=== PATIENT | female | born 1940 | race Caucasian/White ===

== ENCOUNTER → 2023-08-18 14:14 | Outpatient (REF) | payer OTHER, SELFPAY | LOC: MRI 3T 14:14 | PROVIDERS: ATTENDING PHYSICIAN Physical Medicine & Rehabilitation; FAMILY PHYSICIAN Internal Medicine | DX: M54.16 Radiculopathy, lumbar region (principal) | CPT/HCPCS: 72148 ==

== ENCOUNTER 2023-09-02 17:28 | Inpatient (IN) | payer OTHER, SELFPAY ==
[2023-09-02] VITALS (12 sets, daily range): BP systolic 106–189; BP diastolic 49–81; PULSE 82; O2SAT 85; BMI 37.0
--- NOTE | 2023-09-02 11:34 | ED.GENMED ---
History of Present Illness
<Vee Lott PA-C - Last Filed: 09/02/23 16:55>
General
Chief Complaint: Fall
Source: patient
Exam Limitations: none
Time Seen by Provider: 09/02/23 11:14
Nursing documentation reviewed up to this point in time: agreed with
Travel History
Have you had any contact with someone who has COVID-19?: No
Do you have any symptoms of coronavirus? Fever > 100 degrees, chills, cough, shortness of breath, sore throat, loss of taste or smell, muscle aches, or headache?: No
History of Present Illness
History of Present Illness:
Patient is an 83-year-old female with history hypertension, hyperlipidemia presenting for evaluation in the emergency department via EMS following fall earlier today. She states that she was walking back to her bedroom from the bathroom around 4/5
AM when she fell landing on her buttocks. Patient not sure exactly how she did fall but denies any preceding dizziness, lightheadedness, chest pain, shortness of breath. Patient did not hit her head or lose consciousness. She was able to get up
and get back into bed. She fell back asleep for an hour or so when she woke she had was having significant pain in her lower back and came to the emergency department for evaluation.
Patient denies any headache, visual changes, neck pain, nausea, vomiting. She denies any abdominal pain. Patient denies any chest pain or shortness of breath. patient denies any numbness/tingling of lower extremities, bowel/bladder incontinence.
Patient is not on any blood thinners
Past History
<Vee Lott PA-C - Last Filed: 09/02/23 16:55>
Past History
ED Past Medical History: HTN and Hypercholesterolemia
ED Past Surgical History:
Patient has exhibited threatening behavior?: No
Social History
Tobacco: Former smoker
Alcohol: Occasional
Drug: None
Personal:
Living: with family
Employment: Retired
Family History
Family History: Hypertension and Other (stroke)
Phy Exam
<Vee Lott PA-C - Last Filed: 09/02/23 16:55>
Physical Exam
Physical Exam:
General: In mild distress due to pain, nontoxic appearing
Vitals: Hypertensive, otherwise vital signs stable, afebrile
HEENT: Atraumatic, normocephalic; pupils equal round reactive light bilaterally, protecting airway
Neck: appears supple, no cervical spine tenderness, normal range of motion, trachea midline
CV: Regular rate, no evidence of cyanosis
Resp: No evidence of respiratory distress, lungs clear
Abd: Soft, nontender, non-distended
Extremities: Mild tenderness of right greater trochanter without any obvious deformity, full passive ROM in right hip; no tenderness of left hip, bilateral knees; lower extremities neurovascularly intact
Back: Tenderness of lumbar spine at level L1/L2 and left paraspinal region without any obvious deformity or step off
Neuro: alert and oriented, grossly intact
Psych: Normal affect
Skin: Intact, no rashes
Course
<Vee Lott PA-C - Last Filed: 09/02/23 16:55>
Orders/Labs/Results
Orders:
Orders
09/02/23 11:18
Lumbar Spine Complete, 4 View [CR Lumbar Spine Comp Min 4 Vw*] Urgent
Comment:
Reason For Exam: fall/pain
09/02/23 11:36
Hip, Right 2-3 Views [CR Hip - RT w/wo Pel 2-3 Vw*] Urgent
Comment:
Reason For Exam: fall, pain right hip
Include a pelvis x-ray?: Yes
09/02/23 12:07
Tramadol HCl [Ultram] 75 mg PO NOW STA
09/02/23 12:57
Case Management Consult ONCE
Case Management Consult: Discharge Planning
Ondansetron Orally Disint [Zofran Odt (Orally Disintegrating)] 4 mg PO NOW STA
PT Consult [Pt Eval And Treat] Urgent
Activity Level: As Tolerated
09/02/23 12:58
Electrocardiogram (*1) Urgent
Reason for Study: QTc Monitoring
EKG- Treatment ONCE
09/02/23 13:27
Complete Blood Count/With Diff Urgent
Comprehensive Metabolic Panel Urgent
09/02/23 14:29
CR Chest - 2 Views Urgent
Comment:
Reason For Exam: fall, hypoxia
09/02/23 15:56
NT-proBNP Urgent
Troponin I Urgent
Abnormal Lab Results
09/02/23
13:27
WBC 13.7 H 10^3/uL
(4.8-10.8)
RBC 3.48 L 10^6/uL
(4.20-5.40)
Hgb 11.1 L g/dL
(12.0-16.0)
Hct 33.3 L %
(37.0-47.0)
MCH 31.9 H pg
(27.0-31.0)
RDW 16.3 H %
(11.5-14.5)
MPV 10.7 H fL
(7.4-10.4)
Abs Immat Gran (auto) 0.1 H 10^3/uL
(0-0.05)
Absolute Neuts (auto) 12.1 H 10^3/uL
(1.4-6.5)
Absolute Lymphs (auto) 0.9 L 10^3/uL
(1.2-3.4)
Neutrophils % 88.3 H %
(42.2-75.2)
Lymphocytes % 6.6 L %
(20.5-51.1)
Sodium 134 L mmol/L
(135-145)
BUN 34 H mg/dl
(7-17)
Glucose 139 H mg/dl
(70-99)
09/02/23 13:27
09/02/23 13:27
Vital Signs
Initial and Last Documented VS:
Initial Vital Signs
BP
179/68
09/02/23 11:12
Last Documented Vital Signs
Temp Pulse Resp BP Pulse Ox
98.2 F 83 14 137/72 95
09/02/23 11:13 09/02/23 15:15 09/02/23 15:15 09/02/23 16:00 09/02/23 16:45
<Trinidad Odell MD - Last Filed: 09/02/23 13:03>
Orders/Labs/Results
Orders:
Orders
09/02/23 11:18
Lumbar Spine Complete, 4 View [CR Lumbar Spine Comp Min 4 Vw*] Urgent
Comment:
Reason For Exam: fall/pain
09/02/23 11:36
Hip, Right 2-3 Views [CR Hip - RT w/wo Pel 2-3 Vw*] Urgent
Comment:
Reason For Exam: fall, pain right hip
Include a pelvis x-ray?: Yes
09/02/23 12:07
Tramadol HCl [Ultram] 75 mg PO NOW STA
09/02/23 12:57
Case Management Consult ONCE
Case Management Consult: Discharge Planning
Ondansetron Orally Disint [Zofran Odt (Orally Disintegrating)] 4 mg PO NOW STA
PT Consult [Pt Eval And Treat] Urgent
Activity Level: As Tolerated
09/02/23 12:58
Electrocardiogram (*1) Urgent
Reason for Study: QTc Monitoring
EKG- Treatment ONCE
09/02/23 13:27
Complete Blood Count/With Diff Urgent
Comprehensive Metabolic Panel Urgent
09/02/23 14:29
CR Chest - 2 Views Urgent
Comment:
Reason For Exam: fall, hypoxia
09/02/23 15:56
NT-proBNP Urgent
Troponin I Urgent
Abnormal Lab Results
09/02/23
13:27
WBC 13.7 H 10^3/uL
(4.8-10.8)
RBC 3.48 L 10^6/uL
(4.20-5.40)
Hgb 11.1 L g/dL
(12.0-16.0)
Hct 33.3 L %
(37.0-47.0)
MCH 31.9 H pg
(27.0-31.0)
RDW 16.3 H %
(11.5-14.5)
MPV 10.7 H fL
(7.4-10.4)
Abs Immat Gran (auto) 0.1 H 10^3/uL
(0-0.05)
Absolute Neuts (auto) 12.1 H 10^3/uL
(1.4-6.5)
Absolute Lymphs (auto) 0.9 L 10^3/uL
(1.2-3.4)
Neutrophils % 88.3 H %
(42.2-75.2)
Lymphocytes % 6.6 L %
(20.5-51.1)
Sodium 134 L mmol/L
(135-145)
BUN 34 H mg/dl
(7-17)
Glucose 139 H mg/dl
(70-99)
09/02/23 13:27
09/02/23 13:27
Vital Signs
Initial and Last Documented VS:
Initial Vital Signs
BP
179/68
09/02/23 11:12
Last Documented Vital Signs
Temp Pulse Resp BP Pulse Ox
98.2 F 83 14 137/72 95
09/02/23 11:13 09/02/23 15:15 09/02/23 15:15 09/02/23 16:00 09/02/23 16:45
<Vee Lott PA-C - Last Filed: 09/02/23 16:55>
MDM/Problems Addressed
Differential Diagnosis Includes:
Not limited to: Vertebral fracture, paraspinal strain/spasm, hip fracture
MDM/Problems Addressed:
Patient is an 83-year-old female presenting for evaluation of lower back pain following fall earlier today. Unsure exact mechanism of fall but denies any preceding dizziness, lightheadedness, chest pain, shortness of breath. No strokelike
symptoms. Patient denies head strike or loss of conscious. Worsening lower back pain. Vital stable, afebrile. Exam as above. She does have some tenderness of lumbar spine around L1/L2. There is some associated mild tenderness around the right
hip. Will check x-ray of lumbar spine and right hip. tramadol for pain. Will reassess.
X-ray of lumbar spine does show a compression fracture of L1 superior endplate. I do have concern about patient's ability to control pain and ambulate safely at home. PT and case management consulted for discharge planning. She has since become
somewhat lightheaded and nauseous. Will give Zofran. Will check EKG, basic labs.
EKG shows normal sinus rhythm without any signs of ischemia. Labs do show mild leukocytosis of 13.7 and mild anemia with hemoglobin of 11.1�which appears chronic for patient. Otherwise no clinically significant abnormalities.
PT did recommend placement for patient rehab facility, not safe for discharge home. Case management was able to secure a bed at [facility]. Shortly after�patient's oxygen saturation did drop into mid 80s requiring 2 L nasal cannula with return
to baseline. Patient's oxygen dropped with trial off oxygen. Although she continues to deny any shortness of breath or chest pain-will check chest x-ray given sustained hypoxia on room air and associated leukocytosis to ensure no pneumonia,
pneumothorax, acute lung pathology. Given oxygen requirement�will plan for admission to hospital as opposed to rehab placement.
Chest x-ray shows what appears to be mild CHF. Will send for troponin and proBNP. Patient's vitals remained stable and oxygen saturation in upper 90s on 2 L nasal cannula. Will admit to hospitalist for pain management of L1 compression fracture,
oxygen requirement likely due to mild CHF. Discussed with hospitalist.
Chronic conditions affecting care:
Spinal stenosis, chronic back pain
Acute Exacerbation and/or Progression of Chronic Illness:
Mild CHF exacerbation
<Vee Lott PA-C - Last Filed: 09/02/23 16:55>
*Radiology
Radiology exam reviewed: preliminary read by ED provider and radiology read reviewed
*Pulse Oximetry
Patient hypoxic: yes (Placed on 2 L nasal cannula)
*EKG
Interpreted by ED Provider?: Yes
EKG Intrepretation Date: 09/02/23
Interpretation: normal
Comparison EKG: no comparison EKG present
Heart Rate: 78
Rate: normal
Rhythm: sinus
Ischemia: no ischemia
*Squeegee Tender Interpretation
Rate: Squeegee Tender- N/A
*Critical Care Note
Total Time (30-74mins, 75-104mins- exclusive of procedures): Not Applicable
<Vee Lott PA-C - Last Filed: 09/02/23 16:55>
Patient Management
Discussion with other providers: Hospitalist and Accounting Assistant (PT, case management)
Escalation/DeEscalation of care consider admission/obs:
Given hypoxia and oxygen requirement�will admit for further management and pain control of compression fracture
ED Attending Note
<Vee Lott PA-C - Last Filed: 09/02/23 16:55>
-
Portions of this chart may have been created with voice recognition software.� Occasional wrong word or��sound alike� substitutions may have occurred due to the inherent limitations of voice recognition software.
<Trinidad Odell MD - Last Filed: 09/02/23 13:03>
ED Attending Note
Patient seen and examined by attending physician: Yes
I performed the substantive portion of visit, reviewed & personally made and approve the management plan that is documented in note by myself or PRASAD.: Yes
ED Attending Note:
Patient denies any previous lightheadedness, dizziness, chest pain or shortness of breath. She reports she just fell down onto her bottom. She did not hit her head. There is no sign of head or neck trauma. Patient is isolated mid lumbar
tenderness and has an acute fracture seen on x-ray of L1. Patient got up and walked and is having severe pain. She now reports feeling slightly nauseous and lightheaded. She lives with her . I am concerned about the safety of her going
home. We will consult PT and case management for discharge planning. If needed, patient will be admitted to the hospital. There is no history of syncope or strokelike symptoms.
Discharge Plan
Departure
Patient Disposition: Admit
Date of Disposition: 09/02/23
Time of Disposition: 15:51
Presentation/result/management discussed w/ accepting MD/DO: Hospitalist
Discharge Problem:
Compression fracture of L1 vertebra, Mild congestive heart failure, Hypoxia
Prescriptions:
No Action
amlodipine 5 MG tablet
5 mg PO BID
zolpidem 5 MG tablet
10 mg PO HS PRN (Reason: Sleep)
memantine 10 MG tablet
10 mg PO BID
donepezil 23 MG tablet
23 mg PO HS
cyanocobalamin (vitamin B-12) 1,000 MCG tablet
1,000 mcg PO DAILY Qty: 30 0RF
sertraline 100 mg Tablet
100 mg PO DAILY
acetaminophen-codeine [Tylenol-Codeine #2] 300-15 mg Tablet
1 tab PO Q8H PRN (Reason: severe pain)
acetaminophen [Tylenol Arthritis] 650 mg Tablet Extended Release
1,300 mg PO Q8HPRN PRN (Reason: mild pain)
losartan-hydrochlorothiazide 100-25 mg Tablet
1 tab PO DAILY
ferrous sulfate [iron] 325 mg (65 mg iron) Tablet
325 mg PO MOWEFR@0800
hydralazine 50 mg Tablet
50 mg PO BID
rosuvastatin 20 mg Tablet
20 mg PO HS
pregabalin 25 mg Capsule
25 mg PO BID
riboflavin (vitamin B2)
1 tab PO DAILY
pantoprazole 40 MG tablet,delayed release (DR/EC)
40 mg PO DAILY
Referrals:
Penny Simmons MD [Family Provider] -
Interventions
Interventions:
*Risk Screen - Suicide Last Done: 09/02/23 11:13
*General Assessment Last Done: 09/02/23 11:13
*Neglect/Abuse Screening Last Done: 09/02/23 11:13
ED- Fall Risk Assessment Last Done: 09/02/23 11:13
*ED COVID-19 Vaccine History Last Done: 09/02/23 11:13
ED-Musculoskeletal Assessment Last Done: 09/02/23 11:13
ED- Neurological Assessment Last Done: 09/02/23 11:13
ED-Skin Assessment Last Done: 09/02/23 11:13
Discharge Date and Time
Print Language: FRENCH
[2023-09-02] MEDS: ULTRAM 75 MG PO (12:27)
[2023-09-02] MEDS: ZOFRAN ODT (ORALLY DISINTEGRATING) 4 MG PO (13:03)
--- NOTE | 2023-09-02 13:11 | CM ---
Addendum entered by Mirela Pedroza RN 09/02/23 14:28:
Transfer to SNF canceled due to patient's hypoxia. Plan for admission.
Addendum entered by Mirela Pedroza RN 09/02/23 14:06:
Patient is agreeable to transfer to [facility]. CM will call for authorization.
Addendum entered by Mirela Pedroza RN 09/02/23 13:44:
[facility] is able to accept. PT is currently working with patient. CM will confirm SNF needs and update [facility] admission coordinator.
Addendum entered by Mirela Pedroza RN 09/02/23 13:31:
CM met with patient and in room. Patient would be agreeable to placement pending PT evaluation. CM sent preliminary referrals to [facility] for bed [facility]. CM will continue to follow for needs.
Original Note:
Cm reviewed medical records. Pending PT evaluation. CM will watch for recommendations.
[2023-09-02 13:42] LABS: % Basophils 0.2 % (0-2); % Immature Granulocytes 0.4 % (0-0.5); % Lymphocytes 6.6 % (20.5-51.1); % Monocytes 4.5 % (1.7-9.3); % Neutrophils 88.3 % (42.2-75.2); Absolute Immature Granulocytes 0.1 10^3/uL (0-0.05); Absolute Lymphocytes 0.9 10^3/uL (1.2-3.4); Absolute Monocytes 0.6 10^3/uL (0.1-0.6); Absolute Neutrophils 12.1 10^3/uL (1.4-6.5); Hematocrit 33.3 % (37.0-47.0); Hemoglobin 11.1 g/dL (12.0-16.0); Mean Corp Hgb Conc. 33.3 g/dL (33.0-37.0); Mean Corpuscular Hgb 31.9 pg (27.0-31.0); Mean Corpuscular Volume 95.7 fL (81.0-99.0); Mean Platelet Volume 10.7 fL (7.4-10.4); Nucleated Red Blood Cells % 0 %; Platelet Count 211 10^3/uL (130-400); Red Blood Cell Count 3.48 10^6/uL (4.20-5.40); Red Cell Dist. Width 16.3 % (11.5-14.5); White Blood Cell Count 13.7 10^3/uL (4.8-10.8)
[2023-09-02 13:58] LABS: ALT (SGPT) 18 U/L (0-35); AST (SGOT) 28 U/L (14-36); Alkaline Phosphatase 89 U/L (38-126); Blood Urea Nitrogen 34 mg/dl (7-17); Calcium 9.6 mg/dl (8.4-10.2); Carbon Dioxide 29 mmol/L (22-30); Chloride 103 mmol/L (98-107); Estimated Creatinine Clearance 57 ml/min; Glucose 139 mg/dl (70-99); Potassium 4.3 mmol/L (3.5-5.1); Sodium 134 mmol/L (135-145); Total Bilirubin 0.5 mg/dl (0.2-1.3); Total Protein 7.1 g/dl (6.3-8.2); eGFR > 60.00
[2023-09-02 16:28] LABS: NT-proBNP 1740 pg/ml; Troponin I 0.012 ng/ml
--- NOTE | 2023-09-02 16:46 | HPS.HSE ---
Family Physician
-
Family Physician: Penny Simmons
Chief Complaint
-
Fall, back pain
History of Present Illness
83-year-old female from home by EMS who was walking to her bedroom from the bathroom around 4 to 5 AM when she fell landing on her buttocks. She is unsure how she fell but denies any prodrome of dizziness, lightheadedness, chest pain or shortness
of breath. She denies LOC. She was able to get back up and back into bed and fall back asleep. Upon awakening she had pain in her lower back and came to the ER for evaluation where she was found to have an L1 compression fracture she was also
noted to be hypoxic with saturation dropping into the 80s while lying flat and required 2 L nasal cannula. Her chest x-ray showed some mild CHF. According to her she did not take her a.m. medications. He is also requesting her Ambien for
sleep but I explained due to her hypoxia I would like to hold that medication. He is requesting low-dose melatonin which I will add. He also reports she had a lumbar epidural [address] Zazueta. Other PMH includes HTN, dementia oriented to
name, place, but not year, HLD, insomnia, blood loss anemia gastric ulcer due to NSAID use, chronic diastolic CHF, iron deficiency, B12 deficiency, neuropathy, arthritis, depression, insomnia.
Medical History
Past Medical History
Past Medical History: Reports Other
Additional Past Medical History:
HTN
dementia
HLD
insomnia
blood loss anemia gastric ulcer due to NSAID use
chronic diastolic CHF
iron deficiency
B12 deficiency
neuropathy
arthritis
depression
insomnia.
Past Surgical History: Reports and Other (Lumbar epidural mid August [address]23 Dr. Zazueta)
Social History
Tobacco: Former Smoker (Quit 30 years ago)
Alcohol: Daily (1 glass 8 ounce wine nightly)
Personal:
Living: With Family ( Matthew)
Employment: Retired
Family History
Family History: Other (Mother CVA age 45 age 89 old age, father age 79 liver cancer)
Allergies / Home Medications
Allergies reflects when Allergies were last updated in [facility].
Home Medications with original date entered in [facility]
Allergy/Medication List:
Allergies
Allergy/AdvReac Type Severity Reaction Status Date / Time
No Known Allergies Allergy Verified 09/02/21 20:39
Home Medications
amlodipine 5 mg tablet 5 mg PO BID Blood pressure 07/07/21
memantine 10 mg tablet 10 mg PO BID memory 07/07/21
zolpidem 5 mg tablet 10 mg PO HS PRN Sleep 07/07/21
donepezil 23 mg tablet 23 mg PO HS memory 07/09/21
cyanocobalamin (vitamin B-12) 1,000 mcg tablet 1,000 mcg PO DAILY #30 tabs 07/11/21
acetaminophen 300 mg-codeine 15 mg tablet 1 tab PO Q8H PRN severe pain 09/02/23
acetaminophen 650 mg tablet,extended release 1,300 mg PO Q8HPRN PRN mild pain 09/02/23
ferrous sulfate 325 mg (65 mg iron) tablet (iron) 325 mg PO MOWEFR@0800 09/02/23
hydralazine 50 mg tablet 50 mg PO BID 09/02/23
losartan 100 mg-hydrochlorothiazide 25 mg tablet 1 tab PO DAILY 09/02/23
pantoprazole 40 mg tablet,delayed release 40 mg PO DAILY 09/02/23
pregabalin 25 mg capsule 25 mg PO BID 09/02/23
riboflavin (vitamin B2) 1 tab PO DAILY 09/02/23
rosuvastatin 20 mg tablet 20 mg PO HS 09/02/23
sertraline 100 mg tablet 100 mg PO DAILY 09/02/23
Review of Systems
-
History Source: Patient and Family ( Matthew at bedside)
A 12 point ROS was completed and negative except as noted: Yes
Constitutional: Denies Fever, Fatigue or Chills
EENT: Denies Sore Throat or Runny Nose
Respiratory: Denies Cough or Trouble Breathing
Cardiac: Denies Chest Pain, Diaphoresis, Palpitations or Syncope
Abdomen/GI: Denies Abdominal Pain, Nausea, Vomiting, Diarrhea, Constipated, Bloody Stools or Black Stools
: Denies Dysuria, Frequency, Flank Pain, Incontinence or Difficulty Voiding
Musculoskeletal: Reports Other (Lumbar back pain); Denies Joint Pain or Edema
Skin: Denies Itching or Rash
Neurological: Denies Dizzy, Headache or Weakness
Endocrine: Reports No Symptoms
Hematologic/Lymphatic: Reports No Symptoms
Psych: Reports Calm
Physical Exam
Vital Signs
Vital Signs
Temp Pulse Resp BP Pulse Ox
98.2 F 83 14 137/72 94
09/02/23 11:13 09/02/23 15:15 09/02/23 15:15 09/02/23 16:00 09/02/23 16:15
Physical Exam
General: Comfortable and Conversant; No Fever or Chills
HEENT: NormoCephalic, Anicteric, Moist mucous membranes, Atraumatic, PERRLA, [place] Conjunctivae, No Ptosis and Neck Nontender
Respiratory: Clear; No Wheezes, Rales or Rhonchi
Cardiac: S1/S2 and Regular Rhythm; No Murmur, Rub, Gallop or Peripheral Edema
Breast: Deferred by me
GI: Soft, Non Tender, Non Distended, Normal Bowel Sounds and No Hepatosplenomegaly
Rectal: Deferred by Provider
Genito-urinary: Deferred by me
Musculoskeletal: No Clubbing, No Cyanosis, No Edema and Other (Tender lumbar area, Lidoderm patch placed by nurse when in room, distal sensation intact)
Skin: Warm and Dry; No Rash or Jaundice
Neuro: Awake, Alert, Oriented (To name, place, but thinks it is 2019), Nonfocal/grossly intact, Cranial Nerves Intact and No Sensory Deficits; No Slurred Speech, Facial Droop or Tremors
Psych: Calm
Laboratory Results
-
09/02/23 13:27
09/02/23 13:27
Laboratory Results
Total Bilirubin 0.5 mg/dl (0.2-1.3) 09/02/23 13:27
AST 28 U/L (14-36) 09/02/23 13:27
ALT 18 U/L (0-35) 09/02/23 13:27
Alkaline Phosphatase 89 U/L (38-126) 09/02/23 13:27
Troponin I 0.012 ng/ml 09/02/23 15:56
Data Reviewed
-
Diagnostic Radiology: Report Reviewed by me
Lab Data: Labs Reviewed by me
Impression/Plan
-
Impression/plan:
Admit to telemetry
#Mild acute on chronic diastolic CHF with preserved EF
#Hypoxic respiratory insufficiency 2/2 possible CHF flare
80% sat lying, 97% 2 L nasal cannula sitting up
BNP 1740
I/O, daily weight
-IV Lasix 20 mg once
-Check 2D echo
Follows with [facility] cardiology
CXR: Poor inspiratory effort , mild prominence of bronchovascular markings. Mild vascular congestion cannot be excluded
EKG: NSR 78 bpm, QTc 451 MS otherwise normal
2D echo 07/10/2021: EF 60-65%, mild LVH, no wall abnormalities, moderate MR/TR, moderate pulm HTN pulm arterial pressure 58 mmHg
#Labile HTN
189/71> 137/72 patient did not take a.m. medications
-IV Lasix 20 mg once
-Continue losartan/HCTZ, hydralazine 50 mg p.o. twice daily, amlodipine 5 mg twice daily
#Mechanical fall with NEW L1 compression fracture 40%
-Lidoderm patch
-Tylenol, tramadol, continue Tylenol codeine No. 2 1 tab every 8 hours as needed severe pain, bowel regimen
-MRI lumbar spine
-Consult PT/OT/case management
Right hip pelvis x-ray: Normal
Lumbar spine: New 40% compression fracture superior endplate of L1. DDD L2-3 and L3-4, atherosclerosis
#History of blood loss anemia from gastric ulcer secondary to NSAID use July 2021
-Had EGD on 07 09 showing multiple clean gastric ulcers in the antrum
-Continue PPI
#Iron deficiency/B12 deficiency
-History of IV Venofer July 2021
-Continue ferrous sulfate 325 mg Friday
-Continue B12 supplement
#Dementia
Oriented to name, place, but not year
-Continue memantine 10 mg twice daily, donepezil 20 mg at bedtime
#Neuropathy/chronic back pain
Status post lumbar epidural [address] Zazueta
#Chronic arthritis
-Continue Lyrica 25 mg p.o. twice daily
-Tylenol 650 mg q8h
#HLD
-Continue rosuvastatin 20 mg at bedtime
#Depression
-Continue Zoloft 100 mg daily
#Insomnia
Hold Ambien 10 mg at bedtime due to hypoxia with lying
Will give 5 mg melatonin per family request
DVT prophylaxis
Subcu Lovenox
Full code per patient with and son at bedside
--- NOTE | 2023-09-02 16:53 | W.PN.UPDATE ---
Update Note
Progress Note Update
I saw and examined the patient.
The LICENSED SALES PRODUCER or PA's note was reviewed and I agree with the note.
Comment: 83-year-old female who presented with a mechanical fall. In the ER she was noted to be saturating in the 80s when supine.
137/72, 83, 14, 98.2 F, 95% 2L NC O2
NAD, awake and alert
RRR, normal S1/S2
CTAB
+BS/soft/NT/ND
CN2-12 intact
Cr 0.7
WBC 13.7
L-spine Xray: New 40% compression fracture of the superior endplate of L1
Acute L1 comp fx:
-check MRI L spine
-c/s IR for vertebroplasty
Acute on chronic HFpEF (mild):
-Lasix 40mg IV x 1
-check echo
-daily wts, I/Os
Essential HTN:
-Continue Norvasc/hydrochlorothiazide/losartan
Obesity due to excess calories:
-Encourage weight loss
-Affects all aspects of care
[2023-09-02] MEDS: LIDOCAINE 4% PATCH 1 PATCH TOPICAL (17:06)
[2023-09-02] MEDS: LASIX 20 MG IV (17:06)
--- NOTE | 2023-09-02 18:25 | PTCARENOTE ---
1825 Pt arrived to unit room 337-1 via stretcher from ED.
[2023-09-02] MEDS: NAMENDA 10 MG PO (20:10)
[2023-09-02] MEDS: NORVASC 5 MG PO (20:10)
[2023-09-02] MEDS: LOVENOX 40 MG SC (20:10)
[2023-09-02] MEDS: APRESOLINE 50 MG PO (20:11)
[2023-09-02] MEDS: LYRICA 25 MG PO (20:12)
[2023-09-02] MEDS: ULTRAM 50 MG PO (20:19)
[2023-09-02] MEDS: ARICEPT 20 MG PO (21:51)
[2023-09-02] MEDS: CRESTOR 20 MG PO (21:51)
[2023-09-02] MEDS: MELATONIN 5 MG PO (21:51)
[2023-09-03] VITALS (7 sets, daily range): BP systolic 126–165; BP diastolic 55–69; PULSE 77; O2SAT 96; BMI 35.6
[2023-09-03] MEDS: ZOFRAN 4 MG IV (03:45)
[2023-09-03 05:54] LABS: % Basophils 0.3 % (0-2); % Eosinophils 0.1 % (0-6); % Immature Granulocytes 0.3 % (0-0.5); % Lymphocytes 5.5 % (20.5-51.1); % Monocytes 5.4 % (1.7-9.3); % Neutrophils 88.4 % (42.2-75.2); Absolute Lymphocytes 0.7 10^3/uL (1.2-3.4); Absolute Monocytes 0.7 10^3/uL (0.1-0.6); Absolute Neutrophils 11.1 10^3/uL (1.4-6.5); Hematocrit 33.2 % (37.0-47.0); Mean Corp Hgb Conc. 33.1 g/dL (33.0-37.0); Mean Corpuscular Hgb 31.7 pg (27.0-31.0); Mean Corpuscular Volume 95.7 fL (81.0-99.0); Mean Platelet Volume 10.5 fL (7.4-10.4); Nucleated Red Blood Cells % 0 %; Platelet Count 214 10^3/uL (130-400); Red Blood Cell Count 3.47 10^6/uL (4.20-5.40); Red Cell Dist. Width 16.5 % (11.5-14.5); White Blood Cell Count 12.5 10^3/uL (4.8-10.8)
[2023-09-03 06:21] LABS: Blood Urea Nitrogen 35 mg/dl (7-17); Calcium 9.8 mg/dl (8.4-10.2); Carbon Dioxide 30 mmol/L (22-30); Chloride 99 mmol/L (98-107); Estimated Creatinine Clearance 49 ml/min; Glucose 145 mg/dl (70-99); Potassium 4.1 mmol/L (3.5-5.1); Sodium 139 mmol/L (135-145); eGFR > 60.00
[2023-09-03] MEDS: LIDOCAINE 4% PATCH 1 PATCH TOPICAL (07:32)
[2023-09-03] MEDS: PROTONIX 40 MG PO (07:33)
[2023-09-03] MEDS: HYZAAR 100-25 TABLET 1 TAB PO (07:33)
[2023-09-03] MEDS: NAMENDA 10 MG PO ×2 (07:33→19:58)
[2023-09-03] MEDS: LYRICA 25 MG PO ×2 (07:33→19:58)
[2023-09-03] MEDS: APRESOLINE 50 MG PO ×2 (07:34→19:58)
[2023-09-03] MEDS: NORVASC 5 MG PO ×2 (07:34→19:58)
[2023-09-03] MEDS: VITAMIN B-12 1000 MCG PO (07:34)
[2023-09-03] MEDS: FEOSOL 325 MG PO (07:34)
[2023-09-03] MEDS: ZOLOFT 100 MG PO (07:34)
--- NOTE | 2023-09-03 09:38 | W.PN.HOSP.TC ---
Today's Communication/Plan
-
see bold
Assessment / Plan
Assessment / Plan
Gen: NAD, Awake and alert
Eyes: EOMI, PERRLA, no scleral icterus.
Neck: supple.
CV: RRR, +S1/S2, no m/r/g.
Resp: CTAB, no rales, wheezes, or rhonchi.
Abd: +BS, soft, NT, ND
Skin: No rashes.
Neuro: CN 2-12 intact, non-focal.
Psych: Normal mood and affect.
CXR: Poor inspiratory effort. No evidence of pneumonia. Mild prominence of bronchovascular markings may be accentuated by low lung volumes. The possibility of mild vascular congestion cannot be excluded.
L-spine Xray: New 40% compression fracture of the superior endplate of L1
Acute L1 comp fx due to mechanical fall:
-check MRI L spine
-c/s IR for vertebroplasty (after MRI L-spine done)
Acute on chronic HFpEF (mild):
-Lasix 40mg IV x 1 given on admission
-check echo
-daily wts, I/Os
Other problems:
Essential HTN: Continue Norvasc/hydrochlorothiazide/losartan
Obesity due to excess calories: Encourage weight loss. Affects all aspects of care.
h/o gastric ulcer: cont PPI
h/o Fe def: cont PO Fe
h/o B12 deficiency: cont B12 supplement
Dementia: cont Namenda/Aricept
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
HLD: cont statin
Depression: cont Zoloft
Insomnia: Melatonin PRN
FULL/Lovenox
Anticipated Discharge: 24 - 48 hours
Subjective/Interval History
-
Date of Service: September 03, 2023
Back pain improved from yesterday. Denies CP/SOB.
Objective Data
-
Labs:
Laboratory Results
09/03/23
05:22
WBC 12.5 H
Hgb 11.0 L
Hct 33.2 L
Plt Count 214
Sodium 139
Potassium 4.1
Chloride 99
Carbon Dioxide 30
BUN 35 H
Creatinine 0.8
Glucose 145 H
Calcium 9.8
Vital Signs:
Vital Signs
Temp Pulse Resp BP Pulse Ox
99 F 80 16 160/69 97
09/03/23 08:12 09/03/23 08:12 09/03/23 08:12 09/03/23 08:12 09/03/23 08:12
[2023-09-03] MEDS: ULTRAM 50 MG PO ×2 (12:11→21:27)
[2023-09-03] MEDS: CODEINE 15 MG PO (14:25)
[2023-09-03] MEDS: TYLENOL 650 MG PO (14:25)
[2023-09-03] MEDS: LOVENOX 40 MG SC (17:38)
[2023-09-03] MEDS: ARICEPT 20 MG PO (21:27)
[2023-09-03] MEDS: CRESTOR 20 MG PO (21:28)
[2023-09-03] MEDS: MELATONIN 5 MG PO (21:28)
[2023-09-04 03:00] VITALS: BP 146/62
[2023-09-04 06:00] VITALS: BMI 34.4
[2023-09-04 07:49] VITALS: BP 152/70
[2023-09-04] MEDS: CODEINE 15 MG PO ×2 (08:00→16:11)
[2023-09-04] MEDS: TYLENOL 325 MG PO ×2 (08:01→16:10)
[2023-09-04] MEDS: LIDOCAINE 4% PATCH 1 PATCH TOPICAL (08:02)
[2023-09-04] MEDS: HYZAAR 100-25 TABLET 1 TAB PO (08:03)
[2023-09-04] MEDS: NAMENDA 10 MG PO ×2 (08:03→21:20)
[2023-09-04] MEDS: VITAMIN B-12 1000 MCG PO (08:03)
[2023-09-04] MEDS: ZOLOFT 100 MG PO (08:03)
[2023-09-04] MEDS: LYRICA 25 MG PO ×2 (08:03→21:18)
[2023-09-04] MEDS: PROTONIX 40 MG PO (08:03)
[2023-09-04] MEDS: NORVASC 5 MG PO ×2 (08:03→21:17)
[2023-09-04] MEDS: APRESOLINE 50 MG PO ×2 (08:03→21:20)
--- NOTE | 2023-09-04 09:07 | W.PN.HOSP.TC ---
Today's Communication/Plan
-
see bold
Assessment / Plan
Assessment / Plan
Gen: NAD, Awake and alert
Eyes: EOMI, PERRLA, no scleral icterus.
Neck: supple.
CV: remains RRR, +S1/S2, no m/r/g.
Resp: remains CTAB, no rales, wheezes, or rhonchi.
Abd: remains +BS, soft, NT, ND
Skin: No rashes.
Neuro: CN 2-12 intact, non-focal.
Psych: Normal mood and affect.
CXR: Poor inspiratory effort. No evidence of pneumonia. Mild prominence of bronchovascular markings may be accentuated by low lung volumes. The possibility of mild vascular congestion cannot be excluded.
L-spine Xray: New 40% compression fracture of the superior endplate of L1
MRI L-spine: Examination is severely limited due to patient motion. Repeat fast scanning was performed. New in the interval since the MRI 2 weeks ago is a minimal superior endplate compression fracture of L1 with minimal retrolisthesis of the
posterior superior endplate, however without cord compression or clear nerve root impingement. Limited motion artifact images suggest a new small shallow central disk protrusion at L2-3, consider follow-up repeat imaging when patient is
appropriately medicated for pain. This however does not cause any cord compression, nerve root impingement or severe central canal stenosis. No other significant interval change. Moderate facet arthropathy on the left at L4-5.
Acute L1 comp fx due to mechanical fall:
-MRI L spine above with minimal superior endplate compression fracture of L1
-case discussed with Dr. Maria and comp fx would be amenable to kyphoplasty. IR to discuss with pt/family.
Acute on chronic HFpEF (mild):
-Lasix 40mg IV x 1 given on admission
-check echo
-daily wts, I/Os
Insomnia:
-no ambien
-start Restoril PRN
Other problems:
Essential HTN: Continue Norvasc/hydrochlorothiazide/losartan
Obesity due to excess calories: Encourage weight loss. Affects all aspects of care.
h/o gastric ulcer: cont PPI
h/o Fe def: cont PO Fe
h/o B12 deficiency: cont B12 supplement
Dementia: cont Namenda/Aricept
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
HLD: cont statin
Depression: cont Zoloft
Insomnia: Melatonin PRN
FULL/Lovenox
Pt's [id number] and updated at length. Discussed with RN and CM.
Total time spent on today's encounter was 50 minutes which included time spent in counseling the patient/family regarding diagnosis and treatment plan as listed above, goals of care, and symptom management. Case was discussed with nursing staff,
specialists, and care coordinators/case management. All labs and imaging personally reviewed by me. Remainder the time spent in detailed review of previous records, lab data, imaging, and other medical provider documentation.
Anticipated Discharge: > 48 hours
Subjective/Interval History
-
Date of Service: September 04, 2023
c/o insomnia. Also reports back pain is returning.
Objective Data
-
Vital Signs:
Vital Signs
Temp Pulse Resp BP Pulse Ox
98.5 F 78 16 152/70 97
09/04/23 07:49 09/04/23 08:03 09/04/23 07:49 09/04/23 08:03 09/04/23 07:49
I&O
09/03/23 09/04/23 09/05/23
06:59 06:59 06:59
Intake Total 1320 / 1320
Output Total 350 / 350
Balance 970 / 970
--- NOTE | 2023-09-04 10:19 | CM ---
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
Met with pt, and daughter in law Tiarra at bedside
Additional choices for SNF given. Family declining [facility] at this time
CM will cont to follow for d/c needs
Plan - transfer to snf when medically stable
[2023-09-04] MEDS: ULTRAM 50 MG PO ×2 (12:35→21:14)
[2023-09-04 12:45] VITALS: BP 139/62; PULSE 71; O2SAT 96
[2023-09-04 12:47] VITALS: BP 139/62; PULSE 74; O2SAT 96
[2023-09-04 15:37] VITALS: BP 144/56
[2023-09-04] MEDS: LOVENOX 40 MG SC (17:34)
[2023-09-04] MEDS: ARICEPT 20 MG PO ×2 (21:14→21:18)
[2023-09-04] MEDS: CRESTOR 20 MG PO (21:15)
[2023-09-04] MEDS: MELATONIN 5 MG PO (21:15)
[2023-09-04] MEDS: CRESTOR PO ×2 (21:16→21:18)
[2023-09-04] MEDS: ARICEPT PO (21:20)
[2023-09-04] MEDS: RESTORIL 7.5 MG PO (21:31)
[2023-09-04 23:20] VITALS: BP 138/65
[2023-09-05 00:20] VITALS: BP 117/53
[2023-09-05 06:00] VITALS: BMI 35.4
[2023-09-05] MEDS: PROTONIX 40 MG PO (07:42)
[2023-09-05] MEDS: VITAMIN B-12 1000 MCG PO (07:42)
[2023-09-05] MEDS: ULTRAM 50 MG PO ×2 (07:42→14:48)
[2023-09-05] MEDS: ZOLOFT 100 MG PO (07:42)
[2023-09-05] MEDS: HYZAAR 100-25 TABLET 1 TAB PO (07:43)
[2023-09-05] MEDS: APRESOLINE 50 MG PO ×2 (07:43→21:58)
[2023-09-05] MEDS: LIDOCAINE 4% PATCH 1 PATCH TOPICAL (07:43)
[2023-09-05] MEDS: FEOSOL 325 MG PO (07:43)
[2023-09-05] MEDS: NAMENDA 10 MG PO ×2 (07:43→21:55)
[2023-09-05] MEDS: NORVASC 5 MG PO ×2 (07:43→22:00)
[2023-09-05 07:46] VITALS: BP 154/71
[2023-09-05] MEDS: LYRICA 25 MG PO ×2 (08:13→22:00)
--- NOTE | 2023-09-05 09:53 | W.PN.HOSP.TC ---
Today's Communication/Plan
-
see bold
Assessment / Plan
Assessment / Plan
Gen: NAD, Awake and alert
Eyes: EOMI, PERRLA, no scleral icterus.
Neck: supple.
CV: continues to remain RRR, +S1/S2, no m/r/g.
Resp: continues to remain CTAB, no rales, wheezes, or rhonchi.
Abd: continues to remain +BS, soft, NT, ND
Skin: No rashes.
Neuro: CN 2-12 intact, non-focal.
Psych: Normal mood and affect.
CXR: Poor inspiratory effort. No evidence of pneumonia. Mild prominence of bronchovascular markings may be accentuated by low lung volumes. The possibility of mild vascular congestion cannot be excluded.
L-spine Xray: New 40% compression fracture of the superior endplate of L1
MRI L-spine: Examination is severely limited due to patient motion. Repeat fast scanning was performed. New in the interval since the MRI 2 weeks ago is a minimal superior endplate compression fracture of L1 with minimal retrolisthesis of the
posterior superior endplate, however without cord compression or clear nerve root impingement. Limited motion artifact images suggest a new small shallow central disk protrusion at L2-3, consider follow-up repeat imaging when patient is
appropriately medicated for pain. This however does not cause any cord compression, nerve root impingement or severe central canal stenosis. No other significant interval change. Moderate facet arthropathy on the left at L4-5.
Echo: Normal left ventricular chamber size. Normal left ventricular systolic
function. Left ventricular ejection fraction is 60-65% by volumetric
assessment. Normal regional wall motion. Normal left ventricular wall
thickness.
Moderate mitral regurgitation.
Moderate tricuspid regurgitation. Estimated pulmonary artery pressure of 55-60
mmHg.
Trace pericardial effusion. .
Compared to the previous echo July 2021, there is no significant change.
Acute L1 comp fx due to mechanical fall:
-MRI L spine above with minimal superior endplate compression fracture of L1
-IR to do kyphoplasty 09/08/23
Acute on chronic HFpEF (mild):
-Lasix 40mg IV x 1 given on admission
-Echo above, unchanged from prior in 2021
-daily wts, I/Os
-start FR 1440cc/day
-nursing instructed to check wts on standing scale starting in AM. May need additional doses of lasix depending on wts.
Insomnia:
-no ambien
-cont Restoril PRN
Other problems:
Essential HTN: Continue Norvasc/hydrochlorothiazide/losartan
Obesity due to excess calories: Encourage weight loss. Affects all aspects of care.
h/o gastric ulcer: cont PPI
h/o Fe def: cont PO Fe
h/o B12 deficiency: cont B12 supplement
Dementia: cont Namenda/Aricept
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
HLD: cont statin
Depression: cont Zoloft
Insomnia: Melatonin PRN
FULL/Lovenox
Anticipated Discharge: > 48 hours
Subjective/Interval History
-
Date of Service: September 05, 2023
Denies CP/SOB.
Objective Data
-
Vital Signs:
Vital Signs
Temp Pulse Resp BP Pulse Ox
98.9 F 93 18 154/71 94
09/05/23 07:46 09/05/23 07:46 09/05/23 07:46 09/05/23 07:46 09/05/23 07:39
I&O
09/04/23 09/05/23 09/06/23
06:59 06:59 06:59
Intake Total 1320 / 1320 120 / 120
Output Total 350 / 350
Balance 970 / 970 120 / 120
[2023-09-05 10:33] LABS: Hematocrit 34.4 % (37.0-47.0); Hemoglobin 11.3 g/dL (12.0-16.0); Mean Corp Hgb Conc. 32.8 g/dL (33.0-37.0); Mean Corpuscular Hgb 31.4 pg (27.0-31.0); Mean Corpuscular Volume 95.6 fL (81.0-99.0); Mean Platelet Volume 10.7 fL (7.4-10.4); Platelet Count 216 10^3/uL (130-400); Red Cell Dist. Width 15.9 % (11.5-14.5); White Blood Cell Count 13.9 10^3/uL (4.8-10.8)
[2023-09-05 11:19] LABS: Blood Urea Nitrogen 49 mg/dl (7-17); Calcium 9.4 mg/dl (8.4-10.2); Carbon Dioxide 32 mmol/L (22-30); Chloride 95 mmol/L (98-107); Estimated Creatinine Clearance 39 ml/min; Glucose 134 mg/dl (70-99); Potassium 3.9 mmol/L (3.5-5.1); Sodium 134 mmol/L (135-145); eGFR 55.21
[2023-09-05] MEDS: CODEINE 15 MG PO (11:21)
[2023-09-05] MEDS: TYLENOL 325 MG PO (11:22)
--- NOTE | 2023-09-05 12:34 | CM ---
Case management following for d/c planning
Pt accepted at [facility]
Spoke with pts [id number] Tiarra [phone]
Aware of facilities accepting pt - will discuss with family and will let CM know of family's preferences
CM will continue to follow for d/c planning
Plan - Transfer to snf at d/c - TBD
[2023-09-05 13:00] VITALS: BP 121/100; O2SAT 94
[2023-09-05 13:02] VITALS: BP 121/06; PULSE 71; O2SAT 96
[2023-09-05 15:12] VITALS: BP 118/53
[2023-09-05] MEDS: LOVENOX 40 MG SC (17:48)
[2023-09-05] MEDS: MELATONIN 5 MG PO (21:56)
[2023-09-05] MEDS: RESTORIL 7.5 MG PO (22:00)
[2023-09-05] MEDS: CRESTOR PO (22:01)
[2023-09-05] MEDS: ARICEPT 20 MG PO (22:06)
[2023-09-05] MEDS: CRESTOR 20 MG PO (22:12)
[2023-09-06 06:00] VITALS: BMI 35.6
[2023-09-06 07:00] VITALS: BP 153/50
[2023-09-06] MEDS: LIDOCAINE 4% PATCH 1 PATCH TOPICAL (08:51)
[2023-09-06] MEDS: LYRICA 25 MG PO ×2 (08:51→21:14)
[2023-09-06] MEDS: APRESOLINE 50 MG PO ×2 (08:51→21:12)
[2023-09-06] MEDS: NORVASC 5 MG PO ×2 (08:51→21:20)
[2023-09-06] MEDS: HYZAAR 100-25 TABLET 1 TAB PO (08:51)
[2023-09-06] MEDS: PROTONIX 40 MG PO (08:51)
[2023-09-06] MEDS: NAMENDA 10 MG PO ×2 (08:51→21:20)
[2023-09-06] MEDS: ZOLOFT 100 MG PO (08:52)
[2023-09-06] MEDS: VITAMIN B-12 1000 MCG PO (08:52)
[2023-09-06] MEDS: CODEINE 15 MG PO ×2 (09:14→17:24)
[2023-09-06] MEDS: TYLENOL 325 MG PO ×2 (09:15→17:24)
[2023-09-06] MEDS: ULTRAM 50 MG PO (12:55)
[2023-09-06 15:29] VITALS: BP 125/61
[2023-09-06] MEDS: MIRALAX 17 GRAMS PO (15:37)
[2023-09-06] MEDS: COLACE 100 MG PO ×2 (15:38→21:13)
[2023-09-06] MEDS: MILK OF MAGNESIA 30 ML PO (15:38)
--- NOTE | 2023-09-06 15:54 | W.PN.HOSP.TC ---
Today's Communication/Plan
-
Blood CX
CXR in am
U/A with CX
Bowel regimen
Pain control
Encourage IS and wean off O2
Assessment / Plan
Assessment / Plan
CXR: Poor inspiratory effort. No evidence of pneumonia. Mild prominence of bronchovascular markings may be accentuated by low lung volumes. The possibility of mild vascular congestion cannot be excluded.
L-spine Xray: New 40% compression fracture of the superior endplate of L1
MRI L-spine: Examination is severely limited due to patient motion. Repeat fast scanning was performed. New in the interval since the MRI 2 weeks ago is a minimal superior endplate compression fracture of L1 with minimal retrolisthesis of the
posterior superior endplate, however without cord compression or clear nerve root impingement. Limited motion artifact images suggest a new small shallow central disk protrusion at L2-3, consider follow-up repeat imaging when patient is
appropriately medicated for pain. This however does not cause any cord compression, nerve root impingement or severe central canal stenosis. No other significant interval change. Moderate facet arthropathy on the left at L4-5.
Echo: Normal left ventricular chamber size. Normal left ventricular systolic
function. Left ventricular ejection fraction is 60-65% by volumetric
assessment. Normal regional wall motion. Normal left ventricular wall
thickness.
Moderate mitral regurgitation.
Moderate tricuspid regurgitation. Estimated pulmonary artery pressure of 55-60
mmHg.
Trace pericardial effusion. .
Compared to the previous echo July 2021, there is no significant change.
CVS: S1-S2 normal, sm at apex and RHB
Chest: CTA B/L
Abdomen: Soft, NT / Bowel sounds present
Extremities: No edema
TRAFFIC POLICE OFFICER: Non focal exam
#Acute L1 comp fx due to mechanical fall:
-MRI L spine above with minimal superior endplate compression fracture of L1
-IR to do kyphoplasty 09/08/23
#Acute Hypoxic resp insufficiency- Wean Off O2
Add IS
#Leucocytosis- Unclear cause
Check Blood CX
Check U/A
CXR repeat in am
Temp of 100.6 noted 09/02/23
#Acute on chronic HFpEF (mild):
-Lasix 40mg IV x 1 given on admission
-Echo above, unchanged from prior in 2021
-daily wts, I/Os
-FR 1440cc/day
-nursing instructed to check wts on standing scale starting in AM. May need additional doses of lasix depending on wts. Unfortunately all bed scales still.
#Insomnia:
-no ambien
-cont Restoril PRN
# Constipation- Bowel regimen

#Essential HTN: Continue Norvasc/hydrochlorothiazide/losartan
#Obesity due to excess calories: Encourage weight loss. Affects all aspects of care.
#/o gastric ulcer: cont PPI
#h/o Fe def: cont PO Fe
#h/o B12 deficiency: cont B12 supplement
#Dementia: cont Namenda/Aricept
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
#HLD: cont statin
#Depression: cont Zoloft
#Insomnia: Melatonin PRN
#FULL
#DVT prohylaxis-Lovenox
D/W RN
D/W at bed side
Anticipated Discharge: > 48 hours
Subjective/Interval History
-
Date of Service: September 06, 2023
Objective Data
-
Vital Signs:
Vital Signs
Temp Pulse Resp BP Pulse Ox
97.9 F 70 17 125/61 99
09/06/23 15:29 09/06/23 15:29 09/06/23 15:29 09/06/23 15:29 09/06/23 15:29
I&O
09/05/23 09/06/23 09/07/23
06:59 06:59 06:59
Intake Total 120 / 120 240 / 240
Balance 120 / 120 240 / 240
[2023-09-06] MEDS: LOVENOX 40 MG SC (17:09)
[2023-09-06 17:44] LABS: Urine Albumin Trace (Neg - Trace); Urine Bilirubin Negative (Negative); Urine Character Clear (Clear); Urine Color Yellow; Urine Glucose Negative (Negative); Urine Ketone Negative (Negative); Urine Leukocyte Trace (Negative); Urine Nitrite Negative (Negative); Urine Occult Blood Negative (Negative); Urine Urobilinogen Negative (Neg - 1+)
[2023-09-06 18:03] LABS: Urine Mucus Few
[2023-09-06 18:04] LABS: Urine Squamous Cell 0-2 /LPF (Few); Urine Urothelial Cell 0-2 /LPF (FEW)
[2023-09-06 18:05] LABS: Urine Red Blood Cell 0-2 /HPF (0-2); Urine White Cell 0-2 /HPF (0-5)
[2023-09-06] MEDS: RESTORIL 7.5 MG PO (21:08)
[2023-09-06] MEDS: ARICEPT 20 MG PO (21:08)
[2023-09-06] MEDS: MELATONIN 5 MG PO (21:15)
[2023-09-06] MEDS: SENOKOT 17.1999999999999993 MG PO (21:15)
[2023-09-06] MEDS: CRESTOR 20 MG PO (21:30)
[2023-09-06 23:15] VITALS: BP 145/58
[2023-09-07] MEDS: ULTRAM 50 MG PO ×2 (02:53→10:33)
[2023-09-07] MEDS: CODEINE 15 MG PO ×2 (03:40→22:15)
[2023-09-07 06:00] VITALS: BMI 37.8
[2023-09-07 07:00] VITALS: BP 138/53
[2023-09-07 07:33] LABS: Hematocrit 32.8 % (37.0-47.0); Hemoglobin 11.1 g/dL (12.0-16.0); Mean Corp Hgb Conc. 33.8 g/dL (33.0-37.0); Mean Corpuscular Hgb 31.4 pg (27.0-31.0); Mean Corpuscular Volume 92.9 fL (81.0-99.0); Mean Platelet Volume 10.8 fL (7.4-10.4); Platelet Count 226 10^3/uL (130-400); Red Blood Cell Count 3.53 10^6/uL (4.20-5.40); Red Cell Dist. Width 15.4 % (11.5-14.5); White Blood Cell Count 10.7 10^3/uL (4.8-10.8)
[2023-09-07 08:08] LABS: Blood Urea Nitrogen 44 mg/dl (7-17); Calcium 9.5 mg/dl (8.4-10.2); Carbon Dioxide 33 mmol/L (22-30); Chloride 94 mmol/L (98-107); Estimated Creatinine Clearance 45 ml/min; Glucose 135 mg/dl (70-99); Potassium 3.7 mmol/L (3.5-5.1); Sodium 135 mmol/L (135-145); eGFR > 60.00
[2023-09-07] MEDS: MIRALAX 17 GRAMS PO (09:34)
[2023-09-07] MEDS: PROTONIX 40 MG PO (09:34)
[2023-09-07] MEDS: APRESOLINE 50 MG PO ×2 (09:34→21:55)
[2023-09-07] MEDS: NORVASC 5 MG PO ×2 (09:34→21:57)
[2023-09-07] MEDS: VITAMIN B-12 1000 MCG PO (09:34)
[2023-09-07] MEDS: HYZAAR 100-25 TABLET 1 TAB PO (09:34)
[2023-09-07] MEDS: ZOLOFT 100 MG PO (09:34)
[2023-09-07] MEDS: CITROMA 300 ML PO (09:34)
[2023-09-07] MEDS: COLACE 100 MG PO ×2 (09:35→21:56)
[2023-09-07] MEDS: LYRICA 25 MG PO ×2 (09:35→21:56)
[2023-09-07] MEDS: NAMENDA 10 MG PO ×2 (09:35→21:56)
[2023-09-07] MEDS: LIDOCAINE 4% PATCH 1 PATCH TOPICAL (09:36)
[2023-09-07] MEDS: SENOKOT 17.1999999999999993 MG PO ×2 (09:36→21:56)
--- NOTE | 2023-09-07 13:19 | W.PN.HOSP.TC ---
Today's Communication/Plan
-
Vertebroplasty Friday
Plan discharge to rehab Friday
Wean O2
Encourage IS
Weight on bed scale not all all reliable. Unfortunately still documented that way.
Assessment / Plan
Assessment / Plan
CXR: Poor inspiratory effort. No evidence of pneumonia. Mild prominence of bronchovascular markings may be accentuated by low lung volumes. The possibility of mild vascular congestion cannot be excluded.
L-spine Xray: New 40% compression fracture of the superior endplate of L1
MRI L-spine: Examination is severely limited due to patient motion. Repeat fast scanning was performed. New in the interval since the MRI 2 weeks ago is a minimal superior endplate compression fracture of L1 with minimal retrolisthesis of the
posterior superior endplate, however without cord compression or clear nerve root impingement. Limited motion artifact images suggest a new small shallow central disk protrusion at L2-3, consider follow-up repeat imaging when patient is
appropriately medicated for pain. This however does not cause any cord compression, nerve root impingement or severe central canal stenosis. No other significant interval change. Moderate facet arthropathy on the left at L4-5.
Echo: Normal left ventricular chamber size. Normal left ventricular systolic
function. Left ventricular ejection fraction is 60-65% by volumetric
assessment. Normal regional wall motion. Normal left ventricular wall
thickness.
Moderate mitral regurgitation.
Moderate tricuspid regurgitation. Estimated pulmonary artery pressure of 55-60
mmHg.
Trace pericardial effusion. .
Compared to the previous echo July 2021, there is no significant change.
CVS: S1-S2 normal, sm at apex and RHB
Chest: CTA B/L
Abdomen: Soft, NT / Bowel sounds present
Extremities: No edema
RACKMAN: Non focal exam
#Acute L1 comp fx due to mechanical fall:
-MRI L spine above with minimal superior endplate compression fracture of L1
-IR to do kyphoplasty 09/08/23
#Acute Hypoxic resp insufficiency- Wean Off O2
Due to atelectasis on CXR
Encourage IS
#Leucocytosis- Unclear cause
Check Blood CX
Check U/A
CXR repeat in am
Temp of 100.6 noted 09/02/23
#Acute on chronic HFpEF (mild):
-Lasix 40mg IV x 1 given on admission
-Echo above, unchanged from prior in 2021
-daily wts, I/Os
-FR 1440cc/day
-nursing instructed to check wts on standing scale.Unfortunately all bed scales still!!
Weight 82 kg documented yesterday and 87 kg today!
Bed scales are not at allreliable.
#Insomnia:
-no ambien
-cont Restoril PRN
# Constipation- Bowel regimen

#Essential HTN: Continue Norvasc/hydrochlorothiazide/losartan
#Obesity due to excess calories: Encourage weight loss. Affects all aspects of care.
#/o gastric ulcer: cont PPI
#h/o Fe def: cont PO Fe
#h/o B12 deficiency: cont B12 supplement
#Dementia: cont Namenda/Aricept
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
#HLD: cont statin
#Depression: cont Zoloft
#Insomnia: Melatonin PRN
#FULL
#DVT prophylaxis-Lovenox
D/W RN
D/W Son and at bed side
Anticipated Discharge: 24 - 48 hours
Subjective/Interval History
-
Date of Service: September 07, 2023
Objective Data
-
Labs:
Laboratory Results
09/07/23
06:50
WBC 10.7
Hgb 11.1 L
Hct 32.8 L
Plt Count 226
Sodium 135
Potassium 3.7
Chloride 94 L
Carbon Dioxide 33 H
BUN 44 H
Creatinine 0.9
Glucose 135 H
Calcium 9.5
Vital Signs:
Vital Signs
Temp Pulse Resp BP Pulse Ox
98.5 F 75 18 138/53 94
09/07/23 07:00 09/07/23 07:00 09/07/23 07:00 09/07/23 07:00 09/07/23 07:00
I&O
09/06/23 09/07/23 09/08/23
06:59 06:59 06:59
Intake Total 240 / 240 240 / 240
Balance 240 / 240 240 / 240
[2023-09-07 15:00] VITALS: BP 142/61
[2023-09-07] MEDS: LOVENOX 40 MG SC (18:52)
[2023-09-07] MEDS: DULCOLAX 10 MG RECTAL (18:53)
[2023-09-07] MEDS: MELATONIN 5 MG PO (21:56)
[2023-09-07] MEDS: CRESTOR 20 MG PO (21:57)
[2023-09-07] MEDS: ARICEPT 20 MG PO (22:10)
[2023-09-07] MEDS: TYLENOL 325 MG PO (22:14)
[2023-09-07] MEDS: RESTORIL 7.5 MG PO (22:14)
[2023-09-07 22:54] VITALS: BP 108/44
[2023-09-08] VITALS (13 sets, daily range): BP systolic 64–151; BP diastolic 44–71; O2SAT 90; BMI 34.4
[2023-09-08] MEDS: MIRALAX 17 GRAMS PO (07:20)
[2023-09-08] MEDS: LIDOCAINE 4% PATCH 1 PATCH TOPICAL (07:20)
[2023-09-08] MEDS: NAMENDA 10 MG PO ×2 (07:20→21:39)
[2023-09-08] MEDS: HYZAAR 100-25 TABLET 1 TAB PO (07:21)
[2023-09-08] MEDS: COLACE 100 MG PO ×2 (07:21→21:38)
[2023-09-08] MEDS: ZOLOFT 100 MG PO (07:21)
[2023-09-08] MEDS: LYRICA 25 MG PO ×2 (07:21→21:39)
[2023-09-08] MEDS: VITAMIN B-12 1000 MCG PO (07:21)
[2023-09-08] MEDS: FEOSOL 325 MG PO (07:21)
[2023-09-08] MEDS: NORVASC 5 MG PO ×2 (07:21→21:38)
[2023-09-08] MEDS: SENOKOT 17.1999999999999993 MG PO ×2 (07:21→21:39)
[2023-09-08] MEDS: PROTONIX 40 MG PO (07:21)
[2023-09-08] MEDS: ULTRAM 50 MG PO (07:21)
[2023-09-08] MEDS: APRESOLINE 50 MG PO ×2 (07:21→21:39)
[2023-09-08 07:38] LABS: INR 1.14; PT 14.5 Sec (11.4-14.6)
[2023-09-08] MEDS: ZOFRAN 4 MG IV (08:01)
--- NOTE | 2023-09-08 09:58 | CM ---
Addendum entered by Angela Suh 09/08/23 15:07:
Pt accepted at [facility] - family aware. Can accept tomorrow
Will need auth - need updated PT/OT notes
Plan - [facility] when medically stable - will need auth
Original Note:
Case management following for d/c planning
Spoke with Tiarra - pts [id number] regarding preference for SNF's
Family's 1st preference is [facility], 2 - [facility], 3-[facility]
Spoke with Pham at [facility] - updates sent in [facility] - waiting for response once reviewed
Plan - snf when medically stable - will need auth
--- NOTE | 2023-09-08 13:33 | W.PN.HOSP.TC ---
Today's Communication/Plan
-
Vertebroplasty
Discharge planning
Anticipate discharge tomorrow
Assessment / Plan
Assessment / Plan
CXR: Poor inspiratory effort. No evidence of pneumonia. Mild prominence of bronchovascular markings may be accentuated by low lung volumes. The possibility of mild vascular congestion cannot be excluded.
L-spine Xray: New 40% compression fracture of the superior endplate of L1
MRI L-spine: Examination is severely limited due to patient motion. Repeat fast scanning was performed. New in the interval since the MRI 2 weeks ago is a minimal superior endplate compression fracture of L1 with minimal retrolisthesis of the
posterior superior endplate, however without cord compression or clear nerve root impingement. Limited motion artifact images suggest a new small shallow central disk protrusion at L2-3, consider follow-up repeat imaging when patient is
appropriately medicated for pain. This however does not cause any cord compression, nerve root impingement or severe central canal stenosis. No other significant interval change. Moderate facet arthropathy on the left at L4-5.
Echo: Normal left ventricular chamber size. Normal left ventricular systolic
function. Left ventricular ejection fraction is 60-65% by volumetric
assessment. Normal regional wall motion. Normal left ventricular wall
thickness.
Moderate mitral regurgitation.
Moderate tricuspid regurgitation. Estimated pulmonary artery pressure of 55-60
mmHg.
Trace pericardial effusion. .
Compared to the previous echo July 2021, there is no significant change.
Seen in IR Hold
CVS: S1-S2 normal, sm at apex and RHB
Chest: CTA B/L
Abdomen: Soft, NT / Bowel sounds present
Extremities: No edema
UNDERWRITING INTERN: Non focal exam
#Acute L1 comp fx due to mechanical fall:
-MRI L spine above with minimal superior endplate compression fracture of L1
-IR to do kyphoplasty 09/08/23
#Acute Hypoxic resp insufficiency- Wean Off O2
Due to atelectasis on CXR
Encourage IS
#Leucocytosis- Unclear cause
Check Blood CX
Check U/A
CXR repeat in am
Temp of 100.6 noted 09/02/23
#Acute on chronic HFpEF (mild):
-Lasix 40mg IV x 1 given on admission
-Echo above, unchanged from prior in 2021
-daily wts, I/Os
-FR 1440cc/day
-Weight 79.8 Kg
#Insomnia:
-no ambien
-cont Restoril PRN
# Constipation- resolved

#Essential HTN: Continue Norvasc/hydrochlorothiazide/losartan
#Obesity due to excess calories: Encourage weight loss. Affects all aspects of care.
#/o gastric ulcer: cont PPI
#h/o Fe def: cont PO Fe
#h/o B12 deficiency: cont B12 supplement
#Dementia: cont Namenda/Aricept
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
#HLD: cont statin
#Depression: cont Zoloft
#Insomnia: Melatonin PRN
#FULL
#DVT prophylaxis-Hold Lovenox
D/W IRAD RN
D/W
Anticipated Discharge: Within 24 hours
Subjective/Interval History
-
Date of Service: September 08, 2023
Objective Data
-
Labs:
Laboratory Results
09/08/23
06:33
PT 14.5
INR 1.14
Vital Signs:
Vital Signs
Temp Pulse Resp BP Pulse Ox
97.8 F 70 18 146/56 90
09/08/23 07:30 09/08/23 07:30 09/08/23 07:30 09/08/23 07:30 09/08/23 07:30
I&O
09/07/23 09/08/23 09/09/23
06:59 06:59 06:59
Intake Total 240 / 240 960 / 960
Balance 240 / 240 960 / 960
[2023-09-08] MEDS: ANCEF 10 IV (13:37)
[2023-09-08] MEDS: CRESTOR 20 MG PO (21:41)
[2023-09-08] MEDS: ARICEPT 20 MG PO (21:41)
[2023-09-08] MEDS: MELATONIN PO (23:22)
[2023-09-09 06:00] VITALS: BMI 35.1
[2023-09-09 07:30] VITALS: BP 119/48
[2023-09-09] MEDS: MIRALAX 17 GRAMS PO (08:20)
[2023-09-09] MEDS: NAMENDA 10 MG PO ×2 (08:20→22:22)
[2023-09-09] MEDS: ZOLOFT 100 MG PO (08:20)
[2023-09-09] MEDS: PROTONIX 40 MG PO (08:20)
[2023-09-09] MEDS: NORVASC 5 MG PO ×2 (08:20→22:22)
[2023-09-09] MEDS: COLACE 100 MG PO ×2 (08:20→22:22)
[2023-09-09] MEDS: SENOKOT 17.1999999999999993 MG PO ×2 (08:20→22:23)
[2023-09-09] MEDS: VITAMIN B-12 1000 MCG PO (08:20)
[2023-09-09] MEDS: APRESOLINE 50 MG PO ×2 (08:21→22:22)
[2023-09-09] MEDS: HYZAAR 100-25 TABLET 1 TAB PO (08:21)
[2023-09-09] MEDS: LYRICA 25 MG PO ×2 (08:21→22:22)
[2023-09-09] MEDS: LIDOCAINE 4% PATCH 1 PATCH TOPICAL (08:21)
[2023-09-09 08:44] LABS: Glycohemoglobin (HgbA1c) 6.3 % (4.0-5.6)
[2023-09-09 09:37] VITALS: BP 123/42; O2SAT 96
[2023-09-09 12:06] VITALS: O2SAT 94
[2023-09-09 12:06] LABS: Blood Urea Nitrogen 66 mg/dl (7-17); Calcium 9.1 mg/dl (8.4-10.2); Carbon Dioxide 37 mmol/L (22-30); Chloride 91 mmol/L (98-107); Estimated Creatinine Clearance 23 ml/min; Glucose 153 mg/dl (70-99); Potassium 4.2 mmol/L (3.5-5.1); Sodium 134 mmol/L (135-145); eGFR 29.21
[2023-09-09] MEDS: NSS 500 IV (13:31)
--- NOTE | 2023-09-09 15:18 | W.PN.HOSP.TC ---
Today's Communication/Plan
-
Bladder scan for PVR
Pulm eval
500 ml IVF
Labs in am
Assessment / Plan
Assessment / Plan
CXR: Poor inspiratory effort. No evidence of pneumonia. Mild prominence of bronchovascular markings may be accentuated by low lung volumes. The possibility of mild vascular congestion cannot be excluded.
L-spine Xray: New 40% compression fracture of the superior endplate of L1
MRI L-spine: Examination is severely limited due to patient motion. Repeat fast scanning was performed. New in the interval since the MRI 2 weeks ago is a minimal superior endplate compression fracture of L1 with minimal retrolisthesis of the
posterior superior endplate, however without cord compression or clear nerve root impingement. Limited motion artifact images suggest a new small shallow central disk protrusion at L2-3, consider follow-up repeat imaging when patient is
appropriately medicated for pain. This however does not cause any cord compression, nerve root impingement or severe central canal stenosis. No other significant interval change. Moderate facet arthropathy on the left at L4-5.
Echo: Normal left ventricular chamber size. Normal left ventricular systolic
function. Left ventricular ejection fraction is 60-65% by volumetric
assessment. Normal regional wall motion. Normal left ventricular wall
thickness.
Moderate mitral regurgitation.
Moderate tricuspid regurgitation. Estimated pulmonary artery pressure of 55-60
mmHg.
Trace pericardial effusion. .
Compared to the previous echo July 2021, there is no significant change.
CVS: S1-S2 normal, sm at apex and RHB
Chest: CTA B/L
Abdomen: Soft, NT / Bowel sounds present
Extremities: No edema
RELAY TESTER HELPER: Non focal exam
#Acute L1 comp fx due to mechanical fall:
-MRI L spine above with minimal superior endplate compression fracture of L1
-S/P kyphoplasty 09/08/23
-Pain Ok today
#Acute Hypoxic resp insufficiency- Wean Off O2
Due to atelectasis on CXR?
-Pulm eval
-Unable to wean O2
-Encouraged IS
#Leucocytosis- Unclear cause
Blood CX neg
U/A not C/W UTI
CXR with atelectasis
Temp of 100.6 noted 09/02/23
#Acute on chronic HFpEF (mild):
-Lasix 40mg IV x 1 given on admission
-Echo above, unchanged from prior in 2021
-daily wts, I/Os
-FR 1440cc/day
#MARIANA- Will give 500 ml IVF
Bladder scan
#Insomnia:
-no ambien
-cont Restoril PRN
# Constipation- resolved

#Essential HTN: Continue Norvasc/hydrochlorothiazide/losartan
#Obesity due to excess calories: Encourage weight loss. Affects all aspects of care.
#/o gastric ulcer: cont PPI
#h/o Fe def: cont PO Fe
#h/o B12 deficiency: cont B12 supplement
#Dementia: cont Namenda/Aricept
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
#HLD: cont statin
#Depression: cont Zoloft
#Insomnia: Melatonin PRN
#FULL
#DVT prophylaxis-Hold Lovenox
D/W RN
D/W at bed side
D/W Case management
Anticipated Discharge: Within 24 hours
Subjective/Interval History
-
Date of Service: September 09, 2023
Objective Data
-
Labs:
Laboratory Results
09/09/23
11:18
Sodium 134 L
Potassium 4.2
Chloride 91 L
Carbon Dioxide 37 H
BUN 66 H
Creatinine 1.7 H
Glucose 153 H
Calcium 9.1
Vital Signs:
Vital Signs
Temp Pulse Resp BP Pulse Ox
98.6 F 77 18 139/56 94
09/09/23 07:30 09/09/23 08:21 09/09/23 07:30 09/09/23 08:21 09/09/23 11:50
I&O
09/08/23 09/09/23 09/10/23
06:59 06:59 06:59
Intake Total 1200 / 1200 1450 / 1450
Balance 1200 / 1200 1450 / 1450
--- NOTE | 2023-09-09 15:41 | CM ---
Addendum entered by Jena Valenzuela [facility] 09/09/23 16:30:
daughter in law Tiarra updated.
Addendum entered by Jena Valenzuela [facility] 09/09/23 16:05:
Received return call from the medical practice assistant, Dr. Gomez who called and stated initially that patient is ambulating too far and he did not feel that he could approve it. It was highlighted to Dr. Gomez that patient was completely independent
prior to admission, not using a device and patient's OT showed her to be very deconditioned from her baseline.
He approved it and stated that a players club representative would call with auth.
Received a call from a players [employer] representative named Twila who stated that patient was approved, NRD 09/11 skilled level of [phone] auth#[id number].
CM will update admissions at [facility].
Original Note:
Placed a call to ask blue to attempt to obtain auth for patient. Reviewed clinical with olivia quintanilla [employer] representative, who stated that she has to send clinical to medical practice assistant for further review. She stated that she would return call today with
determination.
Plan: Case management will continue to follow and assist with discharge planning. Hopeful for SNF.
[2023-09-09 15:45] VITALS: BP 120/48
--- NOTE | 2023-09-09 15:53 | CON.PUL ---
Consultation
Consultation Request
Date/Time Consultation Requested: 09/09/2023 - 1302
Date/Time Consultation Performed: 09/09/2023 - 1400
Requesting Provider: Dr. Nolasco
Performing Provider: Dr. Brady
Reason for Consultation: Hypoxia
Medical History
-
Chief Complaint: Fall
History of Present Illness:
83-year-old female former tobacco smoker (quit 1987) with a past medical history of osteoporosis, lumbar radiculitis, hyperlipidemia, hypertension, dementia and personal history of COVID-19 who presented on 09/02/2023 with a fall with subsequent
development of lower back pain. Patient denies any head trauma, loss of consciousness and she is not on blood thinners. In the ER she was saturating 91% on room air and was afebrile to 98.2 �F. Labs showed leukocytosis to 13.7, mild anemia to
11.1, low serum sodium of 134, elevated BUN of 34, negative troponin 0.012, and a slightly elevated proBNP of 1740. She did have multiple radiographs of her lumbar spine, hip and chest and there was a new 40% compression fracture of the superior
endplate of L1 seen, without any hip fracture or rib fracture. CXR showed poor inspiratory effort without evidence of pneumonia and prominent bronchovascular markings. She was treated with Lasix 20 mg IVP x1, given lidocaine and tramadol and
admitted to the hospitalist service. And MRI of the lumbar spine on 09/03/2023 showed a minimal superior endplate compression fracture of L1 with minimal retrolisthesis without cord compression or clear nerve root impingement. She did spike a fever
on the evening of admission to 100.6 �F. No antibiotics were started. Since admission she has required between room air and 1-2 L/min nasal cannula. On 09/07 she underwent L1 percutaneous vertebral augmentation and vertebroplasty with a reduction
in her pain noted postprocedure. Unfortunately the patient has continued to require between 1-2 L/min nasal cannula, and now pulmonary consulted for additional management/recommendations.
When I saw the patient she was laying in bed in no acute distress on 1 L/min nasal cannula breathing comfortably. She denies shortness of breath, chest pain or shortness of breath while laying flat. She says that she is actually been laying flat
since she has been hospitalized here and she has been having no difficulty breathing during those times. She says that she takes shallow breaths usually and that is how she breathes. She still has lower back pain from her recent fall [employer]. She
currently denies headache, chest pain, abdominal pain, fevers or chills.
Of note, patient follows with orthopedic in the office with last visit on 08/20/2023 for lumbar radiculitis. She obtained a left-sided L4-5 epidural steroid injection on 08/21/2023 - this reduced her pain by at least 50% and she was told to follow-up
in 1-2 weeks.
PMHx: Lumbar radiculitis, hypertension, dyslipidemia, tricuspid regurgitation, severe pulmonary hypertension, mild dementia, history of COVID-19, history of GI bleed due to PUD (07/2021), insomnia, osteoporosis, iron deficiency anemia
PSHx: next 2, Mohs surgery on nose
Past Medical History
Past Medical History: Other (Above as per HPI)
Past Surgical History: Other (Above as per HPI)
Social History
Tobacco: Former Smoker (Quit in 1987)
Alcohol: None
Drug: None
Family History
Family History: Cancer (Father: Liver cancer) and Other (Mother: History of minor stroke)
Allergies / Home Medications
Allergies
Allergy/AdvReac Type Severity Reaction Status Date / Time
No Known Allergies Allergy Verified 09/02/21 20:39
Home Medications
�Medication �Instructions �Recorded �Confirmed �Last Taken �Type
amlodipine 5 mg tablet 5 mg PO BID Blood pressure 07/07/21 09/02/23 09/01/23 History
memantine 10 mg tablet 10 mg PO BID memory 07/07/21 09/02/23 09/01/23 History
zolpidem 5 mg tablet 10 mg PO HS PRN Sleep 07/07/21 09/02/23 1 Day Ago History
~09/01/23
donepezil 23 mg tablet 23 mg PO HS memory 07/09/21 09/02/23 09/01/23 History
cyanocobalamin (vitamin B-12) 1,000 mcg PO DAILY #30 tabs 07/11/21 09/02/23 09/01/23 Rx
1,000 mcg tablet
acetaminophen 300 mg-codeine 15 mg 1 tab PO Q8H PRN severe pain 09/02/23 09/02/23 09/02/23 History
tablet
acetaminophen 650 mg 1,300 mg PO Q8HPRN PRN mild pain 09/02/23 09/02/23 2 Days Ago History
tablet,extended release ~08/31/23
ferrous sulfate 325 mg (65 mg 325 mg PO MOWEFR@0800 Supplement 09/02/23 09/02/23 09/01/23 History
iron) tablet (iron)
hydralazine 50 mg tablet 50 mg PO BID Blood Pressure 09/02/23 09/02/23 09/01/23 History
losartan 100 1 tab PO DAILY Blood Pressure 09/02/23 09/02/23 09/01/23 History
mg-hydrochlorothiazide 25 mg tablet
pantoprazole 40 mg tablet,delayed 40 mg PO DAILY Gastrointestinal 09/02/23 09/02/23 09/01/23 History
release Issue
pregabalin 25 mg capsule 25 mg PO BID Neurological Condition 09/02/23 09/02/23 09/02/23 History
riboflavin (vitamin B2) 1 tab PO DAILY Supplement 09/02/23 09/02/23 09/01/23 History
rosuvastatin 20 mg tablet 20 mg PO HS High Cholesterol 09/02/23 09/02/23 09/01/23 History
sertraline 100 mg tablet 100 mg PO DAILY Depression 09/02/23 09/02/23 09/01/23 History
Review of Systems
-
History Source: Patient
All other systems: Negative unless noted
Vitals / Labs / Diagnostic Testing
Vital Signs
Temp Pulse Resp BP Pulse Ox
98.6 F 77 18 139/56 94
09/09/23 07:30 09/09/23 08:21 09/09/23 07:30 09/09/23 08:21 09/09/23 11:50
Lab Data
09/07/23 06:50
09/09/23 11:18
Microbiology
09/06/23 17:28 Blood/Venous Blood Culture - Preliminary
No Growth in 48 hours- Final report to follow
09/06/23 16:29 Blood/Venous Blood Culture - Preliminary
No Growth in 48 hours- Final report to follow
Diagnostic Testing:
Physical Exam
-
HEENT: Normocephalic and Anicteric
Cardiovascular: S1/S2 and Peripheral Edema (negative)
Respiratory: Wheeze (negative), Rales (Bibasilar + middle lung gill (L >R)), Rhonchi (negative) and Non-Labored Respirations
GI: Soft, Non Distended and Non Tender
Neurology: Awake and Alert
Skin: Warm and Dry
General: Comfortable, Chills (negative) and Sweats (negative)
Assessment
-
Assessment: 83-year-old female former tobacco smoker (quit 1987) with a past medical history of osteoporosis, lumbar radiculitis, hyperlipidemia, hypertension, dementia and personal history of COVID-19 who presented on 09/02/2023 with a fall with
subsequent development of lower back pain. Patient denies any head trauma, loss of consciousness and she is not on blood thinners. In the ER she was saturating 91% on room air and was afebrile to 98.2 �F. Labs showed leukocytosis to 13.7, mild
anemia to 11.1, low serum sodium of 134, elevated BUN of 34, negative troponin 0.012, and a slightly elevated proBNP of 1740. She did have multiple radiographs of her lumbar spine, hip and chest and there was a new 40% compression fracture of the
superior endplate of L1 seen, without any hip fracture or rib fracture. CXR showed poor inspiratory effort without evidence of pneumonia and prominent bronchovascular markings. She was treated with Lasix 20 mg IVP x1, given lidocaine and tramadol
and admitted to the hospitalist service. And MRI of the lumbar spine on 09/03/2023 showed a minimal superior endplate compression fracture of L1 with minimal retrolisthesis without cord compression or clear nerve root impingement. She did spike a
fever on the evening of admission to 100.6 �F. No antibiotics were started. Since admission she has required between room air and 1-2 L/min nasal cannula. On 09/07 she underwent L1 percutaneous vertebral augmentation and vertebroplasty with a
reduction in her pain noted postprocedure. Unfortunately the patient has continued to require between 1-2 L/min nasal cannula, and now pulmonary consulted for additional management/recommendations.
Chronic conditions [employer]ICIAN: Lumbar radiculitis, hypertension, dyslipidemia, tricuspid regurgitation, severe pulmonary hypertension, mild dementia, history of COVID-19, history of GI bleed due to PUD (07/2021), insomnia, osteoporosis, iron deficiency
anemia
Impression:
#Acute respiratory failure with hypoxia on supplemental oxygen- likely due to hypoventilation with physical deconditioning
#Acute kidney injury
#Hypochloremic, hyponatremia
#Elevated proBNP (09/02/2023) with mild interstitial pulmonary edema seen on CXR s/p lasix 20mg IVP x1 on 09/02/2023
#Mechanical fall with L1 superior endplate compression fracture with minimal retrolisthesis s/p L1 percutaneous vertebral augmentation with vertebroplasty (performed 09/08/2023)
#Former tobacco use disorder
Plan:
- Pain control
- PT/OT - PT recommending home health; OT recommends skilled rehab/SNF
- Encourage incentive spirometer 10x per hour for at least 4-6 hours a day while awake
- She will need walking pulse oximetry testing prior to discharge
- PT/OT - PT recommending home health; OT recommends skilled rehab/SNF
- Would monitor I/O and trend UOP; careful not to care volume overload given prominent bronchovascular markings seen on CXR from 09/07/2023 and 09/02/2023
- Maintain SpO2 >90-94% with supplemental O2 as needed
- Replete electrolytes with K>4, Mg>2
- Maintain euglycemia with goal BG >100 and <180
- prn nebulized bronchodilators
- DVT ppx: LMWH
Pulmonary service will continue to follow along.
Total time spent today was 55 minutes for this encounter. Time includes reviewing laboratory test/imaging results, reviewing pertinent medical records, obtaining and reviewing medical history, performing an appropriate exam, ordering medications,
tests and procedures. Time also includes documentation of this encounter, coordinating patient care and communicating with other healthcare professionals. Total time does not include separately billed tests performed on this date of service.
Data:
CXR 09-07-2023:Mild left basilar subsegmental atelectasis versus scarring.
CXR 09-02-2023:Poor inspiratory effort. No evidence of pneumonia. Mild prominence of bronchovascular markings may be accentuated by low lung volumes. The possibility of mild vascular congestion cannot be excluded.
Lumbar Spine MRI 09-03-2023:
Examination is severely limited due to patient motion. Repeat fast scanning was performed.
New in the interval since the MRI 2 weeks ago is a minimal superior endplate compression fracture of L1 with minimal retrolisthesis of the posterior superior endplate, however without cord compression or clear nerve root impingement.
Limited motion artifact images suggest a new small shallow central disk protrusion at L2-3, consider follow-up repeat imaging when patient is appropriately medicated for pain. This however does not cause any cord compression, nerve root impingement
or severe central canal stenosis.
No other significant interval change. Moderate facet arthropathy on the left at L4-5. Please see description as outlined above.
[2023-09-09] MEDS: LOVENOX 40 MG SC (17:17)
[2023-09-09 17:21] LABS: Urine Albumin Negative (Neg - Trace); Urine Bilirubin Negative (Negative); Urine Character Clear (Clear); Urine Color Yellow; Urine Glucose Negative (Negative); Urine Ketone Negative (Negative); Urine Leukocyte Trace (Negative); Urine Nitrite Negative (Negative); Urine Occult Blood Negative (Negative); Urine Specific Gravity 1.015 (<1.030); Urine Urobilinogen Negative (Neg - 1+)
[2023-09-09 17:29] LABS: Urine Hyaline Cast 0-2 /LPF (0-2); Urine Squamous Cell 0-2 /LPF (Few)
[2023-09-09 17:30] LABS: Urine Red Blood Cell None Seen /HPF (0-2)
[2023-09-09 17:49] LABS: Urine Sodium 58 mmol/L (30-90)
[2023-09-09] MEDS: ARICEPT 20 MG PO (22:22)
[2023-09-09] MEDS: MELATONIN 5 MG PO (22:22)
[2023-09-09] MEDS: CRESTOR 20 MG PO (22:22)
[2023-09-09] MEDS: ULTRAM 50 MG PO (22:23)
[2023-09-09 23:07] VITALS: BP 131/50
[2023-09-10 06:00] VITALS: BMI 35.3
[2023-09-10 07:00] VITALS: BP 166/70
[2023-09-10 08:08] LABS: Blood Urea Nitrogen 59 mg/dl (7-17); Calcium 8.7 mg/dl (8.4-10.2); Carbon Dioxide 39 mmol/L (22-30); Chloride 92 mmol/L (98-107); Estimated Creatinine Clearance 33 ml/min; Glucose 121 mg/dl (70-99); Sodium 134 mmol/L (135-145); eGFR 44.36
[2023-09-10] MEDS: ZOLOFT 100 MG PO (09:00)
[2023-09-10] MEDS: NAMENDA 10 MG PO ×2 (09:00→20:16)
[2023-09-10] MEDS: PROTONIX 40 MG PO (09:00)
[2023-09-10] MEDS: APRESOLINE 50 MG PO ×2 (09:00→20:21)
[2023-09-10] MEDS: VITAMIN B-12 1000 MCG PO (09:00)
[2023-09-10] MEDS: LYRICA 25 MG PO ×2 (09:00→20:22)
[2023-09-10] MEDS: SENOKOT 17.1999999999999993 MG PO (09:00)
[2023-09-10] MEDS: FEOSOL 325 MG PO (09:00)
[2023-09-10] MEDS: MIRALAX 17 GRAMS PO (09:01)
[2023-09-10] MEDS: NORVASC 5 MG PO ×2 (09:01→20:21)
[2023-09-10] MEDS: COLACE 100 MG PO ×2 (09:01→20:16)
[2023-09-10] MEDS: LIDOCAINE 4% PATCH 1 PATCH TOPICAL (09:01)
--- NOTE | 2023-09-10 10:05 | W.PN.PUL3 ---
Today's Communication / Plan
-
Incentive spirometer strongly encouraged
Up out of bed as tolerated
Pain control
Walking pulse oximetry prior to discharge
If patient not weaned fully off of oxygen then I will arrange for outpatient office follow-up
Assessment
-
Assessment: 83-year-old female former tobacco smoker (quit 1987) with a past medical history of osteoporosis, lumbar radiculitis, hyperlipidemia, hypertension, dementia and personal history of COVID-19 who presented on 09/02/2023 with a fall with
subsequent development of lower back pain. Patient denies any head trauma, loss of consciousness and she is not on blood thinners. In the ER she was saturating 91% on room air and was afebrile to 98.2 �F. Labs showed leukocytosis to 13.7, mild
anemia to 11.1, low serum sodium of 134, elevated BUN of 34, negative troponin 0.012, and a slightly elevated proBNP of 1740. She did have multiple radiographs of her lumbar spine, hip and chest and there was a new 40% compression fracture of the
superior endplate of L1 seen, without any hip fracture or rib fracture. CXR showed poor inspiratory effort without evidence of pneumonia and prominent bronchovascular markings. She was treated with Lasix 20 mg IVP x1, given lidocaine and tramadol
and admitted to the hospitalist service. And MRI of the lumbar spine on 09/03/2023 showed a minimal superior endplate compression fracture of L1 with minimal retrolisthesis without cord compression or clear nerve root impingement. She did spike a
fever on the evening of admission to 100.6 �F. No antibiotics were started. Since admission she has required between room air and 1-2 L/min nasal cannula. On 09/07 she underwent L1 percutaneous vertebral augmentation and vertebroplasty with a
reduction in her pain noted postprocedure. Unfortunately the patient has continued to require between 1-2 L/min nasal cannula, and now pulmonary consulted for additional management/recommendations.
Chronic conditions [employer]: Lumbar radiculitis, hypertension, dyslipidemia, tricuspid regurgitation, severe pulmonary hypertension, mild dementia, history of COVID-19, history of GI bleed due to PUD (07/2021), insomnia, osteoporosis, iron deficiency
anemia
Impression:
#Acute respiratory failure with hypoxia - she is now on room air - hypoxia likely due to hypoventilation with physical deconditioning
#Acute kidney injury - improving
#Hypochloremic, hyponatremia
#Elevated proBNP (09/02/2023) with mild interstitial pulmonary edema seen on CXR s/p lasix 20mg IVP x1 on 09/02/2023
#Mechanical fall with L1 superior endplate compression fracture with minimal retrolisthesis s/p L1 percutaneous vertebral augmentation with vertebroplasty (performed 09/08/2023)
#Former tobacco use disorder
Plan:
- Pain control
- PT/OT - PT recommending home health; OT recommends skilled rehab/SNF
- Encourage incentive spirometer 10x per hour for at least 4-6 hours a day while awake
- She will need walking pulse oximetry testing prior to discharge
- Would monitor I/O and trend UOP; careful not to care volume overload given prominent bronchovascular markings seen on CXR from 09/07/2023 and 09/02/2023
- Maintain SpO2 >90-94% with supplemental O2 as needed
- Replete electrolytes with K>4, Mg>2
- Maintain euglycemia with goal BG >100 and <180
- prn nebulized bronchodilators
- DVT ppx: LMWH
Pulmonary service will continue to follow along. Depending if patient requires oxygen with activity or not, I will arrange for outpatient office follow-up. If patient fully weaned off of oxygen with no need with ambulation then she can see us as
needed.
Total time spent today was 25 minutes for this encounter. Time includes reviewing laboratory test/imaging results, reviewing pertinent medical records, obtaining and reviewing medical history, performing an appropriate exam, ordering medications,
tests and procedures. Time also includes documentation of this encounter, coordinating patient care and communicating with other healthcare professionals. Total time does not include separately billed tests performed on this date of service.
Data:
CXR 09-07-2023:Mild left basilar subsegmental atelectasis versus scarring.
CXR 09-02-2023:Poor inspiratory effort. No evidence of pneumonia. Mild prominence of bronchovascular markings may be accentuated by low lung volumes. The possibility of mild vascular congestion cannot be excluded.
Lumbar Spine MRI 09-03-2023:
Examination is severely limited due to patient motion. Repeat fast scanning was performed.
New in the interval since the MRI 2 weeks ago is a minimal superior endplate compression fracture of L1 with minimal retrolisthesis of the posterior superior endplate, however without cord compression or clear nerve root impingement.
Limited motion artifact images suggest a new small shallow central disk protrusion at L2-3, consider follow-up repeat imaging when patient is appropriately medicated for pain. This however does not cause any cord compression, nerve root impingement
or severe central canal stenosis.
No other significant interval change. Moderate facet arthropathy on the left at L4-5. Please see description as outlined above.
Subjective Data
-
Date of Service:
Date of Service: September 10, 2023
Chief Complaint: Pulmonary Follow Up
Subjective:
Patient seen today. at bedside. All questions were answered. She remains on room air and is breathing comfortably. No acute events reported from overnight. Patient denies chest pain, headache, abdominal pain, fevers or chills.
Review of Systems
General: Other (Negative unless mentioned above)
Objective Data
Data Reviewed
Vital Signs / I&O / Oxygen:
Vital Signs
Temp Pulse Resp BP Pulse Ox
98.0 F 69 17 166/70 96
09/10/23 07:00 09/10/23 07:00 09/10/23 07:00 09/10/23 09:00 09/10/23 08:43
Intake and Output
09/09/23 09/10/23 09/11/23
06:59 06:59 06:59
Intake Total 1450 / 1450 1490 / 1490
Balance 1450 / 1450 1490 / 1490
SaO2 96
Nasal Cannula flow liters per 1
minute
Physical Exam
General: Respiratory Distress (Negative) and Comfortable
HEENT: Normocephalic and Anicteric
Cardiovascular: S1-S2 and Peripheral Edema (Negative)
Respiratory: Wheeze (Negative), Crackles (Bibasilar), Rhonchi (Negative) and Non-Labored Respirations
GI: Soft, Non Distended, Non Tender and Normal Bowel Sounds
Neurology: AO x 3
Skin: Warm and Dry
Labs/Micro/Reports
Lab Data
09/07/23 06:50
09/10/23 07:06
Microbiology
09/06/23 17:28 Blood/Venous Blood Culture - Preliminary
No Growth in 72 hours- Final report to follow
09/06/23 16:29 Blood/Venous Blood Culture - Preliminary
No Growth in 72 hours- Final report to follow
[2023-09-10 13:57] VITALS: O2SAT 93
--- NOTE | 2023-09-10 14:56 | CM ---
Case management following for d/c planning
Chart reviewed
Pt for [facility] when stable
Pulmonary consult
MARIANA - given bolus of IVF's - follow labs in AM
CM will cont to follow for d/c needs
Plan - transfer to [facility] when medically stable
[2023-09-10 15:00] VITALS: BP 133/55
--- NOTE | 2023-09-10 15:05 | W.PN.HOSP.TC ---
Addendum entered and electronically signed by Sangeeta Nolasco MD 09/11/23 14:09:
Correction Pt had Vertebroplasty and not Kyphoplasty
Addendum entered and electronically signed by Sangeeta Nolasco MD 09/11/23 14:08:
Correction Pt had Vertebroplasty and not Kyphoplasty
Original Note:
Today's Communication/Plan
-
500 ml IVF Possible discharge tomorrow
Assessment / Plan
Assessment / Plan
CXR: Poor inspiratory effort. No evidence of pneumonia. Mild prominence of bronchovascular markings may be accentuated by low lung volumes. The possibility of mild vascular congestion cannot be excluded.
L-spine Xray: New 40% compression fracture of the superior endplate of L1
MRI L-spine: Examination is severely limited due to patient motion. Repeat fast scanning was performed. New in the interval since the MRI 2 weeks ago is a minimal superior endplate compression fracture of L1 with minimal retrolisthesis of the
posterior superior endplate, however without cord compression or clear nerve root impingement. Limited motion artifact images suggest a new small shallow central disk protrusion at L2-3, consider follow-up repeat imaging when patient is
appropriately medicated for pain. This however does not cause any cord compression, nerve root impingement or severe central canal stenosis. No other significant interval change. Moderate facet arthropathy on the left at L4-5.
Echo: Normal left ventricular chamber size. Normal left ventricular systolic
function. Left ventricular ejection fraction is 60-65% by volumetric
assessment. Normal regional wall motion. Normal left ventricular wall
thickness.
Moderate mitral regurgitation.
Moderate tricuspid regurgitation. Estimated pulmonary artery pressure of 55-60
mmHg.
Trace pericardial effusion. .
Compared to the previous echo July 2021, there is no significant change.
CVS: S1-S2 normal, sm at apex and RHB
Chest: CTA B/L
Abdomen: Soft, NT / Bowel sounds present
Extremities: No edema
[employer] PULP: Non focal exam
#Acute L1 comp fx due to mechanical fall:
-MRI L spine above with minimal superior endplate compression fracture of L1
-S/P kyphoplasty 09/08/23
-Pain Ok today
#Acute Hypoxic resp insufficiency- Wean Off O2
Due to atelectasis on CXR?
- says she is not compliant with IS
-Pulm eval
-Wean O2 as tolerated
-Encouraged IS
#Leucocytosis- Unclear cause
Blood CX neg
U/A not C/W UTI
CXR with atelectasis
Temp of 100.6 noted 09/02/23
#Acute on chronic HFpEF (mild):
-Lasix 40mg IV x 1 given on admission
-Echo above, unchanged from prior in 2021
-daily wts, I/Os
-FR 1440cc/day
#MARIANA- Will give 500 ml IVF today
Bladder scan 43 ml
#Insomnia:
-no ambien
-cont Restoril PRN
# Constipation- resolved

#Essential HTN: Continue Norvasc/hydrochlorothiazide/losartan
#Obesity due to excess calories: Encourage weight loss. Affects all aspects of care.
#/o gastric ulcer: cont PPI
#h/o Fe def: cont PO Fe
#h/o B12 deficiency: cont B12 supplement
#Dementia: cont Namenda/Aricept
#Chronic back pain, arthritis, neuropathy: s/p lumbar KATINA 2 weeks OR DIRECTOR. 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
#HLD: cont statin
#Depression: cont Zoloft
#Insomnia: Melatonin PRN
#FULL
#DVT prophylaxis- Lovenox
D/W RN
D/W at bed side
D/W Case management
Anticipated Discharge: Within 24 hours
Subjective/Interval History
-
Date of Service: September 10, 2023
Objective Data
-
Labs:
Laboratory Results
09/10/23
07:06
Sodium 134 L
Potassium 4.0
Chloride 92 L
Carbon Dioxide 39 H
BUN 59 H
Creatinine 1.2 H
Glucose 121 H
Calcium 8.7
Vital Signs:
Vital Signs
Temp Pulse Resp BP Pulse Ox
98.0 F 69 17 166/70 96
09/10/23 07:00 09/10/23 07:00 09/10/23 07:00 09/10/23 09:00 09/10/23 08:43
I&O
09/09/23 09/10/23 09/11/23
06:59 06:59 06:59
Intake Total 1450 / 1450 1490 / 1490
Balance 1450 / 1450 1490 / 1490
[2023-09-10 15:31] VITALS: BP 133/55; PULSE 71; O2SAT 92
[2023-09-10] MEDS: NSS 500 IV (16:15)
[2023-09-10] MEDS: LOVENOX 40 MG SC (18:26)
[2023-09-10] MEDS: SENOKOT PO ×2 (20:16→20:24)
[2023-09-10] MEDS: ARICEPT 20 MG PO (22:00)
[2023-09-10] MEDS: MELATONIN 5 MG PO (22:01)
[2023-09-10] MEDS: CRESTOR 20 MG PO (22:01)
[2023-09-10 23:38] VITALS: BP 149/57
[2023-09-11] MEDS: TYLENOL 650 MG PO (01:11)
[2023-09-11] MEDS: ULTRAM 50 MG PO ×2 (02:52→15:15)
[2023-09-11 06:44] LABS: Blood Urea Nitrogen 42 mg/dl (7-17); Calcium 8.7 mg/dl (8.4-10.2); Carbon Dioxide 36 mmol/L (22-30); Chloride 96 mmol/L (98-107); Estimated Creatinine Clearance 43 ml/min; Glucose 111 mg/dl (70-99); Potassium 3.9 mmol/L (3.5-5.1); Sodium 135 mmol/L (135-145); eGFR > 60.00
[2023-09-11 07:00] VITALS: BP 124/86
[2023-09-11] MEDS: ZOLOFT 100 MG PO (08:52)
[2023-09-11] MEDS: APRESOLINE 50 MG PO (08:52)
[2023-09-11] MEDS: PROTONIX 40 MG PO (08:52)
[2023-09-11] MEDS: NAMENDA 10 MG PO (08:52)
[2023-09-11] MEDS: SENOKOT 17.1999999999999993 MG PO (08:52)
[2023-09-11] MEDS: NORVASC 5 MG PO (08:53)
[2023-09-11] MEDS: COLACE 100 MG PO (08:53)
[2023-09-11] MEDS: LIDOCAINE 4% PATCH 1 PATCH TOPICAL (08:53)
[2023-09-11] MEDS: LYRICA 25 MG PO (08:53)
[2023-09-11] MEDS: VITAMIN B-12 1000 MCG PO (08:54)
[2023-09-11] MEDS: MIRALAX 17 GRAMS PO (08:54)
[2023-09-11 09:40] VITALS: BMI 35.2
--- NOTE | 2023-09-11 11:15 | W.PN.PUL3 ---
Today's Communication / Plan
-
Incentive spirometer strongly encouraged
Up out of bed as tolerated
Pain control
Walking pulse oximetry prior to discharge
Pt being arranged for discharge - Follow up with us in office.
Pulmonary will now sign off. Please call back with any questions.
Assessment
-
Assessment: 83-year-old female former tobacco smoker (quit 1987) with a past medical history of osteoporosis, lumbar radiculitis, hyperlipidemia, hypertension, dementia and personal history of COVID-19 who presented on 09/02/2023 with a fall with
subsequent development of lower back pain. Patient denies any head trauma, loss of consciousness and she is not on blood thinners. In the ER she was saturating 91% on room air and was afebrile to 98.2 �F. Labs showed leukocytosis to 13.7, mild
anemia to 11.1, low serum sodium of 134, elevated BUN of 34, negative troponin 0.012, and a slightly elevated proBNP of 1740. She did have multiple radiographs of her lumbar spine, hip and chest and there was a new 40% compression fracture of the
superior endplate of L1 seen, without any hip fracture or rib fracture. CXR showed poor inspiratory effort without evidence of pneumonia and prominent bronchovascular markings. She was treated with Lasix 20 mg IVP x1, given lidocaine and tramadol
and admitted to the hospitalist service. And MRI of the lumbar spine on 09/03/2023 showed a minimal superior endplate compression fracture of L1 with minimal retrolisthesis without cord compression or clear nerve root impingement. She did spike a
fever on the evening of admission to 100.6 �F. No antibiotics were started. Since admission she has required between room air and 1-2 L/min nasal cannula. On 09/07 she underwent L1 percutaneous vertebral augmentation and vertebroplasty with a
reduction in her pain noted postprocedure. Unfortunately the patient has continued to require between 1-2 L/min nasal cannula, and now pulmonary consulted for additional management/recommendations.
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
anemia
Impression:
#Acute respiratory failure with hypoxia - she is now on room air - hypoxia likely due to hypoventilation with physical deconditioning
#Acute kidney injury - improving
#Hypochloremic, hyponatremia - improving
#Elevated proBNP (09/02/2023) with mild interstitial pulmonary edema seen on CXR s/p lasix 20mg IVP x1 on 09/02/2023
#Mechanical fall with L1 superior endplate compression fracture with minimal retrolisthesis s/p L1 percutaneous vertebral augmentation with vertebroplasty (performed 09/08/2023)
#Former tobacco use disorder
Plan:
- Pain control
- PT/OT - PT recommending home health; OT recommends skilled rehab/SNF
- Encourage incentive spirometer 10x per hour for at least 4-6 hours a day while awake
- She will need walking pulse oximetry testing prior to discharge
- Would monitor I/O and trend UOP; careful not to care volume overload given prominent bronchovascular markings seen on CXR from 09/07/2023 and 09/02/2023
- Maintain SpO2 >90-94% with supplemental O2 as needed
- Replete electrolytes with K>4, Mg>2
- Maintain euglycemia with goal BG >100 and <180
- prn nebulized bronchodilators
- DVT ppx: LMWH
Patient being prepared for DC home. I will arrange for outpatient follow up. Pulmonary service will sign off. Thank you for allowing us to be involved in the care of this patient.
Total time spent today was 25 minutes for this encounter. Time includes reviewing laboratory test/imaging results, reviewing pertinent medical records, obtaining and reviewing medical history, performing an appropriate exam, ordering medications,
tests and procedures. Time also includes documentation of this encounter, coordinating patient care and communicating with other healthcare professionals. Total time does not include separately billed tests performed on this date of service.
Data:
CXR 09-07-2023:Mild left basilar subsegmental atelectasis versus scarring.
CXR 09-02-2023:Poor inspiratory effort. No evidence of pneumonia. Mild prominence of bronchovascular markings may be accentuated by low lung volumes. The possibility of mild vascular congestion cannot be excluded.
Lumbar Spine MRI 09-03-2023:
Examination is severely limited due to patient motion. Repeat fast scanning was performed.
New in the interval since the MRI 2 weeks ago is a minimal superior endplate compression fracture of L1 with minimal retrolisthesis of the posterior superior endplate, however without cord compression or clear nerve root impingement.
Limited motion artifact images suggest a new small shallow central disk protrusion at L2-3, consider follow-up repeat imaging when patient is appropriately medicated for pain. This however does not cause any cord compression, nerve root impingement
or severe central canal stenosis.
No other significant interval change. Moderate facet arthropathy on the left at L4-5. Please see description as outlined above.
Subjective Data
-
Date of Service:
Date of Service: September 11, 2023
Chief Complaint: Pulmonary Follow Up
Subjective:
Pt seen this AM. No events reported from overnight. No SOB, CP, abd pain, N/V/f/c. Pt being prepared for discharge today.
Review of Systems
General: Other (Negative unless mentioned above)
Objective Data
Data Reviewed
Vital Signs / I&O / Oxygen:
Vital Signs
Temp Pulse Resp BP Pulse Ox
98.2 F 70 17 146/58 94
09/11/23 15:48 09/11/23 15:48 09/11/23 15:48 09/11/23 15:48 09/11/23 15:48
Intake and Output
09/10/23 09/11/23 09/12/23
06:59 06:59 06:59
Intake Total 1490 / 1490 920 / 920
Balance 1490 / 1490 920 / 920
SaO2 94
Nasal Cannula flow liters per 1
minute
Physical Exam
General: Respiratory Distress (Negative) and Comfortable
HEENT: Normocephalic and Anicteric
Cardiovascular: S1-S2 and Peripheral Edema (Negative)
Respiratory: Wheeze (Negative), Crackles (Bibasilar), Rhonchi (Negative) and Non-Labored Respirations
GI: Soft, Non Distended, Non Tender and Normal Bowel Sounds
Neurology: AO x 3
Skin: Warm and Dry
Labs/Micro/Reports
Lab Data
09/07/23 06:50
09/11/23 05:35
Microbiology
09/06/23 17:28 Blood/Venous Blood Culture - Final
No Growth - Final Report
09/06/23 16:29 Blood/Venous Blood Culture - Final
No Growth - Final Report
--- NOTE | 2023-09-11 11:52 | W.DS.TRANS ---
Addendum entered and electronically signed by Sangeeta Nolasco MD 09/11/23 14:09:
Dictation- [id number]
Original Note:
DC Summary - [employer]
-
Discharge Instructions:
Sleep Apnea Risk Low
Discharge Diagnosis/Procedures Acute L1 compression fracture, acute kidney
injury, acute hypoxic respiratory insufficiency,
acute on chronic heart failure with preserved
ejection fraction, insomnia, constipation,
hypertension, history of peptic ulcer, dementia,
chronic back pain, hyperlipidemia, depression,
hemoglobin A1c 6.3
Diet Restrict fluids to 64 oz,2 Gram Sodium
Activity As tolerated,With assistance
Driving Restrictions No driving
Blood Work Hemoglobin A1c in 3 months
Specialty Instructions Weigh Daily
Instructions: *DCA Heart Failure Instructions
Stand-Alone Forms:
Changes to Home Medications: Yes
Discharge Medications:
DC Medications w/original date entered in [facility]
amlodipine 5 mg tablet 5 mg PO BID Blood pressure 07/07/21
memantine 10 mg tablet 10 mg PO BID memory 07/07/21
donepezil 23 mg tablet 23 mg PO HS memory 07/09/21
acetaminophen 650 mg tablet,extended release 1,300 mg PO Q8HPRN PRN mild pain 09/02/23
ferrous sulfate 325 mg (65 mg iron) tablet (iron) 325 mg PO MOWEFR@0800 Supplement 09/02/23
hydralazine 50 mg tablet 50 mg PO BID Blood Pressure 09/02/23
losartan 100 mg-hydrochlorothiazide 25 mg tablet 1 tab PO DAILY Blood Pressure 09/02/23
pantoprazole 40 mg tablet,delayed release 40 mg PO DAILY Gastrointestinal Issue 09/02/23
pregabalin 25 mg capsule 25 mg PO BID Neurological Condition 09/02/23
riboflavin (vitamin B2) 1 tab PO DAILY Supplement 09/02/23
rosuvastatin 20 mg tablet 20 mg PO HS High Cholesterol 09/02/23
sertraline 100 mg tablet 100 mg PO DAILY Depression 09/02/23
cyanocobalamin (vitamin B-12) 1,000 mcg tablet 1,000 mcg PO DAILY Supplement #30 tabs 09/11/23
docusate sodium 100 mg capsule 100 mg PO BID Constipation #0 caps 09/11/23
lidocaine 4 % topical patch 1 patch topical DAILY Pain #0 ea 09/11/23
melatonin 5 mg tablet 5 mg PO HS Sleep #0 tabs 09/11/23
polyethylene glycol 3350 17 gram oral powder packet (HealthyLax) 17 g PO DAILY Constipation #0 ea 09/11/23
temazepam 7.5 mg capsule 7.5 mg PO HSPRN PRN insomnia #2 caps 09/11/23
Home Medication Changes
new
docusate sodium 100 mg capsule 100 mg PO BID Constipation #0 caps 09/11/23
lidocaine 4 % topical patch 1 patch topical DAILY Pain #0 ea 09/11/23
melatonin 5 mg tablet 5 mg PO HS Sleep #0 tabs 09/11/23
polyethylene glycol 3350 17 gram oral powder packet (HealthyLax) 17 g PO DAILY Constipation #0 ea 09/11/23
temazepam 7.5 mg capsule 7.5 mg PO HSPRN PRN insomnia #2 caps 09/11/23
Ambien stopped
Pending Results: No
--- NOTE | 2023-09-11 11:53 | W.PN.HOSP.TC ---
Today's Communication/Plan
-
Discharge
Assessment / Plan
Assessment / Plan
CXR: Poor inspiratory effort. No evidence of pneumonia. Mild prominence of bronchovascular markings may be accentuated by low lung volumes. The possibility of mild vascular congestion cannot be excluded.
L-spine Xray: New 40% compression fracture of the superior endplate of L1
MRI L-spine: Examination is severely limited due to patient motion. Repeat fast scanning was performed. New in the interval since the MRI 2 weeks ago is a minimal superior endplate compression fracture of L1 with minimal retrolisthesis of the
posterior superior endplate, however without cord compression or clear nerve root impingement. Limited motion artifact images suggest a new small shallow central disk protrusion at L2-3, consider follow-up repeat imaging when patient is
appropriately medicated for pain. This however does not cause any cord compression, nerve root impingement or severe central canal stenosis. No other significant interval change. Moderate facet arthropathy on the left at L4-5.
Echo: Normal left ventricular chamber size. Normal left ventricular systolic
function. Left ventricular ejection fraction is 60-65% by volumetric
assessment. Normal regional wall motion. Normal left ventricular wall
thickness.
Moderate mitral regurgitation.
Moderate tricuspid regurgitation. Estimated pulmonary artery pressure of 55-60
mmHg.
Trace pericardial effusion. .
Compared to the previous echo July 2021, there is no significant change.
CVS: S1-S2 normal, sm at apex and RHB
Chest: CTA B/L
Abdomen: Soft, NT / Bowel sounds present
Extremities: No edema
LINING FELLER: Non focal exam
#Acute L1 comp fx due to mechanical fall:
-MRI L spine above with minimal superior endplate compression fracture of L1
-S/P vertebroplasty 09/08/23
-Pain Ok today
#Acute Hypoxic resp insufficiency- Wean Off O2
Due to atelectasis on CXR?
- says she is not compliant with IS
-Pulm eval
-Wean O2 as tolerated
-Encouraged IS
#Leucocytosis- Unclear cause
Blood CX neg
U/A not C/W UTI
CXR with atelectasis
Temp of 100.6 noted 09/02/23
#Acute on chronic HFpEF (mild):
-Lasix 40mg IV x 1 given on admission
-Echo above, unchanged from prior in 2021
-daily wts, I/Os
-FR 1440cc/day
#MARIANA- Resolved
Bladder scan 43 ml
#Insomnia:
-no Ambien
-cont Restoril PRN
# Constipation- resolved

#Essential HTN: Continue Norvasc/hydrochlorothiazide/losartan
#Obesity due to excess calories: Encourage weight loss. Affects all aspects of care.
#/o gastric ulcer: cont PPI
#h/o Fe def: cont PO Fe
#h/o B12 deficiency: cont B12 supplement
#Dementia: cont Namenda/Aricept
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
#HLD: cont statin
#Depression: cont Zoloft
#Insomnia: Melatonin PRN
#FULL
#DVT prophylaxis- Lovenox
D/W RN
D/W Case management
Discharge today
Discharge time 35 min
Anticipated Discharge: Today
Subjective/Interval History
-
Date of Service: September 11, 2023
Objective Data
-
Labs:
Laboratory Results
09/11/23
05:35
Sodium 135
Potassium 3.9
Chloride 96 L
Carbon Dioxide 36 H
BUN 42 H
Creatinine 0.9
Glucose 111 H
Calcium 8.7
Vital Signs:
Vital Signs
Temp Pulse Resp BP Pulse Ox
98.4 F 72 16 124/84 95
09/11/23 07:00 09/11/23 07:00 09/11/23 07:00 09/11/23 08:52 09/11/23 09:00
I&O
09/10/23 09/11/23 09/12/23
06:59 06:59 06:59
Intake Total 1490 / 1490 920 / 920
Balance 1490 / 1490 920 / 920
--- NOTE | 2023-09-11 12:49 | CM ---
Addendum entered by Angela Suh 09/11/23 13:02:
Transport arranged for 1600
Family - Tiarra made aware
Pham at [facility] aware
Original Note:
Pt for discharge today
auth Information given to Pham at [facility]
Discussed IMM with pt
Plan - transfer to [facility]
R - [phone]
- [phone]
[2023-09-11 15:48] VITALS: BP 146/58
== END 2023-09-11 15:57 | DRG 515 ==
LOC: 3 WEST ACU 17:28
PROVIDERS: Clinical Nurse Specialist Family Health; Physician Assistant; Radiology Diagnostic Radiology; Radiology Vascular & Interventional Radiology; ADMITTING PHYSICIAN Internal Medicine; ATTENDING PHYSICIAN Hospitalist; CONSULT PHYSICIAN Internal Medicine Critical Care Medicine; EMERGENCY PHYSICIAN Emergency Medicine; FAMILY PHYSICIAN Internal Medicine
PROC: 0QU03JZ Supplement Lumbar Vertebra with Synthetic Substitute, Percutaneous Approach (ICD-10-PCS; 2023-09-08)
DX: S32.010A Wedge compression fracture of first lumbar vertebra, initial encounter for closed fracture (principal); I50.33 Acute on chronic diastolic (congestive) heart failure; F03.A3 Unspecified dementia, mild, with mood disturbance; N17.9 Acute kidney failure, unspecified; Z87.891 Personal history of nicotine dependence; I11.0 Hypertensive heart disease with heart failure; E66.09 Other obesity due to excess calories; Z68.35 Body mass index [BMI] 35.0-35.9, adult; E78.00 Pure hypercholesterolemia, unspecified; F32.A Depression, unspecified; K59.00 Constipation, unspecified; R06.89 Other abnormalities of breathing; G47.00 Insomnia, unspecified; R09.02 Hypoxemia
CPT/HCPCS: 22514; 71046; 72110; 72148; 73502; 80048; 80053; 81003; 81015; 83036; 83880; 84300; 84484; 85025; 85027; 85610; 87040; 93005; 93306; 97116; 97530; 97535; 99285

== ENCOUNTER 2024-01-25 06:47 | Emergency (ER) | payer OTHER, SELFPAY ==
[2024-01-25 06:51] VITALS: BP 122/103
--- NOTE | 2024-01-25 07:07 | ED.GENMED ---
History of Present Illness
General
Chief Complaint: Chest Pain
Source: patient
Exam Limitations: none
Time Seen by Provider: 01/25/24 07:02
History of Present Illness
History of Present Illness:
See MDM
Past History
Past History
ED Past Medical History: HTN and Hypercholesterolemia
ED Past Surgical History:
Patient has exhibited threatening behavior?: No
Social History
Tobacco: Former smoker
Alcohol: Occasional
Drug: None
Personal:
Living: with family
Employment: Retired
Family History
Family History: Hypertension and Other (stroke)
Phy Exam
Physical Exam
Physical Exam:
See MDM
Scores
Heart Score for Chest Pain Patients
STEMI patient?: No
History: Slightly or Non-Suspicious
ECG: Normal
Age: >/= 65 years
Risk Factors: 1 or 2 Risk Factors
Troponin: </= Normal Limit
Heart Score for Chest Pain Patients: 3
Heart Score Risk: 2.5% MACE over next 6 weeks
Course
Orders/Labs/Results
Orders:
Orders
01/25/24 06:49
EKG [Electrocardiogram (*1)] Urgent
Reason for Study: Chest Pain
EKG- Treatment ONCE
01/25/24 07:07
CR Chest - 2 Views Urgent
Comment:
Reason For Exam: Resolved chest pain and SOB
01/25/24 07:16
Complete Blood Count/With Diff Urgent
Comprehensive Metabolic Panel Urgent
Troponin I Urgent
01/25/24 08:37
Urinalysis Reflex To Culture Urgent
Date Specimen was Collected: 01/25/24
Time Specimen was Collected: 08:28
Comment: clean catch
Abnormal Lab Results
01/25/24
07:16
WBC 13.3 H 10^3/uL
(4.8-10.8)
RBC 3.47 L 10^6/uL
(4.20-5.40)
Hgb 11.0 L g/dL
(12.0-16.0)
Hct 33.9 L %
(37.0-47.0)
MCH 31.7 H pg
(27.0-31.0)
MCHC 32.4 L g/dL
(33.0-37.0)
RDW 14.9 H %
(11.5-14.5)
MPV 10.7 H fL
(7.4-10.4)
Abs Immat Gran (auto) 0.1 H 10^3/uL
(0-0.05)
Absolute Neuts (auto) 11.3 H 10^3/uL
(1.4-6.5)
Absolute Lymphs (auto) 0.7 L 10^3/uL
(1.2-3.4)
Absolute Monos (auto) 1.1 H 10^3/uL
(0.1-0.6)
Neutrophils % 85.0 H %
(42.2-75.2)
Lymphocytes % 5.3 L %
(20.5-51.1)
BUN 42 H mg/dl
(7-17)
Glucose 145 H mg/dl
(70-99)
01/25/24 07:16
01/25/24 07:16
Vital Signs
Initial and Last Documented VS:
Initial Vital Signs
Temp Pulse Resp BP Pulse Ox
97.6 F 83 18 122/103 97
01/25/24 06:51 01/25/24 06:51 01/25/24 06:51 01/25/24 06:51 01/25/24 06:51
Last Documented Vital Signs
Temp Pulse Resp BP Pulse Ox
97.6 F 76 17 140/55 95
01/25/24 06:51 01/25/24 07:22 01/25/24 07:22 01/25/24 07:22 01/25/24 07:22
MDM/Problems Addressed
Differential Diagnosis Includes:
HPI and MDM Narrative:
83-year-old female presenting with shortness of breath and chest discomfort. She states it woke her up from sleep around 2 AM. was concerned because her blood pressure was mildly elevated. Patient states symptoms lasted approximately 15
minutes. EKG performed in triage had artifact and read as STEMI but it was inconsistent with STEMI. She is currently symptom-free. Repeat EKG confirms no ST elevation
Regardless, given her symptoms, will obtain troponin and chest x-ray and continue to reassess
Physical exam
General: Well appearing and non-toxic
HEENT: protecting airway
Neck: appears supple
CV: No evidence of cyanosis. Regular rate and rhythm
Resp: No accessory muscle use. Lungs clear
Abd: Non-distended
Extremities: No deformities. No unilateral leg edema or tenderness
Neuro: alert
Psych: Normal affect
Skin: Intact
Problems Addressed including Acute and Chronic Conditions affecting care:
1. Resolved chest pain shortness of breath
Acuity: acute
Prognosis: stable
Details: Potentially GI related. Regardless, EKG is nonischemic. Will obtain troponin and chest x-ray
Updates
Chest x-ray without pneumothorax or pneumonia or fluid. Troponin negative. Given duration of symptoms, doubt ACS. On further evaluation, patient remains symptom free. We discussed mild leukocytosis but this appears to be somewhat chronic. Will
place on cardiac callback tracker. Both patient and are happy with the workup and feel comfortable going home
Differential Diagnosis (but not limited to): Gastritis, ACS, nonpleuritic pain
Testing considered: D-dimer but she is neither tachycardic nor hypoxic and has no clinical signs of DVT
Drug therapy (if applicable): OTC meds, please see d/c instruction regarding Rx drugs
Amount and/or Complexity of Data Reviewed
Clinical info obtained from: Patient
External data reviewed: N/A
Labs I independently reviewed (but not limited to): Mild leukocytosis, troponin normal
Radiology: X-ray independently reviewed: Chest x-ray without any evidence of pneumonia or pulmonary edema
Pulse Ox: not hypoxic
EKG independently reviewed: sinus rhythm, normal axis, no STEMI
Wool Fleece Grader: Sinus rhythm
Critical Care: N/A
Risk of Complication:
Social Determinants of health: Good social support
Discussed with other providers: N/A
Escalation of Care includes Admit/Obs: After being observed in the Emergency Department, pt stable for discharge.
Occasional wrong word or 'sound a like' substitutions may have occurred due to the inherent limitations of voice recognition software. Read the chart carefully and recognize, using context, where substitutions have occurred.
*Critical Care Note
Total Time (30-74mins, 75-104mins- exclusive of procedures): Not Applicable
ED Attending Note
-
Portions of this chart may have been created with voice recognition software.� Occasional wrong word or��sound alike� substitutions may have occurred due to the inherent limitations of voice recognition software.
Discharge Plan
Departure
Patient Disposition: Home (Routine Discharge)
Date of Disposition: 01/25/24
Time of Disposition: 09:02
Patient with high blood pressure during this ER visit?: No
Discharge Problem:
Chest pain
Instructions: Chest Pain DCA Follow Up
Prescriptions:
No Action
amlodipine 5 MG tablet
5 mg PO BID
memantine 10 MG tablet
10 mg PO BID
donepezil 23 MG tablet
23 mg PO HS
sertraline 100 mg Tablet
100 mg PO DAILY
acetaminophen 650 mg Tablet Extended Release
1,300 mg PO Q8HPRN PRN (Reason: mild pain)
losartan-hydrochlorothiazide 100-25 mg Tablet
1 tab PO DAILY
ferrous sulfate [iron] 325 mg (65 mg iron) Tablet
325 mg PO MOWEFR@0800
hydralazine 50 mg Tablet
50 mg PO BID
rosuvastatin 20 mg Tablet
20 mg PO HS
pregabalin 25 mg Capsule
25 mg PO BID
riboflavin (vitamin B2)
1 tab PO DAILY
pantoprazole 40 MG tablet,delayed release (DR/EC)
40 mg PO DAILY
lidocaine 4 % Adhesive Patch,Medicated
1 patch topical DAILY Qty: 0 0RF
polyethylene glycol 3350 [HealthyLax] 17 gram Powder In Packet
17 g PO DAILY Qty: 0 0RF
temazepam 7.5 mg Capsule
7.5 mg PO HSPRN PRN (Reason: insomnia) Qty: 2 0RF
docusate sodium 100 mg Capsule
100 mg PO BID Qty: 0 0RF
melatonin 5 mg Tablet
5 mg PO HS Qty: 0 0RF
cyanocobalamin (vitamin B-12) 1,000 MCG tablet
1,000 mcg PO DAILY Qty: 30 0RF
Referrals:
Penny Simmons MD [Family Provider] -
Activity Restrictions/Additional Instructions:
Please return for any worsening symptoms.
You may return at any time if you have further concerns.
Please follow up with your doctor at the first available appointment, preferably this week.
You were placed on the cardiac callback tracker. Someone from their office should call you in the next few days. If you do not hear from them in the next few days, please give them a call.
Thank you for choosing [facility].
Interventions
Interventions:
*Risk Screen - Suicide Last Done: 01/25/24 06:51
*General Assessment Last Done: 01/25/24 06:51
*ED COVID-19 Vaccine History Last Done: 01/25/24 06:51
ED- Cardiac Assessment Last Done: 01/25/24 07:22
Discharge Date and Time
Print Language: [id number]
[2024-01-25 07:22] VITALS: BP 140/55; BMI 30.4
[2024-01-25 07:28] LABS: % Basophils 0.4 % (0-2); % Eosinophils 0.3 % (0-6); % Immature Granulocytes 0.4 % (0-0.5); % Lymphocytes 5.3 % (20.5-51.1); % Monocytes 8.6 % (1.7-9.3); Absolute Basophils 0.1 10^3/uL (0-0.2); Absolute Immature Granulocytes 0.1 10^3/uL (0-0.05); Absolute Lymphocytes 0.7 10^3/uL (1.2-3.4); Absolute Monocytes 1.1 10^3/uL (0.1-0.6); Absolute Neutrophils 11.3 10^3/uL (1.4-6.5); Hematocrit 33.9 % (37.0-47.0); Mean Corp Hgb Conc. 32.4 g/dL (33.0-37.0); Mean Corpuscular Hgb 31.7 pg (27.0-31.0); Mean Corpuscular Volume 97.7 fL (81.0-99.0); Mean Platelet Volume 10.7 fL (7.4-10.4); Nucleated Red Blood Cells % 0 %; Platelet Count 200 10^3/uL (130-400); Red Blood Cell Count 3.47 10^6/uL (4.20-5.40); Red Cell Dist. Width 14.9 % (11.5-14.5); White Blood Cell Count 13.3 10^3/uL (4.8-10.8)
[2024-01-25 07:40] LABS: ALT (SGPT) 16 U/L (0-35); AST (SGOT) 23 U/L (14-36); Albumin 4.2 g/dl (3.5-5.0); Alkaline Phosphatase 124 U/L (38-126); Blood Urea Nitrogen 42 mg/dl (7-17); Calcium 9.5 mg/dl (8.4-10.2); Carbon Dioxide 28 mmol/L (22-30); Chloride 102 mmol/L (98-107); Glucose 145 mg/dl (70-99); Potassium 4.1 mmol/L (3.5-5.1); Sodium 141 mmol/L (135-145); Total Bilirubin 0.5 mg/dl (0.2-1.3); eGFR 55.21
[2024-01-25 08:00] VITALS: BP 127/52
[2024-01-25 08:23] LABS: Troponin I < 0.012 ng/ml
[2024-01-25 08:58] LABS: Urine Albumin Trace (Neg - Trace); Urine Bilirubin Negative (Negative); Urine Character Clear (Clear); Urine Color Yellow; Urine Glucose Negative (Negative); Urine Ketone Negative (Negative); Urine Leukocyte Negative (Negative); Urine Nitrite Negative (Negative); Urine Occult Blood Negative (Negative); Urine Specific Gravity 1.015 (<1.030); Urine Urobilinogen Negative (Neg - 1+)
[2024-01-25 09:00] VITALS: BP 106/47
== END 2024-01-25 09:23 | disposition home or self-care (01) ==
LOC: EMR 06:47
PROVIDERS: EMERGENCY PHYSICIAN Student in an Organized Health Care Education/Training Program; FAMILY PHYSICIAN Internal Medicine
DX: R07.89 Other chest pain (principal); R06.02 Shortness of breath; E78.00 Pure hypercholesterolemia, unspecified; I10 Essential (primary) hypertension; Z87.891 Personal history of nicotine dependence
CPT/HCPCS: 99283; 71046; 80053; 81003; 84484; 85025; 93005

== ENCOUNTER 2024-02-09 17:59 | Inpatient (IN) | payer OTHER, SELFPAY ==
[2024-02-09] VITALS (14 sets, daily range): BP systolic 91–176; BP diastolic 52–99
[2024-02-09 13:09] LABS: % Basophils 0.4 % (0-2); % Eosinophils 0.1 % (0-6); % Immature Granulocytes 0.5 % (0-0.5); % Lymphocytes 6.1 % (20.5-51.1); % Monocytes 7.6 % (1.7-9.3); % Neutrophils 85.3 % (42.2-75.2); Absolute Basophils 0.1 10^3/uL (0-0.2); Absolute Immature Granulocytes 0.1 10^3/uL (0-0.05); Absolute Lymphocytes 1.1 10^3/uL (1.2-3.4); Absolute Monocytes 1.4 10^3/uL (0.1-0.6); Absolute Neutrophils 15.9 10^3/uL (1.4-6.5); Mean Corp Hgb Conc. 33.3 g/dL (33.0-37.0); Mean Corpuscular Hgb 31.1 pg (27.0-31.0); Mean Corpuscular Volume 93.3 fL (81.0-99.0); Mean Platelet Volume 10.1 fL (7.4-10.4); Nucleated Red Blood Cells % 0 %; Platelet Count 407 10^3/uL (130-400); Red Blood Cell Count 3.86 10^6/uL (4.20-5.40); Red Cell Dist. Width 13.9 % (11.5-14.5); White Blood Cell Count 18.6 10^3/uL (4.8-10.8)
[2024-02-09 13:24] LABS: ALT (SGPT) 22 U/L (0-35); AST (SGOT) 30 U/L (14-36); Alkaline Phosphatase 89 U/L (38-126); Blood Urea Nitrogen 60 mg/dl (7-17); Calcium 9.6 mg/dl (8.4-10.2); Carbon Dioxide 29 mmol/L (22-30); Chloride 92 mmol/L (98-107); Glucose 157 mg/dl (70-99); Potassium 3.1 mmol/L (3.5-5.1); Sodium 138 mmol/L (135-145); Total Bilirubin 0.6 mg/dl (0.2-1.3); Total Protein 7.2 g/dl (6.3-8.2); eGFR 27.27
[2024-02-09 13:33] LABS: NT-proBNP 2450 pg/ml
--- NOTE | 2024-02-09 15:27 | ED.GENMED ---
History of Present Illness
General
Chief Complaint: Heart Rate Problem
Source: patient, records and physician
Time Seen by Provider: 02/09/24 15:09
History of Present Illness
History of Present Illness:
83-year-old female with past medical history of hypertension, hyperlipidemia, CHF presenting to the emergency department from primary care provider's office for evaluation of new onset A-fib atrial fibrillation, generally feeling unwell for the last
week, tested positive for COVID on February 04, went to the primary care provider today who was found to be in the new onset atrial fibrillation, primary care provider contacted cardiology who recommended patient come to the emergency department.
Patient reports generalized fatigue, cough, mild shortness of breath and generally feeling unwell. Patient has not had any fever over the last 2 to 3 days. reports he did test the patient for COVID again the day after which was reportedly
negative. Patient without any known history for A-fib and is currently not anticoagulated.
Past History
Past History
ED Past Medical History: CHF, HTN and Hypercholesterolemia
ED Past Surgical History:
Patient has exhibited threatening behavior?: No
Social History
Tobacco: Former smoker
Alcohol: Occasional
Drug: None
Personal:
Living: with family
Employment: Retired
Family History
Family History: Hypertension and Other (stroke)
Review of Systems
Review of Systems
All Other Systems: ROS reviewed and negative except as documented in HPI and ROS
Phy Exam
Physical Exam
Physical Exam:
GENERAL: Alert , in no apparent distress
HEAD: NCAT
EYE: clear conjunctiva
NECK: Supple
ENT: o/p clr, mmm.
CARDIAC: Irregularly irregular rate and rhythm, heart rate between 120 and 142 bpm
LUNGS: Rales bilateral bases, no acute respiratory distress, no wheezes/rhonchi
ABDOMEN: Soft, without focal tenderness, no r/g, no cvat
NEUROLOGICAL: Alert and oriented
SKIN: Warm and dry, skin intact.
MUSCULOSKELETAL: No edema, well perfused.
PSYCH: Normal and appropriate interaction.
Scores
[id number] Score for Afib Stroke Risk
Age in Years (65=0, 65-74=1, >/=75=2): > or = 75
Sex (Female=+1): Female
Congestive Heart Failure History (Yes=+1): Yes
Hypertension History (Yes=+1): Yes
Stroke/TIA/Thromboembolism History (Yes=+2): No
Vascular Disease History (Yes=+1): No
Diabetes Mellitus (Yes=+1): No
Score: 5
Anticoagulation Recommendations: Recommend anticoagulation (as validated in nonvalvular fib)
Heart Failure Risk
Heart Failure Risk Score: Not Applicable
Heart Score for Chest Pain Patients
STEMI patient?: Not applicable
Withdrawal Assessment of Alcohol
Withdrawal Assessment Completed?: Not applicable
Sepsis
Sepsis Screening
Sepsis Assessment: Sepsis
Sepsis Screening: Lactate >2mmol/L
Sepsis Screen
Sepsis Screen: Sepsis
Date: 02/09/24
Time: 16:49
Course
Orders/Labs/Results
Orders:
Orders
02/09/24 12:50
Electrocardiogram (*1) Urgent
Reason for Study: Atrial Fibrillation
EKG- Treatment ONCE
02/09/24 13:02
Complete Blood Count/With Diff Urgent
Comprehensive Metabolic Panel Urgent
Pro-BNP [NT-proBNP] Urgent
02/09/24 15:10
Diltiazem HCl [Cardizem] 10 mg IV NOW STA
Potassium Chloride [KCl] 40 meq PO NOW STA
02/09/24 15:12
CR Chest - 2 Views Urgent
Comment:
Reason For Exam: new onset afib, covid, tachy
02/09/24 15:15
Diltiazem 125 mg/125 ml Nss [Cardizem] 125 mg in 125 ml IV PER PROTOCOL
Initial dose in mg/hr, then titrate:: 5
Titrate to keep:: Heart rate 80-100 bpm
Titrate by mg/hr:: 5 mg/hr
Frequency of titrations (minutes):: 15
Maximum dose in mg/hr:: 15
02/09/24 15:32
Lactic Acid Q4H
Comment: CANCEL 2nd LACTIC ACID IF 1st LACTIC ACID IS LESS THAN 2
Blood Culture Routine
SOPHIE Source: Blood/Venous
Specimen Description:
Blood Culture Urgent
SOPHIE Source: Blood/Venous
Specimen Description:
02/09/24 15:49
COVID-19 Antigen Urgent
Source: Nasal Swab
02/09/24 16:08
CARDIOLOGY CONSULT Routine
Consulting Provider: Poncho Madsen
Was physician already notified: Yes
Reason for consult: CHF exacerbation, new-onset A-Fib
02/09/24 19:15
Lactic Acid Q4H
Comment: CANCEL 2nd LACTIC ACID IF 1st LACTIC ACID IS LESS THAN 2
Abnormal Lab Results
02/09/24 02/09/24
13:02 15:32
WBC 18.6 H 10^3/uL
(4.8-10.8)
RBC 3.86 L 10^6/uL
(4.20-5.40)
Hct 36.0 L %
(37.0-47.0)
MCH 31.1 H pg
(27.0-31.0)
Plt Count 407 H 10^3/uL
(130-400)
Abs Immat Gran (auto) 0.1 H 10^3/uL
(0-0.05)
Absolute Neuts (auto) 15.9 H 10^3/uL
(1.4-6.5)
Absolute Lymphs (auto) 1.1 L 10^3/uL
(1.2-3.4)
Absolute Monos (auto) 1.4 H 10^3/uL
(0.1-0.6)
Neutrophils % 85.3 H %
(42.2-75.2)
Lymphocytes % 6.1 L %
(20.5-51.1)
Potassium 3.1 L mmol/L
(3.5-5.1)
Chloride 92 L mmol/L
(98-107)
BUN 60 H mg/dl
(7-17)
Creatinine 1.8 H mg/dL
(0.6-1.0)
Glucose 157 H mg/dl
(70-99)
Lactic Acid 2.4 H mmol/L
(0.7-2.0)
02/09/24 13:02
02/09/24 13:02
Vital Signs
Initial and Last Documented VS:
Initial Vital Signs
Temp Pulse Resp BP Pulse Ox
98.5 F 101 20 118/72 95
02/09/24 12:54 02/09/24 12:54 02/09/24 12:54 02/09/24 12:54 02/09/24 12:54
Last Documented Vital Signs
Temp Pulse Resp BP Pulse Ox
98.5 F 94 18 112/72 93
02/09/24 12:54 02/09/24 16:00 02/09/24 16:14 02/09/24 16:00 02/09/24 15:32
MDM/Problems Addressed
Differential Diagnosis Includes:
covid, pneumonia, new onset atrial fibrillation, CHF
MDM/Problems Addressed:
83-year-old female presenting to the emergency department for evaluation of generalized fatigue and COVID-like symptoms, tested positive for COVID on February 04, seen by primary care today and was found to be in a new onset atrial fibrillation.
Patient remains in atrial fibrillation here with a rate between 120 in the 140 bpm. She is otherwise in no acute distress. Labs were initiated on arrival and patient has a leukocytosis of 18,000. Her chemistry reveals a potassium of 3.1 and a
significant acute kidney injury as well as BNP of nearly 2500. I do suspect that the atrial fibrillation is likely contributing to the CHF. MARIANA likely from diminished p.o. intake due to recent illness and that her atrial fibrillation was likely
induced by her recent COVID infection. Patient SIRS criteria positive given her leukocytosis and tachycardia although afebrile here. Will check lactic acid and blood cultures. Chest x-ray ordered. Will admit patient.
Chronic conditions affecting care: Other (CHF)
*Radiology
Radiology exam reviewed: preliminary read by ED provider (cardiomegaly with small effusion)
*Pulse Oximetry
Patient hypoxic: no
*EKG
Interpreted by ED Provider?: Yes
Heart Rate: 115
Rate: tachycardiac
Rhythm: a-fib
*Box Finisher Interpretation
Rate: tachycardiac
Rhythm: a-fib
*Critical Care Note
Total Time (30-74mins, 75-104mins- exclusive of procedures): 30
comment:
Critical care statement: A total of 30 minutes of critical care time was provided for this patient. This includes management of unstable vital signs, evaluation of the patient at bedside, reviewing the patient's pertinent medical records, discussion
with consultants, review of old EKGs and review of pertinent medical records. This time with separate from time utilized to perform the aforementioned documented procedures
Data Reviewed
Review of Other/Old Records Reveals: Labs, Records and Discharge Summary
Source: patient, records and physician
Patient Management
Discussion with other providers: Hospitalist
Escalation/DeEscalation of care consider admission/obs:
Patient's lactic acid resulted at 2.4. I suspect there is more of a component of dehydration as the cause of her lactic acidosis and given CHF exacerbation I have concern with fluid bolusing the patient as this would likely result in pulmonary
edema and worsening respiratory status. Will rate control patient with Cardizem bolus and drip. Hospitalist team notified and can consult with cardiology team for further evaluation.
ED Attending Note
-
Portions of this chart may have been created with voice recognition software.� Occasional wrong word or��sound alike� substitutions may have occurred due to the inherent limitations of voice recognition software.
Discharge Plan
Departure
Patient Disposition: Admit
Date of Disposition: 02/09/24
Time of Disposition: 15:27
Presentation/result/management discussed w/ accepting MD/DO: Hospitalist
Discharge Problem:
Atrial fibrillation, new onset, MARIANA (acute kidney injury), CHF (congestive heart failure), COVID-19
Prescriptions:
No Action
amlodipine 5 MG tablet
5 mg PO BID
memantine 10 MG tablet
10 mg PO BID
donepezil 23 MG tablet
23 mg PO HS
riboflavin (vitamin B2) 100 mg Tablet
100 mg PO DAILY Qty: 0
sertraline 100 mg Tablet
100 mg PO DAILY
losartan-hydrochlorothiazide 100-25 mg Tablet
1 tab PO DAILY
ferrous sulfate [iron] 325 mg (65 mg iron) Tablet
325 mg PO MOWEFR@0800
hydralazine 50 mg Tablet
50 mg PO BID
rosuvastatin 20 mg Tablet
20 mg PO HS
pantoprazole 40 MG tablet,delayed release (DR/EC)
40 mg PO DAILY
cyanocobalamin (vitamin B-12) 1,000 MCG tablet
1,000 mcg PO DAILY Qty: 30 0RF
acetaminophen [Tylenol Extra Strength] 500 mg Tablet
1,000 mg PO Q6HPRN PRN (Reason: MILD PAIN)
zolpidem [Ambien] 5 mg Tablet
10 mg PO HS
Interventions
Interventions:
*Risk Screen - Suicide Last Done: 02/09/24 16:11
*General Assessment Last Done: 02/09/24 16:11
*Neglect/Abuse Screening Last Done: 02/09/24 16:11
ED- Fall Risk Assessment Last Done: 02/09/24 16:11
*ED COVID-19 Vaccine History Last Done: 02/09/24 16:11
ED- Cardiac Assessment Last Done: 02/09/24 16:13
ED- Pulmonary Assessment Last Done: 02/09/24 16:13
Discharge Date and Time
Print Language: TURKMEN
[2024-02-09] MEDS: CARDIZEM 10 MG IV (15:50)
[2024-02-09] MEDS: KCL 40 MEQ PO (15:51)
[2024-02-09 15:52] LABS: Lactic Acid 2.4 mmol/L (0.7-2.0)
[2024-02-09] MEDS: CARDIZEM 125 IV (15:53)
--- NOTE | 2024-02-09 16:06 | CON.CAR ---
Addendum entered and electronically signed by Poncho Madsen MD 02/09/24 18:04:
Attending addendum: Briefly, this is an 83-year-old female with a past medical history notable for mild underlying dementia, hypertension, and heart failure ventricular ejection fraction. She was seen in the emergency department on 01/24 with
complaints of chest discomfort and was scheduled to see Dr. Melchor for follow-up appointment. Her troponin was serially undetectable. She was seen in her primary care physician's office earlier today and noted to have a resting irregular
tachycardic rhythm. She was referred to [facility] emergency department and was found to be in atrial fibrillation with ventricular response. The patient states that she is experience generalized malaise of appetite over the past week or
so. She denies any recurring chest discomfort or shortness of breath. She states that she is more winded when she was physically doing things. Her states that she has not really been eating since last week.
PE:
GEN: Ms. Guerrero is AAO x 3. She is lying at a 20-30 degree angle and appears comfortable. No acute distress
HEENT: NC/AT, sclera are anicteric,
LUNGS: Crackles at the bases bilaterally. No wheezing
CV: Irregularly irregular Normal S1/S2. Murmur: None
ABD : Soft, NT, ND, No HSM. Bowel sounds are present.
EXT: Trace edema
NEURO: No focal neurologic deficits
ECG: Atrial fibrillation with rapid ventricular response. Nonspecific ST-T changes
IMPRESSION/RECOMMENDATION:
-Atrial fibrillation with rapid ventricular response
IV Cardizem drip
Begin oral beta-nathen with Toprol-XL 50 mg p.o. twice daily with hold parameters
Check TSH
Echocardiogram in the morning
Will keep n.p.o. for possible JT cardioversion either on 02/09 or 02/11/2024
Anticoagulate with apixaban 2.5 mg p.o. twice daily given advanced age and creatinine above 1.5. Will have to follow her creatinine over time as her baseline may be a little lower
Original Note:
Consultation
Consultation Request
Date/Time Consultation Requested: 02/09/24
Date/Time Consultation Performed: 02/09/24
Requesting Provider: Dr. Leos
Performing Provider: Dr. Madsen
Reason for Consultation: Newly diagnosed Afib or unlcear duration
Medical History
-
History of Present Illness:
Patient came to [facility] today from her PCP's office with fatigue, anorexia and new Afib, cardiology is now consulted. Patient lives with her and takes meds for dementia. Patient's in the room now reports that patient was in [facility] 01/25/24
for chest pain and after an undetectable Troponin and normal ECG patient was d/c'd to home. Patient was scheduled to follow up with cardiology in the office on 01/28/24, but cancelled due to feeling sick. Patient then saw a friend on 01/31/24 and that
patient later called her to say that she tested positive for COVID. Patient's reports that patient ate lunch on 02/04/24 and then did not eat again until today. They tested patient at home for COVID and it was faintly positive so
they set up a telemedicine with patient's PCP and she was advised to start Paxlovid, but never did. Patient was then scheduled to see her PCP in the office today and in the PCP office she was found to be in Afib and was sent to [facility]. Patient denies
palpitations, chest pain or SOB. Afib is a new diagnosis.
PMH:
HFpEF
HTN
Dementia
Moderate MR by echo 09/04/23
Moderate TR with PAP 55-60 mmHg
Past Medical History
Past Medical History: Other (in HPI)
Past Surgical History:
Social History
Tobacco: Former Smoker
Alcohol: Occasional
Drug: None
Personal:
Living: With Family
Family History
Family History: Cancer
Allergies / Home Medications
Allergy/AdvReac Type Severity Reaction Status Date / Time
No Known Allergies Allergy Verified 01/25/24 06:52
�Medication �Instructions �Recorded �Confirmed �Type
amlodipine 5 mg tablet 5 mg PO BID Blood pressure 07/07/21 02/09/24 History
memantine 10 mg tablet 10 mg PO BID memory 07/07/21 02/09/24 History
donepezil 23 mg tablet 23 mg PO HS memory 07/09/21 02/09/24 History
ferrous sulfate 325 mg (65 mg 325 mg PO MOWEFR@0800 Supplement 09/02/23 02/09/24 History
iron) tablet (iron)
hydralazine 50 mg tablet 50 mg PO BID Blood Pressure 09/02/23 02/09/24 History
losartan 100 1 tab PO DAILY Blood Pressure 09/02/23 02/09/24 History
mg-hydrochlorothiazide 25 mg tablet
pantoprazole 40 mg tablet,delayed 40 mg PO DAILY Gastrointestinal 09/02/23 02/09/24 History
release Issue
riboflavin (vitamin B2) 100 mg 100 mg PO DAILY Supplement ##0 09/02/23 02/09/24 History
tablet
rosuvastatin 20 mg tablet 20 mg PO HS High Cholesterol 09/02/23 02/09/24 History
sertraline 100 mg tablet 100 mg PO DAILY Depression 09/02/23 02/09/24 History
cyanocobalamin (vitamin B-12) 1,000 mcg PO DAILY Supplement #30 09/11/23 02/09/24 Rx
1,000 mcg tablet tabs
acetaminophen 500 mg tablet 1,000 mg PO Q6HPRN PRN MILD PAIN 02/09/24 02/09/24 History
(Tylenol Extra Strength)
zolpidem 5 mg tablet (Ambien) 10 mg PO HS 02/09/24 02/09/24 History
Review of Systems
-
History Source: Patient and Family (and )
All other systems: Negative unless noted
Physical Exam
Vital Signs
Temp Pulse Resp BP Pulse Ox
98.5 F 112 32 176/99 93
02/09/24 12:54 02/09/24 15:50 02/09/24 15:49 02/09/24 15:50 02/09/24 15:32
GEN: NAD. AAOx3
HEENT: EOMI, MMM
LUNGS: No audible wheeze
CV: Afib with RVR on tele, 06/10 AHSM
ABD: soft, BS+, NT, ND
EXT: No edema B/L
NEURO: Gross non-focal
SKIN: No rash
Lab Results
02/09/24 13:02
02/09/24 13:02
Uiw-T-Ueccuhoefwp Pept 2450 pg/ml 02/09/24 13:02
Impression / Plan
-
PCP: Dr. Simmons
Cardiology: Dr. Melchor
Impression:
Newly diagnosed Afib of unclear duration
MARIANA
Nausea and anorexia
Elevated pro-BNP
COVID positive at home 02/05/24, but negative on hospital check 02/09/24
Recent ER evaluation for chest pain 01/25/24
Leukocytosis and elevated lactic acid
Hypokalemia
Chronic HFpEF
HTN
Dementia
Moderate MR by echo 09/04/23
Moderate TR with PAP 55-60 mmHg
Echo 09/04/23: EF 60-65%, normal wall motion, mod MR, mod TR with PAP 55-60 mmHg
Plan:
-Patient came to [facility] today from her PCP's office with fatigue, anorexia and new Afib, cardiology is now consulted. Patient lives with her and takes meds for dementia. Patient's in the room now reports that patient was in [facility]
01/25/24 for chest pain and after an undetectable Troponin and normal ECG patient was d/c'd to home. Patient was scheduled to follow up with cardiology in the office on 01/28/24, but cancelled due to feeling sick. Patient then saw a friend on 01/31/24
and that patient later called her to say that she tested positive for COVID. Patient's reports that patient ate lunch on 02/04/24 and then did not eat again until today. They tested patient at home for COVID and it was faintly
positive so they set up a telemedicine with patient's PCP and she was advised to start Paxlovid, but never did. Patient was then scheduled to see her PCP in the office today and in the PCP office she was found to be in Afib and was sent to [facility].
Patient denies palpitations, chest pain or SOB. Afib is a new diagnosis.
-Will make NPO for possible JT/CV in AM
-Start Eliquis 2.5 mg BID (age 83, Cre 1.8)
-Reassess MR on JT
-Cardizem gtt running
-pro-BNP 2450 without evidence of HF on CXR
-Lactic acid elevated and MARIANA. Consider IVFs, it sounds as though patient has not been eating or drinking normally
-COVID positive at home 02/05/24, but patient's says it was very faintly positive. COVID negative on DH assay today
--- NOTE | 2024-02-09 16:07 | HPS.HSE ---
Family Physician
-
Family Physician: * NONE
Chief Complaint
-
'Feeling Unwell'
History of Present Illness
83 y/o female with past medical history of HFpEF, HTN and Dementia who presented with 'feeling unwell.' Patient's was also present in the patient's room at the time of patient encounter and contributed to the history. Patient said her
symptoms started on February 04, 2024, when she 'felt unwell.' She denied any fever, body aches, cough, SOB. Her did a COVID test at home for her, and it was faintly positive (questionably positive) but a repeat home COVID test was negative.
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
Medical History
Past Medical History
Past Medical History: Reports Other (As per HPI above)
Past Surgical History: Reports
Social History
Tobacco: Former Smoker
Alcohol: Occasional
Drug: None
Family History
Family History: Cancer
Allergies / Home Medications
Allergies reflects when Allergies were last updated in [facility].
Home Medications with original date entered in [facility]
Allergy/Medication List:
Allergies
Allergy/AdvReac Type Severity Reaction Status Date / Time
No Known Allergies Allergy Verified 01/25/24 06:52
Home Medications
amlodipine 5 mg tablet 5 mg PO BID Blood pressure 07/07/21
memantine 10 mg tablet 10 mg PO BID memory 07/07/21
donepezil 23 mg tablet 23 mg PO HS memory 07/09/21
ferrous sulfate 325 mg (65 mg iron) tablet (iron) 325 mg PO MOWEFR@0800 Supplement 09/02/23
hydralazine 50 mg tablet 50 mg PO BID Blood Pressure 09/02/23
losartan 100 mg-hydrochlorothiazide 25 mg tablet 1 tab PO DAILY Blood Pressure 09/02/23
pantoprazole 40 mg tablet,delayed release 40 mg PO DAILY Gastrointestinal Issue 09/02/23
riboflavin (vitamin B2) 100 mg tablet 100 mg PO DAILY Supplement ##0 09/02/23
rosuvastatin 20 mg tablet 20 mg PO HS High Cholesterol 09/02/23
sertraline 100 mg tablet 100 mg PO DAILY Depression 09/02/23
cyanocobalamin (vitamin B-12) 1,000 mcg tablet 1,000 mcg PO DAILY Supplement #30 tabs 09/11/23
acetaminophen 500 mg tablet (Tylenol Extra Strength) 1,000 mg PO Q6HPRN PRN MILD PAIN 02/09/24
zolpidem 5 mg tablet (Ambien) 10 mg PO HS 02/09/24
Review of Systems
-
A 12 point ROS was completed and negative except as noted: Yes
Physical Exam
Vital Signs
Vital Signs
Temp Pulse Resp BP Pulse Ox
98.5 F 112 32 176/99 93
02/09/24 12:54 02/09/24 15:50 02/09/24 15:49 02/09/24 15:50 02/09/24 15:32
Physical Exam
General: No Apparent Distress, Comfortable and Conversant
HEENT: NormoCephalic and Moist mucous membranes
Respiratory: Clear
Cardiac: S1/S2, Irregular Rhythm and Tachycardia
GI: Soft, Non Tender and Normal Bowel Sounds
Musculoskeletal: No Cyanosis and No Edema
Skin: Warm and Dry
Neuro: Awake, Alert, AO x 3 and Nonfocal/grossly intact
Psych: Calm and Intact Judgment/Insight
Laboratory Results
-
02/09/24 13:02
02/09/24 13:02
Laboratory Results
Lactic Acid 2.4 mmol/L (0.7-2.0) H 02/09/24 15:32
Total Bilirubin 0.6 mg/dl (0.2-1.3) 02/09/24 13:02
AST 30 U/L (14-36) 02/09/24 13:02
ALT 22 U/L (0-35) 02/09/24 13:02
Alkaline Phosphatase 89 U/L (38-126) 02/09/24 13:02
Impression/Plan
-
Assessment/Plan
#New-Onset A-FIb with RVR
-Monitor in IMU
-Continue Cardizem Drip
-New medication: Eliquis 2.5 mg BID
#Presentation with 'feeling unwell'
-COVID test negative (confirmed with a prior home test patient's performed at home
-Leukocytosis appears to possibly be chronic or recurrent -- will consider heme/onc consult
#Hypokalemia
-Potassium replaced, continue to monitor BMP
-Check magnesium
#Acute Kidney Injury
-Continue IV fluids -- but have to be careful given patient's history of CHF
#History of Acute L1 comp fx due to mechanical fall:
#History of Acute Hypoxic resp insufficiency
#Leukocytosis
#History of Leukocytosis of unclear etiology
-May need hematology/oncology consultation
#Chronic HFpEF
-daily wts, I/Os
-Daily PO Fluid Restriction
#Insomnia:
-no Ambien
-Can consider cont Restoril PRN
#History of Constipation

#Essential HTN: Continue Norvasc/hydrochlorothiazide/losartan
#Obesity due to excess calories: Encourage weight loss. Affects all aspects of care.
#/o gastric ulcer: cont PPI
#h/o Fe def: cont PO Fe
#h/o B12 deficiency: cont B12 supplement
#Dementia: cont Namenda/Aricept
#Chronic back pain, arthritis, neuropathy: s/p lumbar KATINA 2 weeks [employer]. 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
#HLD: cont statin
#Depression: cont Zoloft
#Insomnia: Melatonin PRN
#FULL
#DVT prophylaxis-Eliquis
Atrial Fibrillation with RVR needing close monitoring in the IMU unit is a high risk encounter.
[2024-02-09 16:33] LABS: COVID-19 Antigen Negative (Negative)
--- NOTE | 2024-02-09 18:31 | PTCARENOTE ---
Pt rec'd into IMU room 8030. Remains Aox2, confused to time. Slightly forgetful, repeats statements. Bed alarm in place and armed. Plan of care explained, oriented to room. Devan fergusoniwed, Pt aware she is NPO tonight for possible cardioversion
tomorrow. Call maldonado in hand.
[2024-02-09] MEDS: NSS 1000 IV (20:47)
[2024-02-09] MEDS: ELIQUIS 2.5 MG PO (20:48)
[2024-02-09] MEDS: NAMENDA 10 MG PO (20:48)
[2024-02-09 21:22] LABS: Magnesium 2.6 mg/dl (1.6-2.3)
[2024-02-09] MEDS: NORVASC PO (21:22)
[2024-02-09] MEDS: APRESOLINE PO (21:22)
[2024-02-09 21:23] LABS: Lactic Acid 1.2 mmol/L (0.7-2.0)
--- NOTE | 2024-02-09 21:30 | PTCARENOTE ---
Addendum entered by Kiki Brennan 02/10/24 07:33:
*instructed this RN
Original Note:
Pt displaying SR with PVCs and HR as low as 49. BP 91/52. Cardizem gtt remains in place at 5mg. JOHN Hernández instructed to withhold hydralazine and amlodipine at this time. Lactic acid, magnesium, and troponin sent to lab at this time.
[2024-02-09 21:35] LABS: Troponin I 0.017 ng/ml
[2024-02-09] MEDS: CRESTOR 20 MG PO (22:52)
[2024-02-09] MEDS: AMBIEN 10 MG PO (22:52)
[2024-02-10] VITALS (22 sets, daily range): BP systolic 83–135; BP diastolic 36–118
--- NOTE | 2024-02-10 00:49 | PTCARENOTE ---
Pt remains AAOx2 and forgetful, sometimes repeating herself. Denies complaints at this time. Remains on cardizem gtt, see worklist documentation. Cardiac rhythm alternating between afib, aflutter, and NSR with majority afib. HR variable depending on
rhythm, but as low as 49 and as high as 110. POC discussed with pt and at bedside, made aware of NPO for possible cardioversion in AM.
[2024-02-10 01:18] LABS: Blood Urea Nitrogen 58 mg/dl (7-17); Calcium 9.1 mg/dl (8.4-10.2); Carbon Dioxide 29 mmol/L (22-30); Chloride 97 mmol/L (98-107); Glucose 129 mg/dl (70-99); Potassium 3.4 mmol/L (3.5-5.1); Sodium 140 mmol/L (135-145); eGFR 36.87
[2024-02-10 01:23] LABS: Troponin I 0.015 ng/ml
--- NOTE | 2024-02-10 02:30 | PTCARENOTE ---
Pt with episodes of desat throughout the night, as low as 86%. 2L NC placed with improvement to 94%
[2024-02-10 06:31] LABS: % Basophils 0.3 % (0-2); % Eosinophils 0.1 % (0-6); % Immature Granulocytes 0.7 % (0-0.5); % Lymphocytes 7.9 % (20.5-51.1); % Monocytes 7.6 % (1.7-9.3); % Neutrophils 83.4 % (42.2-75.2); Absolute Basophils 0.1 10^3/uL (0-0.2); Absolute Immature Granulocytes 0.1 10^3/uL (0-0.05); Absolute Lymphocytes 1.3 10^3/uL (1.2-3.4); Absolute Monocytes 1.2 10^3/uL (0.1-0.6); Absolute Neutrophils 13.7 10^3/uL (1.4-6.5); Hematocrit 32.6 % (37.0-47.0); Hemoglobin 10.7 g/dL (12.0-16.0); Mean Corp Hgb Conc. 32.8 g/dL (33.0-37.0); Mean Corpuscular Hgb 30.7 pg (27.0-31.0); Mean Corpuscular Volume 93.4 fL (81.0-99.0); Mean Platelet Volume 10.7 fL (7.4-10.4); Nucleated Red Blood Cells % 0 %; Platelet Count 376 10^3/uL (130-400); Red Blood Cell Count 3.49 10^6/uL (4.20-5.40); Red Cell Dist. Width 13.8 % (11.5-14.5); White Blood Cell Count 16.4 10^3/uL (4.8-10.8)
[2024-02-10 06:58] LABS: Troponin I 0.014 ng/ml
[2024-02-10 07:02] LABS: Blood Urea Nitrogen 54 mg/dl (7-17); Calcium 8.9 mg/dl (8.4-10.2); Carbon Dioxide 29 mmol/L (22-30); Chloride 96 mmol/L (98-107); Glucose 137 mg/dl (70-99); Magnesium 2.6 mg/dl (1.6-2.3); Potassium 3.5 mmol/L (3.5-5.1); Sodium 139 mmol/L (135-145)
[2024-02-10] MEDS: VITAMIN B-12 1000 MCG PO (08:35)
[2024-02-10] MEDS: ZOLOFT 100 MG PO (08:35)
[2024-02-10] MEDS: ELIQUIS 2.5 MG PO (08:35)
[2024-02-10] MEDS: NAMENDA 10 MG PO ×2 (08:35→20:08)
[2024-02-10] MEDS: NORVASC 5 MG PO (08:36)
[2024-02-10] MEDS: PROTONIX 40 MG PO (08:36)
[2024-02-10] MEDS: APRESOLINE 50 MG PO ×2 (08:39→20:07)
--- NOTE | 2024-02-10 08:41 | W.PN.CARDCBS ---
Addendum entered and electronically signed by Michael Dumont MD 02/10/24 11:29:
I saw and examined the patient.
The Research Microbiologist's note was reviewed and I agree with the note.
Comment:
GEN: No distress, awake, alert
HEENT: supple, anicteric, mmm
LUNGS: CTA, no wheezes/rales
CV: Reg, S1/S2, 1/6 syst LSB, no gallop
ABD: soft, BS+, NT/ND
EXT: No edema
NEURO: Gross non-focal
SKIN: No rash
Plan:
Patient spontaneous converted back into sinus rhythm. Will stop IV Cardizem and start oral Cardizem 180 daily. Stop amlodipine.
Continue Eliquis.
Creat down to 1.3. Cont to follow
Original Note:
Today's Communication / Plan
-
Cont Cardizem gtt, tele is miscounting QRS complexes
JT/CV today
Still no clear etiology of MARIANA, lactic acidosis and anorexia on admission
Impression / Plan
-
PCP: Dr. Simmons
Cardiology: Dr. Melchor
Impression:
Newly diagnosed Afib of unclear duration
MARIANA
Nausea and anorexia
Elevated pro-BNP
COVID positive at home 02/05/24, but negative on hospital check 02/09/24
Recent ER evaluation for chest pain 01/25/24
Leukocytosis and elevated lactic acid
Hypokalemia
Chronic HFpEF
HTN
Dementia
Moderate MR by echo 09/04/23
Moderate TR with PAP 55-60 mmHg
Echo 09/04/23: EF 60-65%, normal wall motion, mod MR, mod TR with PAP 55-60 mmHg
Plan:
-CTSP urgently 02/10/24 because tele reported HR in the 30s overnight. Tele personally reviewed by me and QRS complexes are small and were not be counted appropriately. HRs on my review are 70-100. Cardizem gtt has been continued.
-Patient's PCP sent her to the ER 02/09/24 for anorexia, malaise and new Afib. Duration of Afib unclear. Unclear that Afib is causing patient's malaise and anorexia.
-Remains in Afib overnight despite Cardizem gtt. Patient is scheduled for JT/CV 02/10/24
-New to Eliquis 2.5 mg BID (age 83, Cre 1.7, wt 71.2 kg). Will ask CM to check on cost
-Hgb was 12.0 on admission an down to 10.7 on 02/10/24 after 1 L IVFs.
-Reassess MR on JT. MR was moderate on TTE 09/04/23
-pro-BNP 2450 without evidence of HF on CXR
-Lactic acid 2.4 on admission and then down to 1.2.
-Patient with MARIANA on admission. Patient has not been eating or drinking normally for 5 days. No clear etiology. No N/V/D.
-COVID positive at home 02/05/24, but patient's says it was very faintly positive. COVID negative on [facility] assay 02/09/24
-Updated patient's at the bedside 02/10/24 AM. 52 minutes in face to face time, chart prep
HPI: Patient came to [facility] today from her PCP's office with fatigue, anorexia and new Afib, cardiology is now consulted. Patient lives with her and takes meds for dementia. Patient's in the room now reports that patient was in [facility]
01/25/24 for chest pain and after an undetectable Troponin and normal ECG patient was d/c'd to home. Patient was scheduled to follow up with cardiology in the office on 01/28/24, but cancelled due to feeling sick. Patient then saw a friend on 01/31/24
and that patient later called her to say that she tested positive for COVID. Patient's reports that patient ate lunch on 02/04/24 and then did not eat again until today. They tested patient at home for COVID and it was faintly
positive so they set up a telemedicine with patient's PCP and she was advised to start Paxlovid, but never did. Patient was then scheduled to see her PCP in the office today and in the PCP office she was found to be in Afib and was sent to [facility].
Patient denies palpitations, chest pain or SOB. Afib is a new diagnosis.
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
Subjective
Date of Service: February 10, 2024
No palpitations
Objective
Labs:
02/10/24 06:00
02/10/24 06:00
Labs
Hgb 10.7 g/dL (12.0-16.0) L 02/10/24 06:00
Hct 32.6 % (37.0-47.0) L 02/10/24 06:00
Plt Count 376 10^3/uL (130-400) 02/10/24 06:00
Sodium 139 mmol/L (135-145) 02/10/24 06:00
Potassium 3.5 mmol/L (3.5-5.1) 02/10/24 06:00
BUN 54 mg/dl (7-17) H 02/10/24 06:00
Creatinine 1.3 mg/dL (0.6-1.0) H 02/10/24 06:00
Glucose 137 mg/dl (70-99) H 02/10/24 06:00
Troponins
02/09/24 02/10/24 02/10/24
21:01 00:53 06:00
Troponin I 0.017 0.015 0.014
Vital Signs and I&O:
Vital Signs
Temp Pulse Resp BP Pulse Ox
98.4 F 86 19 116/68 97
02/10/24 04:13 02/10/24 08:39 02/10/24 06:00 02/10/24 08:39 02/10/24 06:00
Vital Signs
Temp Pulse Resp BP Pulse Ox
98.4 F 86 19 116/68 97
02/10/24 04:13 02/10/24 08:39 02/10/24 06:00 02/10/24 08:39 02/10/24 06:00
Intake & Output
02/08/24 02/09/24 02/10/24 02/11/24
06:59 06:59 06:59 06:59
Intake Total 525 / 525
Balance 525 / 525
Physical Exam
Physical Exam
GEN: NAD.
HEENT: MMM
LUNGS: No audible wheeze
CV: Afib with RVR on tele
ABD: ND
EXT: No edema B/L
NEURO: Gross non-focal
SKIN: No rash
--- NOTE | 2024-02-10 09:21 | CM ---
Addendum entered by Ana Maria Reyes RN 02/10/24 11:54:
Met with patient and ; Eliquis Free Month card provided.
Original Note:
Patient with Hx dementia with Dx New-Onset A-FIb with RVR. Plan JT/CV today. O2 2L. Receiving Cardizem gtt. Per nurse assessment; forgetful, weak gait transferring, ambulatory in room.
Spoke with patient's ;
the patient resides with her in a 2nd floor condo with elevator.
The patient has been independent in ADLs and ambulation without using any assistive devices.
For the past 5 days prior to admission she felt unwell, was less active, and not making meals.
No history of falls.
No housing/food/utility/transport insecurity.
DME - [facility]
VN - prior [facility] - interested in patient having [facility] again at d/c---> referral to [facility].
SNF - prior [facility]
PCP - Penny Simmons
Pharmacy - [facility]
Message to Dr Leos requesting PT Eval.
CM Consult: Mccarthy check Eliquis 2.5mg PO BID
Cost $47/month
agrees with cost.
Informed will provide Free Month card.
Cathy Palma & Dr Leos notified agrees with cost.
Plan follow up after seen by PT.
Plan probable home with [facility].
[2024-02-10] MEDS: KCL 40 MEQ PO (09:27)
[2024-02-10] MEDS: NSS 1000 IV (09:28)
[2024-02-10] MEDS: TOPROL XL 50 MG PO (09:29)
--- NOTE | 2024-02-10 11:38 | PTCARENOTE ---
At start of shift patient cardiac rhythm was alarming with low rate. Leads reapplied and EKG completed. Patient was in Afib in the 80s. Cardiology was notified and evaluated patient. 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
performed due to patient converting to Sinus Rhythm. Cardizem drip to be discontinued when she arrives back to the unit.
--- NOTE | 2024-02-10 11:56 | PTCARENOTE ---
Patient has a cough, stating that they had dinner with a friend recently who is now covid positive. Discussed with Dr. Leos. Covid test from yesterday was negative.
[2024-02-10] MEDS: CARDIZEM CD 180 MG PO (12:15)
[2024-02-10 12:46] LABS: COVID-19 Antigen Negative (Negative)
--- NOTE | 2024-02-10 13:21 | PTCARENOTE ---
Addendum entered by Lenora Baird RN 02/10/24 13:46:
Dr. Leos ordered 24 more hours of covid isolation with retest tomorrow.
Original Note:
Patient arrived back from pathology laboratory aide in Normal Sinus Rhythm in the 60s. Oral Cardizem administered. No cardioversion was completed. Patient ordered lunch. Due to cough and recent covid exposure at home a second covid test was competed and its
negative. Discussed with Infection control team and was informed that no isolation is required at this time.
--- NOTE | 2024-02-10 13:52 | VNURNOTE ---
Home Health Liaison spoke with patient's spouse Matthew to discuss [facility] nurse/therapy, visits, schedule and homebound status. He is agreeable and understands that visits at home will be 2-3 x per week to assess and teach medical management. Mrs.
Cesar recently had [facility] services in September.
Spouse is aware that [facility] will contact them for start of care in 1-2 days after discharge from . [facility] referral completed in [facility].
--- NOTE | 2024-02-10 19:25 | W.PN.HOSP.TC ---
Today's Communication/Plan
-
Monitor A-Fib on newly started oral medications
Appreciate cardiology
Assessment / Plan
Assessment / Plan
Physical Exam
General: No Apparent Distress, Comfortable and Conversant
HEENT: Normocephalic and Moist mucous membranes
Respiratory: Clear
Cardiac: S1/S2, Irregular Rhythm and Tachycardia
GI: Soft, Non Tender and Normal Bowel Sounds
Musculoskeletal: No Cyanosis and No Edema
Skin: Warm and Dry
Neuro: Awake, Alert, AO x 3 and Nonfocal/grossly intact
Psych: Calm and Intact Judgment/Insight
Assessment/Plan
#New-Onset A-FIb with RVR
-Now in sinus rhythm
-Status post Cardizem Drip
-New medication: Eliquis 2.5 mg BID
-Start oral Cardizem 180 daily and monitor for any A-Fib recurrence
#Presentation with 'feeling unwell'
-COVID test negative (confirmed with a prior home test patient's performed at home
-Leukocytosis appears to possibly be chronic or recurrent -- will consider heme/onc consult
#Hypokalemia
-Potassium replaced, continue to monitor BMP
-Magnesium level is high
#Acute Kidney Injury
-Continue IV fluids -- but have to be careful given patient's history of CHF
-Recheck BMP
#History of Acute L1 comp fx due to mechanical fall:
#History of Acute Hypoxic resp insufficiency
#Leukocytosis
#History of Leukocytosis of unclear etiology
-May need hematology/oncology consultation
#Chronic HFpEF
-daily wts, I/Os
-Daily PO Fluid Restriction
#Insomnia:
-no Ambien
-Can consider cont Restoril PRN
#History of Constipation

#Essential HTN: Stop Norvasc. Hold hydrochlorothiazide/losartan due to MARIANA
#Obesity due to excess calories: Encourage weight loss. Affects all aspects of care.
#/o gastric ulcer: cont PPI
#h/o Fe def: cont PO Fe
#h/o B12 deficiency: cont B12 supplement
#Dementia: cont Namenda/Aricept
#Chronic back pain, arthritis, neuropathy: s/p lumbar KATINA 2 weeks GAS DISPENSER. 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
#HLD: cont statin
#Depression: cont Zoloft
#Insomnia: Melatonin PRN
#FULL
#DVT prophylaxis-Eliquis
Anticipated Discharge: Within 24 hours
Subjective/Interval History
-
Date of Service: February 10, 2024
Patient was seen and examined. She appeared to be coughing more today.
Objective Data
-
Labs:
Laboratory Results
02/10/24
20:30
Sodium Pending
Potassium Pending
Chloride Pending
Carbon Dioxide Pending
BUN Pending
Creatinine Pending
Glucose Pending
Calcium Pending
Vital Signs:
Vital Signs
Temp Pulse Resp BP Pulse Ox
98.1 F 58 24 115/44 96
02/10/24 11:41 02/10/24 18:00 02/10/24 18:00 02/10/24 18:00 02/10/24 18:00
I&O
02/09/24 02/10/24 02/11/24
06:59 06:59 06:59
Intake Total 525 / 525 820 / 820
Output Total 200 / 200
Balance 525 / 525 620 / 620
[2024-02-10] MEDS: ELIQUIS 5 MG PO (20:07)
[2024-02-10] MEDS: TOPROL XL PO (20:08)
[2024-02-10 21:46] LABS: Blood Urea Nitrogen 61 mg/dl (7-17); Carbon Dioxide 30 mmol/L (22-30); Glucose 174 mg/dl (70-99); eGFR 36.87
[2024-02-10 21:54] LABS: Chloride 98 mmol/L (98-107); Potassium 4.1 mmol/L (3.5-5.1); Sodium 137 mmol/L (135-145)
[2024-02-10] MEDS: CRESTOR 20 MG PO (21:57)
[2024-02-10] MEDS: AMBIEN 10 MG PO (21:57)
[2024-02-11] VITALS (27 sets, daily range): BP systolic 90–124; BP diastolic 36–93; PULSE 62; O2SAT 92
[2024-02-11] MEDS: ROCEPHIN 1000 MG IV ×2 (00:34→23:08)
[2024-02-11] MEDS: STERILE WATER FOR INJECTION 10 ML IV ×2 (00:34→23:07)
[2024-02-11 04:56] LABS: % Basophils 0.4 % (0-2); % Eosinophils 0.8 % (0-6); % Immature Granulocytes 0.4 % (0-0.5); % Lymphocytes 10.6 % (20.5-51.1); % Monocytes 7.9 % (1.7-9.3); % Neutrophils 79.9 % (42.2-75.2); Absolute Basophils 0.1 10^3/uL (0-0.2); Absolute Eosinophils 0.1 10^3/uL (0-0.7); Absolute Immature Granulocytes 0.1 10^3/uL (0-0.05); Absolute Lymphocytes 1.7 10^3/uL (1.2-3.4); Absolute Monocytes 1.3 10^3/uL (0.1-0.6); Absolute Neutrophils 12.8 10^3/uL (1.4-6.5); Hematocrit 32.3 % (37.0-47.0); Hemoglobin 10.5 g/dL (12.0-16.0); Mean Corp Hgb Conc. 32.5 g/dL (33.0-37.0); Mean Corpuscular Hgb 30.5 pg (27.0-31.0); Mean Corpuscular Volume 93.9 fL (81.0-99.0); Mean Platelet Volume 11.3 fL (7.4-10.4); Nucleated Red Blood Cells % 0 %; Platelet Count 403 10^3/uL (130-400); Red Blood Cell Count 3.44 10^6/uL (4.20-5.40); Red Cell Dist. Width 13.9 % (11.5-14.5)
[2024-02-11 05:23] LABS: Blood Urea Nitrogen 55 mg/dl (7-17); Calcium 9.2 mg/dl (8.4-10.2); Carbon Dioxide 28 mmol/L (22-30); Chloride 98 mmol/L (98-107); Glucose 136 mg/dl (70-99); Magnesium 2.7 mg/dl (1.6-2.3); Sodium 138 mmol/L (135-145)
--- NOTE | 2024-02-11 06:13 | PTCARENOTE ---
Pt resting in bed, able to ambulate to commode with assist x1 throughout shift. Pt c/o frequent urge to void, but only able to void small amounts if anything. Post-void bladder scan as documented. C/o persistent cough, but denies other symptoms at
this time. Call maldonado within reach. remains at bedside.
--- NOTE | 2024-02-11 07:49 | PTCARENOTE ---
Patient converted back into controlled afib. EKG completed. Dr. Leos and Cathy MEDELLIN notified.
--- NOTE | 2024-02-11 08:14 | CON.ONC ---
Impression
Impression
Leukocytosis
New onset atrial fibrillation
Anemia suspect dilutional
Chronic HFpEF
Dementia
Plan
Plan
Reviewed CBC. No evidence of significant underlying hematologic disorder. This most likely represents a leukemoid reaction may be just some viral infection and white blood count seems to be trending downward.
Patient should have repeat CBC checked as an outpatient when clinically stable but approximately week although reviewing old CBC records it does appear that the patient typically runs higher normal range chronically.
Does not appear to have the pattern suggestive of either CLL or CML.
Monitor CBC as long as she is inpatient and repeat CBC as an outpatient. No specific formal outpatient heme-onc follow-up required (other than follow-up CBC) unless requested by her PCP.
Thank you for this consult. We will follow-up intermittently.
Patient History
History of Present Illness
CC/Consult: Leukocytosis
HPI: 83 y/o female admitted with new onset atrial fibrillation and generalized feeling unwell x 4 days. She initially presented to her PCP with fatigue, anorexia, and was found to be in new onset atrial fibrillation. An acquaintance was
COVID-positive. Her did a COVID test that was initially faintly positive but subsequent testing were all negative. On presentation, patient was noted to have a leukocytosis with white blood count = 18.6, now improved to 16.0. Hematology is
consulted for leukocytosis.
Past-Medical/Surgical History
PMH: HFpEF, HTN and Dementia
SH:
Tobacco: Former Smoker
Alcohol: Occasional
Drug: None
FH: Cancer
Patient Medication
�Medication �Instructions �Recorded �Confirmed �Last Taken �Type
amlodipine 5 mg tablet 5 mg PO BID Blood pressure 07/07/21 02/09/24 02/08/24 History
memantine 10 mg tablet 10 mg PO BID memory 07/07/21 02/09/24 02/08/24 History
donepezil 23 mg tablet 23 mg PO HS memory 07/09/21 02/09/24 02/08/24 History
ferrous sulfate 325 mg (65 mg 325 mg PO MOWEFR@0800 Supplement 09/02/23 02/09/24 02/06/24 History
iron) tablet (iron)
hydralazine 50 mg tablet 50 mg PO BID Blood Pressure 09/02/23 02/09/24 02/08/24 History
losartan 100 1 tab PO DAILY Blood Pressure 09/02/23 02/09/24 02/08/24 History
mg-hydrochlorothiazide 25 mg tablet
pantoprazole 40 mg tablet,delayed 40 mg PO DAILY Gastrointestinal 09/02/23 02/09/24 02/08/24 History
release Issue
riboflavin (vitamin B2) 100 mg 100 mg PO DAILY Supplement ##0 09/02/23 02/09/24 02/08/24 History
tablet
rosuvastatin 20 mg tablet 20 mg PO HS High Cholesterol 09/02/23 02/09/24 02/08/24 History
sertraline 100 mg tablet 100 mg PO DAILY Depression 09/02/23 02/09/24 02/08/24 History
cyanocobalamin (vitamin B-12) 1,000 mcg PO DAILY Supplement #30 09/11/23 02/09/24 02/08/24 Rx
1,000 mcg tablet tabs
acetaminophen 500 mg tablet 1,000 mg PO Q6HPRN PRN MILD PAIN 02/09/24 02/09/24 Unknown History
(Tylenol Extra Strength)
zolpidem 5 mg tablet (Ambien) 10 mg PO HS Sleep 02/09/24 02/09/24 02/08/24 History
apixaban 2.5 mg tablet (Eliquis) 2.5 mg PO BID Blood clot 02/10/24 Unknown Rx
prevention/tx #60 tabs
Active Medications
Generic Name Dose Route Start Last Admin
Trade Name Freq PRN Reason Stop Dose Admin
Acetaminophen 1,000 mg 02/09/24 18:34
Acetaminophen 500 Mg Tablet PO 03/08/24 18:33
Q6HPRN PRN
MILD PAIN
Apixaban 5 mg 02/10/24 20:00 02/10/24 20:07
Apixaban (Eliquis) 5 Mg Tablet PO 03/09/24 19:59 5 mg
BID ASTRID Administration
Bisacodyl 10 mg 02/09/24 18:34
Bisacodyl 10 Mg Rectal Suppository RECTAL 03/08/24 18:33
[id number] PRN
constipation
Ceftriaxone Sodium 1,000 mg 02/11/24 00:01 02/11/24 00:34
Ceftriaxone 1000 Mg / 10 Ml Vial IV 1,000 mg
Q24H ASTRID Administration
Cyanocobalamin 1,000 mcg 02/10/24 08:00 02/10/24 08:35
Cyanocobalamin 1,000 Mcg Tablet PO 03/09/24 07:59 1,000 mcg
DAILY ASTRID Administration
Diltiazem HCl 180 mg 02/10/24 12:00 02/10/24 12:15
Diltiazem 180 Mg Extended Release (24 H) Capsule PO 03/09/24 11:59 180 mg
DAILY ASTRID Administration
Doxycycline Hyclate 100 mg 02/11/24 08:00
Doxycycline 100 Mg Capsule PO
Q12 ASTRID
Ferrous Sulfate 325 mg 02/11/24 08:00
Ferrous Sulfate 325 Mg Tablet PO 03/10/24 07:59
MOWEFR@0800 ASTRID
Hydralazine HCl 50 mg 02/09/24 20:00 02/10/24 20:07
Hydralazine 50 Mg Tablet PO 03/08/24 19:59 50 mg
BID ASTRID Administration
Memantine 10 mg 02/09/24 20:00 02/10/24 20:08
Memantine 10 Mg Tablet PO 03/08/24 19:59 10 mg
BID ASTRID Administration
Metoprolol Succinate 50 mg 02/10/24 10:00 02/10/24 20:08
Metoprolol 50 Mg Extended Release Tablet PO 03/09/24 09:59 Not Given
BID ASTRID
Donepezil 23 Mg 0 mg 02/09/24 22:00
Tablet - 1 Tablet Po PO 03/08/24 21:59
Hs HS ASTRID
Pantoprazole Sodium 40 mg 02/10/24 08:00 02/10/24 08:36
Pantoprazole 40 Mg Delayed Release Tablet PO 03/09/24 07:59 40 mg
DAILY ASTRID Administration
Polyethylene Glycol 17 grams 02/09/24 18:34
Polyethylene Glycol Powder 17 Grams Packet PO 03/08/24 18:33
DAILYPRN PRN
constipation
Rosuvastatin Calcium 20 mg 02/09/24 22:00 02/10/24 21:57
Rosuvastatin (Crestor) 20 Mg Tablet PO 03/08/24 21:59 20 mg
HS ASTRID Administration
Senna/Docusate Sodium 1 tablet 02/09/24 18:34
Docusate W/Senna (Katarina-Colace) Tablet PO 03/08/24 18:33
BIDPRN PRN
constipation
Sertraline HCl 100 mg 02/10/24 08:00 02/10/24 08:35
Sertraline 100 Mg Tablet PO 03/09/24 07:59 100 mg
DAILY ASTRID Administration
Sodium Chloride 0 flush 02/09/24 19:00
Sodium Chloride 0.9% (Flush) Syringe IV 03/08/24 18:59
PER PROTOCOL ASTRID
Sterile Water 10 ml 02/11/24 01:00 02/11/24 00:34
Sterile Water For Injection 10 Ml Vial IV 03/10/24 00:59 10 ml
Q24H ASTRID Administration
Zolpidem Tartrate 10 mg 02/09/24 22:00 02/10/24 21:57
Zolpidem Tartrate 10 Mg Tablet PO 03/08/24 21:59 10 mg
HS ASTRID Administration
Physical Exam
-
General: No Apparent Distress and Comfortable
HEENT: Negative Jaundice
Cardiology: Normal Sinus Rhythm, S1 and S2
Pulmonary: Clear
GI: Soft
Extremities: No C/C/E
Labs
Lab Results
WBC 16.0 10^3/uL (4.8-10.8) H 02/11/24 04:00
RBC 3.44 10^6/uL (4.20-5.40) L 02/11/24 04:00
Hgb 10.5 g/dL (12.0-16.0) L 02/11/24 04:00
Hct 32.3 % (37.0-47.0) L 02/11/24 04:00
MCV 93.9 fL (81.0-99.0) 02/11/24 04:00
MCH 30.5 pg (27.0-31.0) 02/11/24 04:00
MCHC 32.5 g/dL (33.0-37.0) L 02/11/24 04:00
RDW 13.9 % (11.5-14.5) 02/11/24 04:00
Plt Count 403 10^3/uL (130-400) H 02/11/24 04:00
MPV 11.3 fL (7.4-10.4) H 02/11/24 04:00
Abs Immat Gran (auto) 0.1 10^3/uL (0-0.05) H 02/11/24 04:00
Absolute Neuts (auto) 12.8 10^3/uL (1.4-6.5) H 02/11/24 04:00
Absolute Lymphs (auto) 1.7 10^3/uL (1.2-3.4) 02/11/24 04:00
Absolute Monos (auto) 1.3 10^3/uL (0.1-0.6) H 02/11/24 04:00
Absolute Eos (auto) 0.1 10^3/uL (0-0.7) 02/11/24 04:00
Absolute Basos (auto) 0.1 10^3/uL (0-0.2) 02/11/24 04:00
Immature Gran % 0.4 % (0-0.5) 02/11/24 04:00
Neutrophils % 79.9 % (42.2-75.2) H 02/11/24 04:00
Lymphocytes % 10.6 % (20.5-51.1) L 02/11/24 04:00
Monocytes % 7.9 % (1.7-9.3) 02/11/24 04:00
Eosinophils % 0.8 % (0-6) 02/11/24 04:00
Basophils % 0.4 % (0-2) 02/11/24 04:00
Creatinine 1.3 mg/dL (0.6-1.0) H 02/11/24 04:00
Vital Signs
Vital Signs
Temp Pulse Resp BP Pulse Ox
98.2 F 76 19 104/48 93
02/11/24 04:10 02/11/24 08:03 02/11/24 08:03 02/11/24 08:03 02/11/24 08:04
--- NOTE | 2024-02-11 09:13 | W.PN.CARDCBS ---
Today's Communication / Plan
-
Back in atrial fibs/atrial flutter. Would recommend a rate control strategy for now with both Toprol 50 mg p.o. twice daily and diltiazem 180 mg daily. DC amlodipine as an outpatient.
Continue Eliquis.
Would reassess her A-fib a flutter burden as an outpatient after she has recovered from her illness.
At that point we could consider amiodarone.
Okay for discharge from cardiology standpoint
Impression / Plan
-
PCP: Dr. Simmons
Cardiology: Dr. Melchor
Impression:
Paroxysmal Afib of unclear duration
MARIANA
Nausea and anorexia
Elevated pro-BNP
COVID positive at home 02/05/24, but negative on hospital check 02/09/24
Recent ER evaluation for chest pain 01/25/24
Leukocytosis and elevated lactic acid
Hypokalemia
Chronic HFpEF
HTN
Dementia
Moderate MR by echo 09/04/23
Moderate TR with PAP 55-60 mmHg
Echo 09/04/23: EF 60-65%, normal wall motion, mod MR, mod TR with PAP 55-60 mmHg
Plan:
-Patient was in sinus rhythm yesterday for transesophageal/cardioversion but is back in A-fib this morning. I suspect she is having multiple paroxysms of A-fib. For now I will continue a rate control strategy. Will continue the diltiazem and the
metoprolol. I would let her recover from her acute illness and then we will reassess her A-fib burden. At that time I would consider adding amiodarone. Continue Eliquis.
-Patient with MARIANA on admission. Patient has not been eating or drinking normally for 5 days. No clear etiology. No N/V/D.
-Her volume status overall appears acceptable. Creatinine down to 1.3
-Still with elevated white blood cell count
-COVID positive at home 02/05/24, but patient's says it was very faintly positive. COVID negative on DH assay 02/09/24
-Updated patient's at the bedside 02/10.
HPI: Patient came to [facility] today from her PCP's office with fatigue, anorexia and new Afib, cardiology is now consulted. Patient lives with her and takes meds for dementia. Patient's in the room now reports that patient was in [facility]
01/25/24 for chest pain and after an undetectable Troponin and normal ECG patient was d/c'd to home. Patient was scheduled to follow up with cardiology in the office on 01/28/24, but cancelled due to feeling sick. Patient then saw a friend on 01/31/24
and that patient later called her to say that she tested positive for COVID. Patient's reports that patient ate lunch on 02/04/24 and then did not eat again until today. They tested patient at home for COVID and it was faintly
positive so they set up a telemedicine with patient's PCP and she was advised to start Paxlovid, but never did. Patient was then scheduled to see her PCP in the office today and in the PCP office she was found to be in Afib and was sent to [facility].
Patient denies palpitations, chest pain or SOB. Afib is a new diagnosis.
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
Subjective
Date of Service: February 11, 2024
Back in atrial fibrillation today. Overall feels okay. Feels minimal palpitations.
Objective
Labs:
02/11/24 04:00
02/11/24 04:00
Labs
Hgb 10.5 g/dL (12.0-16.0) L 02/11/24 04:00
Hct 32.3 % (37.0-47.0) L 02/11/24 04:00
Plt Count 403 10^3/uL (130-400) H 02/11/24 04:00
Sodium 138 mmol/L (135-145) 02/11/24 04:00
Potassium 4.0 mmol/L (3.5-5.1) 02/11/24 04:00
BUN 55 mg/dl (7-17) H 02/11/24 04:00
Creatinine 1.3 mg/dL (0.6-1.0) H 02/11/24 04:00
Glucose 136 mg/dl (70-99) H 02/11/24 04:00
Troponins
02/09/24 02/10/24 02/10/24
21:01 00:53 06:00
Troponin I 0.017 0.015 0.014
Vital Signs and I&O:
Vital Signs
Temp Pulse Resp BP Pulse Ox
98.2 F 76 19 104/48 93
02/11/24 04:10 02/11/24 08:03 02/11/24 08:03 02/11/24 08:03 02/11/24 08:04
Vital Signs
Temp Pulse Resp BP Pulse Ox
98.2 F 76 19 104/48 93
02/11/24 04:10 02/11/24 08:03 02/11/24 08:03 02/11/24 08:03 02/11/24 08:04
Intake & Output
02/09/24 02/10/24 02/11/24 02/12/24
06:59 06:59 06:59 06:59
Intake Total 525 / 525 820 / 820
Output Total 400 / 400
Balance 525 / 525 420 / 420
Physical Exam
Physical Exam
GEN: No distress, awake, Ox3
HEENT: supple, anicteric, mmm
LUNGS: scatt rhonchi
CV: Irreg S1/S2, 1/6 syst LSB, no murmur
ABD: soft, BS+, NT/ND
EXT: No edema
NEURO: Gross non-focal
SKIN: No rash
[2024-02-11] MEDS: CARDIZEM CD 180 MG PO (09:41)
[2024-02-11] MEDS: PROTONIX 40 MG PO (09:41)
[2024-02-11] MEDS: FEOSOL 325 MG PO (09:42)
[2024-02-11] MEDS: TOPROL XL 50 MG PO ×2 (09:42→20:02)
[2024-02-11] MEDS: ELIQUIS 5 MG PO ×2 (09:42→20:03)
[2024-02-11] MEDS: VIBRAMYCIN 100 MG PO ×2 (09:42→20:02)
[2024-02-11] MEDS: NAMENDA 10 MG PO ×2 (09:42→20:02)
[2024-02-11] MEDS: VITAMIN B-12 1000 MCG PO (09:43)
[2024-02-11] MEDS: ZOLOFT 100 MG PO (09:43)
[2024-02-11] MEDS: APRESOLINE 50 MG PO (09:43)
--- NOTE | 2024-02-11 12:03 | PTCARENOTE ---
Patient stating that she 'feels worse today', patient has a bad cough, Having difficulty bringing up sputum, drying heaving at times from cough. Also urine output is poor. Bladder scanning completed. Discussed with Dr. Leos and new orders
pending.
[2024-02-11 14:57] LABS: COVID-19 Antigen Negative (Negative)
[2024-02-11] MEDS: MIRALAX 17 GRAMS PO (15:08)
--- NOTE | 2024-02-11 15:21 | PTCARENOTE ---
Patient had a 4 second pause and converted back to Sinus Rhythm. EKG completed to confirm. Hospitalist and instrument processing tech notified.
--- NOTE | 2024-02-11 15:51 | W.CON.NEPH ---
Consultation
-
Date/Time Consultation Requested: 02/11/24 1349
Date/Time Consultation Performed: 02/11/24 1645
Requesting Provider: Moses Gaspar
Performing Provider: Ana Maria Ibrahim
Reason for Consultation: MARIANA, decreased UOP
Medical History
-
Chief Complaint: feeling unwell
History of Present Illness:
83 y/o female with past medical history of HFpEF, HTN on multiple meds ARB, HCTZ, hydralazine, Amlodipine, depression on zoloft and Dementia on Nemenda, aricept who presented with 'feeling unwell.'since February 04, 2024, She reportedly had ER visit
in Jan and supposed to see cards for chest discomfort. She was at her PCP office on the day of admit and noted irregular tachycardia and was referred to ER on 02/08. She found to have Afib with RVR. and completed cardizem gtt wtih spontaneous
conversion to sinus.On admit her cr was at 1.8 improved to 1.3. However nursing notes that she has decreased UOP today hence nephrology asked to see. She received IVF till yesterday. thinks her intake is fair. She reports normally does not
urinate as much even before. Report going to the bathroom few times today. Offers no dizziness, CP or SOb or palpitations. Mild cough improving. She also treated for PNA.
Past Medical History
HFpEF
HTN
Dementia
Moderate MR by echo 09/04/23
Moderate TR with PAP 55-60 mmHg
Past Surgical History: Other (c section)
Social History
Tobacco: Former Smoker
Alcohol: Daily (1 glass of wine)
Drug: None
Personal:
Living: With Family
Family History
cacner
Family History: Not Pertinent
Allergies / Home Medications
Allergy/AdvReac Type Severity Reaction Status Date / Time
No Known Allergies Allergy Verified 01/25/24 06:52
�Medication �Instructions �Recorded �Confirmed �Type
amlodipine 5 mg tablet 5 mg PO BID Blood pressure 07/07/21 02/09/24 History
memantine 10 mg tablet 10 mg PO BID memory 07/07/21 02/09/24 History
donepezil 23 mg tablet 23 mg PO HS memory 07/09/21 02/09/24 History
ferrous sulfate 325 mg (65 mg 325 mg PO MOWEFR@0800 Supplement 09/02/23 02/09/24 History
iron) tablet (iron)
hydralazine 50 mg tablet 50 mg PO BID Blood Pressure 09/02/23 02/09/24 History
losartan 100 1 tab PO DAILY Blood Pressure 09/02/23 02/09/24 History
mg-hydrochlorothiazide 25 mg tablet
pantoprazole 40 mg tablet,delayed 40 mg PO DAILY Gastrointestinal 09/02/23 02/09/24 History
release Issue
riboflavin (vitamin B2) 100 mg 100 mg PO DAILY Supplement ##0 09/02/23 02/09/24 History
tablet
rosuvastatin 20 mg tablet 20 mg PO HS High Cholesterol 09/02/23 02/09/24 History
sertraline 100 mg tablet 100 mg PO DAILY Depression 09/02/23 02/09/24 History
cyanocobalamin (vitamin B-12) 1,000 mcg PO DAILY Supplement #30 09/11/23 02/09/24 Rx
1,000 mcg tablet tabs
acetaminophen 500 mg tablet 1,000 mg PO Q6HPRN PRN MILD PAIN 02/09/24 02/09/24 History
(Tylenol Extra Strength)
zolpidem 5 mg tablet (Ambien) 10 mg PO HS Sleep 02/09/24 02/09/24 History
apixaban 2.5 mg tablet (Eliquis) 2.5 mg PO BID Blood clot 02/10/24 Rx
prevention/tx #60 tabs
Review of Systems
-
All complete 12 point ROS have been inquired and found negative other than stated in HPI
Physical Exam
Vital Signs
Vital Signs
Temp Pulse Resp BP Pulse Ox
98.3 F 73 21 102/53 92
02/11/24 13:31 02/11/24 13:12 02/11/24 13:12 02/11/24 13:31 02/11/24 13:12
Lab Results
WBC 16.0 10^3/uL (4.8-10.8) H 02/11/24 04:00
RBC 3.44 10^6/uL (4.20-5.40) L 02/11/24 04:00
Hgb 10.5 g/dL (12.0-16.0) L 02/11/24 04:00
Hct 32.3 % (37.0-47.0) L 02/11/24 04:00
Plt Count 403 10^3/uL (130-400) H 02/11/24 04:00
Sodium 138 mmol/L (135-145) 02/11/24 04:00
Potassium 4.0 mmol/L (3.5-5.1) 02/11/24 04:00
Chloride 98 mmol/L (98-107) 02/11/24 04:00
Carbon Dioxide 28 mmol/L (22-30) 02/11/24 04:00
BUN 55 mg/dl (7-17) H 02/11/24 04:00
Creatinine 1.3 mg/dL (0.6-1.0) H 02/11/24 04:00
eGFR 40.30 02/11/24 04:00
Glucose 136 mg/dl (70-99) H 02/11/24 04:00
Calcium 9.2 mg/dl (8.4-10.2) 02/11/24 04:00
Uii-X-Ncbhsutawid Pept 2450 pg/ml 02/09/24 13:02
Albumin 4.0 g/dl (3.5-5.0) 02/09/24 13:02
CXR:
IMPRESSION:
Patchy parenchymal opacity within the left lower lung, increased from previous radiograph. This finding is suspicious for pneumonia.
Physical Exam
General: Awake, Alert, Oriented, AOx3, No Distress and Nontoxic
HEENT: EOMI, Anicteric, Facial Symmetry and No JVD
Respiratory: Crackels (left base), Normal Excursion and Nonlabored Respirations
Cardiac: S1/S2 and Regular Rate/Rhythm
Breast: Deferred by me
Abdomen: Soft, Nontender and Nondistended
Musculoskeletal: No Cyanosis and No Edema
Skin: No Rash and Normal Turgor
Neuro: Nonfocal/Grossly Intact
Psych: Mood/afflect pleasant, Insight/judgement good and Appropriate
Data Reviewed
-
Radiology: Report Reviewed by me, Discussed with Patient and Discussed with Family
Labs: Labs Reviewed by me, Discussed with Patient and Discussed with Family
Assessment/Plan
-
IMP:
New-Onset A-FIb with RVR
Hypokalemia
Acute Kidney Injury
History of Acute L1 comp fx due to mechanical fall:
History of Acute Hypoxic resp insufficiency
History of Leukocytosis of unclear etiology
Plan:
A/w with symptomatic afib with RVR
MARIANA-prerenal/cardiorenal with above, cr improving to 1.3, baseline 0.9-1
In sep UA was bland , would cont to follow bladder scan
her po intake seem to be low possible explain low UOP and also not sure if pt urinating and informing nursing
BNP high on admit but clinically vol status seem stable, was receiving NS till 02/09
I am ok to give her gentle IVF and encourage po intake
BP soft on BB, CCB and hold hydralazine
she drinks large amount of coffee per history-asked to decrease
d/w pt and
--- NOTE | 2024-02-11 17:10 | CM ---
Patient with Hx dementia with Dx New-Onset A-FIb with RVR. Room air. Receiving IV Abx. IV Cardizem switched to PO. PT/OT recommend HH.
CM continuing to follow.
Plan home with [facility].
[2024-02-11] MEDS: NSS 1000 IV (18:29)
--- NOTE | 2024-02-11 19:32 | W.PN.HOSP.TC ---
Today's Communication/Plan
-
Continue Eliquis and rate control
Antibiotics for pneumonia
Nephrology evaluation for oliguria/MARIANA appreciated -- IV fluids
Assessment / Plan
Assessment / Plan
Physical Exam
General: Not in acute distress
HEENT: Normocephalic and Moist mucous membranes
Respiratory: Clear
Cardiac: S1/S2, Irregular Rhythm
GI: Soft, Non Tender and Normal Bowel Sounds
Musculoskeletal: No Cyanosis and No Edema
Skin: Warm and Dry
Neuro: Awake, Alert, AO x 3 and Nonfocal/grossly intact
Psych: Calm and Intact Judgment/Insight
Assessment/Plan
#New-Onset A-FIb with RVR
-Converted to sinus rhythm on 02/10/24 but then converted back to atrial fibs/atrial flutter on 02/11/24
-Status post Cardizem Drip
-New medication: Eliquis 2.5 mg BID
-Continue a rate control strategy for now with both Toprol 50 mg p.o. twice daily and diltiazem 180 mg daily
-Follow-up A-Fib outpatient with cardiology
#Presentation with 'feeling unwell'
#Pneumonia on Repeat CXR
-COVID test negative (confirmed with a prior home test patient's performed at home
-Leukocytosis appears to possibly be chronic or recurrent -- will consider heme/onc consult
-Continue antibiotics
#Hypokalemia
-Potassium replaced, continue to monitor BMP
-Magnesium level is high
#Acute Kidney Injury
-Oliguria reported
-Encourgae PO intake
-Continue IV fluids -- but have to be careful given patient's history of CHF
-Recheck BMP
-Appreciate nephrology
#History of Acute L1 comp fx due to mechanical fall:
#History of Acute Hypoxic resp insufficiency
#Leukocytosis
#History of Leukocytosis of unclear etiology
-Pneumonia can be contributing
-Given history of leukocytosis of unclear etiology and the fact that patient initially did not have pneumonia, hematology/oncology consulted - no specific formal outpatient heme-onc follow-up required (other than follow-up CBC) unless requested by
her PCP.
#Chronic HFpEF
-daily wts, I/Os
-Daily PO Fluid Restriction
#Insomnia:
-no Ambien
-Can consider cont Restoril PRN
#History of Constipation

#Essential HTN: Stop Norvasc. Hold hydrochlorothiazide/losartan due to MARIANA
#Obesity due to excess calories: Encourage weight loss. Affects all aspects of care.
#/o gastric ulcer: cont PPI
#h/o Fe def: cont PO Fe
#h/o B12 deficiency: cont B12 supplement
#Dementia: cont Namenda/Aricept
#Chronic back pain, arthritis, neuropathy: s/p lumbar KATINA 2 weeks [employer]. 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
#HLD: cont statin
#Depression: cont Zoloft
#Insomnia: Melatonin PRN
#FULL
#DVT prophylaxis-Eliquis
Anticipated Discharge: 24 - 48 hours
Subjective/Interval History
-
Date of Service: February 11, 2024
Patient was seen and examined. She reported cough, nurse reported patient looks worse with lower urine output with not much urine in the bladder scans
Objective Data
-
Vital Signs:
Vital Signs
Temp Pulse Resp BP Pulse Ox
98.3 F 61 21 110/61 96
02/11/24 13:31 02/11/24 16:00 02/11/24 16:00 02/11/24 16:00 02/11/24 16:00
I&O
02/10/24 02/11/24 02/12/24
06:59 06:59 06:59
Intake Total 525 / 525 820 / 820 720 / 720
Output Total 400 / 400 200 / 200
Balance 525 / 525 420 / 420 520 / 520
[2024-02-11] MEDS: MUCINEX 600 MG PO (20:02)
[2024-02-11] MEDS: SENOKOT-S 1 TABLET PO (20:03)
[2024-02-11] MEDS: CRESTOR 20 MG PO (21:41)
[2024-02-11] MEDS: AMBIEN 10 MG PO (21:42)
[2024-02-12] VITALS (7 sets, daily range): BP systolic 109–127; BP diastolic 40–97; BMI 31.2
--- NOTE | 2024-02-12 05:23 | PTCARENOTE ---
Pt able to void only small amounts of urine, bladder scans unremarkable. Pt does c/o difficulty. Pt c/o cough with sputum that is difficult to expectorate. VSS, assessment as documented. Call maldonado within reach. Pt rings appropriately. Able to turn
self to prevent skin breakdown, instructed on turning and repositioning at least every 2 hours.
[2024-02-12 07:46] LABS: % Basophils 0.2 % (0-2); % Eosinophils 0.2 % (0-6); % Immature Granulocytes 0.4 % (0-0.5); % Monocytes 8.4 % (1.7-9.3); % Neutrophils 83.8 % (42.2-75.2); Absolute Immature Granulocytes 0.1 10^3/uL (0-0.05); Absolute Lymphocytes 1.1 10^3/uL (1.2-3.4); Absolute Monocytes 1.4 10^3/uL (0.1-0.6); Absolute Neutrophils 13.7 10^3/uL (1.4-6.5); Hematocrit 30.2 % (37.0-47.0); Hemoglobin 9.8 g/dL (12.0-16.0); Mean Corp Hgb Conc. 32.5 g/dL (33.0-37.0); Mean Corpuscular Hgb 30.6 pg (27.0-31.0); Mean Corpuscular Volume 94.4 fL (81.0-99.0); Mean Platelet Volume 11.4 fL (7.4-10.4); Nucleated Red Blood Cells % 0 %; Platelet Count 356 10^3/uL (130-400); Red Cell Dist. Width 13.9 % (11.5-14.5); White Blood Cell Count 16.4 10^3/uL (4.8-10.8)
[2024-02-12 08:24] LABS: Blood Urea Nitrogen 44 mg/dl (7-17); Calcium 8.8 mg/dl (8.4-10.2); Carbon Dioxide 28 mmol/L (22-30); Chloride 101 mmol/L (98-107); Estimated Creatinine Clearance 33 ml/min; Glucose 139 mg/dl (70-99); Magnesium 2.4 mg/dl (1.6-2.3); Sodium 140 mmol/L (135-145); eGFR 49.24
[2024-02-12] MEDS: ELIQUIS 5 MG PO (08:45)
[2024-02-12] MEDS: VIBRAMYCIN 100 MG PO (08:45)
[2024-02-12] MEDS: MIRALAX PO ×2 (08:45→09:09)
[2024-02-12] MEDS: MUCINEX 600 MG PO (08:45)
[2024-02-12] MEDS: PROTONIX 40 MG PO (08:45)
[2024-02-12] MEDS: CARDIZEM CD 180 MG PO (08:45)
[2024-02-12] MEDS: NAMENDA 10 MG PO (08:46)
[2024-02-12] MEDS: VITAMIN B-12 1000 MCG PO (08:46)
[2024-02-12] MEDS: ZOLOFT 100 MG PO (08:46)
[2024-02-12] MEDS: TOPROL XL 50 MG PO (08:47)
[2024-02-12] MEDS: SENOKOT-S 1 TABLET PO (08:48)
--- NOTE | 2024-02-12 09:41 | W.PN.CARDCBS ---
Today's Communication / Plan
-
Would discontinue prehospital amlodipine and continue to hold hydralazine and losartan hydrochlorothiazide.
New start metoprolol succinate 50 mg twice daily and diltiazem CD1 180 mg daily
Continue Eliquis 5 mg twice daily
Outpatient cardiac follow-up arranged
Will sign off, recall if needed
Impression / Plan
-
PCP: Dr. Simmons
Cardiology: Dr. Melchor
Impression:
Paroxysmal Afib of unclear duration
MARIANA
Nausea and anorexia
Elevated pro-BNP
COVID positive at home 02/05/24, but negative on hospital check 02/09/24
Recent ER evaluation for chest pain 01/25/24
Leukocytosis and elevated lactic acid
Hypokalemia
Chronic HFpEF
HTN
Dementia
Moderate MR by echo 09/04/23
Moderate TR with PAP 55-60 mmHg
Echo 09/04/23: EF 60-65%, normal wall motion, mod MR, mod TR with PAP 55-60 mmHg
Plan:
Admitted with dehydration, acute renal insufficiency following unclear upper respiratory illness, possibly COVID found to be in asymptomatic rapid new atrial fibrillation
-Fortunately she has converted to sinus rhythm although did have paroxysms of A-fib yesterday
-A almost 4-second conversion pause was noted yesterday
-Will continue metoprolol succinate along with diltiazem CD with plan for outpatient ambulatory cardiac monitoring for A-fib burden. Can consider antiarrhythmic therapy and/or referral to EP for ablation if A-fib continues to recur. Discontinue
amlodipine at time of discharge
-Check TSH
-Replete potassium/magnesium. Potassium was low in the setting of nausea/anorexia with dehydration on hydrochlorothiazide
-Continue uninterrupted Eliquis anticoagulation. Appreciate hematology consult regarding anemia and leukocytosis
-Monitor H&H as an outpatient
-Outpatient electronic device monitor will be placed at upcoming office visit next week
-Acute upper respiratory illness, possibly COVID which states was faintly positive on 02/05/2024. COVID assay - 02/09/2024
-Chest x-ray with patchy parenchymal opacity in the left lower lung suspicious for pneumonia-antibiotics as per primary
-Oxygen saturations stable on room air; stable hemodynamics
-Appetite has started to improve
-Status post IV hydration for dehydration and acute renal insufficiency with improved renal function
Acute renal insufficiency secondary to dehydration on outpatient lisinopril/hydrochlorothiazide
-Creatinine is improving following fluid resuscitation
-Appreciate nephrology input
-Blood pressure stable on new metoprolol succinate and diltiazem for new diagnosis atrial fibrillation. Will continue to hold lisinopril hydrochlorothiazide
History of Acute L1 comp fx due to mechanical fall-consider assessing PT needs prior to discharge
Stable from a cardiovascular standpoint for discharge when medically ready
Outpatient cardiac follow-up has been arranged next week
HPI: [facility] today from her PCP's office with fatigue, anorexia and new Afib, cardiology is now consulted. Patient lives with her and takes meds for dementia. Patient's in the room now reports that patient was in [facility]
01/25/24 for chest pain and after an undetectable Troponin and normal ECG patient was d/c'd to home. Patient was scheduled to follow up with cardiology in the office on 01/28/24, but cancelled due to feeling sick. Patient then saw a friend on 01/31/24
and that patient later called her to say that she tested positive for COVID. Patient's reports that patient ate lunch on 02/04/24 and then did not eat again until today. They tested patient at home for COVID and it was faintly
positive so they set up a telemedicine with patient's PCP and she was advised to start Paxlovid, but never did. Patient was then scheduled to see her PCP in the office today and in the PCP office she was found to be in Afib and was [facility] to [facility].
Patient denies palpitations, chest pain or SOB. Afib is a new diagnosis.
Progress Note - [employer]
Subjective
Date of Service: February 12, 2024
Seen and examined with at bedside. I know them both well from the outpatient setting. Overall starting to feel better with slightly improved appetite and resolved nausea. No dizziness/lightheadedness. No abdominal pain. No chest pain.
No shortness of breath.
Objective
Labs:
02/12/24 06:43
02/12/24 06:43
Labs
Hgb 9.8 g/dL (12.0-16.0) L 02/12/24 06:43
Hct 30.2 % (37.0-47.0) L 02/12/24 06:43
Plt Count 356 10^3/uL (130-400) 02/12/24 06:43
Sodium 140 mmol/L (135-145) 02/12/24 06:43
Potassium 4.0 mmol/L (3.5-5.1) 02/12/24 06:43
BUN 44 mg/dl (7-17) H 02/12/24 06:43
Creatinine 1.1 mg/dL (0.6-1.0) H 02/12/24 06:43
Glucose 139 mg/dl (70-99) H 02/12/24 06:43
Troponins
02/09/24 02/10/24 02/10/24
21:01 00:53 06:00
Troponin I 0.017 0.015 0.014
Vital Signs and I&O:
Vital Signs
Temp Pulse Resp BP Pulse Ox
98.2 F 68 25 117/79 97
02/12/24 07:15 02/12/24 08:47 02/12/24 04:00 02/12/24 08:47 02/11/24 22:51
Vital Signs
Temp Pulse Resp BP Pulse Ox
98.2 F 68 25 117/79 97
02/12/24 07:15 02/12/24 08:47 02/12/24 04:00 02/12/24 08:47 02/11/24 22:51
Intake & Output
02/10/24 02/11/24 02/12/24 02/13/24
06:59 06:59 06:59 06:59
Intake Total 525 / 525 820 / 820 720 / 720
Output Total 400 / 400 300 / 300
Balance 525 / 525 420 / 420 420 / 420
Physical Exam
Physical Exam
GEN: No distress, awake, Ox3
HEENT: supple, anicteric, mmm
LUNGS: scatt rhonchi
CV: Regular S1/S2, 1/6 syst LSB, no murmur
ABD: soft, BS+, NT/ND
EXT: No edema
NEURO: Gross non-focal
SKIN: No rash
--- NOTE | 2024-02-12 09:53 | CON.PUL ---
Consultation
Consultation Request
Date/Time Consultation Requested: 02/12/2024-8 AM
Date/Time Consultation Performed: 02/12/2024-8:30 AM
Requesting Provider: Hospitalist
Performing Provider: Dr. Watts
Reason for Consultation: Shortness of breath, cough
Medical History
-
Chief Complaint: Cough and shortness of breath
History of Present Illness:
83-year-old female with a history of mild dementia, hypertension, heart failure with preserved EF who is a former 70-[id number]-uojb smoker quit in the distant past without pulmonary history found to be in atrial fibrillation and admitted with ongoing
chest congestion and cough-pulmonary was consulted for chest congestion and cough 02/12/2024.. The patient is somewhat of a poor historian. was present during the interview. He states that she has been coughing for about 1 month. Mucinex
was prescribed is not sure it is really helping. Patient denies any shortness of breath at rest, chest pain, chest tightness, wheezing, productive cough, hemoptysis and offers no complaints of postnasal drip, reflux, abdominal pain or increased leg
swelling.
Past Medical History
Past Medical History: None (Hypertension. Dementia. Heart failure preserved EF. .)
Social History
Tobacco: Former Smoker ([id number]-quit 35 years ago)
Alcohol: Occasional
Drug: None
Personal:
Living: With Family
Occupational Exposures: No known asbestos exposure
Environmental Exposures: No known tuberculosis exposure
Family History
Family History: Other (Cancer)
Allergies / Home Medications
Allergies
Allergy/AdvReac Type Severity Reaction Status Date / Time
No Known Allergies Allergy Verified 01/25/24 06:52
Home Medications
�Medication �Instructions �Recorded �Confirmed �Last Taken �Type
amlodipine 5 mg tablet 5 mg PO BID Blood pressure 07/07/21 02/09/24 02/08/24 History
memantine 10 mg tablet 10 mg PO BID memory 07/07/21 02/09/24 02/08/24 History
donepezil 23 mg tablet 23 mg PO HS memory 07/09/21 02/09/24 02/08/24 History
ferrous sulfate 325 mg (65 mg 325 mg PO MOWEFR@0800 Supplement 09/02/23 02/09/24 02/06/24 History
iron) tablet (iron)
hydralazine 50 mg tablet 50 mg PO BID Blood Pressure 09/02/23 02/09/24 02/08/24 History
losartan 100 1 tab PO DAILY Blood Pressure 09/02/23 02/09/24 02/08/24 History
mg-hydrochlorothiazide 25 mg tablet
pantoprazole 40 mg tablet,delayed 40 mg PO DAILY Gastrointestinal 09/02/23 02/09/24 02/08/24 History
release Issue
riboflavin (vitamin B2) 100 mg 100 mg PO DAILY Supplement ##0 09/02/23 02/09/24 02/08/24 History
tablet
rosuvastatin 20 mg tablet 20 mg PO HS High Cholesterol 09/02/23 02/09/24 02/08/24 History
sertraline 100 mg tablet 100 mg PO DAILY Depression 09/02/23 02/09/24 02/08/24 History
cyanocobalamin (vitamin B-12) 1,000 mcg PO DAILY Supplement #30 09/11/23 02/09/24 02/08/24 Rx
1,000 mcg tablet tabs
acetaminophen 500 mg tablet 1,000 mg PO Q6HPRN PRN MILD PAIN 02/09/24 02/09/24 Unknown History
(Tylenol Extra Strength)
zolpidem 5 mg tablet (Ambien) 10 mg PO HS Sleep 02/09/24 02/09/24 02/08/24 History
apixaban 2.5 mg tablet (Eliquis) 2.5 mg PO BID Blood clot 02/10/24 Unknown Rx
prevention/tx #60 tabs
Review of Systems
-
Unable to Obtain full review of systems at this time due to: Other (Per HPI)
Vitals / Labs / Diagnostic Testing
Vital Signs
Temp Pulse Resp BP Pulse Ox
98.2 F 68 25 117/79 97
02/12/24 07:15 02/12/24 08:47 02/12/24 04:00 02/12/24 08:47 02/11/24 22:51
Lab Data
02/12/24 06:43
02/12/24 06:43
Microbiology
02/09/24 15:32 Blood/Venous Blood Culture - Preliminary
No Growth in 48 hours- Final report to follow
02/09/24 15:32 Blood/Venous Blood Culture - Preliminary
No Growth in 48 hours- Final report to follow
02/09/24 20:55 Nasal Swab Influenza Types A & B (BASSEM) - Final
Negative for Influenza A & B, NAAT
Negative results must be combined with clinical observations
and patient history.
Nucleic Acid Amplification test (NAAT)performed on the
[employer] platform.
Diagnostic Testing:
Physical Exam
-
Exam:
Well-nourished and well-developed in no apparent distress
HEENT-atraumatic, normocephalic
Neck-supple, no JVD, no bruit
Heart-regular rate and rhythm-no murmurs, rubs or gallops
Chest with diminished breath sounds, rare basilar crackle, mildly prolonged expiratory time and no wheezes or rhonchi
Back without tenderness
Abdomen-soft, nontender, nondistended, no hepatosplenomegaly
Extremities-no cyanosis, clubbing, trace lower extremity edema
Integument-intact, no rashes, lesions or ecchymosis
Neurology-alert and oriented, nonfocal motor and sensory exam
Assessment
-
83-year-old female with a history of mild dementia, hypertension, heart failure with preserved EF who is a former 33-[id number]-bmep smoker quit in the distant past without pulmonary history found to be in atrial fibrillation and admitted with ongoing
chest congestion and cough-pulmonary was consulted for chest congestion and cough 02/12/2024.
New onset atrial fibrillation with rapid ventricular rate
Jzogdmjdl-wrrsrvedx-zopjjqid
Chronic chest congestion and former smoker
Hypokalemia
MARIANA
Leukocytosis-WBC 18.6
Insomnia
Orptur-ogwovvcogw-rxbuzytiun 9.8
Hyperglycemia-blood sugar 174
Conditions present prior to admission:
Hypertension.
Hyperlipidemia
Vcsnrfnu-ebjd-iw Namenda/Aricept
Heart failure preserved EF.
Constipation
Chronic back pain
Depression
.
Plan
Respiratory decompensation likely combination of mild fluid overload as well as community-acquired pneumonia
Supplemental oxygen as needed
Assess discharge supplemental oxygen needs
Incentive spirometry
Mucus clearing devices
Mucolytic's-intensify
Nebulizers if needed
Follow radiographically
Consider CT chest if left basilar infiltrate does not improve
Check cultures
Influenza negative
Blood cultures no growth
Unable to produce sputum
Empiric antibiotics
Add atypical coverage for community-acquired pneumonia
Check procalcitonin-chest x-ray chronically with intermittent subsegmental atelectasis
Cardiology following-correspondence reviewed
Atrial fibrillation rate control
On diltiazem as well as metoprolol
Anticoagulation initiated
Ambien initiated for significant insomnia-monitor for side effects in elderly patient with underlying dementia
DVT prophylaxis-on Eliquis
GI prophylaxis-on pantoprazole
Outpatient pulmonary ewlula-gf-Qaflfw pneumonia resolution, PFTs, 6-minute walk test
Diagnostic data:
Chest x-ray 09/02/2023-no evidence for pneumonia, mild prominence of bronchovascular markings, mild vascular congestion
Chest x-ray 09/07/2023-mild left basilar subsegmental atelectasis versus scarring
Chest x-ray 01/25/2024-linear atelectasis within left lower lobe, no CHF
Chest x-ray 02/09/2024-cardiomegaly without CHF
Chest x-ray 02/10/2024-left lower lobe patchy infiltrate suspicious for pneumonia
Data Reviewed
-
Radiology: Image personally visualized and interpreted and Report reviewed by me
CT Scan: Report reviewed by me
Medical Tests (Nuc Med, Echo etc): Report reviewed by me
Labs: Labs reviewed by me
Old Records: Reviewed
Total Time Spent with Patient (in minutes): 65
--- NOTE | 2024-02-12 10:13 | W.PN.ONC ---
Today's Communication / Plan
-
WBC without change leukocytosis predominantly neutrophils likely reactive
Hemoglobin trending down 9.8 g/dL
No specific formal outpatient heme-onc follow-up required (other than follow-up CBC) unless requested by her PCP.
Impression
Impression
Leukocytosis
New onset atrial fibrillation
Anemia suspect dilutional
Chronic HFpEF
Dementia
Subjective/Objective
Subjective/Objective
Continues to feel poorly
Vital Signs:
Vital Signs
Temp Pulse Resp BP Pulse Ox
98.2 F 68 25 117/79 97
02/12/24 07:15 02/12/24 08:47 02/12/24 04:00 02/12/24 08:47 02/11/24 22:51
Lab Results:
Laboratory Data
WBC 16.4 10^3/uL (4.8-10.8) H 02/12/24 06:43
Hgb 9.8 g/dL (12.0-16.0) L 02/12/24 06:43
Plt Count 356 10^3/uL (130-400) 02/12/24 06:43
eGFR 49.24 02/12/24 06:43
HEENT: Normocephalic
Respiratory: Clear
Cardiac: Irregular Rhythm
GI: Soft, Non Tender and Normal Bowel Sounds
Extremities: No Edema
Neuro: Awake, Alert, AO x 3 and Nonfocal/grossly intact
Psych: Calm and Intact Judgment/Insight
--- NOTE | 2024-02-12 10:27 | PN.CDI ---
CDI
- -
CDI:
Physician Documentation Request
Admit Date: 02/09/24 17:59
Dear Doctor Deric,
Please review the following and provide your response in the progress notes.
Clinical Indicators:
Pt admitted with new onset afib/MARIANA
Documented per H&P, ' -Leukocytosis appears to possibly be chronic or recurrent -- will consider heme/onc consult...'
Progress note 02/10, ' Antibiotics for pneumonia...-Leukocytosis appears to possibly be chronic or recurrent -- will consider heme/onc consult-Continue antibiotics....Pneumonia can be contributing Given history of leukocytosis of unclear etiology
and the fact that patient initially did not have pneumonia...'
on Admission WBC 18.6,HR 124, RR 32
02/09/24
12:54 02/09/24
15:14 02/09/24
15:15
Pulse 101 122 120
Resp Rate 24
02/09/24
15:31 02/09/24
15:49 02/09/24
20:51
Pulse 124 119
Resp Rate 32 28
02/09/24
22:01 02/10/24
08:00
Resp Rate 29 37
02/09/24 02/10/24 02/11/24
13:02 06:00 04:00
WBC 18.6 H 16.4 H 16.0 H
02/12/24
06:43
WBC 16.4 H
Please clarify which of the following most accurately describes the status of the patient's infection:
Sepsis - POA
Sepsis-NOT POA
Pneumonia only, Without Systemic Illness
Other
Use of terms such as suspected, likely, concern for, or probable (associated with a specific diagnosis that is being evaluated, monitored, or treated as if it exists) are acceptable and can be coded in the inpatient setting, when documented at the
time of discharge.
Thank you,
Kaitlin Swanson RN
CDI Specialist
[place]
Please use your independent medical judgment in providing your response.
--- NOTE | 2024-02-12 10:49 | W.PN.NEPH.PH ---
Today's Communication / Plan
-
follow labs and bladder scan
Assessment/Plan
-
IMP:
New-Onset A-FIb with RVR
Hypokalemia
Acute Kidney Injury
HTN on multiple meds
History of Acute L1 comp fx due to mechanical fall:
History of Acute Hypoxic resp insufficiency
History of Leukocytosis of unclear etiology
Plan:
A/w with symptomatic afib with RVR
MARIANA-prerenal/cardiorenal with above, cr improving to 1.1, baseline 0.9-1
In sep UA was bland , would cont to follow bladder scan
her po intake seem to be low possible explain low UOP and also not sure if pt urinating and informing nursing
BNP high on admit but clinically vol status seem stable, d/c IVF today
BP soft on BB, CCB and hold hydralazine
ARB and HCTZ held -resume as needed out pt
d/w pt and
will follow peripherally, call if needed
-
-
Date of Service: February 12, 2024
CC / HPI / ROS
-
Chief Complaint:
MARIANA, decreased UOP
History of Present Illness:
cr better at 1.1
wt is stable, BP soft
Review of Systems:
no cp or sob
feels normal self
Labs
-
Labs:
WBC 16.4 10^3/uL (4.8-10.8) H 02/12/24 06:43
RBC 3.20 10^6/uL (4.20-5.40) L 02/12/24 06:43
Hgb 9.8 g/dL (12.0-16.0) L 02/12/24 06:43
Hct 30.2 % (37.0-47.0) L 02/12/24 06:43
Plt Count 356 10^3/uL (130-400) 02/12/24 06:43
Sodium 140 mmol/L (135-145) 02/12/24 06:43
Potassium 4.0 mmol/L (3.5-5.1) 02/12/24 06:43
Chloride 101 mmol/L (98-107) 02/12/24 06:43
Carbon Dioxide 28 mmol/L (22-30) 02/12/24 06:43
BUN 44 mg/dl (7-17) H 02/12/24 06:43
Creatinine 1.1 mg/dL (0.6-1.0) H 02/12/24 06:43
eGFR 49.24 02/12/24 06:43
Glucose 139 mg/dl (70-99) H 02/12/24 06:43
Calcium 8.8 mg/dl (8.4-10.2) 02/12/24 06:43
Rjp-B-Kanmmuumifh Pept 2450 pg/ml 02/09/24 13:02
Albumin 4.0 g/dl (3.5-5.0) 02/09/24 13:02
Physical Exam
-
Vital Signs:
Vital Signs
Temp Pulse Resp BP Pulse Ox
98.7 F 58 18 113/40 97
02/12/24 11:53 02/12/24 12:00 02/12/24 12:13 02/12/24 12:00 02/11/24 22:51
Cardiovascular:: Regular rate and rhythm
Respiratory:: Bilateral: CTA
Lung Excursion:: Normal
Abdomen:: Nontender and Soft
Extremity Edema:: None: Bilateral:
Norris Catheter: No
--- NOTE | 2024-02-12 11:38 | W.PN.HOSP.TC ---
Today's Communication/Plan
-
Discharge today
Assessment / Plan
Assessment / Plan
Physical Exam
General: Not in acute distress
HEENT: Normocephalic and Moist mucous membranes
Respiratory: Clear
Cardiac: S1/S2, Irregular Rhythm
GI: Soft, Non Tender and Normal Bowel Sounds
Musculoskeletal: No Cyanosis and No Edema
Skin: Warm and Dry
Neuro: Awake, Alert, AO x 3 and Nonfocal/grossly intact
Psych: Calm and Intact Judgment/Insight
Assessment/Plan
#New-Onset A-FIb with RVR
-Converted to sinus rhythm on 02/10/24 but then converted back to atrial fibs/atrial flutter on 02/11/24
-Status post Cardizem Drip
-New medication: Eliquis 5 mg BID
-Continue a rate control strategy for now with both Toprol 50 mg p.o. twice daily and diltiazem 180 mg daily
-Follow-up A-Fib outpatient with cardiology - sourcing analyst at that visit next week.
#Presentation with 'feeling unwell'
#Pneumonia on Repeat CXR
#Concern for Sepsis - POA
-COVID test negative (confirmed with a prior home test patient's performed at home
-Leukocytosis appears to possibly be chronic or recurrent -- will consider heme/onc consult
-Continue antibiotics including Cefpodoxime 200 mg Q12H (10 more doses) and Doxycycline 100 mg BID (10 more doses)
-Mucinex 1200 mg Q12H
-No home oxygen needed on discharge
#Hypokalemia
-Potassium was low in the setting of nausea/anorexia with dehydration on hydrochlorothiazide
-Potassium replaced, continue to monitor BMP
-Magnesium level is high
-Recheck CBC, CMP and Magnesium outpatient
#Acute Kidney Injury - IMPROVED
-Oliguria reported -- now improved after IV fluids
-Encourage PO intake
-Recheck BMP
-Continue to hold lisinopril hydrochlorothiazide
-Appreciate nephrology
#History of Acute L1 comp fx due to mechanical fall:
#History of Acute Hypoxic resp insufficiency
#Leukocytosis - likely reactive
#History of Leukocytosis of unclear etiology
-Pneumonia can be contributing
-Given history of leukocytosis of unclear etiology and the fact that patient initially did not have pneumonia, hematology/oncology consulted - no specific formal outpatient heme-onc follow-up required (other than follow-up CBC) unless requested by
her PCP.
#Chronic HFpEF
-daily wts, I/Os
-Daily PO Fluid Restriction
#Insomnia:
-no Ambien
-Can consider cont Restoril PRN
#History of Constipation

#Essential HTN: Stop Norvasc. Hold hydrochlorothiazide/losartan due to MARIANA and hold Hydralazine. Continue beta nathen and Diltiazem as above.
#Obesity due to excess calories: Encourage weight loss. Affects all aspects of care.
#/o gastric ulcer: cont PPI
#h/o Fe def: cont PO Fe
#h/o B12 deficiency: cont B12 supplement
#Dementia: cont Namenda/Aricept
#Chronic back pain, arthritis, neuropathy: s/p lumbar KATINA 2 weeks [employer]. 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
#HLD: cont statin
#Depression: cont Zoloft
#Insomnia: Melatonin PRN
#FULL
#DVT prophylaxis-Eliquis
More than 30 minutes spent in discharge including
Final examination of the patient
Summarizing hospital stay
Instructions for continuing care to all relevant caregivers
Preparation of discharge records, prescriptions, and referral forms
Total time spent (in minutes): 39
Anticipated Discharge: Today
Subjective/Interval History
-
Date of Service: February 12, 2024
Patient was seen and examined. She denied any fever, chest pain, SOB, and she also reported that is no longer 'feeling unwell,' which she did feel at the time of admission.
Objective Data
-
Labs:
Laboratory Results
02/12/24
06:43
WBC 16.4 H
Hgb 9.8 L
Hct 30.2 L
Plt Count 356
Sodium 140
Potassium 4.0
Chloride 101
Carbon Dioxide 28
BUN 44 H
Creatinine 1.1 H
Glucose 139 H
Calcium 8.8
Vital Signs:
Vital Signs
Temp Pulse Resp BP Pulse Ox
98.2 F 61 14 119/97 97
02/12/24 07:15 02/12/24 10:00 02/12/24 10:00 02/12/24 10:00 02/11/24 22:51
I&O
02/11/24 02/12/24 02/13/24
06:59 06:59 06:59
Intake Total 820 / 820 720 / 720
Output Total 400 / 400 300 / 300
Balance 420 / 420 420 / 420
--- NOTE | 2024-02-12 11:40 | CM ---
Addendum entered by Jose Heredia 02/12/24 15:48:
Per MD pt is medically stable to be discharge. Both pt and her are aware.
[facility] at [phone]
D/C [place]: home with [facility] and family support. to transport at discharge.
Original Note:
CM following re: discharge planning.
Reviewed pt's chart, met with pt and pt's at bedside.
Both pt and her are aware that PT and OT recommend home PT/OT at discharge and they expressed their agreement and [facility] requested. Pt's stated that they were told that pt most likely will be discharged home today after being seen by
armoured car escort.
IMM reviewed, placed on chart, pt has a copy.
A referral to VN noted and pt is accepted for VN services.
Please fax discharge instructions to [facility] at [phone]
D/C [place]: home with [facility] and family support. to transport at discharge.
--- NOTE | 2024-02-12 11:52 | PTCARENOTE ---
Patient ready to go home. Awaiting DC confirmation. NSR on monitor. C/o cough, but states overall better and ready to go home. Patient forgetful at times. Participating in IS, reaching about 1000. VSS. On RA, sats 96%. Continuing to closely monitor.
at bedside.
[2024-02-12] MEDS: TESSALON PERLES 200 MG PO (14:57)
--- NOTE | 2024-02-12 18:56 | PTCARENOTE ---
Reviewed DC paperwork in detail with and patient. All questions answered. They are picking up prescriptions on their way home. driving them. Patient taken to lobby by wheelchair by me. IV and tele removed.
== END 2024-02-12 18:46 | disposition home health service (06) | DRG 871 ==
LOC: IMU 17:59
PROVIDERS: Emergency Medicine; Physician Assistant Medical; ADMITTING PHYSICIAN Hospitalist; CONSULT PHYSICIAN Internal Medicine; CONSULT PHYSICIAN Internal Medicine Critical Care Medicine; CONSULT PHYSICIAN Internal Medicine Interventional Cardiology; EMERGENCY PHYSICIAN Emergency Medicine; FAMILY PHYSICIAN Internal Medicine; OTHER PHYSICIAN Internal Medicine Hematology & Oncology
DX: A41.9 Sepsis, unspecified organism (principal); J18.9 Pneumonia, unspecified organism; F03.A18 Unspecified dementia, mild, with other behavioral disturbance; F03.A3 Unspecified dementia, mild, with mood disturbance; N17.9 Acute kidney failure, unspecified; I50.32 Chronic diastolic (congestive) heart failure; E87.20 Acidosis, unspecified; I48.92 Unspecified atrial flutter; I11.0 Hypertensive heart disease with heart failure; F32.A Depression, unspecified; D64.9 Anemia, unspecified; Z68.31 Body mass index [BMI] 31.0-31.9, adult; R63.0 Anorexia; I48.0 Paroxysmal atrial fibrillation; E87.6 Hypokalemia; D72.829 Elevated white blood cell count, unspecified; G47.00 Insomnia, unspecified; G89.29 Other chronic pain; M54.9 Dorsalgia, unspecified; E78.00 Pure hypercholesterolemia, unspecified; K59.00 Constipation, unspecified; R73.9 Hyperglycemia, unspecified; Z79.899 Other long term (current) drug therapy; Z87.891 Personal history of nicotine dependence; Z87.81 Personal history of (healed) traumatic fracture; Z91.81 History of falling; Z11.52 Encounter for screening for COVID-19
CPT/HCPCS: 71045; 71046; 80048; 80053; 83605; 83735; 83880; 84484; 85025; 87040; 87502; 87811; 93005; 96374; 97162; 97166; 99291

== ENCOUNTER 2024-02-16 23:55 | Inpatient (IN) | payer OTHER, SELFPAY ==
[2024-02-16 16:39] VITALS: BP 144/59
--- NOTE | 2024-02-16 16:44 | ED.GENMED ---
ED Provider Triage
<Niall Mcneil PA-C - Last Filed: 02/16/24 16:45>
-
Patient seen by provider in Triage?: Seen in Triage
83-year-old female with history of A-fib, respiratory failure, CHF presents from home after noticed her pulse ox to be 87%. Patient has no complaints of chest pain or shortness of breath. She admits that she is not the best historian.
Brief review of the records demonstrates she was here for hypoxemic respiratory failure and CHF this year.
She is not in any respiratory distress at triage. Pulse ox is 96%.
CBC CMP BNP EKG and chest x-ray ordered
History of Present Illness
<Niall Mcneil PA-C - Last Filed: 02/16/24 16:45>
General
Chief Complaint: Breathing Problem
Time Seen by Provider: 02/16/24 21:01
<Sonal Salazar PA-C - Last Filed: 02/16/24 23:49>
General
Source: patient and significant other
Exam Limitations: none
Nursing documentation reviewed up to this point in time: agreed with
History of Present Illness
History of Present Illness:
Patient is an 83-year-old female with past medical history of recent hospitalization for new onset atrial fibrillation with RVR currently on Eliquis, MARIANA, pneumonia, who presents to the emergency department accompanied by her for evaluation
of low pulse ox readings at home. reports that the patient has seemed more short of breath to him over the past few days. He reports that the patient woke up this morning and told him that she was having trouble breathing. states
that he put the patient's pulse ox on her finger and noted to be in the mid to high 80s. Patient then woke up this morning and was was supposed to go to doctors' appointments but did not go as she stated that she did not feel well. The second
doctor's appointment was a cardiology appointment which they actually did virtually. They explained to the patient's symptoms to the electrician office who asked them to put a pulse oximeter on and walked around. When the patient did this, her pulse ox
dropped to the low 80s and they were referred to the emergency department for further evaluation. Patient denies any complaints at this time but is a poor historian. Patient denies recent cough although states that she has been coughing.
Patient denies recent fevers, chills, chest pain, abdominal pain, nausea, vomiting. Patient denies any increased lower extremity edema. Patient denies that she is on a diuretic.
Past History
<Niall Mcneil PA-C - Last Filed: 02/16/24 16:45>
Past History
ED Past Medical History: CHF, HTN and Hypercholesterolemia
ED Past Surgical History:
Patient has exhibited threatening behavior?: No
Social History
Tobacco: Former smoker
Alcohol: Occasional
Drug: None
Personal:
Living: with family
Employment: Retired
Family History
Family History: Hypertension and Other (stroke)
Review of Systems
<Sonal Salazar PA-C - Last Filed: 02/16/24 23:49>
Review of Systems
Allergies reviewed?: Yes
All Other Systems: Not applicable
Constitutional: Reports no symptoms
EENT: Reports no symptoms
Respiratory: Reports cough and trouble breathing
Cardiac: Reports no symptoms
ABD/GI: Reports no symptoms
: Reports no symptoms
Musculoskeletal: Reports no symptoms
Skin: Reports no symptoms
Neurological: Reports no symptoms
Endocrine: Reports no symptoms
Hematologic/Lymphatic: Reports no symptoms
Psychiatric: Reports no symptoms
Phy Exam
<Sonal Salazar PA-C - Last Filed: 02/16/24 23:49>
General Physical Exam
General Presentation: well appearing and no apparent distress
General Skin: warm and dry
General Habitus: normal
General Mental: alert
General Hydration: appears well hydrated
ENT Exam
ENT Exam: EOMI, pharynx normal, neck supple and normocephalic
Eye Exam
Eye Exam: PERRL, cornea clear and conjunctiva normal
Cardiovascular Exam
Cardiovascular Exam: regular rate/rhythm, no edema, no murmur and normal peripheral pulses
Pulmonary Exam
Pulmonary Exam: no respiratory distress, no rales, no crackles, no rhonchi, no stridor, no wheezing, no cough and decreased breath sounds (on the left)
Gastrointestinal Exam
Gastrointestinal Exam: normal bowel sounds, non tender, soft, no organomegaly, no pulsatile mass and non distended
Neurological Exam
Neurological Exam: alert, oriented x3, no motor deficits and speech normal
Musculoskeletal Exam
Musculoskeletal Exam: full ROM and no edema
Skin Exam
Skin Exam: normal color, warm/dry, no rash and no petechia
Psychiatric Exam
Psychiatric Exam: normal mood/affect
Scores
<Sonal Salazar PA-C - Last Filed: 02/16/24 23:49>
Heart Failure Risk
Heart Failure Risk Score: Not Applicable
Course
<Niall Mcneil PA-C - Last Filed: 02/16/24 16:45>
Orders/Labs/Results
Orders:
Orders
02/16/24 16:43
Electrocardiogram (*1) Urgent
Reason for Study: Shortness of Breath
EKG- Treatment ONCE
CR Chest - 2 Views Urgent
Comment:
Reason For Exam: sob
02/16/24 16:56
Basic Metabolic Panel Urgent
NT-proBNP Urgent
02/16/24 21:51
Basic Metabolic Panel Urgent
Complete Blood Count/With Diff Urgent
Troponin I Urgent
02/16/24 23:06
Furosemide [Lasix] 40 mg IV NOW STA
02/16/24 23:34
Admit/Transfer Patient As Directed
Co-Sign Provider:
Level of Care: Inpatient admission
Assign to:: Telemetry
Physician / Group: leni jeffries
Diagnosis: CHF exacerbation
Reason for Telemetry: Subacute Heart Failure
Date to Stop Telemetry: 02/18/24
Time to Stop Telemetry: 11:00
Reason for Hospitalization: CHF
Expected length of stay greater than two midnights?: Yes
ELOS- Estimated Length of Stay in days: 3
I certify the patient meets the requirements for IP care: Yes
PRN Pain Medication Management As Directed
May give lesser potent ordered pain med per pt: Yes
preference::
Protocol:: Medication orders for pain may be administered in a
manner that supports deferring to patient preference
when the pt is:
- Requesting an ordered lesser potent pain medication.
Least to most potent pain medications are defined
as: acetaminophen < NSAID < tramadol < opioids
(morphine, oxycodone, hydromorphone).
- Requesting a lesser dose of the same medication IF
ORDERED.
- Requesting a less intrusive route of administration
if both routes are prescribed by the provider (PO <
IV).
02/16/24 23:37
Code Status As Directed
Resuscitation Status: Full Code
02/18/24 11:00
DC Protocol for Telemetry ONCE
Abnormal Lab Results
02/16/24 02/16/24
16:56 21:51
WBC 15.2 H 10^3/uL
(4.8-10.8)
RBC 3.32 L 10^6/uL
(4.20-5.40)
Hgb 10.1 L g/dL
(12.0-16.0)
Hct 31.1 L %
(37.0-47.0)
MCHC 32.5 L g/dL
(33.0-37.0)
MPV 10.7 H fL
(7.4-10.4)
Abs Immat Gran (auto) 0.1 H 10^3/uL
(0-0.05)
Absolute Neuts (auto) 12.4 H 10^3/uL
(1.4-6.5)
Absolute Monos (auto) 1.2 H 10^3/uL
(0.1-0.6)
Neutrophils % 81.3 H %
(42.2-75.2)
Lymphocytes % 9.6 L %
(20.5-51.1)
BUN 38 H mg/dl 40 H mg/dl
(7-17) (7-17)
Creatinine 1.1 H mg/dL
(0.6-1.0)
Glucose 168 H mg/dl 123 H mg/dl
(70-99) (70-99)
02/16/24 21:51
02/16/24 21:51
Vital Signs
Initial and Last Documented VS:
Initial Vital Signs
Temp Pulse Resp BP Pulse Ox
99.1 F 55 18 144/59 94
02/16/24 16:39 02/16/24 16:39 02/16/24 16:39 02/16/24 16:39 02/16/24 16:39
Last Documented Vital Signs
Temp Pulse Resp BP Pulse Ox
98.5 F 48 19 121/45 93
02/16/24 18:30 02/16/24 22:00 02/16/24 22:00 02/16/24 22:00 02/16/24 22:23
Urszulalt;Sonal Salazar PA-C - Last Filed: 02/16/24 23:49>
Orders/Labs/Results
Orders:
Orders
02/16/24 16:43
Electrocardiogram (*1) Urgent
Reason for Study: Shortness of Breath
EKG- Treatment ONCE
CR Chest - 2 Views Urgent
Comment:
Reason For Exam: sob
02/16/24 16:56
Basic Metabolic Panel Urgent
NT-proBNP Urgent
02/16/24 21:51
Basic Metabolic Panel Urgent
Complete Blood Count/With Diff Urgent
Troponin I Urgent
02/16/24 23:06
Furosemide [Lasix] 40 mg IV NOW STA
02/16/24 23:34
Admit/Transfer Patient As Directed
Co-Sign Provider:
Level of Care: Inpatient admission
Assign to:: Telemetry
Physician / Group: leni jeffries
Diagnosis: CHF exacerbation
Reason for Telemetry: Subacute Heart Failure
Date to Stop Telemetry: 02/18/24
Time to Stop Telemetry: 11:00
Reason for Hospitalization: CHF
Expected length of stay greater than two midnights?: Yes
ELOS- Estimated Length of Stay in days: 3
I certify the patient meets the requirements for IP care: Yes
PRN Pain Medication Management As Directed
May give lesser potent ordered pain med per pt: Yes
preference::
Protocol:: Medication orders for pain may be administered in a
manner that supports deferring to patient preference
when the pt is:
- Requesting an ordered lesser potent pain medication.
Least to most potent pain medications are defined
as: acetaminophen < NSAID < tramadol < opioids
(morphine, oxycodone, hydromorphone).
- Requesting a lesser dose of the same medication IF
ORDERED.
- Requesting a less intrusive route of administration
if both routes are prescribed by the provider (PO <
IV).
02/16/24 23:37
Code Status As Directed
Resuscitation Status: Full Code
02/18/24 11:00
DC Protocol for Telemetry ONCE
Abnormal Lab Results
02/16/24 02/16/24
16:56 21:51
WBC 15.2 H 10^3/uL
(4.8-10.8)
RBC 3.32 L 10^6/uL
(4.20-5.40)
Hgb 10.1 L g/dL
(12.0-16.0)
Hct 31.1 L %
(37.0-47.0)
MCHC 32.5 L g/dL
(33.0-37.0)
MPV 10.7 H fL
(7.4-10.4)
Abs Immat Gran (auto) 0.1 H 10^3/uL
(0-0.05)
Absolute Neuts (auto) 12.4 H 10^3/uL
(1.4-6.5)
Absolute Monos (auto) 1.2 H 10^3/uL
(0.1-0.6)
Neutrophils % 81.3 H %
(42.2-75.2)
Lymphocytes % 9.6 L %
(20.5-51.1)
BUN 38 H mg/dl 40 H mg/dl
(7-17) (7-17)
Creatinine 1.1 H mg/dL
(0.6-1.0)
Glucose 168 H mg/dl 123 H mg/dl
(70-99) (70-99)
02/16/24 21:51
02/16/24 21:51
Vital Signs
Initial and Last Documented VS:
Initial Vital Signs
Temp Pulse Resp BP Pulse Ox
99.1 F 55 18 144/59 94
02/16/24 16:39 02/16/24 16:39 02/16/24 16:39 02/16/24 16:39 02/16/24 16:39
Last Documented Vital Signs
Temp Pulse Resp BP Pulse Ox
98.5 F 48 19 121/45 93
02/16/24 18:30 02/16/24 22:00 02/16/24 22:00 02/16/24 22:00 02/16/24 22:23
<Sonal Salazar PA-C - Last Filed: 02/16/24 23:49>
*EKG
Interpreted by ED Provider?: Yes
EKG Intrepretation Date: 02/16/24
EKG Intrepretation Time: 16:46
Interpretation: abnormal
Comparison EKG: no changes
Heart Rate: 55
Rate: bradycardiac
Rhythm: sinus
Catharpin: normal axis
Interval: normal interval
QRS Pattern: normal QRS
Ischemia: other (T wave flattening leads II, V1, V3-V6)
*Critical Care Note
Total Time (30-74mins, 75-104mins- exclusive of procedures): Not Applicable
<Sonal Salazar PA-C - Last Filed: 02/16/24 23:49>
Update Note
Update Note:
Pt is an 83 yo female with recent admission for afib with RVR, along with hx of CHF, p/w shortness of breath, hypoxemia on home pulse oximeter. Pt also with a reported cough. Pt is mildly hypertensive, afebrile. On exam, pt is well-appearing and
in NAD with decreased breath sounds on the left, occasional cough noted. EKG demonstrates nonspecific T wave changes, no acute ischemic changes, no dysrhythmia. Labs notable for a leukocytosis to 15.2, although this appears to be chronic, the
remainder of the pt's labs are non-actionable. BNP is elevated at 9,700 and CXR demonstrates new left pleural effusion. Will give dose of IV Lasix and admit for further management. All results were discussed with the pt and her who
expressed understanding and agreed.
ED Attending Note
<Niall Mcneil PA-C - Last Filed: 02/16/24 16:45>
-
Portions of this chart may have been created with voice recognition software.� Occasional wrong word or��sound alike� substitutions may have occurred due to the inherent limitations of voice recognition software.
Discharge Plan
Departure
Patient Disposition: Admit
Date of Disposition: 02/16/24
Time of Disposition: 23:08
Presentation/result/management discussed w/ accepting MD/DO: Hospitalist
Patient with high blood pressure during this ER visit?: No
Condition: Good
Covid-19: Not Applicable
Discharge Problem:
Acute exacerbation of CHF (congestive heart failure)
Prescriptions:
No Action
memantine 10 MG tablet
10 mg PO BID
donepezil 23 MG tablet
23 mg PO HS
riboflavin (vitamin B2) 100 mg Tablet
100 mg PO DAILY Qty: 0
sertraline 100 mg Tablet
100 mg PO DAILY
ferrous sulfate [iron] 325 mg (65 mg iron) Tablet
325 mg PO MOWEFR@0800
rosuvastatin 20 mg Tablet
20 mg PO HS
pantoprazole 40 MG tablet,delayed release (DR/EC)
40 mg PO DAILY
cyanocobalamin (vitamin B-12) 1,000 MCG tablet
1,000 mcg PO DAILY Qty: 30 0RF
acetaminophen [Tylenol Extra Strength] 500 mg Tablet
1,000 mg PO Q6HPRN PRN (Reason: MILD PAIN)
zolpidem [Ambien] 5 mg Tablet
10 mg PO HS
Patient Comments:
02/16/2024: LAST FILLED 12/30/23, 60 TABS FOR 30 DAYS
diltiazem HCl 180 mg Capsule,Extended Release 24hr
180 mg PO DAILY Qty: 30 1RF
polyethylene glycol 3350 [HealthyLax] 17 gram Powder In Packet
17 g PO DAILY Qty: 30 0RF
guaifenesin 600 mg Tablet Extended Release 12hr
1,200 mg PO Q12 Qty: 30 0RF
sennosides-docusate sodium 8.6-50 mg Tablet
1 tab PO BID Qty: 30 0RF
metoprolol succinate 50 mg Tablet Extended Release 24 Hr
50 mg PO BID Qty: 60 1RF
doxycycline hyclate 100 mg Capsule
100 mg PO Q12 Qty: 10 0RF
levalbuterol HCl 0.63 mg/3 mL Solution For Nebulization
0.63 mg inhalation R Q6HPRN PRN (Reason: SOB,COUGH,WHEEZE) Qty: 72 0RF
Eliquis 5 mg Tablet
5 mg PO BID Qty: 60 1RF
amoxicillin-pot clavulanate 875-125 mg tablet
1 tab PO Q12H Qty: 10 0RF
Referrals:
Penny Simmons MD [Family Provider] -
Interventions
Interventions:
*Risk Screen - Suicide Last Done: 02/16/24 16:39
*General Assessment Last Done: 02/16/24 16:39
*Neglect/Abuse Screening Last Done: 02/16/24 16:39
ED- Fall Risk Assessment Last Done: 02/16/24 21:39
*ED COVID-19 Vaccine History Last Done: 02/16/24 16:39
ED- Cardiac Assessment Last Done: 02/16/24 21:39
ED- Pulmonary Assessment Last Done: 02/16/24 21:39
Discharge Date and Time
Print Language: [place]
[2024-02-16 17:21] LABS: Blood Urea Nitrogen 38 mg/dl (7-17); Calcium 9.4 mg/dl (8.4-10.2); Carbon Dioxide 23 mmol/L (22-30); Chloride 104 mmol/L (98-107); Glucose 168 mg/dl (70-99); Sodium 140 mmol/L (135-145); eGFR 49.24
[2024-02-16 17:31] LABS: NT-proBNP 9700 pg/ml
[2024-02-16 18:30] VITALS: BP 130/49
[2024-02-16 21:39] VITALS: BP 125/45; BMI 31.2
[2024-02-16 22:00] VITALS: BP 121/45
[2024-02-16 22:15] LABS: % Basophils 0.3 % (0-2); % Eosinophils 0.7 % (0-6); % Immature Granulocytes 0.5 % (0-0.5); % Lymphocytes 9.6 % (20.5-51.1); % Monocytes 7.6 % (1.7-9.3); % Neutrophils 81.3 % (42.2-75.2); Absolute Basophils 0.1 10^3/uL (0-0.2); Absolute Eosinophils 0.1 10^3/uL (0-0.7); Absolute Immature Granulocytes 0.1 10^3/uL (0-0.05); Absolute Lymphocytes 1.5 10^3/uL (1.2-3.4); Absolute Monocytes 1.2 10^3/uL (0.1-0.6); Absolute Neutrophils 12.4 10^3/uL (1.4-6.5); Hematocrit 31.1 % (37.0-47.0); Hemoglobin 10.1 g/dL (12.0-16.0); Mean Corp Hgb Conc. 32.5 g/dL (33.0-37.0); Mean Corpuscular Hgb 30.4 pg (27.0-31.0); Mean Corpuscular Volume 93.7 fL (81.0-99.0); Mean Platelet Volume 10.7 fL (7.4-10.4); Nucleated Red Blood Cells % 0 %; Platelet Count 356 10^3/uL (130-400); Red Blood Cell Count 3.32 10^6/uL (4.20-5.40); White Blood Cell Count 15.2 10^3/uL (4.8-10.8)
[2024-02-16 22:27] LABS: Blood Urea Nitrogen 40 mg/dl (7-17); Calcium 9.2 mg/dl (8.4-10.2); Carbon Dioxide 25 mmol/L (22-30); Chloride 104 mmol/L (98-107); Estimated Creatinine Clearance 37 ml/min; Glucose 123 mg/dl (70-99); Potassium 4.2 mmol/L (3.5-5.1); Sodium 142 mmol/L (135-145); eGFR 55.21
[2024-02-16 22:34] LABS: Troponin I < 0.012 ng/ml
[2024-02-16 23:00] VITALS: BP 89/65
--- NOTE | 2024-02-16 23:10 | HPS.HSE ---
Family Physician
-
Family Physician: Penny Simmons
Chief Complaint
-
sob
History of Present Illness
83-year-old female with history of A-fib, respiratory failure, CHF presents with generalized weakness and sob since this morning. her pulse ox was noted in 87 on RA.patient denied sob, chest pain. denied weight gain, edema. denied fever, chills,
runny nose, congestion, cough.denied abdominal pain,n,v,d. denied dysuria or hematuria.
noted elevated BNP, chest x ray with pleural effusion. got Lasix in ER. admitting for further management.
Medical History
Past Medical History
Past Medical History: Reports Other
Additional Past Medical History:
htn
hld
CHF
iron def anemia
Past Surgical History: Reports Other
Additional Past Surgical History:
c section
MOHS surgery
Social History
Tobacco: Former Smoker
Alcohol: Occasional
Drug: None
Personal:
Living: With Family
Family History
Family History: Not pertinent
Allergies / Home Medications
Allergies reflects when Allergies were last updated in [employer].
Home Medications with original date entered in [employer]
Allergy/Medication List:
Allergies
Allergy/AdvReac Type Severity Reaction Status Date / Time
No Known Allergies Allergy Verified 02/16/24 16:41
Home Medications
memantine 10 mg tablet 10 mg PO BID memory 07/07/21
donepezil 23 mg tablet 23 mg PO HS memory 07/09/21
ferrous sulfate 325 mg (65 mg iron) tablet (iron) 325 mg PO MOWEFR@0800 Supplement 09/02/23
pantoprazole 40 mg tablet,delayed release 40 mg PO DAILY Gastrointestinal Issue 09/02/23
riboflavin (vitamin B2) 100 mg tablet 100 mg PO DAILY Supplement ##0 09/02/23
rosuvastatin 20 mg tablet 20 mg PO HS High Cholesterol 04/30/24
sertraline 100 mg tablet 100 mg PO DAILY Depression 09/02/23
cyanocobalamin (vitamin B-12) 1,000 mcg tablet 1,000 mcg PO DAILY Supplement #30 tabs 09/11/23
acetaminophen 500 mg tablet (Tylenol Extra Strength) 1,000 mg PO Q6HPRN PRN MILD PAIN 02/09/24
zolpidem 5 mg tablet (Ambien) 10 mg PO HS Sleep 02/09/24
amoxicillin 875 mg-potassium clavulanate 125 mg tablet 1 tab PO Q12H #10 tabs 02/12/24
apixaban 5 mg tablet (Eliquis) 5 mg PO BID #60 tabs 02/12/24
diltiazem HCl 180 mg capsule,extended release 24 hr 180 mg PO DAILY #30 caps 02/12/24
doxycycline hyclate 100 mg capsule 100 mg PO Q12 #10 caps 02/12/24
guaifenesin 600 mg tablet, extended release 12 hr 1,200 mg (2 x 600 mg) PO Q12 #30 tabs 02/12/24
levalbuterol HCl 0.63 mg/3 mL solution for nebulization 0.63 mg (3 mL) inhalation R Q6HPRN PRN SOB,COUGH,WHEEZE #72 mL 02/12/24
metoprolol succinate 50 mg tablet,extended release 24 hr 50 mg PO BID #60 tabs 02/12/24
polyethylene glycol 3350 17 gram oral powder packet (HealthyLax) 17 g PO DAILY #30 ea 02/12/24
sennosides 8.6 mg-docusate sodium 50 mg tablet 1 tab PO BID #30 tabs 02/12/24
Review of Systems
-
Constitutional: Reports No Symptoms
EENT: Reports No Symptoms
Respiratory: Reports Trouble Breathing
Cardiac: Reports No Symptoms
Abdomen/GI: Reports No Symptoms
: Reports No Symptoms
Musculoskeletal: Reports No Symptoms
Skin: Reports No Symptoms
Neurological: Reports No Symptoms
Endocrine: Reports No Symptoms
Hematologic/Lymphatic: Reports No Symptoms
Psych: Reports No Symptoms
Physical Exam
Vital Signs
Vital Signs
Temp Pulse Resp BP Pulse Ox
98.5 F 48 19 121/45 93
02/16/24 18:30 02/16/24 22:00 02/16/24 22:00 02/16/24 22:00 02/16/24 22:23
Physical Exam
General: Well Developed, Well Nourished and No Apparent Distress
HEENT: NormoCephalic, Moist mucous membranes and Atraumatic
Respiratory: Decreased Breath Sounds
Cardiac: S1/S2 and Regular Rhythm; No Murmur or Rub
GI: Soft, Non Tender, Non Distended and Normal Bowel Sounds; No Organomegaly
Rectal: Deferred by Provider
Musculoskeletal: No Clubbing, No Cyanosis and No Edema
Skin: No Rash
Neuro: AO x 3 and Nonfocal/grossly intact
Psych: Calm
Laboratory Results
-
02/16/24 21:51
02/16/24 21:51
Laboratory Results
Total Bilirubin Cancelled 02/16/24 16:56
AST Cancelled 02/16/24 16:56
ALT Cancelled 02/16/24 16:56
Alkaline Phosphatase Cancelled 02/16/24 16:56
Troponin I < 0.012 ng/ml 02/16/24 21:51
Data Reviewed
-
Diagnostic Radiology: Report Reviewed by me
Lab Data: Labs Reviewed by me
Impression/Plan
-
#sob/hypoxia likely CHf exacerbation
-BNP 9700, chest x ray with pleural effusion
-IV diuretics
-strict I &O
-daily weight
-fluid restriction
-patient oxygenating very well on RA
-cardiology consulted
#leukocytosis chronic unclear etiology
-wbc 15.2
#anemia of chronic disease
-hgb stable at 10.1
-no active bleeding
-ctm
#recent admission with pneumonia
-doxy and amoxicillin continued until tomorrow
#atrial fib
-EKg with sinus ila
-eliquis continued
-Cardizem continued
-metoprolol continued
#Dementia: cont Namenda/Aricept
#GERD
-PPI continued
#h/o Fe def: cont PO Fe
#HLD: cont statin
#Depression: cont Zoloft
#Insomnia: Ambien
#FULL
#DVT prophylaxis-Eliquis
--- NOTE | 2024-02-16 23:26 | W.PN.UPDATE ---
Update Note
Progress Note Update
This note serves as an addendum to the H&P by ball assembler LOUIE Andresba FERNIE
HPI
83F HX Pr AF on Eliquis, chr HFpEF pw rtness of breath over the past few days, associated with hypoxia measurements at home. VSS, afebrile. Labs notable for a BNP of 9,700 CXR: new left pleural effusion
PHX
Prx A-FIb
benign HTN on multiple meds
HX Acute L1 comp fx due to mechanical fall:
HX Leukocytosis of unclear etiology
Obesity due to excess calories
HX gastric ulcer:
HX Fe def: cont PO Fe
HX B12 deficiency: cont B12 supplement
Dementia
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
HLD
Depression
Insomnia
Reviewed VS:
Vital Signs
Temp Pulse Resp BP Pulse Ox
98.5 F 48 19 121/45 93
02/16/24 18:30 02/16/24 22:00 02/16/24 22:00 02/16/24 22:00 02/16/24 22:23
PE
Gen: Obese , not orthopneic
HEENT: aniceric,
Neck: supple
Lungs: decresed AE Lt base
Cor: Maverick cardic and regular
Abdomen: beign exam
PERSONAL FITNESS MANAGER: alert
MS: No edema
Psych: alert
Data
WCC 15; chronic
Hgb 10.1 - baseline hi 9s to mid 10s
BUN 40
pBNP 9700
EKG:
SINUS BRADYCARDIA
NONSPECIFIC T WAVE ABNORMALITY
ABNORMAL ECG
WHEN COMPARED WITH ECG OF 11-FEB-2024 14:27,
PREMATURE ATRIAL COMPLEXES ARE NO LONGER PRESENT
NONSPECIFIC T WAVE ABNORMALITY NOW EVIDENT IN ANTEROLATERAL LEADS
09/04/23 TTE: LVEF 60-65 , Mod MR , Mod TR , Est PASP 55-60
Last hospitalist admission: 02/09/24 - 02/12/24 for new onset AF
ASSESSMENT & PLAN
AE of chr HFpEF
New Lt moderate pleural effusion
Associated acute hypoxic RI
- IV Lasix 40 daily: f/u Wt, IOs
- F/U CXR in ac couples day for pleural effusion
- DCA card consult
In NSR? SB
HX Prx AF
- on Eliquis
- rate control: on Metoprolol succinate 50 BID and PO Diltiazrem 180 daily
Known condition:
Essential HTN: on nathen and Diltiazem as above.
Obesity due to excess calories: Encourage weight loss. Affects all aspects of care.
HX gastric ulcer: cont PPI
HX Fe def: cont PO Fe
HX B12 deficiency: cont B12 supplement
Dementia: cont Namenda/Aricept
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
HLD: cont statin
Depression: cont Zoloft
Insomnia: Melatonin PRN
DVT Px: chr Eliquis
full code
Ip TLM
[2024-02-17] VITALS (13 sets, daily range): BP systolic 113–154; BP diastolic 48–137; PULSE 59–62; BMI 31.1; BMI 30.5
[2024-02-17] MEDS: LASIX 40 MG IV ×2 (00:19→09:17)
--- NOTE | 2024-02-17 01:45 | PTCARENOTE ---
Received patient from ED @ 1245. Patient awake, alert, and oriented, but forgetful. No c/o of shortness of breath. BP 150/55, SB 50s, 94% on room air. Patient was unsure of meds as monitors them at home-- will be in tomorrow to do
the medication reconciliation. Discussed plan of care. Patient verbalized understanding. Call maldonado within reach.
[2024-02-17] MEDS: AUGMENTIN 875 MG/125 MG 1 TABLET PO ×2 (01:58→13:05)
[2024-02-17] MEDS: AMBIEN 5 MG PO (01:59)
[2024-02-17 04:04] LABS: Hematocrit 30.9 % (37.0-47.0); Hemoglobin 10.2 g/dL (12.0-16.0); Mean Corpuscular Volume 93.9 fL (81.0-99.0); Mean Platelet Volume 10.8 fL (7.4-10.4); Platelet Count 342 10^3/uL (130-400); Red Blood Cell Count 3.29 10^6/uL (4.20-5.40); White Blood Cell Count 14.8 10^3/uL (4.8-10.8)
[2024-02-17 04:29] LABS: ALT (SGPT) 68 U/L (0-35); AST (SGOT) 46 U/L (14-36); Albumin 3.3 g/dl (3.5-5.0); Alkaline Phosphatase 87 U/L (38-126); Blood Urea Nitrogen 39 mg/dl (7-17); Calcium 9.5 mg/dl (8.4-10.2); Carbon Dioxide 29 mmol/L (22-30); Chloride 102 mmol/L (98-107); Direct Bilirubin 0.3 mg/dl (0.0-0.4); Estimated Creatinine Clearance 33 ml/min; Glucose 139 mg/dl (70-99); HDL Cholesterol 44 mg/dl; LDL Cholesterol, Calculated 48 mg/dl; Potassium 3.7 mmol/L (3.5-5.1); Sodium 142 mmol/L (135-145); Total Bilirubin 0.3 mg/dl (0.2-1.3); Total Cholesterol 119 mg/dl (50-199); Total Protein 6.4 g/dl (6.3-8.2); Triglyceride 135 mg/dl (10-149); Very Low Density Lipoprotein 27 mg/dl (0-30); eGFR 49.24
[2024-02-17 04:56] LABS: TSH Reflex To Free T4 0.47 uIU/ml (0.47-4.68)
--- NOTE | 2024-02-17 07:34 | W.PN.HOSP.TC ---
Today's Communication/Plan
-
Continue Lasix 40 mg IV for diuresis. Follow weight and creatinine during diuresis. Small to moderate left-sided pleural effusion seen on x-ray. May consider thoracentesis if patient does not clinically improve. Holding the patient's Crestor for
the time being due to transaminitis. Transaminitis may be secondary to congestive hepatopathy.
Assessment / Plan
Assessment / Plan
HPI: Patient is an 83-year-old woman with a history of atrial fibrillation, respiratory failure, CHF who presented from home after her noticed her pulse ox to be 87%. The patient had no complaints of chest pain or shortness of breath. She
admitted that she was not the best historian. Upon review of her past medical records at this hospital -it was shown that this patient was here for hypoxemic respiratory failure and CHF this year. She was sent to [facility] ER by her
primary care provider on 02/09/2024 with new atrial fibrillation. She was admitted with new A-fib and possible COVID on 02/09/2024 until 02/12/2024. She was scheduled for a JT/CV but was in sinus rhythm when she arrived to the [facility] holding area
on 02/10/2024. The following day the patient was back in atrial fibrillation and a plan was made for rate control. The patient was discharged home on 02/12/2024 and missed her cardiology follow-up appointment on 02/16/2024 but had a telehealth
visit with her primary care provider and reported that she was not taking her medications prescribed after her most discharge home and that her pulse ox on home monitor was 85% and that she was short of breath. Her primary care provider recommended
that she go to the emergency department for evaluation. She was not in any respiratory distress while in the emergency department and her pulse ox was found to be 96%. The patient denied any weight gain, edema, fever, chills, runny nose,
congestion, cough, abdominal pain, nausea, vomiting, diarrhea, dysuria, or hematuria. A CBC, CMP, BNP, EKG, and chest x-ray was ordered in the emergency department. White blood cells were elevated at 15.2, hemoglobin at 10.1, BUN was 40,
creatinine 1. BNP was 9700 and trops were less than 0.012. The patient was admitted to [facility] for acute heart failure.
Impression/Plan:
-Acute on chronic HFpEF:
Appears to be diastolic heart failure exacerbation
Shortness of breath and acute heart failure on admission at 02/16/2024 -recent ER evaluation for chest pain on 01/25/2024
Echocardiogram conducted on 09/04/2023 showed an ejection fraction of 60 to 65%, normal wall motion, moderate mitral regurgitation, moderate tricuspid regurgitation with a PAP of 55 to 60 mmHg.
Cardiology consult appreciated -they suspect that the acute heart failure is likely a combination of new or atrial fibrillation, can discontinuation of hydrochlorothiazide and IVF given last admission for MARIANA
We will continue Lasix 40 mg IV daily for diuresis. Patient has lost 3 pounds overnight. She does not take a diuretic normally.
Toprol XL 25 mg twice daily
Cardiology is considering adding an ARB if Toprol-XL and Cardizem CD are not at high doses. They may also consider adding an SGLT2
Elevated proBNP
Will follow I/Os during diuresis.
Repeat echo ordered
Will follow weight and creatinine
-Leukocytosis:
Normal body temperature
Appears chronic and is neutrophil dominant
No obvious source of infection
Patient was discharged on Augmentin and doxycycline according to the home medication list. When I asked her as to why she was discharged on this medication he was unsure and stated that since it was written in the discharge recommendations
he just gave it to her.
-Acute transaminitis:
Likely caused by congestive hepatopathy -may improve with diuresis
Holding rosuvastatin 20 mg for the time being
-Paroxysmal atrial fibrillation:
Cardiology is considering adding amiodarone for rhythm control of paroxysmal atrial fibrillation
TSH was 0.47
-Essential hypertension:
Continue metoprolol succinate 25 mg
-Moderate left-sided pleural effusion:
Seen on chest x-ray conducted on 02/16/2024
Underlying pneumonia could not be excluded based on the x-ray
May consider thoracentesis if the patient does not clinically improve
-Anemia of chronic disease:
Hemoglobin stable at 10.1
No active bleeding seen
-GERD:
Continue PPI
-Depression:
Continue Zoloft
-Hyperlipidemia:
Holding rosuvastatin for the time being due to transaminitis
FULL CODE STATUS
DVT prophylaxis: Eliquis
Anticipated Discharge: > 48 hours
Subjective/Interval History
-
Date of Service: February 17, 2024
Objective Data
-
Labs:
Laboratory Results
02/16/24 02/16/24 02/16/24
21:51 21:51 21:51
WBC 15.2 H Cancelled
Hgb 10.1 L Cancelled
Hct 31.1 L
Plt Count
Sodium
Potassium
Chloride
Carbon Dioxide
BUN
Creatinine
Glucose
Calcium
Total Bilirubin
AST
ALT
Alkaline Phosphatase
02/16/24 02/16/24 02/17/24
21:51 21:51 03:27
WBC 14.8 H
Hgb 10.2 L
Hct Cancelled 30.9 L
Plt Count 356 Cancelled 342
Sodium 142
Potassium 4.2
Chloride 104
Carbon Dioxide 25
BUN 40 H
Creatinine 1.0
Glucose 123 H
Calcium 9.2
Total Bilirubin
AST
ALT
Alkaline Phosphatase
02/17/24
03:30
WBC
Hgb
Hct
Plt Count
Sodium 142
Potassium 3.7
Chloride 102
Carbon Dioxide 29
BUN 39 H
Creatinine 1.1 H
Glucose 139 H
Calcium 9.5
Total Bilirubin 0.3
AST 46 H
ALT 68 H
Alkaline Phosphatase 87
Vital Signs:
Vital Signs
Temp Pulse Resp BP Pulse Ox
97.7 F 59 20 145/88 94
02/17/24 03:07 02/17/24 06:15 02/17/24 03:07 02/17/24 03:07 02/17/24 03:07
I&O
02/16/24 02/17/24 02/18/24
06:59 06:59 06:59
Output Total 700 / 700
Balance -700 / -700
--- NOTE | 2024-02-17 08:13 | VNURNOTE ---
Chart reviewed. Patient is current with [facility] nursing, PT. Will continue to follow hospital course and DC plans.
--- NOTE | 2024-02-17 08:35 | CON.CAR ---
Addendum entered and electronically signed by Michael Dumont MD 02/17/24 12:45:
I saw and examined the patient.
The Plasterer Stucco's note was reviewed and I agree with the note.
Comment:
GEN: No distress, awake, Ox3
HEENT: supple, anicteric, mmm
LUNGS: CTA, no wheezes/rales
CV: Reg, S1/S2, 1/6 syst LSB, no gallop
ABD: soft, BS+, NT/ND
EXT: No edema
NEURO: Gross non-focal
SKIN: No rash
Plan:
She presents with acute/chronic HFpeF. She has a recent admission 1 week ago for new onset atrial fibrillation and recent COVID infection. She was having paroxysms of atrial fibrillation and was discharged. She missed her follow-up appointment and
was likely noncompliant with her medicine and presented with more shortness of breath. Her proBNP is now markedly elevated with a left pleural effusion.
She remains in sinus rhythm. Continue Toprol 25 mg daily. Continue Eliquis. Will hold off on amiodarone for now. We will follow her on telemetry. If she is having paroxysms of A-fib would start amiodarone.
Will start Lasix 40 mg IV daily and diuresed. Follow creatinine.
CHF education and we discussed the importance of compliance. Will repeat echocardiogram.
Original Note:
Consultation
Consultation Request
Date/Time Consultation Requested: 02/17/24 at 0053
Date/Time Consultation Performed: 02/17/24 at 0816
Requesting Provider: Dr. Sal Cano
Performing Provider: Dr. Dumont
Reason for Consultation: Acute HF
Medical History
-
History of Present Illness:
[facility] and reportedly a pulse ox at home of 87%, patient was admitted with acute HF. [facility] was [facility] for chest pain and after an undetectable Troponin and normal ECG patient was d/c'd to home. Patient then
missed cardiology f/u due to illness and was sent to [facility] by her PCP 02/09/24 with new Afib. Patient was admitted with new Afib and possible COVID 02/09/24 until 02/12/24. Patient was scheduled for a JT/CV, but was in SR when she arrived to rn cardiac cath
holding area on 02/10/24. The next day patient was back in Afib and plan was made for rate control. Patient was d/c'd to home 02/12/24 and missed cardiology f/u appt on 02/16/24, but was able to have a tele health visit with her PCP and reported that
she was not taking her medications prescribed at most recent d/c and that her pulse ox on home monitor was 85% and she was SOB. PCP recommended ER evaluation. In [facility] patient had a normal pulse ox on room air. pro-BNP was 2450 last admission and now
9700. CXR with moderate left pleural effusion which is new compared to last week. ECG in [facility] looks like SR/SB and tele reviewed by me is SR. Patient has not been taking meds.
PMH:
Chronic HFpEF
Paroxysmal Afib
new diagnosis 02/09/24, spontaneously converted to SR prior to planned JT/CV 02/10/24, recurred with Afib 02/11/24, now in SR 02/16/24
Chronic Eliquis OAC
Recent ER evaluation for chest pain 01/25/24
Recent admission for new Afib 02/09/24 until 02/12/24
HTN
Dementia
Moderate MR by echo 09/04/23
Moderate TR with PAP 55-60 mmHg
Past Medical History
Past Medical History: Other (in HPI)
Past Surgical History:
Social History
Tobacco: Former Smoker
Alcohol: Occasional
Drug: None
Personal:
Living: With Family
Family History
Family History: Cancer
Allergies / Home Medications
Allergy/AdvReac Type Severity Reaction Status Date / Time
No Known Allergies Allergy Verified 02/16/24 16:41
�Medication �Instructions �Recorded �Confirmed �Type
memantine 10 mg tablet 10 mg PO BID memory 07/07/21 02/16/24 History
donepezil 23 mg tablet 23 mg PO HS memory 07/09/21 02/16/24 History
ferrous sulfate 325 mg (65 mg 325 mg PO MOWEFR@0800 Supplement 09/02/23 02/16/24 History
iron) tablet (iron)
pantoprazole 40 mg tablet,delayed 40 mg PO DAILY Gastrointestinal 09/02/23 02/16/24 History
release Issue
riboflavin (vitamin B2) 100 mg 100 mg PO DAILY Supplement ##0 09/02/23 02/16/24 History
tablet
rosuvastatin 20 mg tablet 20 mg PO HS High Cholesterol 09/02/23 02/16/24 History
sertraline 100 mg tablet 100 mg PO DAILY Depression 09/02/23 02/16/24 History
cyanocobalamin (vitamin B-12) 1,000 mcg PO DAILY Supplement #30 09/11/23 02/16/24 Rx
1,000 mcg tablet tabs
acetaminophen 500 mg tablet 1,000 mg PO Q6HPRN PRN MILD PAIN 02/09/24 02/16/24 History
(Tylenol Extra Strength)
zolpidem 5 mg tablet (Ambien) 10 mg PO HS Sleep 02/09/24 02/16/24 History
amoxicillin 875 mg-potassium 1 tab PO Q12H #10 tabs 02/12/24 02/16/24 Rx
clavulanate 125 mg tablet
apixaban 5 mg tablet (Eliquis) 5 mg PO BID #60 tabs 02/12/24 02/16/24 Rx
diltiazem HCl 180 mg 180 mg PO DAILY #30 caps 02/12/24 02/16/24 Rx
capsule,extended release 24 hr
doxycycline hyclate 100 mg capsule 100 mg PO Q12 #10 caps 02/12/24 02/16/24 Rx
guaifenesin 600 mg tablet, 1,200 mg (2 x 600 mg) PO Q12 #30 02/12/24 02/16/24 Rx
extended release 12 hr tabs
levalbuterol HCl 0.63 mg/3 mL 0.63 mg (3 mL) inhalation R Q6HPRN 02/12/24 02/16/24 Rx
solution for nebulization PRN SOB,COUGH,WHEEZE #72 mL
metoprolol succinate 50 mg 50 mg PO BID #60 tabs 02/12/24 02/16/24 Rx
tablet,extended release 24 hr
polyethylene glycol 3350 17 gram 17 g PO DAILY #30 ea 02/12/24 02/16/24 Rx
oral powder packet (HealthyLax)
sennosides 8.6 mg-docusate sodium 1 tab PO BID #30 tabs 02/12/24 02/16/24 Rx
50 mg tablet
Review of Systems
-
History Source: Patient and Family (, Matthew, by phone in room)
All other systems: Negative unless noted
Physical Exam
Vital Signs
Temp Pulse Resp BP Pulse Ox
98.6 F 59 20 145/88 96
02/17/24 08:05 02/17/24 06:15 02/17/24 08:05 02/17/24 03:07 02/17/24 08:05
GEN: NAD. AAO to person, place and situation
HEENT: MMM
LUNGS: Room air. No audible wheeze
CV: SR on tele
ABD: +BS, ND, NT, soft
EXT: No clubbing, cyanosis, lesions or edema B/L
NEURO: Gross non-focal
SKIN: Warm, dry and pink. No rash
Lab Results
02/17/24 03:27
02/17/24 03:30
Troponin I < 0.012 ng/ml 02/16/24 21:51
Zfg-K-Wselndhenkc Pept 9700 pg/ml 02/16/24 16:56
Impression / Plan
-
PCP: Dr. Simmons
Cardiology: Dr. Melchor
Impression:
SOB and acute HF on admission 02/16/24
Acute on chronic HFpEF
Paroxysmal Afib
new diagnosis 02/09/24, spontaneously converted to SR prior to planned JT/CV 02/10/24, recurred with Afib 02/11/24, now in SR 02/16/24
Chronic Eliquis OAC
Recent ER evaluation for chest pain 01/25/24
Recent admission for new Afib 02/09/24 until 02/12/24
HTN
Dementia
Moderate MR by echo 09/04/23
Moderate TR with PAP 55-60 mmHg
Echo 09/04/23: EF 60-65%, normal wall motion, mod MR, mod TR with PAP 55-60 mmHg
Plan:
-Patient came to [facility] yesterday with SOB and reportedly a pulse ox at home of 87%, patient was admitted with acute HF. Patient was seen in [facility] for chest pain and after an undetectable Troponin and normal ECG patient was d/c'd to home. Patient then
missed cardiology f/u due to illness and was [facility] 02/09/24 with new Afib. Patient was admitted with new Afib and possible COVID 02/09/24 until 02/12/24. Patient was scheduled for a JT/CV, but was in SR when she arrived to rn cardiac cath
holding area on 02/10/24. The next day patient was back in Afib and plan was made for rate control. Patient was d/c'd to home 02/12/24 and missed cardiology f/u appt on 02/16/24, but was able to have a tele health visit with her PCP and reported that
she was not taking her medications prescribed at most recent d/c and that her pulse ox on home monitor was 85% and she was SOB. PCP recommended ER evaluation. In [facility] patient had a normal pulse ox on room air. pro-BNP was 2450 last admission and now
9700. CXR with moderate left pleural effusion which is new compared to last week. ECG in [facility] reviewed by me looks like SR/SB and tele reviewed by me is SR. Patient has not been taking meds.
-Agree with Lasix 40 mg IV daily diuresis. Weight is down 3 lbs overnight, but no appreciable change in symptoms. Patient was not taking a diuretic prior to admission.
-EF was preserved at 60-65% by echo 09/04/23, but with newer Afib and new CHF will repeat echo.
-New to Toprol XL 50 mg BID last admission. Now with sinus bradycardia, will decrease to Toprol XL 25 mg BID
-Patient was taking losartan/HCTZ 100/25 mg daily prior to last admission, but this was stopped to allow for higher doses of Toprol XL and Cardizem CD. If EF is reduced then will consider restarting ARB.
-Pending echo consider starting SGLT-2
-Acute HF likely a combination of newer Afib, discontinuation of HCTZ and 2 L IVFs given last admission for MARIANA.
-TSH 0.47
-Consider starting amiodarone for rhythm control of paroxysmal Afib.
-Talked with patient's by phone in patient's room and we will meet in person at 1100 today. I asked patient's to bring the home pulse ox so we can double check it against our pulse ox.
[2024-02-17] MEDS: ELIQUIS 5 MG PO ×2 (09:17→20:22)
[2024-02-17] MEDS: NAMENDA 10 MG PO ×2 (09:18→20:22)
[2024-02-17] MEDS: PROTONIX 40 MG PO (09:19)
[2024-02-17] MEDS: MIRALAX PO (09:19)
[2024-02-17] MEDS: VIBRAMYCIN 100 MG PO ×2 (09:19→20:21)
[2024-02-17] MEDS: SENOKOT-S PO ×2 (09:19→20:25)
[2024-02-17] MEDS: VITAMIN B-12 1000 MCG PO (09:19)
[2024-02-17] MEDS: ZOLOFT 100 MG PO (09:19)
[2024-02-17] MEDS: TOPROL XL 25 MG PO (09:45)
--- NOTE | 2024-02-17 10:35 | CM ---
Chart reviewed. Patient is independent of ADLS, lives with her in a 2nd Floor Condo with elevator access, 0 DME. Patient is current with [facility]. Referral sent to resume services once discharged home. Plan is for the patient to return [facility]
with [facility]. CM to follow
--- NOTE | 2024-02-17 11:26 | W.PN.UPDATE ---
Update Note
Progress Note Update
Updated patient's in the room for 21 minutes. Reviewed admission/ER visit back to 01/29/24. Reviewed the plan for IV diuresis, repeat echo and lowering dose of Toprol XL plus stopping Cardizem CD. Patient's reports that patient has
been taking all meds faithfully and did not miss any meds at home.
[2024-02-17] MEDS: ZOFRAN 4 MG IV (11:34)
--- NOTE | 2024-02-17 14:57 | W.PN.UPDATE ---
Update Note
Progress Note Update
I saw and evaluated the patient. I reviewed the resident�s note and agree with findings and plan as documented in the resident�s note.
1. Diastolic heart failure exacerbation
-Elevated proBNP. Weight not significantly high, although dry weight might not be correct
-Currently on IV Lasix 40 mg daily continue
-Follow weight and creatinine trend
2. Left-sided pleural effusion
-Small to moderate in size although patient completely asymptomatic
-Will consider thoracentesis if not clinically improved
3. Leukocytosis w/o fever
-Somewhat chronic in nature, neutrophil dominant
-No other signs to support active infection, continue monitor
-On Augmentin/doxycycline according to home medication list, will discuss with family indication
4. Acute transaminitis
-congestive hepatopathy suspected, monitor with diuretics
-hold crestor for now
--- NOTE | 2024-02-17 21:22 | PTCARENOTE ---
Received patient at shift change. SB on the monitor, HR in the 50s. Patient in room with at bedside. Discussed plan of care and fluid restriction with pt, pt verbalizes understanding. No complaints from pt at this time, call maldonado within
reach.
[2024-02-17] MEDS: AMBIEN 10 MG PO (22:39)
[2024-02-18] VITALS (11 sets, daily range): BP systolic 62–144; BP diastolic 51–62; BMI 30.4
--- NOTE | 2024-02-18 03:57 | DOWNTIME ---
There was a MD [employer] Client Supervisor [employer] Downtime on 02/18/2024 from 0100 to 02/18/2024 at 0355. Downtime documentation of patient's care, including medication administrations, has been reconciled in the electronic record per guidelines. Refer to the
patient's paper chart under the miscellaneous tab to see printed paper medication records and downtime forms.
[2024-02-18 05:58] LABS: Hematocrit 33.5 % (37.0-47.0); Hemoglobin 10.8 g/dL (12.0-16.0); Mean Corp Hgb Conc. 32.2 g/dL (33.0-37.0); Mean Corpuscular Hgb 31.2 pg (27.0-31.0); Mean Corpuscular Volume 96.8 fL (81.0-99.0); Mean Platelet Volume 10.9 fL (7.4-10.4); Platelet Count 323 10^3/uL (130-400); Red Blood Cell Count 3.46 10^6/uL (4.20-5.40); Red Cell Dist. Width 13.9 % (11.5-14.5); White Blood Cell Count 13.1 10^3/uL (4.8-10.8)
[2024-02-18 06:25] LABS: ALT (SGPT) 48 U/L (0-35); AST (SGOT) 29 U/L (14-36); Albumin 3.2 g/dl (3.5-5.0); Alkaline Phosphatase 92 U/L (38-126); Blood Urea Nitrogen 43 mg/dl (7-17); Calcium 9.1 mg/dl (8.4-10.2); Carbon Dioxide 30 mmol/L (22-30); Chloride 97 mmol/L (98-107); Estimated Creatinine Clearance 24 ml/min; Glucose 111 mg/dl (70-99); Potassium 3.9 mmol/L (3.5-5.1); Sodium 142 mmol/L (135-145); Total Bilirubin 0.4 mg/dl (0.2-1.3); Total Protein 6.4 g/dl (6.3-8.2); eGFR 33.94
--- NOTE | 2024-02-18 07:24 | W.PN.HOSP.TC ---
Today's Communication/Plan
-
Patient will undergo a thoracentesis and we have consulted interventional radiology. We will also assess samples taken from the thoracentesis. We will hold Nexgate for the time being.
Assessment / Plan
Assessment / Plan
HPI: Patient is an 83-year-old woman with a history of atrial fibrillation, respiratory failure, CHF who presented from home after her noticed her pulse ox to be 87%. The patient had no complaints of chest pain or shortness of breath. She
admitted that she was not the best historian. Upon review of her past medical records at this hospital -it was shown that this patient was here for hypoxemic respiratory failure and CHF this year. She was sent to [facility] ER by her
primary care provider on 02/09/2024 with new atrial fibrillation. She was admitted with new A-fib and possible COVID on 02/09/2024 until 02/12/2024. She was scheduled for a JT/CV but was in sinus rhythm when she arrived to the [facility] holding area
on 02/10/2024. The following day the patient was back in atrial fibrillation and a plan was made for rate control. The patient was discharged home on 02/12/2024 and missed her cardiology follow-up appointment on 02/16/2024 but had a telehealth
visit with her primary care provider and reported that she was not taking her medications prescribed after her most discharge home and that her pulse ox on home monitor was 85% and that she was short of breath. Her primary care provider recommended
that she go to the emergency department for evaluation. She was not in any respiratory distress while in the emergency department and her pulse ox was found to be 96%. The patient denied any weight gain, edema, fever, chills, runny nose,
congestion, cough, abdominal pain, nausea, vomiting, diarrhea, dysuria, or hematuria. A CBC, CMP, BNP, EKG, and chest x-ray was ordered in the emergency department. White blood cells were elevated at 15.2, hemoglobin at 10.1, BUN was 40,
creatinine 1. BNP was 9700 and trops were less than 0.012. The patient was admitted to [facility] for acute heart failure.
Impression/Plan:
-Acute on chronic HFpEF:
Appears to be diastolic heart failure exacerbation
Shortness of breath and acute heart failure on admission at 02/16/2024 -recent ER evaluation for chest pain on 01/25/2024
Echocardiogram conducted on 09/04/2023 showed an ejection fraction of 60 to 65%, normal wall motion, moderate mitral regurgitation, moderate tricuspid regurgitation with a PAP of 55 to 60 mmHg.
Cardiology consult appreciated -they suspect that the acute heart failure is likely a combination of new or atrial fibrillation, can discontinuation of hydrochlorothiazide and IVF given last admission for MARIANA
We will continue Lasix 40 mg IV daily for diuresis. Patient has lost 3 pounds overnight. She does not take a diuretic normally.
Toprol XL 25 mg twice daily
Cardiology is considering adding an ARB if Toprol-XL and Cardizem CD are not at high doses. They may also consider adding an SGLT2
Elevated proBNP
Will follow I/Os during diuresis.
Repeat echo ordered
Will follow weight and creatinine
-Leukocytosis:
Normal body temperature
Appears chronic and is neutrophil dominant
No obvious source of infection
Patient was discharged on Augmentin and doxycycline according to the home medication list. When I asked her as to why she was discharged on this medication he was unsure and stated that since it was written in the discharge recommendations
he just gave it to her.
-Acute transaminitis:
Likely caused by congestive hepatopathy -may improve with diuresis
Holding rosuvastatin 20 mg for the time being
-Paroxysmal atrial fibrillation:
Cardiology is considering adding amiodarone for rhythm control of paroxysmal atrial fibrillation
TSH was 0.47
-Essential hypertension:
Continue metoprolol succinate 25 mg
-Moderate left-sided pleural effusion:
Seen on chest x-ray conducted on 02/16/2024
Underlying pneumonia could not be excluded based on the x-ray
We will conduct a thoracentesis and assess samples collected
-Anemia of chronic disease:
Hemoglobin stable at 10.1
No active bleeding seen
-GERD:
Continue PPI
-Depression:
Continue Zoloft
-Hyperlipidemia:
Holding rosuvastatin for the time being due to transaminitis
FULL CODE STATUS
DVT prophylaxis: Eliquis
Anticipated Discharge: 24 - 48 hours
Subjective/Interval History
-
Date of Service: February 18, 2024
Met with patient at the bedside. She continues to be forgetful but is very pleasant in conversation. She is unsure why she was taking antibiotics on discharge but states that she just trusts what doctors tell her to do. She is seen smiling and
talking to her at the bedside. She had no complaints to offer at this time.
Objective Data
-
Labs:
Laboratory Results
02/18/24
05:31
WBC 13.1 H
Hgb 10.8 L
Hct 33.5 L
Plt Count 323
Sodium 142
Potassium 3.9
Chloride 97 L
Carbon Dioxide 30
BUN 43 H
Creatinine 1.5 H
Glucose 111 H
Calcium 9.1
Total Bilirubin 0.4
AST 29
ALT 48 H
Alkaline Phosphatase 92
Vital Signs:
Vital Signs
Temp Pulse Resp BP Pulse Ox
97.8 F 64 20 144/62 92
02/18/24 05:07 02/18/24 05:30 02/18/24 05:07 02/18/24 05:20 02/18/24 05:20
I&O
02/17/24 02/18/24 02/19/24
06:59 06:59 06:59
Output Total 700 / 700
Balance -700 / -700
Review of Systems
-
History Source: Patient
All other systems: Reviewed and negative
Constitutional: Reports No Symptoms
EENT: Reports No Symptoms Reported
Respiratory: Reports No Symptoms
Cardiac: Reports No Symptoms
Abdomen/GI: Reports No Symptoms
Breast: Reports No Symptoms
Genitourinary: Reports No Symptoms
Musculoskeletal: Reports No Symptoms
Skin: Reports No Symptoms
Neuro: Reports No Symptoms
Endocrine: Reports No Symptoms
Hematologic / Lymphatic: Reports No Symptoms
Allergy / Immunology: Reports No Symptoms
Physical Exam
-
General: Well Developed, Well Nourished and No Apparent Distress
HEENT: Normocephalic, Atraumatic and Moist Mucous Membranes
Respiratory: Clear to Auscultation
Cardiac: Irregular Rhythm
Breast: Deferred by me
GI: Soft, Nontender, Nondistended and Normal Bowel Sounds
Rectal: Deferred by Provider
Genito-urinary: Deferred by me
Musculoskeletal: No Clubbing, No Cyanosis and No Edema
Skin: Warm and Dry
Neuro: Awake, Alert, Oriented and AO x 3
Psych: Calm
--- NOTE | 2024-02-18 09:00 | W.PN.CARDCBS ---
Addendum entered and electronically signed by Ander Payne MD 02/18/24 17:32:
I saw and examined the patient.
The Obstetrics And Gynecology Professor's note was reviewed and I agree with the note.
Comment: Briefly, 83-year-old woman presenting with acute heart failure with preserved ejection fraction as well as paroxysmal atrial fibrillation
Received IV Lasix and volume status is improved
However, given rising Cr will hold on further Lasix dosing
Currently maintaining sinus rhythm
Decrease Toprol-XL dose for bradycardia
Follow on telemetry
Patient's updated at bedside
Original Note:
Today's Communication / Plan
-
Change to Lasix 20 mg PO daily starting tomorrow
Follow BMP
Hospitalists ordering thoracentesis
Impression / Plan
-
PCP: Dr. Simmons
Cardiology: Dr. Melchor
Impression:
SOB and acute HF on admission 02/16/24
Left-sided pleural effusion
Acute on chronic HFpEF
Paroxysmal Afib
new diagnosis 02/09/24, spontaneously converted to SR prior to planned JT/CV 02/10/24, recurred with Afib 02/11/24, now in SR 02/16/24
Chronic Eliquis OAC
Recent ER evaluation for chest pain 01/25/24
Recent admission for new Afib 02/09/24 until 02/12/24
HTN
Dementia
Moderate MR by echo 09/04/23
Moderate TR with PAP 55-60 mmHg
Echo 09/04/23: EF 60-65%, normal wall motion, mod MR, mod TR with PAP 55-60 mmHg
Plan:
-Weight is down 4 lbs from admission with Lasix 40 mg IV daily. Patient was not taking a diuretic prior to admission, but had been taking HCTZ prior to her last admission 02/09/24 until 02/12/24 and it was stopped at discharge. Will transition to
Lasix 20 mg PO daily starting 02/19/24
-Acute HF likely a combination of newer Afib, discontinuation of HCTZ and 2 L IVFs given last admission for MARIANA.
-Check BMP as an outpatient in 1 week.
-Hospitalists planning on a left-sided thoracentesis 02/18/24
-EF was preserved at 60-65% by echo 09/04/23 and stable by repeat echo 02/18/24
-New to Toprol XL 50 mg BID last admission. Now with sinus bradycardia, will decrease to Toprol XL 25 mg BID
-Also new to Cardizem CD last admission that has been stopped this admission due to bradycardia.
-Patient was taking losartan/HCTZ 100/25 mg daily prior to last admission, but this was stopped to allow for higher doses of AV theresa blockers.
-Consider starting amiodarone for rhythm control of paroxysmal Afib.
-Patient's updated in the room 02/17/24 and again 02/18/24. Reviewed last admission and current admission. Reviewed meds started and stopped last admission and this admission. Double checked home pulse oximeter and it was similar to hospital
pulse ox readings.
HPI: Patient came to [facility] yesterday with SOB and reportedly a pulse ox at home of 87%, patient was admitted with acute HF. Patient was seen in [facility] for chest pain and after an undetectable Troponin and normal ECG patient was d/c'd to home. Patient
then missed cardiology f/u due to illness and was sent to [facility] by her PCP 02/09/24 with new Afib. Patient was admitted with new Afib and possible COVID 02/09/24 until 02/12/24. Patient was scheduled for a JT/CV, but was in SR when she arrived to cath
lab holding area on 02/10/24. The next day patient was back in Afib and plan was made for rate control. Patient was d/c'd to home 02/12/24 and missed cardiology f/u appt on 02/16/24, but was able to have a tele health visit with her PCP and reported
that she was not taking her medications prescribed at most recent d/c and that her pulse ox on home monitor was 85% and she was SOB. PCP recommended ER evaluation. In [facility] patient had a normal pulse ox on room air. pro-BNP was 2450 last admission
and now 9700. CXR with moderate left pleural effusion which is new compared to last week. ECG in [facility] reviewed by me looks like SR/SB and tele reviewed by me is SR. Patient has not been taking meds.
Progress Note - Trumpet Player
Subjective
Date of Service: February 18, 2024
Still coughing, but no longer SOB. No orthopnea
Objective
Labs:
02/18/24 05:31
02/18/24 05:31
Labs
Hgb 10.8 g/dL (12.0-16.0) L 02/18/24 05:31
Hct 33.5 % (37.0-47.0) L 02/18/24 05:31
Plt Count 323 10^3/uL (130-400) 02/18/24 05:31
Sodium 142 mmol/L (135-145) 02/18/24 05:31
Potassium 3.9 mmol/L (3.5-5.1) 02/18/24 05:31
BUN 43 mg/dl (7-17) H 02/18/24 05:31
Creatinine 1.5 mg/dL (0.6-1.0) H 02/18/24 05:31
Glucose 111 mg/dl (70-99) H 02/18/24 05:31
Troponins
02/16/24
21:51
Troponin I < 0.012
Vital Signs and I&O:
Vital Signs
Temp Pulse Resp BP Pulse Ox
97.8 F 60 20 127/53 96
02/18/24 07:25 02/18/24 08:10 02/18/24 07:25 02/18/24 07:27 02/18/24 08:32
Vital Signs
Temp Pulse Resp BP Pulse Ox
97.8 F 60 20 127/53 96
02/18/24 07:25 02/18/24 08:10 02/18/24 07:25 02/18/24 07:27 02/18/24 08:32
Intake & Output
02/16/24 02/17/24 02/18/24 02/19/24
06:59 06:59 06:59 06:59
Output Total 700 / 700
Balance -700 / -700
Physical Exam
Physical Exam
GEN: NAD. AAO to person, place and situation
HEENT: MMM
LUNGS: Nonproductive cough. Room air. No audible wheeze
CV: SR on tele
ABD: ND
EXT: No edema B/L
NEURO: Gross non-focal
SKIN: No rash
[2024-02-18] MEDS: PROTONIX 40 MG PO (09:10)
[2024-02-18] MEDS: MIRALAX 17 GRAMS PO (09:10)
[2024-02-18] MEDS: SENOKOT-S 1 TABLET PO ×2 (09:10→20:24)
[2024-02-18] MEDS: TOPROL XL 25 MG PO (09:10)
[2024-02-18] MEDS: FEOSOL 325 MG PO (09:10)
[2024-02-18] MEDS: NAMENDA 10 MG PO ×2 (09:10→20:24)
[2024-02-18] MEDS: ELIQUIS 5 MG PO (09:11)
[2024-02-18] MEDS: ZOLOFT 100 MG PO (09:11)
[2024-02-18] MEDS: VITAMIN B-12 1000 MCG PO (09:11)
[2024-02-18] MEDS: LASIX IV (09:32)
--- NOTE | 2024-02-18 09:36 | PTCARENOTE ---
Patient received from manager night resting in bed, AAO x 3, denies pain. VSS, NSR via cm, SaO2 @ 95% on RA. at bedside, both updated to plan of care for the day, in agreement. See work list for full assessment and interventions performed.
[2024-02-18] MEDS: KCL 40 MEQ PO (10:34)
--- NOTE | 2024-02-18 11:22 | CM ---
Chart reviewed. Patient is independent of ADLS, lives with her in a 2nd floor condo, elevator access. Patient is current with [facility]. Plan is for the patient to return home with VN.
[2024-02-18 15:21] LABS: Body Fluid pH 7.48
[2024-02-18 15:28] LABS: Body Fluid Mononuclear 91.5 %; Body Fluid Polymorphonuclear 8.5 %; Body Fluid WBC 1788 /CUMM
--- NOTE | 2024-02-18 15:30 | PTCARENOTE ---
Patient received back from IR s/p L thoracentesis. Patient resting comfortably, denies pain. L back dressing in place, cdi. VSS.
[2024-02-18 15:43] LABS: Body Fluid Amylase 35 U/L; Body Fluid Glucose 141 mg/dl; Body Fluid LDH 239 U/L; Body Fluid Triglycerides 39 mg/dl
[2024-02-18 15:47] LABS: Body Fluid Second Tech EYM
--- NOTE | 2024-02-18 22:00 | PTCARENOTE ---
Pt received at change of shift. AAOx3 but forgetful at time and seems to rely on for answers occasionally. SR on tele with HR 50s-60s. Thoracentesis site c/d/i. Ambulating to bathroom with rolling walker. Can make needs known. Call maldonado
within reach.
[2024-02-18] MEDS: AMBIEN 10 MG PO (22:38)
[2024-02-19 04:23] VITALS: BMI 30.4
[2024-02-19 04:27] VITALS: BP 148/57
[2024-02-19 04:38] LABS: Hematocrit 31.3 % (37.0-47.0); Hemoglobin 10.2 g/dL (12.0-16.0); Mean Corp Hgb Conc. 32.6 g/dL (33.0-37.0); Mean Corpuscular Hgb 31.5 pg (27.0-31.0); Mean Corpuscular Volume 96.6 fL (81.0-99.0); Mean Platelet Volume 10.7 fL (7.4-10.4); Platelet Count 288 10^3/uL (130-400); Red Blood Cell Count 3.24 10^6/uL (4.20-5.40); Red Cell Dist. Width 13.8 % (11.5-14.5); White Blood Cell Count 13.5 10^3/uL (4.8-10.8)
[2024-02-19 05:19] LABS: ALT (SGPT) 38 U/L (0-35); AST (SGOT) 28 U/L (14-36); Albumin 2.9 g/dl (3.5-5.0); Alkaline Phosphatase 112 U/L (38-126); Blood Urea Nitrogen 45 mg/dl (7-17); Carbon Dioxide 32 mmol/L (22-30); Chloride 98 mmol/L (98-107); Estimated Creatinine Clearance 28 ml/min; Glucose 130 mg/dl (70-99); Potassium 3.8 mmol/L (3.5-5.1); Sodium 142 mmol/L (135-145); Total Bilirubin 0.1 mg/dl (0.2-1.3)
[2024-02-19 08:03] VITALS: BP 143/75
[2024-02-19] MEDS: MIRALAX 17 GRAMS PO (08:04)
[2024-02-19] MEDS: VITAMIN B-12 1000 MCG PO (08:05)
[2024-02-19] MEDS: PROTONIX 40 MG PO (08:05)
[2024-02-19] MEDS: TOPROL XL 25 MG PO (08:05)
[2024-02-19] MEDS: ZOLOFT 100 MG PO (08:05)
[2024-02-19] MEDS: SENOKOT-S 1 TABLET PO (08:05)
[2024-02-19] MEDS: NAMENDA 10 MG PO (08:05)
--- NOTE | 2024-02-19 10:24 | W.PN.CARDCBS ---
Addendum entered and electronically signed by Ander Payne MD 02/19/24 17:04:
I saw and examined the patient.
The [employer] Statistical Programmer's note was reviewed and I agree with the note.
Comment: Briefly, 83-year-old woman presenting with acute heart failure with preserved ejection fraction as well as paroxysmal atrial fibrillation
Received IV Lasix and volume status is improved
Tells me she is asymptomatic and no longer requiring supplemental oxygen today
Plan for low-dose standing diuretic on discharge, 20 mg Lasix daily
Currently maintaining sinus rhythm
Decrease Toprol-XL dose for bradycardia and discharge on lower dose
Patient's updated at bedside
Stable for discharge from my perspective
Original Note:
Today's Communication / Plan
-
D/C to home.
Medication changes from last admission and this admission outlined in d/c instructions
53 minutes in chart prep, face to face time and coordination of care today
Impression / Plan
-
PCP: Dr. Simmons
Cardiology: Dr. Melchor
Impression:
SOB and acute HF on admission 02/16/24
Left-sided pleural effusion
s/p left-sided thoracentesis for 350 ml 02/18/24
Acute on chronic HFpEF
Paroxysmal Afib
new diagnosis 02/09/24, spontaneously converted to SR prior to planned JT/CV 02/10/24, recurred with Afib 02/11/24, now in SR 02/16/24
Chronic Eliquis OAC
Recent ER evaluation for chest pain 01/25/24
Recent admission for new Afib 02/09/24 until 02/12/24
HTN
Dementia
Moderate MR by echo 09/04/23
Moderate TR with PAP 55-60 mmHg
Echo 09/04/23: EF 60-65%, normal wall motion, mod MR, mod TR with PAP 55-60 mmHg
Plan:
-Patient reports marked symptomatic improvement after left-sided thoracentesis 02/18/24 even though she only had 350 ml removed.
-Weight is stable at 155 lbs, patient diuresed about 4 lbs total this admission. Cont Lasix 20 mg PO daily.
-Patient was not taking a diuretic prior to admission, but had been taking HCTZ prior to her last admission 02/09/24 until 02/12/24 and it was stopped at discharge.
-Acute HF likely a combination of newer Afib, discontinuation of HCTZ and 2 L IVFs given last admission for MARIANA.
-Check BMP as an outpatient in 1 week.
-EF was preserved at 60-65% by echo 09/04/23 and stable by repeat echo 02/18/24
-New to Toprol XL 50 mg BID last admission and then with sinus bradycardia this admission so dose decreased to Toprol XL 25 mg daily
-Also new to Cardizem CD last admission that has been stopped this admission due to bradycardia.
-Patient was taking losartan/HCTZ 100/25 mg daily and hydralazine prior to last admission, but these were stopped to allow for higher doses of AV theresa blockers.
-Consider starting amiodarone for rhythm control of paroxysmal Afib.
-Patient's updated in the room 02/17/24, 02/18/24 again 02/19/24. Reviewed last admission and current admission. Reviewed meds started and stopped last admission and this admission. Double checked home pulse oximeter and it was similar to
hospital pulse ox readings. Stable for d/c to home 02/19/24
HPI: Patient came to [facility] yesterday with SOB and reportedly a pulse ox at home of 87%, patient was admitted with acute HF. Patient was seen in [facility] for chest pain and after an undetectable Troponin and normal ECG patient was d/c'd to home. Patient
then missed cardiology f/u due to illness and was sent to [facility] by her PCP 02/09/24 with new Afib. Patient was admitted with new Afib and possible COVID 02/09/24 until 02/12/24. Patient was scheduled for a JT/CV, but was in SR when she arrived to cath
lab holding area on 02/10/24. The next day patient was back in Afib and plan was made for rate control. Patient was d/c'd to home 02/12/24 and missed cardiology f/u appt on 02/16/24, but was able to have a tele health visit with her PCP and reported
that she was not taking her medications prescribed at most recent d/c and that her pulse ox on home monitor was 85% and she was SOB. PCP recommended ER evaluation. In [facility] patient had a normal pulse ox on room air. pro-BNP was 2450 last admission
and now 9700. CXR with moderate left pleural effusion which is new compared to last week. ECG in [facility] reviewed by me looks like SR/SB and tele reviewed by me is SR. Patient has not been taking meds.
Progress Note - Sales Marketing Director
Subjective
Date of Service: February 19, 2024
Feels better after thoracentesis
Objective
Labs:
02/19/24 04:14
02/19/24 04:14
Labs
Hgb 10.2 g/dL (12.0-16.0) L 02/19/24 04:14
Hct 31.3 % (37.0-47.0) L 02/19/24 04:14
Plt Count 288 10^3/uL (130-400) 02/19/24 04:14
Sodium 142 mmol/L (135-145) 02/19/24 04:14
Potassium 3.8 mmol/L (3.5-5.1) 02/19/24 04:14
BUN 45 mg/dl (7-17) H 02/19/24 04:14
Creatinine 1.3 mg/dL (0.6-1.0) H 02/19/24 04:14
Glucose 130 mg/dl (70-99) H 02/19/24 04:14
Troponins
02/16/24
21:51
Troponin I < 0.012
Vital Signs and I&O:
Vital Signs
Temp Pulse Resp BP Pulse Ox
98.5 F 61 16 143/75 97
02/19/24 08:12 02/19/24 08:03 02/19/24 08:12 02/19/24 08:03 02/19/24 08:12
Vital Signs
Temp Pulse Resp BP Pulse Ox
98.5 F 61 16 143/75 97
02/19/24 08:12 02/19/24 08:03 02/19/24 08:12 02/19/24 08:03 02/19/24 08:12
Intake & Output
02/17/24 02/18/24 02/19/24 02/20/24
06:59 06:59 06:59 06:59
Intake Total 780 / 780
Output Total 700 / 700
Balance -700 / -700 780 / 780
Physical Exam
Physical Exam
GEN: NAD. AAO to person, place and situation
HEENT: MMM
LUNGS:Room air. No audible wheeze
CV: SR on tele
ABD: ND
EXT: No edema B/L
NEURO: Gross non-focal
SKIN: No rash
[2024-02-19 10:48] VITALS: O2SAT 96
--- NOTE | 2024-02-19 10:48 | W.PN.HOSP.TC ---
Today's Communication/Plan
-
d/c home
Assessment / Plan
Assessment / Plan
1. Diastolic heart failure exacerbation
-Elevated proBNP. Weight not significantly high, although dry weight might not be correct
-Follow weight and creatinine trend
-Getting IV Lasix 40 mg daily. to be discharged on lasix 20mg/d
2. Left-sided pleural effusion
-Small to moderate in size although patient completely asymptomatic
-s/p drainage of 350 cc of exudative fluid, cytopathology pending
3. Leukocytosis w/o fever
-Somewhat chronic in nature, neutrophil dominant
-No other signs to support active infection, continue monitor
-On Augmentin/doxycycline according to home medication list, will discuss with family indication
4. Acute transaminitis
-congestive hepatopathy suspected, monitor with diuretics
-hold crestor for now
5. MARIANA
-Renal function is improving, creatinine 1.3 today
-lasix can be resumed from tomorrow
Full code
More than 30 minutes spent in discharge including
Final examination of the patient
Summarizing hospital stay
Instructions for continuing care to all relevant caregivers
Preparation of discharge records, prescriptions, and referral forms
Total time spent (in minutes): 38 mins
Anticipated Discharge: Today
Subjective/Interval History
-
Date of Service: February 19, 2024
Patient feeling subjectively better
no chest discomfort/palpitation/dizziness
Objective Data
-
Labs:
Laboratory Results
02/19/24
04:14
WBC 13.5 H
Hgb 10.2 L
Hct 31.3 L
Plt Count 288
Sodium 142
Potassium 3.8
Chloride 98
Carbon Dioxide 32 H
BUN 45 H
Creatinine 1.3 H
Glucose 130 H
Calcium 9.0
Total Bilirubin 0.1 L
AST 28
ALT 38 H
Alkaline Phosphatase 112
Vital Signs:
Vital Signs
Temp Pulse Resp BP Pulse Ox
98.5 F 61 16 143/75 97
02/19/24 08:12 02/19/24 08:03 02/19/24 08:12 02/19/24 08:03 02/19/24 08:12
I&O
02/18/24 02/19/24 02/20/24
06:59 06:59 06:59
Intake Total 780 / 780
Balance 780 / 780
Review of Systems
-
Respiratory: Reports No Symptoms
Cardiac: Reports No Symptoms
Abdomen/GI: Reports No Symptoms
Physical Exam
-
General: No Apparent Distress and Comfortable
HEENT: Negative Oxygen
Respiratory: Clear to Auscultation
Cardiac: Regular Rhythm and S1/S2; Negative Murmur or Rub
GI: Soft, Nontender, Nondistended and Normal Bowel Sounds
Musculoskeletal: No Edema
Neuro: Awake, Alert, Oriented, No Motor Deficits and Nonfocal/Grossly Intact
Psych: Calm
[2024-02-19 11:30] VITALS: BP 125/46
[2024-02-19] MEDS: FLUAD (65 yr+) 2024-2025 FORMULA 0.5 ML IM (12:02)
--- NOTE | 2024-02-19 12:28 | PTCARENOTE ---
Patient discharged to home. Discharge teaching completed, verbalized understanding. IV and telemetry removed. Patient escorted to [facility] in a wheelchair
--- NOTE | 2024-02-19 13:16 | W.DCSUMMARY ---
Discharge Summary
Discharge Data
Date of Admission: 02/16/24
Date of Discharge: 02/19/24
-
Pending Results: Yes
Additional Pending Results:
Follow-up on pleural fluid smear, culture, and Gram stain -currently pending status
Hospital Course
Discharging Physician : Sal Cano
Disposition : Home with Home Care
Primary care physician : Penny Simmons
Principal Discharge diagnosis : Diastolic HF exacerbation, Left pleural effusion, Afib/rvr
Chronic Discharge diagnosis : Essential hypertension, paroxysmal atrial fibrillation, chronic back pain, hyperlipidemia, insomnia, depression, hepatic congestion, obesity
Hospital Course : Patient is an 83-year-old woman with a history of atrial fibrillation, respiratory failure, CHF who presented from home after her noticed her pulse ox to be 87%. The patient had no complaints of chest pain or shortness of
breath. She admitted that she was not the best historian. Upon review of her past medical records at this hospital -it was shown that this patient was here for hypoxemic respiratory failure and CHF this year. She was sent to [facility] ER
by her primary care provider on 02/09/2024 with new atrial fibrillation. She was admitted with new A-fib and possible COVID on 02/09/2024 until 02/12/2024. She was scheduled for a JT/CV but was in sinus rhythm when she arrived to the [place]
holding area on 02/10/2024. The following day the patient was back in atrial fibrillation and a plan was made for rate control. The patient was discharged home on 02/12/2024 and missed her cardiology follow-up appointment on 02/16/2024 but had a
telehealth visit with her primary care provider and reported that she was not taking her medications prescribed after her most discharge home and that her pulse ox on home monitor was 85% and that she was short of breath. Her primary care provider
recommended that she go to the emergency department for evaluation. She was not in any respiratory distress while in the emergency department and her pulse ox was found to be 96%. The patient denied any weight gain, edema, fever, chills, runny
nose, congestion, cough, abdominal pain, nausea, vomiting, diarrhea, dysuria, or hematuria. A CBC, CMP, BNP, EKG, and chest x-ray was ordered in the emergency department. White blood cells were elevated at 15.2, hemoglobin at 10.1, BUN was 40,
creatinine 1. BNP was 9700 and trops were less than 0.012. The patient was admitted to [facility] for acute heart failure.
Cardiology was consulted. Patient was diuresed on 40 mg IV Lasix twice daily. Following the IV diuresis the patient began to shed large amounts of fluid weight. Patient was started on Toprol 25 mg twice daily and I's and O's were followed. The
patient's Cardizem was stopped. The patient's amlodipine, losartan/hydrochlorothiazide (Hyzaar), and hydralazine were stopped on her last hospital admission and remained stopped. Patient also had leukocytosis without fever. There was acute
transaminitis suggestive of congestive hepatopathy. Crestor was held due to the transaminitis. Interventional radiology was consulted for thoracentesis and they got approximately 350 cc of fluid which was sent for pleural studies. The patient was
discharged on Augmentin and doxycycline on her last admission and there was no clear indication as to why she was given this medication so those 2 medications were discontinued and will be discontinued on discharge. Cardiology suspected that the
acute heart failure was likely a combination of new or atrial fibrillation and a discontinuation of the patient's hydrochlorothiazide along with 2 L of IVF given on her last admission due to MARIANA. They also may consider starting amiodarone in the
future for rhythm control of paroxysmal atrial fibrillation. It is recommended that the patient have a BMP checked in the outpatient setting within 1 week postdischarge. Cardiology believe the patient is appropriate for discharge and follow-up in
the outpatient setting. The patient believe that she is ready to go home and would like to be followed in the outpatient setting. Patient had a stable echocardiogram with a preserved ejection fraction at 60 to 65% on 02/18/2024. Patient will be
discharged on Lasix 20 mg daily and metoprolol succinate 25 mg daily. The patient has been instructed to not take Cardizem when she gets home. She is also reminded to not continue to take her amlodipine, Hyzaar, and hydralazine unless her
outpatient stone lathe operator reintroduces it into her medication regimen.
The patient has reached maximal benefit from this hospital admission and is appropriate for discharge at the present time. There are no barriers that would impede the patient from being safely discharged. The patient should be followed up by her
stone lathe operator in the outpatient setting. The patient is appropriate for follow-up with her primary care provider 1 to 2 weeks after her discharge from the hospital.
Important imaging findings :
-Chest x-ray conducted on 02/16/2024:
Lungs: There is no visualized pneumothorax. There is a moderate left pleural effusion.
Heart: The heart is mildly enlarged.
Osseous structures: Visualized osseous structures are within normal limits.
-Chest x-ray conducted on 02/18/2024:
A single frontal radiograph of the chest was obtained at 2:46 PM on 02/18/2024.
There is borderline cardiomegaly.
There is no pulmonary edema
There are no acute mediastinal abnormalities.
There is a small left pleural effusion with associated atelectasis at the left lung base, significantly improved but incompletely resolved when compared with the 02/16/2024 examination.
There is no pneumothorax
Procedure findings :
-Thoracentesis conducted on 02/18/2024:
Successful ultrasound-guided thoracentesis, yielding 350 cc of serosanguineous pleural fluid.
Discharge Plan
-
Patient Disposition: Home with Home Care
Discharge Diagnosis/Procedures: Diastolic HF exacerbation, Left pleural effusion, Afib/rvr
Condition: Fair
Diet: 2 Gram Sodium and Restrict fluids to 64 oz
Additional Diets: Avoid prepared foods and avoid foods with sauces as these foods are generally higher in salt.
Activity: As tolerated
Driving Restrictions: No driving
Bathing Restrictions: OK to Shower
Blood Work: Non-fasting blood work in 1-2 weeks, lab slip on chart
Other Services: VN
Specialty Instructions: Weigh Daily- Call MD for wt gain/loss 3 lbs overnight/5 lbs in 1 week
Instructions: *DCA Heart Failure Instructions
Referrals:
[facility] [Outside]
Penny Simmons MD [Family Provider] - in one week
Carol Melchor DO [Active] - 03/01/24 2:00 pm (You have an appt to see Dr. Melchor's physician assistant general manager, Iman, at the [place] office on 03/01/24 at 2 PM. Please call [phone] if you need to reschedule.)
Additional Discharge Medication Instructions: Medication notes for patient, please do not remove:
-Your dose of Toprol XL (metoprolol succinate) has been decreased to 25 mg once a day
-STOP taking Cardizem CD (diltiazem) when you get home.
-Start taking Lasix (furosemide) 20 mg once a day.
-Continue taking Eliquis 5 mg twice a day for blood clot prevention.
-During your last hospitalization from 02/09/24 until 02/12/24 your previous doses of Norvasc (amlodipine), losartan/HCTZ (Hyzaar) and hydralazine were stopped and continue to be stopped.
Prescriptions:
New
metoprolol succinate 25 mg Tablet Extended Release 24 Hr
25 mg PO DAILY Qty: 30 2RF
furosemide [Lasix] 20 mg tablet
20 mg PO DAILY Qty: 30 11RF
Continued
memantine 10 MG tablet
10 mg PO BID
donepezil 23 MG tablet
23 mg PO HS
riboflavin (vitamin B2) 100 mg Tablet
100 mg PO DAILY Qty: 0
sertraline 100 mg Tablet
100 mg PO DAILY
ferrous sulfate [iron] 325 mg (65 mg iron) Tablet
325 mg PO MOWEFR@0800
rosuvastatin 20 mg Tablet
20 mg PO HS
pantoprazole 40 MG tablet,delayed release (DR/EC)
40 mg PO DAILY
cyanocobalamin (vitamin B-12) 1,000 MCG tablet
1,000 mcg PO DAILY Qty: 30 0RF
acetaminophen [Tylenol Extra Strength] 500 mg Tablet
1,000 mg PO Q6HPRN PRN (Reason: MILD PAIN)
zolpidem [Ambien] 5 mg Tablet
10 mg PO HS
Patient Comments:
02/16/2024: LAST FILLED 12/30/23, 60 TABS FOR 30 DAYS
polyethylene glycol 3350 [HealthyLax] 17 gram Powder In Packet
17 g PO DAILY Qty: 30 0RF
guaifenesin 600 mg Tablet Extended Release 12hr
1,200 mg PO Q12 Qty: 30 0RF
sennosides-docusate sodium 8.6-50 mg Tablet
1 tab PO BID Qty: 30 0RF
levalbuterol HCl 0.63 mg/3 mL Solution For Nebulization
0.63 mg inhalation R Q6HPRN PRN (Reason: SOB,COUGH,WHEEZE) Qty: 72 0RF
Eliquis 5 mg Tablet
5 mg PO BID Qty: 60 1RF
Discontinued
diltiazem HCl 180 mg Capsule,Extended Release 24hr
180 mg PO DAILY Qty: 30 1RF
metoprolol succinate 50 mg Tablet Extended Release 24 Hr
50 mg PO BID Qty: 60 1RF
doxycycline hyclate 100 mg Capsule
100 mg PO Q12 Qty: 10 0RF
amoxicillin-pot clavulanate 875-125 mg tablet
1 tab PO Q12H Qty: 10 0RF
Discharge Orders:
Discharge Patient (As Directed); Ordered 02/19/24
Ordered By: Sal Cano
Care Plan Goals
Care Plan Goals:
Problem: Readiness for enhanced knowledge related to diagnosis and treatment plan
Goal: Understand your diagnosis and treatment plan needs, including medications if applicable.
Instructions: Know your diagnosis, underlying causes and treatment plan options, including medications if applicable. Consult with your health care team to learn about your diagnosis and treatment plan, including medications if applicable.
Discharge Date and Time
Discharge Date/Time: 02/19/24 12:30
Print Language: UKRAINIAN
--- NOTE | 2024-02-20 09:04 | W.HF.CON ---
Heart Failure
- LV Function
Left ventricular function study result: LV Ejection fraction >40%
Ejection Fraction Percentage: 55-60
- ARNI
Patient already on ARNI: No
Heart Failure ARNI Not Indicated: LV Ejection Fraction >/= 40%
- ACEI/ARB
Patient already on ACEI/ARB: No
Heart Failure ACEI/ARB Not Indicated: LV Ejection Fraction > 40%
- Beta Nikos
Patient already on Evidence Based Beta Nikos: Yes
- Mineralocorticord Receptor Antagonist
Patient already on MRA: No
Heart Failure MRA Not Indicated: LV Ejection Fraction > 40%
- SGLT-2 Inhibitor
Patient already on SGLT-2 Inhibitor: No
Heart Failure SGLT-2 Inhibitor Not Indicated: LV Ejection Fraction >40%
- Afib Anticoagulation
Patient already on Anticoagulation for Afib: Yes
- NYHA CHF Classification
NYHA CHF Classification Level: Class III - Symptoms w/ min exertion, interferes w/ nml daily activity
- ACC/AHA Stage
ACC/AHA Stage: Stage C: Symptomatic Heart Failure
== END 2024-02-19 12:30 | disposition home health service (06) | DRG 291 ==
LOC: IVU 23:55
PROVIDERS: Physician Assistant; Physician Assistant Medical; Radiology Diagnostic Radiology; Registered Nurse; ADMITTING PHYSICIAN Internal Medicine; ATTENDING PHYSICIAN Hospitalist; EMERGENCY PHYSICIAN Emergency Medicine; FAMILY PHYSICIAN Internal Medicine; OTHER PHYSICIAN Internal Medicine Cardiovascular Disease
PROC: 0W9B3ZX Drainage of Left Pleural Cavity, Percutaneous Approach, Diagnostic (ICD-10-PCS; 2024-02-18)
DX: I11.0 Hypertensive heart disease with heart failure (principal); I50.33 Acute on chronic diastolic (congestive) heart failure; J91.8 Pleural effusion in other conditions classified elsewhere; F03.918 Unspecified dementia, unspecified severity, with other behavioral disturbance; F03.93 Unspecified dementia, unspecified severity, with mood disturbance; N17.9 Acute kidney failure, unspecified; J98.11 Atelectasis; K76.1 Chronic passive congestion of liver; D63.8 Anemia in other chronic diseases classified elsewhere; D50.9 Iron deficiency anemia, unspecified; E66.09 Other obesity due to excess calories; F32.A Depression, unspecified; Z79.01 Long term (current) use of anticoagulants; E78.00 Pure hypercholesterolemia, unspecified; G47.00 Insomnia, unspecified; G62.9 Polyneuropathy, unspecified; G89.29 Other chronic pain; I48.0 Paroxysmal atrial fibrillation; K21.9 Gastro-esophageal reflux disease without esophagitis; M19.90 Unspecified osteoarthritis, unspecified site; E53.8 Deficiency of other specified B group vitamins; M54.9 Dorsalgia, unspecified; R09.02 Hypoxemia; R06.89 Other abnormalities of breathing; Z91.199 Patient's noncompliance with other medical treatment and regimen due to unspecified reason; Z79.899 Other long term (current) drug therapy; Z86.16 Personal history of COVID-19; Z87.11 Personal history of peptic ulcer disease; Z87.891 Personal history of nicotine dependence; Z87.01 Personal history of pneumonia (recurrent); Z91.81 History of falling
CPT/HCPCS: 88305; 32555; 71045; 71046; 80048; 80053; 80061; 82150; 82248; 82945; 83615; 83735; 83880; 83986; 84157; 84443; 84478; 84484; 85025; 85027; 87015; 87070; 87102; 87116; 87205; 87206; 88112; 89051; 90662; 93005; 93306; 97116; 97162; 97166; 99285; G0008

== ENCOUNTER 2024-03-29 15:46 | Inpatient (IN) | payer OTHER, SELFPAY ==
[2024-03-29] VITALS (9 sets, daily range): BP systolic 120–160; BP diastolic 41–65; BMI 31.4; BMI 29.4
[2024-03-29 12:34] LABS: % Basophils 0.4 % (0-2); % Immature Granulocytes 0.4 % (0-0.5); % Lymphocytes 8.7 % (20.5-51.1); % Monocytes 6.7 % (1.7-9.3); % Neutrophils 82.8 % (42.2-75.2); Absolute Basophils 0.1 10^3/uL (0-0.2); Absolute Eosinophils 0.1 10^3/uL (0-0.7); Absolute Immature Granulocytes 0.1 10^3/uL (0-0.05); Absolute Lymphocytes 1.2 10^3/uL (1.2-3.4); Absolute Monocytes 0.9 10^3/uL (0.1-0.6); Absolute Neutrophils 11.6 10^3/uL (1.4-6.5); Hematocrit 33.9 % (37.0-47.0); Hemoglobin 10.4 g/dL (12.0-16.0); Mean Corp Hgb Conc. 30.7 g/dL (33.0-37.0); Mean Corpuscular Hgb 29.3 pg (27.0-31.0); Mean Corpuscular Volume 95.5 fL (81.0-99.0); Mean Platelet Volume 10.6 fL (7.4-10.4); Nucleated Red Blood Cells % 0 %; Platelet Count 296 10^3/uL (130-400); Red Blood Cell Count 3.55 10^6/uL (4.20-5.40); Red Cell Dist. Width 15.9 % (11.5-14.5)
--- NOTE | 2024-03-29 12:47 | ED.GENMED ---
History of Present Illness
General
Chief Complaint: Breathing Problem
Source: patient
Exam Limitations: none
Time Seen by Provider: 03/29/24 12:35
History of Present Illness
History of Present Illness:
83-year-old female with history of atrial fibrillation, CHF presents from home with low oxygen readings. She admitted to her that she did not feel well this morning. She spoke with her cash person 3 days ago and was recommended to come in
then. She pneumonic come in 3 days ago but feels worse today. She was here about 6 weeks ago for a pleural effusion that required drainage. was getting values of 85% for her pulse ox at home. She denies chest pain. No recent fever. No
significant cough. She is anticoagulated.
Past History
Past History
ED Past Medical History: CHF, HTN and Hypercholesterolemia
ED Past Surgical History:
Patient has exhibited threatening behavior?: No
Social History
Tobacco: Former smoker
Alcohol: Occasional
Drug: None
Personal:
Living: with family
Employment: Retired
Family History
Family History: Hypertension and Other (stroke)
Phy Exam
Physical Exam
Physical Exam:
General: Well-appearing female no acute respiratory distress HEENT: Normocephalic atraumatic
Heart: Bradycardic and regular
Lungs: Rales at the left base
Extremities: No significant pitting edema
Skin: Warm no rash
Scores
Heart Failure Risk
Heart Failure Risk Score: Not Applicable
Course
Orders/Labs/Results
Orders:
Orders
03/29/24 11:27
Electrocardiogram (*1) Urgent
Reason for Study: Bradycardia / Tachycardia
EKG- Treatment ONCE
03/29/24 12:26
Complete Blood Count/With Diff Urgent
Pro-BNP [NT-proBNP] Urgent
03/29/24 12:45
CR Chest - 2 Views Urgent
Comment:
Reason For Exam: sob, hypoxia
03/29/24 13:24
Comprehensive Metabolic Panel Urgent
03/29/24 14:40
Furosemide [Lasix] 20 mg IV NOW STA
Abnormal Lab Results
03/29/24 03/29/24
12:26 13:24
WBC 14.0 H 10^3/uL
(4.8-10.8)
RBC 3.55 L 10^6/uL
(4.20-5.40)
Hgb 10.4 L g/dL
(12.0-16.0)
Hct 33.9 L %
(37.0-47.0)
MCHC 30.7 L g/dL
(33.0-37.0)
RDW 15.9 H %
(11.5-14.5)
MPV 10.6 H fL
(7.4-10.4)
Abs Immat Gran (auto) 0.1 H 10^3/uL
(0-0.05)
Absolute Neuts (auto) 11.6 H 10^3/uL
(1.4-6.5)
Absolute Monos (auto) 0.9 H 10^3/uL
(0.1-0.6)
Neutrophils % 82.8 H %
(42.2-75.2)
Lymphocytes % 8.7 L %
(20.5-51.1)
Carbon Dioxide 33 H mmol/L
(22-30)
BUN 27 H mg/dl
(7-17)
Creatinine 1.2 H mg/dL
(0.6-1.0)
Glucose 133 H mg/dl
(70-99)
03/29/24 12:26
03/29/24 13:24
Vital Signs
Initial and Last Documented VS:
Initial Vital Signs
Temp Pulse Resp BP Pulse Ox
98 F 49 16 160/64 95
03/29/24 11:22 03/29/24 11:22 03/29/24 11:22 03/29/24 11:22 03/29/24 11:22
Last Documented Vital Signs
Temp Pulse Resp BP Pulse Ox
98 F 48 20 153/65 99
03/29/24 11:22 03/29/24 13:33 03/29/24 13:33 03/29/24 13:34 03/29/24 13:34
MDM/Problems Addressed
Differential Diagnosis Includes:
Patient with low oxygen readings at home. She was 88% on room air when I was in the room with a good signal. She has sinus bradycardia on the monitor. X-ray pending to evaluate for recurrent pleural effusion. Do not suspect PE secondary to
anticoagulated state. Will administer nasal cannula oxygen as needed.
*Critical Care Note
Total Time (30-74mins, 75-104mins- exclusive of procedures): Not Applicable
Update Note
Update Note:
Chest x-ray shows no obvious acute abnormality. BNP is elevated. Pulse ox is 88% on room air. Will start on 2 L of oxygen. Lasix ordered. Will admit to hospital
ED Attending Note
-
Portions of this chart may have been created with voice recognition software.� Occasional wrong word or��sound alike� substitutions may have occurred due to the inherent limitations of voice recognition software.
Discharge Plan
Departure
Patient Disposition: Admit
Date of Disposition: 03/29/24
Time of Disposition: 14:41
Admit to: Telemetry
Presentation/result/management discussed w/ accepting MD/DO: Hospitalist
Discharge Problem:
Hypoxia
Prescriptions:
No Action
memantine 10 MG tablet
10 mg PO BID
donepezil 23 MG tablet
23 mg PO HS
riboflavin (vitamin B2) 100 mg Tablet
100 mg PO DAILY Qty: 0
sertraline 100 mg Tablet
100 mg PO DAILY
ferrous sulfate [iron] 325 mg (65 mg iron) Tablet
325 mg PO MOWEFR@0800
rosuvastatin 20 mg Tablet
20 mg PO HS
pantoprazole 40 MG tablet,delayed release (DR/EC)
40 mg PO DAILY
cyanocobalamin (vitamin B-12) 1,000 MCG tablet
1,000 mcg PO DAILY Qty: 30 0RF
acetaminophen [Tylenol Extra Strength] 500 mg Tablet
1,000 mg PO Q6HPRN PRN (Reason: MILD PAIN)
zolpidem [Ambien] 5 mg Tablet
10 mg PO HS
Patient Comments:
02/16/2024: LAST FILLED 12/30/23, 60 TABS FOR 30 DAYS
polyethylene glycol 3350 [HealthyLax] 17 gram Powder In Packet
17 g PO DAILY Qty: 30 0RF
guaifenesin 600 mg Tablet Extended Release 12hr
1,200 mg PO Q12 Qty: 30 0RF
sennosides-docusate sodium 8.6-50 mg Tablet
1 tab PO BID Qty: 30 0RF
levalbuterol HCl 0.63 mg/3 mL Solution For Nebulization
0.63 mg inhalation R Q6HPRN PRN (Reason: SOB,COUGH,WHEEZE) Qty: 72 0RF
Eliquis 5 mg Tablet
5 mg PO BID Qty: 60 1RF
metoprolol succinate 25 mg Tablet Extended Release 24 Hr
25 mg PO DAILY Qty: 30 2RF
furosemide [Lasix] 20 mg tablet
20 mg PO DAILY Qty: 30 11RF
Referrals:
Penny Simmons MD [Family Provider] -
Interventions
Interventions:
*Risk Screen - Suicide Last Done: 03/29/24 11:26
*Neglect/Abuse Screening Last Done: 03/29/24 11:26
ED- Fall Risk Assessment Last Done: 03/29/24 12:10
*ED COVID-19 Vaccine History Last Done: 03/29/24 11:26
ED- Cardiac Assessment Last Done: 03/29/24 12:27
ED- Pulmonary Assessment Last Done: 03/29/24 12:11
Discharge Date and Time
Print Language: SWEDISH
[2024-03-29 13:09] LABS: NT-proBNP 9740 pg/ml
[2024-03-29 13:47] LABS: ALT (SGPT) 20 U/L (0-35); AST (SGOT) 24 U/L (14-36); Albumin 3.5 g/dl (3.5-5.0); Alkaline Phosphatase 97 U/L (38-126); Blood Urea Nitrogen 27 mg/dl (7-17); Calcium 8.9 mg/dl (8.4-10.2); Carbon Dioxide 33 mmol/L (22-30); Chloride 99 mmol/L (98-107); Estimated Creatinine Clearance 31 ml/min; Glucose 133 mg/dl (70-99); Potassium 3.5 mmol/L (3.5-5.1); Sodium 144 mmol/L (135-145); Total Bilirubin 0.4 mg/dl (0.2-1.3); Total Protein 6.8 g/dl (6.3-8.2); eGFR 44.36
[2024-03-29] MEDS: LASIX 20 MG IV (14:57)
--- NOTE | 2024-03-29 15:32 | HPS.HSE ---
Family Physician
-
Family Physician: Penny Simmons
Chief Complaint
-
low POx at home
History of Present Illness
HPI
83F HX Chr HFpEF, Prx AF, chr Eliquis, CKD3, Lt sided pleural effusion seen at ER
- reports low Pox reading , sent in by P card
- per was getting values of 85% for her pulse ox at home.
- She was here about 6 weeks ago for a pleural effusion that required drainage.
Medical History
Past Medical History
Past Medical History: Reports Other
Additional Past Medical History:
htn
hld
CHF
iron def anemia
Past Surgical History: Reports Other
Additional Past Surgical History:
c section
MOHS surgery
Social History
Tobacco: Former Smoker
Alcohol: Occasional
Drug: None
Personal:
Living: With Family
Family History
Family History: Not pertinent
Allergies / Home Medications
Allergies reflects when Allergies were last updated in [facility].
Home Medications with original date entered in [facility]
Allergy/Medication List:
Allergies
Allergy/AdvReac Type Severity Reaction Status Date / Time
No Known Allergies Allergy Verified 02/16/24 16:41
Home Medications
memantine 10 mg tablet 10 mg PO BID memory 07/07/21
donepezil 23 mg tablet 23 mg PO HS memory 07/09/21
ferrous sulfate 325 mg (65 mg iron) tablet (iron) 325 mg PO MOWEFR@0800 Supplement 09/02/23
pantoprazole 40 mg tablet,delayed release 40 mg PO DAILY Gastrointestinal Issue 09/02/23
riboflavin (vitamin B2) 100 mg tablet 100 mg PO DAILY Supplement ##0 09/02/23
rosuvastatin 20 mg tablet 20 mg PO HS High Cholesterol 09/02/23
sertraline 100 mg tablet 100 mg PO DAILY Depression 09/02/23
cyanocobalamin (vitamin B-12) 1,000 mcg tablet 1,000 mcg PO DAILY Supplement #30 tabs 09/11/23
acetaminophen 500 mg tablet (Tylenol Extra Strength) 1,000 mg PO Q6HPRN PRN MILD PAIN 02/09/24
zolpidem 5 mg tablet (Ambien) 10 mg PO HS Sleep 02/09/24
amoxicillin 875 mg-potassium clavulanate 125 mg tablet 1 tab PO Q12H #10 tabs 02/12/24
apixaban 5 mg tablet (Eliquis) 5 mg PO BID #60 tabs 02/12/24
diltiazem HCl 180 mg capsule,extended release 24 hr 180 mg PO DAILY #30 caps 02/12/24
doxycycline hyclate 100 mg capsule 100 mg PO Q12 #10 caps 02/12/24
guaifenesin 600 mg tablet, extended release 12 hr 1,200 mg (2 x 600 mg) PO Q12 #30 tabs 02/12/24
levalbuterol HCl 0.63 mg/3 mL solution for nebulization 0.63 mg (3 mL) inhalation R Q6HPRN PRN SOB,COUGH,WHEEZE #72 mL 02/12/24
metoprolol succinate 50 mg tablet,extended release 24 hr 50 mg PO BID #60 tabs 02/12/24
polyethylene glycol 3350 17 gram oral powder packet (HealthyLax) 17 g PO DAILY #30 ea 02/12/24
sennosides 8.6 mg-docusate sodium 50 mg tablet 1 tab PO BID #30 tabs 02/12/24
Review of Systems
-
Constitutional: Reports No Symptoms
EENT: Reports No Symptoms
Respiratory: Reports See HPI and Other (low POx at home )
Cardiac: Reports No Symptoms
Abdomen/GI: Reports No Symptoms
: Reports No Symptoms
Musculoskeletal: Reports No Symptoms
Skin: Reports No Symptoms
Neurological: Reports No Symptoms
Endocrine: Reports No Symptoms
Hematologic/Lymphatic: Reports No Symptoms
Psych: Reports No Symptoms
Physical Exam
Vital Signs
Vital Signs
Temp Pulse Resp BP Pulse Ox
98 F 47 22 120/51 96
03/29/24 11:22 03/29/24 14:57 03/29/24 14:45 03/29/24 14:57 03/29/24 14:45
Physical Exam
General: Well Developed, Well Nourished and No Apparent Distress
HEENT: NormoCephalic, Moist mucous membranes, Atraumatic and Oxygen (2 L NC)
Respiratory: Clear and Decreased Breath Sounds
Cardiac: S1/S2, Regular Rhythm and JVD (Positive 6-7 cm ); No Murmur or Rub
GI: Soft, Non Tender, Non Distended and Normal Bowel Sounds; No Organomegaly
Rectal: Deferred by Provider
Musculoskeletal: No Clubbing, No Cyanosis, No Edema and Other (b/l trace dedema both legs )
Skin: No Rash
Neuro: AO x 3 and Nonfocal/grossly intact
Psych: Calm
Laboratory Results
-
03/29/24 12:26
03/29/24 13:24
Laboratory Results
Total Bilirubin 0.4 mg/dl (0.2-1.3) 03/29/24 13:24
AST 24 U/L (14-36) 03/29/24 13:24
ALT 20 U/L (0-35) 03/29/24 13:24
Alkaline Phosphatase 97 U/L (38-126) 03/29/24 13:24
Data Reviewed
-
Diagnostic Radiology: Report Reviewed by me
Medical Tests (Nuc Med, Echo, EKG etc): Report Reviewed by me
Lab Data: Labs Reviewed by me
Old Records: Reviewed
Impression/Plan
-
Reviewed VS: HR 40s - 50s on metoprolol BP130/50 POx 95- 99 on RA
Wt 70.5 kg ( 02/19/24 ) ==> 72.9 kg ( 03/29/24)
Net gained wt 2.4 kg ( 5.2 lbs)
Data
WCC 14
Hgb 10.4 - bl is low 10s
CO2 33 - bl is hi 20s
BUN 27
Cr 1.2 - bl is 1.1 to 1.3
eGFR 44 - at bl mid 40s
pro BNP 9740 - b/l 100s - 200s , 9700 on 02/16/24
CXR: No radiographic evidence of acute cardiopulmonary abnormality.
EKG
SINUS BRADYCARDIA
PROLONGED QT
ABNORMAL ECG
WHEN COMPARED WITH ECG OF 16-FEB-2024 16:46,
NONSPECIFIC T WAVE ABNORMALITY HAS REPLACED INVERTED T WAVES IN INFERIOR LEADS
NONSPECIFIC T WAVE ABNORMALITY NO LONGER EVIDENT IN LATERAL LEADS
QT HAS LENGTHENED
02/17/24 TTE
1. Left ventricle: Normal size and function. The estimated ejection fraction is 55-60% by visual estimation.
2. Right ventricle: Normal
3. Atria: Mild biatrial dilation
4. Mitral valve: Moderate mitral regurgitation
5. Aortic valve: No aortic stenosis or aortic insufficiency
6. Tricuspid valve: Moderate to severe tricuspid regurgitation with moderate pulmonary hypertension and estimated pulmonary artery systolic pressures of 50 mmHg
7. When compared to most recent echocardiogram from 09/04/2023 there has been no significant change
Last hospitalist admission: Date of Admission: 02/16/24 - Date of Discharge: 02/19/24
Principal Discharge diagnosis :
Diastolic HF exacerbation
Left pleural effusion
Afib/rvr
ASSESSMENT & PLAN
Acute on chr HFpEF with net gained wt about 2.4 kg ( 5.2 lbs) over last 5 weeks
Associated acute Hypoxic RI needs 2 L NC O2: Not on home O2
Was DC'd on Lasix 20 daily
- Elevated proBNP
- IV Lasix 40daily
- Follow weight and creatinine trend
- [facility] card consult
Leukocytosis w/o fever: suspect leukemoid reaction
-Somewhat chronic in nature, neutrophil dominant
- No other signs to support active infection, continue monitor
MARIANA suspect cardio renal syndrome
Underlying CKD3a
-IV Lasix and f/u Renal function
Sinus bradycardia due to BB and amiodarone
- TLM monitor
- currently on Metoprolol succinate 25 mg daily
- c/w Amiodarone
Known condition:
Essential HTN: on B nathen and Diltiazem as above.
Obesity due to excess calories: Encourage weight loss. Affects all aspects of care.
HX gastric ulcer: cont PPI
HX Fe def: cont PO Fe
HX B12 deficiency: cont B12 supplement
Dementia: cont Namenda/Aricept
Chronic back pain, arthritis, neuropathy: s/p lumbar KATINA 2 weeks [employer] K[employer]. 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
HLD: cont statin
Depression: cont Zoloft
Insomnia: Melatonin PRN
DVT Px: on chr Eliquis
Full Code
IP TLM
--- NOTE | 2024-03-29 18:07 | PTCARENOTE ---
Pt presents from ED via stretcher. pt is AAO*3, Vss, 98% on 2L o2. pt denies any pain. pt oriented to the room. call maldonado within the reach. plan of care ongoing.
[2024-03-29] MEDS: ELIQUIS 5 MG PO (21:10)
[2024-03-29] MEDS: NAMENDA 10 MG PO (21:10)
[2024-03-29] MEDS: CRESTOR 20 MG PO (21:10)
[2024-03-29] MEDS: AMBIEN 10 MG PO (23:04)
[2024-03-30 03:41] VITALS: BP 130/61
[2024-03-30 06:00] VITALS: BMI 28.8
[2024-03-30 07:40] VITALS: BP 126/46
[2024-03-30 07:53] LABS: Hematocrit 32.4 % (37.0-47.0); Hemoglobin 9.8 g/dL (12.0-16.0); Mean Corp Hgb Conc. 30.2 g/dL (33.0-37.0); Mean Corpuscular Hgb 29.2 pg (27.0-31.0); Mean Corpuscular Volume 96.4 fL (81.0-99.0); Mean Platelet Volume 10.8 fL (7.4-10.4); Platelet Count 285 10^3/uL (130-400); Red Blood Cell Count 3.36 10^6/uL (4.20-5.40); Red Cell Dist. Width 16.1 % (11.5-14.5); White Blood Cell Count 12.4 10^3/uL (4.8-10.8)
[2024-03-30 08:25] LABS: Blood Urea Nitrogen 28 mg/dl (7-17); Calcium 8.6 mg/dl (8.4-10.2); Carbon Dioxide 35 mmol/L (22-30); Chloride 98 mmol/L (98-107); Estimated Creatinine Clearance 32 ml/min; Glucose 127 mg/dl (70-99); Potassium 3.6 mmol/L (3.5-5.1); Sodium 142 mmol/L (135-145); eGFR 49.24
--- NOTE | 2024-03-30 08:29 | VNURNOTE ---
Chart reviewed. Patient is current with [facility] nursing, PT, OT. Will continue to follow hospital course and DC plans.
[2024-03-30] MEDS: FLUSH (NSS) 2 FLUSH IV (10:13)
[2024-03-30] MEDS: PROTONIX 40 MG PO (10:13)
[2024-03-30] MEDS: LASIX 40 MG IV (10:13)
[2024-03-30] MEDS: ZOLOFT 100 MG PO (10:14)
[2024-03-30] MEDS: ELIQUIS 5 MG PO ×2 (10:14→21:54)
[2024-03-30] MEDS: NAMENDA PO (10:14)
--- NOTE | 2024-03-30 10:24 | CON.CAR ---
Addendum entered and electronically signed by Carol Melchor DO 03/30/24 20:14:
I saw and examined the patient.
The Branch Manager Trainee's note was reviewed and I agree with the note.
Comment: Patient seen and examined with at bedside. Patient came to ER yesterday with a low pulse ox reading at home and was admitted with acute HF. Patient was most recently admitted for acute HF from 02/16/2024 until 02/19/2024 and
weight on the day of discharge was 155 lbs. Patient comes back to the ER now with a weight of 150 lbs, but proBNP higher than any previous with a level of 9740. Patient has been hypoxic and remains on 2 L NC since admission. Patient and
report pulse ox was low at home as well and patient does not normally wear oxygen at home. Additionally patient weighs herself on a daily basis, but has not been double checking and it sounds as though patient's weight has increased about 5
lbs in the last week. Additionally patient noted to be bradycardic and QTc elevated to 616 MS by ECG on admission. Patient was started on amiodarone within the last couple of months for paroxysmal A-fib. Last echo 02/17/2024 showed preserved EF
with moderate MR. Patient also has a history of moderate to severe TR with PAP 50 mmHg.
General: No acute distress, IGFH7Hi nasal cannula O2
Heart: Regular ila, positive S1/S2, 2/6 SM
Lungs: Bronchovesicular breath sounds decreased with fine crackles
Abd: Positive BS, NT/ND, neg rebound/rigidity/guarding
Ext: No edema
Neuro: nonfocal
Plan:
-Hypoxic respiratory failure with heart failure with preserved ejection fraction, pulmonary hypertension and bradycardia
-proBNP increased 9740
-Continue IV Lasix diuresis
-No significant recurrent pleural effusion On chest x-ray
-Continue oxygen supplementation and assess for home needs
-History of atrial fibrillation currently in sinus bradycardia in the 40s which may be contributing to her symptoms. No history of syncope/near syncope
-Stop AV theresa blocking agents, Amiodarone and metoprolol and monitor on telemetry
-TSH within normal limits last admission
-Plan for outpatient quality assurance monitor to be placed prior to discharge
-Repeat 2D echocardiogram
-Outpatient dose of Eliquis 5 mg BID
-Patient with longstanding pulmonary hypertension on echocardiogram. Consulted pulmonary; Consider CT imaging and/or VQ scan
Original Note:
Consultation
Consultation Request
Date/Time Consultation Requested: 03/30/24 at 0846
Date/Time Consultation Performed: 03/30/24 at 1100
Requesting Provider: Dr. Feng
Performing Provider: Dr. Melchor
Reason for Consultation: SOB, possible acute HF
Medical History
-
History of Present Illness:
Patient came to ER yesterday with a low pulse ox reading at home and was admitted with acute HF. Patient was most recently admitted for acute HF from 02/16/2024 until 02/19/2024 and weight on the day of discharge was 155 lbs. Patient comes back
to the ER now with a weight of 150 lbs, but proBNP higher than any previous with a level of 9740. Patient has been hypoxic and remains on 2 L NC since admission. Patient and report pulse ox was low at home as well and patient does not
normally wear oxygen at home. Additionally patient weighs herself on a daily basis, but has not been double checking and it sounds as though patient's weight has increased about 5 lbs in the last week. Additionally patient noted to be
bradycardic and QTc elevated to 616 MS by ECG on admission. Patient was started on amiodarone within the last couple of months for paroxysmal A-fib. Last echo 02/17/2024 showed preserved EF with moderate MR. Patient also has a history of moderate
to severe TR with PAP 50 mmHg.
PMH:
Chronic HFpEF
h/o left-sided pleural effusion and thoracentesis for 350 ml 02/18/24 without recurrence on CXR 03/29/24
Paroxysmal Afib
new diagnosis 02/09/24, spontaneously converted to SR prior to planned JT/CV 02/10/24, recurred with Afib 02/11/24, SR 03/29/24
Chronic Eliquis OAC
Recent ER evaluation for chest pain 01/25/24
Recent admission for new Afib 02/09/24 until 02/12/24
Recent admission for acute HF 02/16/24 until 02/19/24
HTN
Dementia
Moderate MR by echo 09/04/23
Moderate TR with PAP 55-60 mmHg
Past Medical History
Past Medical History: Other (in HPI)
Past Surgical History:
Social History
Tobacco: Former Smoker
Alcohol: Occasional
Drug: None
Personal:
Living: With Family
Family History
Family History: Cancer
Allergies / Home Medications
Allergy/AdvReac Type Severity Reaction Status Date / Time
No Known Allergies Allergy Verified 02/16/24 16:41
�Medication �Instructions �Recorded �Confirmed �Type
memantine 10 mg tablet 10 mg PO BID memory 07/07/21 03/29/24 History
donepezil 23 mg tablet 23 mg PO HS memory 07/09/21 03/29/24 History
ferrous sulfate 325 mg (65 mg 325 mg PO MOWEFR@0800 Supplement 09/02/23 03/29/24 History
iron) tablet (iron)
pantoprazole 40 mg tablet,delayed 40 mg PO DAILY Gastrointestinal 09/02/23 03/29/24 History
release Issue
riboflavin (vitamin B2) 100 mg 100 mg PO DAILY Supplement ##0 09/02/23 03/29/24 History
tablet
rosuvastatin 20 mg tablet 20 mg PO HS High Cholesterol 09/02/23 03/29/24 History
sertraline 100 mg tablet 100 mg PO DAILY Depression 09/02/23 03/29/24 History
cyanocobalamin (vitamin B-12) 1,000 mcg PO DAILY Supplement #30 09/11/23 03/29/24 Rx
1,000 mcg tablet tabs
acetaminophen 500 mg tablet 1,000 mg PO Q6HPRN PRN MILD PAIN 02/09/24 03/29/24 History
(Tylenol Extra Strength)
zolpidem 5 mg tablet (Ambien) 10 mg PO HS Sleep 02/09/24 03/29/24 History
apixaban 5 mg tablet (Eliquis) 5 mg PO BID #60 tabs 02/12/24 03/29/24 Rx
levalbuterol HCl 0.63 mg/3 mL 0.63 mg (3 mL) inhalation R Q6HPRN 02/12/24 03/29/24 Rx
solution for nebulization PRN SOB,COUGH,WHEEZE #72 mL
furosemide 20 mg tablet (Lasix) 20 mg PO DAILY Heart Failure #30 02/19/24 03/29/24 Rx
tabs
metoprolol succinate 25 mg 25 mg PO DAILY Afib/rvr #30 tabs 02/19/24 03/29/24 Rx
tablet,extended release 24 hr
amiodarone 200 mg tablet 200 mg PO DAILY 03/29/24 03/29/24 History
Review of Systems
-
History Source: Patient and Family (, Matthew, in the room)
All other systems: Negative unless noted
Physical Exam
Vital Signs
Temp Pulse Resp BP Pulse Ox
98.4 F 48 20 126/46 97
03/30/24 07:40 03/30/24 07:40 03/30/24 07:40 03/30/24 07:40 03/30/24 07:40
GEN: NAD. AAO to person, place and situation
HEENT: MMM
LUNGS: Wearing 2 L NC. No audible wheeze
CV: SR on tele
ABD: ND
EXT: No edema B/L
NEURO: Gross non-focal
SKIN: No rash
Lab Results
03/30/24 07:35
03/30/24 07:35
Srj-D-Rsaelyapggn Pept 9740 pg/ml 03/29/24 12:26
Impression / Plan
-
PCP: Dr. Simmons
Cardiology: Dr. Melchor
Impression:
Admitted with SOB and hypoxia 03/29/24
Acute on chronic HFpEF
h/o left-sided pleural effusion and thoracentesis for 350 ml 02/18/24 without recurrence on CXR 03/29/24
Paroxysmal Afib
new diagnosis 02/09/24, spontaneously converted to SR prior to planned JT/CV 02/10/24, recurred with Afib 02/11/24, SR 03/29/24
Chronic Eliquis OAC
Recent ER evaluation for chest pain 01/25/24
Recent admission for new Afib 02/09/24 until 02/12/24
Recent admission for acute HF 02/16/24 until 02/19/24
HTN
Dementia
Moderate MR by echo 09/04/23
Moderate TR with PAP 55-60 mmHg
Echo 09/04/23: EF 60-65%, normal wall motion, mod MR, mod TR with PAP 55-60 mmHg
Echo 02/17/24: EF 55-60%, mod MR, no or AI, mod to sev TR with PAP 50 mmHg
Plan:
-Patient came to ER yesterday with a low pulse ox reading at home and was admitted with acute HF. Patient was most recently admitted for acute HF from 02/16/2024 until 02/19/2024 and weight on the day of discharge was 155 lbs. Patient comes
back to the ER now with a weight of 150 lbs, but proBNP higher than any previous with a level of 9740. Patient has been hypoxic and remains on 2 L NC since admission. Patient and report pulse ox was low at home as well and patient does not
normally wear oxygen at home. Additionally patient weighs herself on a daily basis, but has not been double checking and it sounds as though patient's weight has increased about 5 lbs in the last week. Additionally patient noted to be
bradycardic and QTc elevated to 616 MS by ECG on admission. Patient was started on amiodarone within the last couple of months for paroxysmal A-fib. Last echo 02/17/2024 showed preserved EF with moderate MR. Patient also has a history of moderate
to severe TR with PAP 50 mmHg.
-Weight is down compared to last admission, but according to patient's her weight is actually up 5 lbs over the last week. Agree with Lasix 40 mg IV daily. Patient was taking Lasix 20 mg PO daily prior to admission.
-EF was preserved at 60-65% by echo 09/04/23 and stable by repeat echo 02/17/24
-Outpatient dose of Toprol XL 25 mg daily has been continued.
-Patient was previously on losartan/HCTZ prior to admission 02/2024, but med was stopped to allow for higher doses of AVN blockers at that time. HTN at times. Cre stable at 1.1 to 1.2.
-Patient with known paroxysmal Afib and was started on amiodarone during her last admission. Patient now with prolonged QTc on ECG as reviewed by me. Recheck ECG. Hold amiodarone.
-Outpatient dose of Eliquis 5 mg BID (age 83, Cre 1.1, wt 66kg) has been continued.
-Pulmonology to see patient and then likely VQ scan given PHTN.
[2024-03-30 11:50] VITALS: BP 154/54
--- NOTE | 2024-03-30 12:23 | W.PN.HOSP.TC ---
Today's Communication/Plan
-
-Bradycardia, long QT
see note
c/w IV Lasix
Assessment / Plan
Assessment / Plan
Physical Exam
General: No Apparent Distress
HEENT: Normocephalic, Moist mucous membranes, Atraumatic and Oxygen (2 L NC)
Respiratory: B/L crackles.
Cardiac: S1/S2, + murmur, bradycardia
GI: Soft, Non Tender, Non Distended and Normal Bowel Sounds;
Musculoskeletal: No Clubbing, No Cyanosis, b/l trace edema both legs )
Skin: No Rash
Neuro: AO to self and surroundings, forgetful. She followed commands.
Psych: Calm
A/P:
# Acute on chronic HFpEF with net gained wt about 2.4 kg ( 5.2 lbs) over last 5 weeks
Associated acute Hypoxic RI needs 2 L NC O2: Not on home O2
Was DC'd on Lasix 20 daily
- Elevated proBNP
- IV Lasix 40daily
- Follow weight and creatinine trend
- DCA card consult
# hypoxia only
I took her off nasal O2 for about 15 minutes. SaO2 remained at 91-92%.
# Leukocytosis w/o fever: suspect leukemoid reaction
-Somewhat chronic in nature, neutrophil dominant
- No other signs to support active infection, continue monitor
# CKD stage 3b
Her renal function worsened since September 2023, likely due to worsening cardiomyopathy and cardiac output. Creatinine 1.2-1.3 seems her baseline now.
# Paroxysmal atrial fibrillation
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
Underlying CKD3a
-IV Lasix and f/u Renal function
#Bradycardia, long QT
Holding Aricept, Nemenda, BB and amiodarone
Hold Zoloft for 24 hours ( QT was normal while on it )
I anticipate that she can go back on Namenda and Aricept because her QT interval was normal while on them. Probably culprit is amiodarone
EKG in AM
# Iron deficiency anemia due to chronic blood loss
# Osteoporosis,
# Memory loss / possible Alzheimer's dementia.
Total time spent to see the patient, examine the patient, review data and lab results, discuss treatment plan with patient, nursing care around 55 minutes
Anticipated Discharge: > 48 hours
Subjective/Interval History
-
Date of Service: March 30, 2024
She denies chest pain, she was not sure about her breathing
No fevers, no headache
Objective Data
-
Labs:
Laboratory Results
03/30/24
07:35
WBC 12.4 H
Hgb 9.8 L
Hct 32.4 L
Plt Count 285
Sodium 142
Potassium 3.6
Chloride 98
Carbon Dioxide 35 H
BUN 28 H
Creatinine 1.1 H
Glucose 127 H
Calcium 8.6
Vital Signs:
Vital Signs
Temp Pulse Resp BP Pulse Ox
98.4 F 48 20 126/46 97
03/30/24 07:40 03/30/24 07:40 03/30/24 07:40 03/30/24 07:40 03/30/24 07:40
I&O
03/29/24 03/30/24 03/31/24
06:59 06:59 06:59
Intake Total 2400 / 2400
Balance 2400 / 2400
--- NOTE | 2024-03-30 13:41 | CON.PUL ---
Consultation
Consultation Request
Date/Time Consultation Requested: 03/30/2024
Date/Time Consultation Performed: 03/30/2024
Requesting Provider: Dr. Melchor
Performing Provider: Dr. Frederic Ovalle
Reason for Consultation: Pulmonary hypertension
Medical History
-
History of Present Illness:
83-year-old woman with history of chronic heart failure with preserved ejection fraction, paroxysmal atrial fibrillation on chronic anticoagulation, chronic kidney disease history of left-sided pleural effusion status post thoracentesis in the
recent past. Came to the emergency room with low oxygen levels. Sent to the emergency room by cardiology.
Patient apparently getting values of 85% pulse ox at home.
Patient underwent left thoracentesis 02/18/2024: Appears to be exudative.
Past Medical History
Past Medical History: Other (See assessment and plan section)
Social History
Tobacco: Former Smoker ([id number] history quit 35 years ago.)
Alcohol: Occasional
Drug: None
Personal:
Living: With Family
Employment: Not Employed
Family History
Family History: Reviewed & Not Pertinent
Allergies / Home Medications
Allergies
Allergy/AdvReac Type Severity Reaction Status Date / Time
No Known Allergies Allergy Verified 02/16/24 16:41
Home Medications
�Medication �Instructions �Recorded �Confirmed �Last Taken �Type
memantine 10 mg tablet 10 mg PO BID memory 07/07/21 03/29/24 03/29/24 History
donepezil 23 mg tablet 23 mg PO HS memory 07/09/21 03/29/24 03/28/24 History
ferrous sulfate 325 mg (65 mg 325 mg PO MOWEFR@0800 Supplement 09/02/23 03/29/24 03/29/24 History
iron) tablet (iron)
pantoprazole 40 mg tablet,delayed 40 mg PO DAILY Gastrointestinal 09/02/23 03/29/24 03/29/24 History
release Issue
riboflavin (vitamin B2) 100 mg 100 mg PO DAILY Supplement ##0 09/02/23 03/29/24 03/29/24 History
tablet
rosuvastatin 20 mg tablet 20 mg PO HS High Cholesterol 09/02/23 03/29/24 03/28/24 History
sertraline 100 mg tablet 100 mg PO DAILY Depression 09/02/23 03/29/24 03/29/24 History
cyanocobalamin (vitamin B-12) 1,000 mcg PO DAILY Supplement #30 09/11/23 03/29/24 03/29/24 Rx
1,000 mcg tablet tabs
acetaminophen 500 mg tablet 1,000 mg PO Q6HPRN PRN MILD PAIN 02/09/24 03/29/24 Unknown History
(Tylenol Extra Strength)
zolpidem 5 mg tablet (Ambien) 10 mg PO HS Sleep 02/09/24 03/29/24 03/28/24 History
apixaban 5 mg tablet (Eliquis) 5 mg PO BID #60 tabs 02/12/24 03/29/24 03/29/24 Rx
levalbuterol HCl 0.63 mg/3 mL 0.63 mg (3 mL) inhalation R Q6HPRN 02/12/24 03/29/24 03/29/24 Rx
solution for nebulization PRN SOB,COUGH,WHEEZE #72 mL
furosemide 20 mg tablet (Lasix) 20 mg PO DAILY Heart Failure #30 02/19/24 03/29/24 03/29/24 Rx
tabs
metoprolol succinate 25 mg 25 mg PO DAILY Afib/rvr #30 tabs 02/19/24 03/29/24 03/29/24 Rx
tablet,extended release 24 hr
amiodarone 200 mg tablet 200 mg PO DAILY Arrhythmia 03/29/24 03/29/24 03/29/24 History
Review of Systems
-
History Source: Patient
All other systems: Negative unless noted
Vitals / Labs / Diagnostic Testing
Vital Signs
Temp Pulse Resp BP Pulse Ox
98 F 49 20 154/54 95
03/30/24 11:50 03/30/24 11:50 03/30/24 11:50 03/30/24 11:50 03/30/24 11:50
Lab Data
03/30/24 07:35
03/30/24 07:35
Diagnostic Testing:
Physical Exam
-
HEENT: Normocephalic
Cardiovascular: S1/S2
Respiratory: Clear and Non-Labored Respirations
GI: Soft and Non Distended
Neurology: Awake, Oriented and No Motor Deficits
Skin: Warm
General: Comfortable
Assessment
-
Hypoxemic respiratory insufficiency
Pulmonary hypertension
Acute on chronic heart failure with preserved ejection fraction
proBNP 9740
Acute kidney injury: Likely post diuresis/volume depleted
Bradycardia-sinus on EKG, prolonged QT.
Conditions present prior admission:
Pulmonary hypertension likely postcapillary-present since at least 07/10/2021.
Normal RV function
Moderate MR/moderate to severe TR
History of left pleural effusion status postthoracentesis:? Pseudo exudate in the setting of diuresis. Negative cytology. Discharged 02/19/2024.
pH 7.48 8/white blood cells 1788/mononuclears 91%. Glucose 141/total protein/LDH 239/ambulates and triglycerides normal
Paroxysmal atrial fibrillation diagnosed 02/2024-placed on amiodarone and anticoagulation at that time
Hypertension
Hyperlipidemia
Heart failure with preserved ejection fraction
Iron deficiency anemia
Dementia
Former smoker

Assessment and plan:
Most likely reason for this admission of mild hypoxemia as related to heart failure with preserved ejection fraction in the setting of sinus bradycardia from metoprolol and amiodarone. Heart rate under 50.
Agree with IV diuresis
Monitor renal function closely
Amiodarone now on hold
Cardiology following the patient
-
Chest x-ray without acute abnormality
After diuresis will attempt to wean off oxygen, during last admission she also was admitted with hypoxemia and responded well to diuresis.
-
Patient does have pulmonary hypertension: Suspect postcapillary. Has been stable since at least 2021.
Echocardiogram in February 2024 showed normal RV function.
Doubt pulmonary arterial hypertension component.
Now on anticoagulation
I doubt thromboembolic disease , if patient does not improve after diuresis then would recommend VQ scan.
There is no suspicion for sleep disordered breathing
Again, chest x-ray without parenchymal lung disease.
Would recommend outpatient pulmonary follow-up if patient willing, she does have underlying dementia. Will need full pulmonary function testing and possibly sleep study if she is agreeable.
Otherwise if she improved with diuresis given advanced age and dementia possibly symptomatic management only.
Will obtain ambulatory pulse ox tomorrow.
-
Patient does have chronic anemia, likely contributing to symptoms.
-
Will continue to follow-up to assess response to diuresis.
It is noted that in February she was recommended to follow-up with pulmonary and she never followed through.
Information will be left in the chart for follow-up
was at the bedside and he was updated in detail by Dr. Ovalle 03/30/2024.
If patient is stable tomorrow, okay to discharge from my perspective. Hopefully no oxygen supplementation will be needed.

Prior imaging reviewed:
-
Chest x-ray 02/27/2024: Reviewed showed no acute abnormalities.
-
02/17/24 TTE
1. Left ventricle: Normal size and function. The estimated ejection fraction is 55-60% by visual estimation.
2. Right ventricle: Normal
3. Atria: Mild biatrial dilation
4. Mitral valve: Moderate mitral regurgitation
5. Aortic valve: No aortic stenosis or aortic insufficiency
6. Tricuspid valve: Moderate to severe tricuspid regurgitation with moderate pulmonary hypertension and estimated pulmonary artery systolic pressures of 50 mmHg
7. When compared to most recent echocardiogram from 09/04/2023 there has been no significant change
[2024-03-30 15:18] VITALS: BP 126/49
[2024-03-30] MEDS: TYLENOL 1000 MG PO (17:43)
[2024-03-30 19:06] VITALS: BP 165/63
[2024-03-30] MEDS: CRESTOR 20 MG PO (21:54)
[2024-03-30] MEDS: AMBIEN 10 MG PO (22:47)
[2024-03-30 23:23] VITALS: BP 142/57
[2024-03-31 03:00] VITALS: BP 141/55
--- NOTE | 2024-03-31 04:02 | DOWNTIME ---
There was a [employer] Lead Downtime on 03/31/2024 from 0100 to 03/31/2024 at 0350. Downtime documentation of patient's care, including medication administrations, has been reconciled in the electronic record per guidelines. Refer to the
patient's paper chart under the miscellaneous tab to see printed paper medication records and downtime forms.
[2024-03-31 06:00] VITALS: BMI 28.5
[2024-03-31 07:40] VITALS: BP 151/61
[2024-03-31 09:16] LABS: Blood Urea Nitrogen 32 mg/dl (7-17); Calcium 8.8 mg/dl (8.4-10.2); Carbon Dioxide 39 mmol/L (22-30); Chloride 94 mmol/L (98-107); Estimated Creatinine Clearance 29 ml/min; Glucose 120 mg/dl (70-99); Potassium 3.4 mmol/L (3.5-5.1); Sodium 140 mmol/L (135-145); eGFR 44.36
[2024-03-31] MEDS: PROTONIX 40 MG PO (09:25)
[2024-03-31] MEDS: ZOLOFT 100 MG PO (09:25)
[2024-03-31] MEDS: LASIX 40 MG IV (09:25)
[2024-03-31] MEDS: ELIQUIS 5 MG PO ×2 (09:25→21:37)
[2024-03-31] MEDS: FLUSH (NSS) 2 FLUSH IV (09:25)
[2024-03-31 11:30] VITALS: BP 146/62
--- NOTE | 2024-03-31 12:14 | W.PN.PUL3 ---
Today's Communication / Plan
-
No oxygen requirements with ambulation
Continue cardiac management
Outpatient pulmonary follow-up
Okay to discharge from my perspective
Sign off
Assessment
-
Hypoxemic respiratory insufficiency
Pulmonary hypertension
Acute on chronic heart failure with preserved ejection fraction
proBNP 9740
Acute kidney injury: Likely post diuresis/volume depleted
Bradycardia-sinus on EKG, prolonged QT.
Conditions present prior admission:
Pulmonary hypertension likely postcapillary-present since at least 07/10/2021.
Normal RV function
Moderate MR/moderate to severe TR
History of left pleural effusion status postthoracentesis:? Pseudo exudate in the setting of diuresis. Negative cytology. Discharged 02/19/2024.
pH 7.48 8/white blood cells 1788/mononuclears 91%. Glucose 141/total protein/LDH 239/ambulates and triglycerides normal
Paroxysmal atrial fibrillation diagnosed 02/2024-placed on amiodarone and anticoagulation at that time
Hypertension
Hyperlipidemia
Heart failure with preserved ejection fraction
Iron deficiency anemia
Dementia
Former smoker

Assessment and plan:
Most likely reason for this admission of mild hypoxemia as related to heart failure with preserved ejection fraction in the setting of sinus bradycardia from metoprolol and amiodarone. Heart rate under 50.
Agree with IV diuresis
Monitor renal function closely
Amiodarone now on hold
Cardiology following the patient
-
Chest x-ray without acute abnormality
After diuresis will attempt to wean off oxygen, during last admission she also was admitted with hypoxemia and responded well to diuresis.
-
Patient does have pulmonary hypertension: Suspect postcapillary. Has been stable since at least 2021.
Echocardiogram in February 2024 showed normal RV function.
Doubt pulmonary arterial hypertension component.
Now on anticoagulation
I doubt thromboembolic disease , oxygenation improved post diuresis.
There is no suspicion for sleep disordered breathing
chest x-ray without parenchymal lung disease.
Would recommend outpatient pulmonary follow-up if patient willing, she does have underlying dementia. Will need full pulmonary function testing and possibly sleep study if she is agreeable.
-
Improved post diuresis. Suggest volume overload. Continue symptomatic management.
Doubt extensive evaluation for pulmonary hypertension will spinning frame changer.
Pulse oximetry 03/31/2024 with ambulation: No oxygen requirements.
-
Patient does have chronic anemia, likely contributing to symptoms.
-
Prior evaluation:
It is noted that in February she was recommended to follow-up with pulmonary and she never followed through.
Information will be left in the chart for follow-up
was at the bedside and he was updated in detail by Dr. Ovalle 03/30/2024.
-
Okay to discharge from the pulmonary perspective
Sign off

Prior imaging reviewed:
-
Chest x-ray 02/27/2024: Reviewed showed no acute abnormalities.
-
02/17/24 TTE
1. Left ventricle: Normal size and function. The estimated ejection fraction is 55-60% by visual estimation.
2. Right ventricle: Normal
3. Atria: Mild biatrial dilation
4. Mitral valve: Moderate mitral regurgitation
5. Aortic valve: No aortic stenosis or aortic insufficiency
6. Tricuspid valve: Moderate to severe tricuspid regurgitation with moderate pulmonary hypertension and estimated pulmonary artery systolic pressures of 50 mmHg
7. When compared to most recent echocardiogram from 09/04/2023 there has been no significant change
Subjective Data
-
Date of Service:
Date of Service: March 31, 2024
Chief Complaint: Pulmonary Follow Up (Pulmonary hypertension)
Subjective:
No new complaints
Oxygen has been weaned off
Review of Systems
General: Fever (n)
Cardiopulmonary: Dyspnea (n)
GI: Abdominal Pain (n) and Nausea (n)
Neuro: Headache (n)
Objective Data
Data Reviewed
Vital Signs / I&O / Oxygen:
Vital Signs
Temp Pulse Resp BP Pulse Ox
98.1 F 58 18 146/62 96
03/31/24 11:30 03/31/24 11:30 03/31/24 11:30 03/31/24 11:30 03/31/24 11:30
Intake and Output
03/30/24 03/31/24 04/01/24
06:59 06:59 06:59
Intake Total 2400 / 2400 1200 / 1200
Output Total 125 / 125
Balance 2400 / 2400 1075 / 1075
SaO2 96
Nasal Cannula flow liters per 2
minute
Physical Exam
General: Comfortable
HEENT: Normocephalic
Cardiovascular: S1-S2
Respiratory: Clear and Non-Labored Respirations
GI: Soft and Non Distended
Neurology: Awake and No Motor Deficits
Skin: Warm
Labs/Micro/Reports
Lab Data
03/30/24 07:35
03/31/24 07:29
--- NOTE | 2024-03-31 12:41 | W.PN.HOSP.TC ---
Today's Communication/Plan
-
Due to bradycardia which contributes to patient's feeling sob on exertion, held all blocking agents including her dementia meds. QT recovered now, resume Aricept & Namenda. QT was ok when she was on them before.
She is likely to go home without BB and amiodarone, outpatient radiation monitor will help detect tachycardia it it happens.
Replace K
Can discharge her later today or tomorrow AM, await further recommendations.
Assessment / Plan
Assessment / Plan
Physical Exam
General: No Apparent Distress
HEENT: Normocephalic, Moist mucous membranes, Atraumatic and Oxygen (2 L NC)
Respiratory: much less B/L crackles.
Cardiac: S1/S2, + murmur, bradycardia
GI: Soft, Non Tender, Non Distended and Normal Bowel Sounds;
Musculoskeletal: No Clubbing, No Cyanosis, b/l trace edema both legs )
Skin: No Rash
Neuro: AO to self and surroundings, forgetful. She followed commands.
Psych: Calm
A/P:
# Acute on chronic HFpEF with net gained wt about 2.4 kg ( 5.2 lbs) over last 5 weeks
Associated acute Hypoxic RI needs 2 L NC O2: Not on home O2
Was DC'd on Lasix 20 daily
- Elevated proBNP
- IV Lasix 40daily
- Follow weight and creatinine trend
Echo showed LVEF 55-60%. Normal RV. Moderate to severe TR. No significant change compared to 02/2024 echo.
# hypoxia only
Resolved today
it was not related to primary pulmonary issue. Cardiology service wanted pulmonary doctor input.
# Leukocytosis w/o fever: suspect leukemoid reaction
-Somewhat chronic in nature, neutrophil dominant
- No other signs to support active infection, continue monitor
# CKD stage 3b
Her renal function worsened since September 2023, likely due to worsening cardiomyopathy and cardiac output. Creatinine 1.2-1.3 seems her baseline now.
# Hypokalemia, replace.
# Paroxysmal atrial fibrillation
Due to bradycardia which contributes to patient's feeling sob on exertion, held all blocking agents including her dementia meds. QT recovered now, resume Aricept & Namenda. QT was ok when she was on them before.
She is likely to go home without BB and amiodarone, outpatient radiation monitor will help detect tachycardia it it happens.
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
Underlying CKD3a
-IV Lasix and f/u Renal function
#Bradycardia, long QT
Holding Aricept, Nemenda, BB and amiodarone
Hold Zoloft for 24 hours ( QT was normal while on it )
I anticipate that she can go back on Namenda and Aricept because her QT interval was normal while on them. Probably culprit is amiodarone
EKG in AM
# Iron deficiency anemia due to chronic blood loss
# Osteoporosis,
# Memory loss / possible Alzheimer's dementia.
Total time spent to see the patient, examine the patient, review data and lab results, discuss treatment plan with patient, nursing care around 55 minutes
Anticipated Discharge: Within 24 hours
Subjective/Interval History
-
Date of Service: March 31, 2024
She feels better
no chest pain
Objective Data
-
Labs:
Laboratory Results
03/31/24
07:29
Sodium 140
Potassium 3.4 L
Chloride 94 L
Carbon Dioxide 39 H
BUN 32 H
Creatinine 1.2 H
Glucose 120 H
Calcium 8.8
Vital Signs:
Vital Signs
Temp Pulse Resp BP Pulse Ox
98.1 F 58 18 146/62 96
03/31/24 11:30 03/31/24 11:30 03/31/24 11:30 03/31/24 11:30 03/31/24 11:30
I&O
03/30/24 03/31/2404/01/24
06:59 06:59 06:59
Intake Total 2400 / 2400 1200 / 1200
Output Total 125 / 125
Balance 2400 / 2400 1075 / 1075
[2024-03-31] MEDS: KCL 40 MEQ PO (12:57)
[2024-03-31 15:30] VITALS: BP 146/63
--- NOTE | 2024-03-31 15:53 | CM ---
CM spoke with pt's daughter today who advised that her father is concerned about the insurance copays and is interested in applying for medical assistance. Pt and live at [facility] and pay privately for the
facility.
[facility] contacted via [facility] to determine if any discussion has been had with pt's , as daughter is not clear if refused the help, or if there was any resolution.
CM to continue to follow for [facility] response.
Anticipate discharge to home today.
--- NOTE | 2024-03-31 18:28 | W.PN.CARDCBS ---
Today's Communication / Plan
-
Continue IV diuresis
I/Os, weights, replete electrolytes
Hold Amiodarone, beta-nathen; continue OAC
Impression / Plan
-
PCP: Dr. Simmons
Cardiology: Dr. Melchor
Impression:
Admitted with SOB and hypoxia 03/29/24
Acute on chronic HFpEF
h/o left-sided pleural effusion and thoracentesis for 350 ml 02/18/24 without recurrence on CXR 03/29/24
Paroxysmal Afib
new diagnosis 02/09/24, spontaneously converted to SR prior to planned JT/CV 02/10/24, recurred with Afib 02/11/24, SR 03/29/24
Chronic Eliquis OAC
Recent ER evaluation for chest pain 01/25/24
Recent admission for new Afib 02/09/24 until 02/12/24
Recent admission for acute HF 02/16/24 until 02/19/24
HTN
Dementia
Moderate MR by echo 09/04/23
Moderate TR with PAP 55-60 mmHg
Echo 09/04/23: EF 60-65%, normal wall motion, mod MR, mod TR with PAP 55-60 mmHg
Echo 02/17/24: EF 55-60%, mod MR, no or AI, mod to sev TR with PAP 50 mmHg
Plan:
-Patient came to ER 03/29 with a low pulse ox reading at home and was admitted with acute HF. Patient was most recently admitted for acute HF from 02/16/2024 until 02/19/2024 and weight on the day of discharge was 155 lbs. Patient comes back to
the ER now with a weight of 150 lbs, but proBNP higher than any previous with a level of 9740. Patient has been hypoxic and remains on 2 L NC since admission. Patient and report pulse ox was low at home as well and patient does not
normally wear oxygen at home. Additionally patient weighs herself on a daily basis, but has not been double checking and it sounds as though patient's weight has increased about 5 lbs in the last week. Additionally patient noted to be
bradycardic and QTc elevated to 616 MS by ECG on admission. Patient was started on amiodarone within the last couple of months for paroxysmal A-fib. Last echo 02/17/2024 showed preserved EF with moderate MR. Patient also has a history of moderate
to severe TR with PAP 50 mmHg.
-Weight is down compared to last admission, but according to patient's her weight is actually up 5 lbs over the last week. Agree with Lasix 40 mg IV daily. Patient was taking Lasix 20 mg PO daily prior to admission.
-EF was preserved at 60-65% by echo 09/04/23 and stable by repeat echo 02/17/24
-Outpatient dose of Toprol XL 25 mg daily has been continued but now on hold due to concern for bradycardia causing symptoms
-Patient was previously on losartan/HCTZ prior to admission 02/2024, but med was stopped to allow for higher doses of AVN blockers at that time. HTN at times. Cre stable at 1.1 to 1.2.
-Patient with known paroxysmal Afib and was started on amiodarone during her last admission. Patient now with prolonged QTc on ECG as reviewed by me. Recheck ECG. Hold amiodarone. QTC 466
-Outpatient dose of Eliquis 5 mg BID (age 83, Cre 1.1, wt 66kg) has been continued.
-Pulmonology to see patient and then likely VQ scan given PHTN.
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
Subjective
Date of Service: March 31, 2024
Patient seen and examined with family at bedside. No acute events overnight. Patient resting comfortably. Notes mild dyspnea. No CP, lh, or palpitations.
Objective
Labs:
03/30/24 07:35
03/31/24 07:29
Labs
Hgb 9.8 g/dL (12.0-16.0) L 03/30/24 07:35
Hct 32.4 % (37.0-47.0) L 03/30/24 07:35
Plt Count 285 10^3/uL (130-400) 03/30/24 07:35
Sodium 140 mmol/L (135-145) 03/31/24 07:29
Potassium 3.4 mmol/L (3.5-5.1) L 03/31/24 07:29
BUN 32 mg/dl (7-17) H 03/31/24 07:29
Creatinine 1.2 mg/dL (0.6-1.0) H 03/31/24 07:29
Glucose 120 mg/dl (70-99) H 03/31/24 07:29
Vital Signs and I&O:
Vital Signs
Temp Pulse Resp BP Pulse Ox
97.9 F 56 18 146/63 96
03/31/24 15:30 03/31/24 15:30 03/31/24 15:30 03/31/24 15:30 03/31/24 15:30
Vital Signs
Temp Pulse Resp BP Pulse Ox
97.9 F 56 18 146/63 96
03/31/24 15:30 03/31/24 15:30 03/31/24 15:30 03/31/24 15:30 03/31/24 15:30
Intake & Output
03/29/24 03/30/24 03/31/24 04/01/24
06:59 06:59 06:59 06:59
Intake Total 2400 / 2400 1200 / 1200 360 / 360
Output Total 125 / 125
Balance 2400 / 2400 1075 / 1075 360 / 360
Physical Exam
Physical Exam
GEN: NAD. AAO to person, place and situation
HEENT: MMM
LUNGS:Room air. No audible wheeze; bibasilar crackles
CV: SR/SB on tele; regular rate and rhythm, S1/S2 no m/r/g
ABD: ND, soft, NT
EXT: trace bl LE edema
NEURO: Gross non-focal
SKIN: No rash
[2024-03-31 19:45] VITALS: BP 123/41
[2024-03-31] MEDS: NON-FORMULARY ITEM 23 MG PO (21:37)
[2024-03-31] MEDS: CRESTOR 20 MG PO (21:37)
[2024-03-31] MEDS: NAMENDA 10 MG PO (21:37)
[2024-03-31] MEDS: AMBIEN 10 MG PO (22:30)
[2024-03-31 23:36] VITALS: BP 170/61
[2024-04-01 03:55] VITALS: BP 152/55
[2024-04-01 06:00] VITALS: BMI 28.5
[2024-04-01 06:40] LABS: Blood Urea Nitrogen 30 mg/dl (7-17); Calcium 8.7 mg/dl (8.4-10.2); Carbon Dioxide 35 mmol/L (22-30); Chloride 94 mmol/L (98-107); Estimated Creatinine Clearance 32 ml/min; Glucose 117 mg/dl (70-99); Potassium 3.7 mmol/L (3.5-5.1); Sodium 138 mmol/L (135-145); eGFR 49.24
[2024-04-01 07:00] VITALS: BP 160/66
[2024-04-01] MEDS: LASIX 40 MG IV (07:54)
[2024-04-01] MEDS: ELIQUIS 5 MG PO (07:54)
[2024-04-01] MEDS: PROTONIX 40 MG PO (07:54)
[2024-04-01] MEDS: ZOLOFT 100 MG PO (07:54)
[2024-04-01] MEDS: NAMENDA 10 MG PO (07:54)
--- NOTE | 2024-04-01 09:56 | W.PN.HOSP.TC ---
Today's Communication/Plan
-
discharge
f/w cardiology recommendation
Assessment / Plan
Assessment / Plan
Physical Exam
General: No Apparent Distress
HEENT: Normocephalic, Moist mucous membranes, Atraumatic and Oxygen (2 L NC)
Respiratory: much less B/L crackles.
Cardiac: S1/S2, + murmur, bradycardia
GI: Soft, Non Tender, Non Distended and Normal Bowel Sounds;
Musculoskeletal: No Clubbing, No Cyanosis, b/l trace edema both legs )
Skin: No Rash
Neuro: AO to self and surroundings, forgetful. She followed commands.
Psych: Calm
A/P:
# Acute on chronic HFpEF with net gained wt about 2.4 kg ( 5.2 lbs) over last 5 weeks
Associated acute Hypoxic RI needs 2 L NC O2: Not on home O2
Was DC'd on Lasix 20 daily
- Elevated proBNP
- IV Lasix 40daily , can dc on oral Lasix, likely 40 mg QD, await cardiology input for today
- Followed weight and creatinine trend
Echo showed LVEF 55-60%. Normal RV. Moderate to severe TR. No significant change compared to 02/2024 echo.
# hypoxia only
Resolved
# Leukocytosis w/o fever: suspect leukemoid reaction, was seen by oncology in past.
-Somewhat chronic in nature, neutrophil dominant
- No other signs to support active infection, continue monitor
# CKD stage 3b
Her renal function worsened since September 2023, likely due to worsening cardiomyopathy and cardiac output. Creatinine 1.2-1.3 seems her baseline now.
# Hypokalemia, replaced.
# Paroxysmal atrial fibrillation
Due to bradycardia which contributes to patient's feeling sob on exertion, held all blocking agents including her dementia meds. QT recovered, resumed Aricept & Namenda. QT was ok when she was on them before.
She is likely to go home with low dose BB. Will d/w cardiology .
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
Underlying CKD3a
-s/p IV Lasix, stable Renal function
#Bradycardia, long QT
Resolved. Back on Aricept, Namenda, QT interval was normal while on them in previous admission.
Held BB & Amiodarone
I anticipate that she can go back on Namenda and Aricept because her Probably culprit is amiodarone
# Iron deficiency anemia due to chronic blood loss
# Osteoporosis,
# Memory loss / possible Alzheimer's dementia.
Total discharge time spent to see the patient, examine the patient, review data and lab results, discuss discharge plan with patient, nursing care around 65 minutes
Anticipated Discharge: Today
Subjective/Interval History
-
Date of Service: April 01, 2024
No chest pain
No sob
She wants to go home
Objective Data
-
Labs:
Laboratory Results
04/01/24
05:25
Sodium 138
Potassium 3.7
Chloride 94 L
Carbon Dioxide 35 H
BUN 30 H
Creatinine 1.1 H
Glucose 117 H
Calcium 8.7
Vital Signs:
Vital Signs
Temp Pulse Resp BP Pulse Ox
98.4 F 65 18 160/66 91
04/01/24 07:00 04/01/24 07:00 04/01/24 07:00 04/01/24 07:00 04/01/24 07:00
I&O
03/31/24 04/01/24 04/02/24
06:59 06:59 06:59
Intake Total 1200 / 1200 360 / 360
Output Total 125 / 125
Balance 1075 / 1075 360 / 360
--- NOTE | 2024-04-01 10:20 | W.PN.CARDCBS ---
Today's Communication / Plan
-
Okay for discharge
We will arrange for cardiac follow-up
Recommended medications listed below
Impression / Plan
-
PCP: Dr. Simmons
Cardiology: Dr. Melchor
Impression:
Admitted with SOB and hypoxia 03/29/24
Acute on chronic HFpEF
h/o left-sided pleural effusion and thoracentesis for 350 ml 02/18/24 without recurrence on CXR 03/29/24
Paroxysmal Afib
new diagnosis 02/09/24, spontaneously converted to SR prior to planned JT/CV 02/10/24, recurred with Afib 02/11/24, SR 03/29/24
Chronic Eliquis OAC
Recent ER evaluation for chest pain 01/25/24
Recent admission for new Afib 02/09/24 until 02/12/24
Recent admission for acute HF 02/16/24 until 02/19/24
HTN
Dementia
Moderate MR by echo 09/04/23
Moderate TR with PAP 55-60 mmHg
Echo 09/04/23: EF 60-65%, normal wall motion, mod MR, mod TR with PAP 55-60 mmHg
Echo 02/17/24: EF 55-60%, mod MR, no or AI, mod to sev TR with PAP 50 mmHg
Plan:
She appears well, has diuresed substantially, offers no complaints. Weight is down over 6 kg
Still bradycardic but better. Amiodarone and metoprolol have been on hold.
She is somewhat hypertensive.
Okay for discharge from my standpoint.
We will arrange for cardiac follow-up.
Recommended cardiac medications at discharge:
Amiodarone 100 mg a day (reduced dose)
Apixaban 5 mg twice daily
Rosuvastatin 20 mg daily
Furosemide 40 mg daily (increased dose)
Spironolactone 12.5 mg daily (new)
Stop metoprolol
Please get BMP in 1 week
Progress Note - [employer] Lead
Subjective
Date of Service: April 01, 2024:
Dyspnea is better, she feels that she can go home
PMH: PAF, recent start to amiodarone, HFpEF, hypertension, dementia, moderate MR
Outpatient Meds: Amiodarone 200 mg a day, donepezil, Eliquis 5 twice daily, furosemide 20 mg a day, memantine, metoprolol ER 25 mg a day, sertraline
Current meds apixaban 5 twice daily, pantoprazole 40 mg a day, sertraline 100 mg a day, rosuvastatin 20 mg daily, furosemide 40 IV daily, donepezil, memantine
160/66, pulse 65, weight is 66.3 kg, was 72.9 kg on admit, head neck exam unremarkable, lungs are clear, regular rate and rhythm,, soft systolic murmur still relatively bradycardic, abdomen benign, JVD okay, extremities without much edema,
musculoskeletal intact, skin intact
Telemetry heart rate 50s to 60s
BUN/creatinine 30 and 1.1, potassium 3.7
Objective
Labs:
03/30/24 07:35
04/01/24 05:25
Labs
Hgb 9.8 g/dL (12.0-16.0) L 03/30/24 07:35
Hct 32.4 % (37.0-47.0) L 03/30/24 07:35
Plt Count 285 10^3/uL (130-400) 03/30/24 07:35
Sodium 138 mmol/L (135-145) 04/01/24 05:25
Potassium 3.7 mmol/L (3.5-5.1) 04/01/24 05:25
BUN 30 mg/dl (7-17) H 04/01/24 05:25
Creatinine 1.1 mg/dL (0.6-1.0) H 04/01/24 05:25
Glucose 117 mg/dl (70-99) H 04/01/24 05:25
Vital Signs and I&O:
Vital Signs
Temp Pulse Resp BP Pulse Ox
36.9 C 65 18 160/66 91
04/01/24 07:00 04/01/24 07:00 04/01/24 07:00 04/01/24 07:00 04/01/24 07:00
Vital Signs
Temp Pulse Resp BP Pulse Ox
36.9 C 65 18 160/66 91
04/01/24 07:00 04/01/24 07:00 04/01/24 07:00 04/01/24 07:00 04/01/24 07:00
Intake & Output
03/30/24 03/31/24 04/01/24 04/02/24
07:59 07:59 07:59 07:59
Intake Total 2400 / 2400 1200 / 1200 360 / 360
Output Total 125 / 125
Balance 2400 / 2400 1075 / 1075 360 / 360
Physical Exam
Physical Exam
See above
--- NOTE | 2024-04-01 11:09 | CM ---
CM reviewed chart, patient for discharge today. Patient seen bedside with Matthew, per , patient and spouse resident at [facility], current with [facility]. Matthew will provide transportation home. IMM reviewed, signed, placed in
chart, patient declining copy. CM will continue to follow for all discharge planning needs.
Plan; home with VN, to provide transport home.
[2024-04-01 11:14] VITALS: BP 161/73
--- NOTE | 2024-04-01 11:41 | W.DCSUMMARY ---
Discharge Summary
Discharge Data
Date of Admission: 03/29/24
Date of Discharge: 04/01/24
-
Pending Results: No
Hospital Course
83 years old female presented with progressive exertional shortness of breath. She was found to have hypoxia with bradycardia on admission. EKG showed sinus rhythm with prolonged QT interval. Amiodarone and metoprolol were held. Aricept and
Namenda were held also. Patient was started on intravenous furosemide treatment. She was diagnosed with acute on chronic heart failure with a preserved ejection fraction. proBNP was 9740. She had mild acute kidney injury. Chest x-ray without
acute abnormality. Patient was evaluated by quarryman. They recommended to continue diuretic treatment and holding blocking agent until QTc recovered. Aricept and Namenda were resumed. Zoloft was continued. QT interval recovered. Cardiology
evaluated the patient again and recommended to resume amiodarone but at lower dose. She was discharged on the 100 mg of amiodarone instead of 200 mg. Beta-nathen was not recommended. Kidney function stabilized. Dietetic Technician recommended
outpatient evaluation and heart monitoring. Patient was evaluated by pulmonary doctor. Shortness of breath was thought to be a primary cardiac issue. Patient had pulmonary hypertension but not contributing to her current exertional shortness of
breath. Oxygenation improving after diuretic treatment. Patient was advised to follow-up with pulmonary doctor in the office. Echocardiogram showed LVEF 55-60%, normal RV size, moderate to severe TR with no significant change compared to 02/2024
echocardiogram. Patient was discharged on her regular psych medications. New medications included lower dose of amiodarone 100mg, Lasix 40 mg, Aldactone 12.5 mg. Patient was given a script to do blood work after discharge. Patient remained
hemodynamically stable. She was able to ambulate independently. Patient was discharged home with home care services in a stable condition.
Discharge Plan
-
Patient Disposition: Home with Home Care
Discharge Diagnosis/Procedures: Acute on chronic HFpEF
Please notice the changes in your medications as recommended by quarryman.
Diet: Low Sodium
Blood Work: BMP IN ONE WEEK
Instructions: *[facility] Heart Failure Instructions
Referrals:
Frederic Walker MD [Active] - in two to three weeks (Six minute walk testing/PFT)
Penny Simmons MD [Family Provider] -
Carol Melchor DO [Active] - in less than 1 week
Prescriptions:
New
amiodarone 100 mg tablet
100 mg PO DAILY Qty: 30 0RF
furosemide [Lasix] 40 mg tablet
40 mg PO DAILY Qty: 30 0RF
spironolactone 25 mg tablet
12.5 mg PO DAILY Qty: 30 0RF
Continued
memantine 10 MG tablet
10 mg PO BID
donepezil 23 MG tablet
23 mg PO HS
riboflavin (vitamin B2) 100 mg Tablet
100 mg PO DAILY Qty: 0
sertraline 100 mg Tablet
100 mg PO DAILY
ferrous sulfate [iron] 325 mg (65 mg iron) Tablet
325 mg PO MOWEFR@0800
rosuvastatin 20 mg Tablet
20 mg PO HS
pantoprazole 40 MG tablet,delayed release (DR/EC)
40 mg PO DAILY
cyanocobalamin (vitamin B-12) 1,000 MCG tablet
1,000 mcg PO DAILY Qty: 30 0RF
acetaminophen [Tylenol Extra Strength] 500 mg Tablet
1,000 mg PO Q6HPRN PRN (Reason: MILD PAIN)
zolpidem [Ambien] 5 mg Tablet
10 mg PO HS
levalbuterol HCl 0.63 mg/3 mL Solution For Nebulization
0.63 mg inhalation R Q6HPRN PRN (Reason: SOB,COUGH,WHEEZE) Qty: 72 0RF
Eliquis 5 mg Tablet
5 mg PO BID Qty: 60 1RF
Discontinued
metoprolol succinate 25 mg Tablet Extended Release 24 Hr
25 mg PO DAILY Qty: 30 2RF
furosemide [Lasix] 20 mg tablet
20 mg PO DAILY Qty: 30 11RF
amiodarone 200 mg Tablet
200 mg PO DAILY
Discharge Orders:
Discharge Patient (As Directed); Ordered 04/01/24
Ordered By: Eduardo Feng
Discharge Date and Time
Discharge Date/Time: 04/01/24 13:28
Print Language: FRENCH
== END 2024-04-01 13:28 | disposition home health service (06) | DRG 291 ==
LOC: 4 EAST ACU 15:46
PROVIDERS: ADMITTING PHYSICIAN Internal Medicine; ATTENDING PHYSICIAN Internal Medicine; CONSULT PHYSICIAN Internal Medicine Cardiovascular Disease; CONSULT PHYSICIAN Internal Medicine Critical Care Medicine; EMERGENCY PHYSICIAN Emergency Medicine; FAMILY PHYSICIAN Internal Medicine
DX: I13.0 Hypertensive heart and chronic kidney disease with heart failure and stage 1 through stage 4 chronic kidney disease, or unspecified chronic kidney disease (principal); I50.33 Acute on chronic diastolic (congestive) heart failure; J96.91 Respiratory failure, unspecified with hypoxia; N17.9 Acute kidney failure, unspecified; F03.93 Unspecified dementia, unspecified severity, with mood disturbance; N18.32 Chronic kidney disease, stage 3b; I48.0 Paroxysmal atrial fibrillation; D50.9 Iron deficiency anemia, unspecified; E78.00 Pure hypercholesterolemia, unspecified; Z87.891 Personal history of nicotine dependence; Z79.01 Long term (current) use of anticoagulants; I27.20 Pulmonary hypertension, unspecified; I07.1 Rheumatic tricuspid insufficiency; G47.00 Insomnia, unspecified; Z79.899 Other long term (current) drug therapy; R00.1 Bradycardia, unspecified; D72.829 Elevated white blood cell count, unspecified; E66.09 Other obesity due to excess calories; Z68.28 Body mass index [BMI] 28.0-28.9, adult; F32.A Depression, unspecified; G62.9 Polyneuropathy, unspecified; G89.29 Other chronic pain; Z86.73 Personal history of transient ischemic attack (TIA), and cerebral infarction without residual deficits; M19.90 Unspecified osteoarthritis, unspecified site; Z87.11 Personal history of peptic ulcer disease
CPT/HCPCS: 93308; 71046; 80048; 80053; 83880; 85025; 85027; 93005; 96374; 99285

== ENCOUNTER → 2024-04-08 13:20 | Outpatient (REF) | payer OTHER, SELFPAY ==
[2024-04-08 15:49] LABS: Blood Urea Nitrogen 49 mg/dl (7-17); Calcium 9.6 mg/dl (8.4-10.2); Carbon Dioxide 34 mmol/L (22-30); Chloride 90 mmol/L (98-107); Glucose 126 mg/dl (70-99); Potassium 3.7 mmol/L (3.5-5.1); Sodium 139 mmol/L (135-145); eGFR 19.31
== END ==
LOC: HWLAB 13:20
PROVIDERS: ATTENDING PHYSICIAN Internal Medicine Cardiovascular Disease; FAMILY PHYSICIAN Internal Medicine
DX: E87.6 Hypokalemia (principal)
CPT/HCPCS: 36415; 80048

== ENCOUNTER → 2024-04-13 12:05 | Outpatient (REF) | payer OTHER, SELFPAY ==
[2024-04-13 16:38] LABS: Blood Urea Nitrogen 39 mg/dl (7-17); Calcium 9.3 mg/dl (8.4-10.2); Carbon Dioxide 29 mmol/L (22-30); Chloride 95 mmol/L (98-107); Glucose 188 mg/dl (70-99); Potassium 3.3 mmol/L (3.5-5.1); Sodium 138 mmol/L (135-145); eGFR 31.41
== END ==
LOC: HWLAB 12:05
PROVIDERS: ATTENDING PHYSICIAN Physician Assistant
DX: I50.31 Acute diastolic (congestive) heart failure (principal)
CPT/HCPCS: 36415; 80048

== ENCOUNTER → 2024-04-20 11:36 | Outpatient (REF) | payer OTHER, SELFPAY ==
[2024-04-20 16:23] LABS: Blood Urea Nitrogen 38 mg/dl (7-17); Calcium 9.5 mg/dl (8.4-10.2); Carbon Dioxide 30 mmol/L (22-30); Chloride 98 mmol/L (98-107); Glucose 124 mg/dl (70-99); Potassium 4.3 mmol/L (3.5-5.1); Sodium 140 mmol/L (135-145)
== END ==
LOC: HWLAB 11:36
PROVIDERS: ATTENDING PHYSICIAN Internal Medicine Cardiovascular Disease; FAMILY PHYSICIAN Internal Medicine
DX: I50.31 Acute diastolic (congestive) heart failure (principal)
CPT/HCPCS: 36415; 80048

== ENCOUNTER 2024-05-03 07:41 | Emergency (ER) | payer OTHER, SELFPAY ==
[2024-05-03 07:43] VITALS: BP 114/85
--- NOTE | 2024-05-03 08:16 | ED.GENMED ---
History of Present Illness
General
Chief Complaint: Abdominal Symptoms
Source: patient and spouse
Exam Limitations: none
Time Seen by Provider: 05/03/24 08:00
Nursing documentation reviewed up to this point in time: agreed with
History of Present Illness
History of Present Illness:
Pleasant 83-year-old female multiple episodes of nausea vomiting since this middle the morning, mild crampy pain, no diarrhea no chest pain or shortness of breath she has had a no other abdominal surgeries she has heart failure and A-fib,
she had no fevers, she actually feeling a bit better now since she was vomiting early in the morning no sick contact she is accompanied by her spouse who is well-appearing
Past History
Past History
ED Past Medical History: CHF, HTN and Hypercholesterolemia
ED Past Surgical History:
Patient has exhibited threatening behavior?: No
Social History
Tobacco: Former smoker
Alcohol: Occasional
Drug: None
Personal:
Living: with family
Employment: Retired
Family History
Family History: Hypertension and Other (stroke)
Review of Systems
Review of Systems
All Other Systems: Not applicable
Constitutional: Denies fever or fatigue
EENT: Reports no symptoms
Respiratory: Reports no symptoms
Cardiac: Reports no symptoms
ABD/GI: Reports abdominal pain, nausea and vomiting; Denies diarrhea
: Reports no symptoms
Musculoskeletal: Reports no symptoms
Phy Exam
Physical Exam
Physical Exam:
Physical Exam
General: no apparent distress, not acutely ill
Neck: No jaundice lips are moist
Heart: s1/s2 regular rate and rhythm, no murmur. equal radial pulses.
Lungs: no acute respiratory distress. clear bilaterally
Abdomen: Soft nontender no guarding or rebound
Neuro: alert and oriented. no focal neurological deficits
Skin: no rash
Psychiatric: well kept. interactive and cooperative
Extremities: no edema.
Course
Orders/Labs/Results
Orders:
Orders
05/03/24 08:14
Electrocardiogram (*1) Stat
Reason for Study: Abdominal Pain
Cardiac Monitoring- Treatment ONCE
EKG- Treatment ONCE
0.9% Sodium Chloride 1000 ml [Nss] 1,000 ml IV BOLUS
Ondansetron Injectable [Zofran] 4 mg IV NOW STA
Pantoprazole [Protonix IV] 40 mg IV NOW STA
Obstruct Series W/PA Chest [CR Obstruct Series W/pa Chest] Urgent
Comment:
Reason For Exam: vo,itng
05/03/24 08:28
Complete Blood Count/With Diff Urgent
Comprehensive Metabolic Panel Urgent
Lipase Urgent
Abnormal Lab Results
05/03/24
08:28
WBC 14.3 H 10^3/uL
(4.8-10.8)
RBC 4.11 L 10^6/uL
(4.20-5.40)
Hgb 11.5 L g/dL
(12.0-16.0)
MCHC 30.8 L g/dL
(33.0-37.0)
RDW 17.3 H %
(11.5-14.5)
MPV 11.1 H fL
(7.4-10.4)
Abs Immat Gran (auto) 0.1 H 10^3/uL
(0-0.05)
Absolute Neuts (auto) 13.7 H 10^3/uL
(1.4-6.5)
Absolute Lymphs (auto) 0.2 L 10^3/uL
(1.2-3.4)
Neutrophils % 96.4 H %
(42.2-75.2)
Lymphocytes % 1.5 L %
(20.5-51.1)
Monocytes % 1.5 L %
(1.7-9.3)
Chloride 94 L mmol/L
(98-107)
BUN 44 H mg/dl
(7-17)
Creatinine 1.4 H mg/dL
(0.6-1.0)
Glucose 192 H mg/dl
(70-99)
05/03/24 08:28
05/03/24 08:28
Vital Signs
Initial and Last Documented VS:
Initial Vital Signs
Temp Pulse Resp BP Pulse Ox
99.4 F 74 18 114/85 96
05/03/24 07:43 05/03/24 07:43 05/03/24 07:43 05/03/24 07:43 05/03/24 07:43
Last Documented Vital Signs
Temp Pulse Resp BP Pulse Ox
99.4 F 66 20 136/64 94
05/03/24 07:43 05/03/24 09:59 05/03/24 09:59 05/03/24 09:59 05/03/24 09:59
MDM/Problems Addressed
Differential Diagnosis Includes:
Enteritis obstruction nonspecific nausea vomiting doubt ACS
MDM/Problems Addressed:
Nausea
Chronic conditions affecting care:
Hysterectomy
Acute Exacerbation and/or Progression of Chronic Illness:
Hysterectomy
*Radiology
Radiology exam reviewed: radiology read reviewed
*Pulse Oximetry
Patient hypoxic: no
*EKG
Interpreted by ED Provider?: Yes
Interpretation: normal
Comparison EKG: no comparison EKG present
Heart Rate: 78
Rate: normal
Rhythm: sinus
Ischemia: no ischemia
*Division Head Interpretation
Rate: normal
Interpretation: normal
Heart Rate: 78
Rhythm: sinus
*Critical Care Note
Total Time (30-74mins, 75-104mins- exclusive of procedures): Not Applicable
Update Note
Update Note:
9:35 am update labs are noted very close to his baseline, EKG noted x-ray is pending
10 AM patient feeling well abdomen soft nontender
ED Attending Note
-
Portions of this chart may have been created with voice recognition software.� Occasional wrong word or��sound alike� substitutions may have occurred due to the inherent limitations of voice recognition software.
Discharge Plan
Departure
Patient Disposition: Home (Routine Discharge)
Date of Disposition: 05/03/24
Time of Disposition: 10:07
Patient with high blood pressure during this ER visit?: No
Condition: Good
Covid-19: Not Applicable
Discharge Problem:
Nausea
Instructions: Nausea and Vomiting, Adult (DC)
Prescriptions:
New
ondansetron 4 mg tablet,disintegrating
4 mg PO Q8H PRN (Reason: nausea and vomiting) Qty: 10 0RF
No Action
memantine 10 MG tablet
10 mg PO BID
donepezil 23 MG tablet
23 mg PO HS
riboflavin (vitamin B2) 100 mg Tablet
100 mg PO DAILY Qty: 0
sertraline 100 mg Tablet
100 mg PO DAILY
ferrous sulfate [iron] 325 mg (65 mg iron) Tablet
325 mg PO MOWEFR@0800
rosuvastatin 20 mg Tablet
20 mg PO HS
pantoprazole 40 MG tablet,delayed release (DR/EC)
40 mg PO DAILY
cyanocobalamin (vitamin B-12) 1,000 MCG tablet
1,000 mcg PO DAILY Qty: 30 0RF
acetaminophen [Tylenol Extra Strength] 500 mg Tablet
1,000 mg PO Q6HPRN PRN (Reason: MILD PAIN)
zolpidem [Ambien] 5 mg Tablet
10 mg PO HS
levalbuterol HCl 0.63 mg/3 mL Solution For Nebulization
0.63 mg inhalation R Q6HPRN PRN (Reason: SOB,COUGH,WHEEZE) Qty: 72 0RF
Eliquis 5 mg Tablet
5 mg PO BID Qty: 60 1RF
amiodarone 100 mg tablet
100 mg PO DAILY Qty: 30 0RF
furosemide [Lasix] 40 mg tablet
40 mg PO DAILY Qty: 30 0RF
spironolactone 25 mg tablet
12.5 mg PO DAILY Qty: 30 0RF
Referrals:
Penny Simmons MD [Family Provider] -
Interventions
Interventions:
*Risk Screen - Suicide Last Done: 05/03/24 07:43
*General Assessment Last Done: 05/03/24 07:43
*Neglect/Abuse Screening Last Done: 05/03/24 07:43
*ED COVID-19 Vaccine History Last Done: 05/03/24 07:45
OO-Hbsjre-Zgxygilxxc Assessment Last Done: 05/03/24 08:10
Discharge Date and Time
Print Language: KHMER
[2024-05-03] MEDS: PROTONIX IV 40 MG IV (08:22)
[2024-05-03] MEDS: ZOFRAN 4 MG IV (08:22)
[2024-05-03] MEDS: NSS 1000 IV (08:22)
[2024-05-03 08:45] LABS: % Basophils 0.1 % (0-2); % Eosinophils 0.1 % (0-6); % Immature Granulocytes 0.4 % (0-0.5); % Lymphocytes 1.5 % (20.5-51.1); % Monocytes 1.5 % (1.7-9.3); % Neutrophils 96.4 % (42.2-75.2); Absolute Immature Granulocytes 0.1 10^3/uL (0-0.05); Absolute Lymphocytes 0.2 10^3/uL (1.2-3.4); Absolute Monocytes 0.2 10^3/uL (0.1-0.6); Absolute Neutrophils 13.7 10^3/uL (1.4-6.5); Hematocrit 37.3 % (37.0-47.0); Hemoglobin 11.5 g/dL (12.0-16.0); Mean Corp Hgb Conc. 30.8 g/dL (33.0-37.0); Mean Corpuscular Volume 90.8 fL (81.0-99.0); Mean Platelet Volume 11.1 fL (7.4-10.4); Nucleated Red Blood Cells % 0 %; Platelet Count 323 10^3/uL (130-400); Red Blood Cell Count 4.11 10^6/uL (4.20-5.40); Red Cell Dist. Width 17.3 % (11.5-14.5); White Blood Cell Count 14.3 10^3/uL (4.8-10.8)
[2024-05-03 08:58] LABS: ALT (SGPT) 21 U/L (0-35); AST (SGOT) 30 U/L (14-36); Albumin 4.3 g/dl (3.5-5.0); Alkaline Phosphatase 103 U/L (38-126); Blood Urea Nitrogen 44 mg/dl (7-17); Calcium 9.6 mg/dl (8.4-10.2); Carbon Dioxide 29 mmol/L (22-30); Chloride 94 mmol/L (98-107); Glucose 192 mg/dl (70-99); Lipase 260 U/L (23-300); Potassium 4.2 mmol/L (3.5-5.1); Sodium 137 mmol/L (135-145); Total Bilirubin 0.6 mg/dl (0.2-1.3); Total Protein 7.8 g/dl (6.3-8.2); eGFR 36.87
[2024-05-03 09:59] VITALS: BP 136/64
== END 2024-05-03 10:53 | disposition home or self-care (01) ==
LOC: EMR 07:41
PROVIDERS: EMERGENCY PHYSICIAN Emergency Medicine; FAMILY PHYSICIAN Internal Medicine
DX: R11.2 Nausea with vomiting, unspecified (principal); R10.9 Unspecified abdominal pain; I11.0 Hypertensive heart disease with heart failure; I50.9 Heart failure, unspecified; I48.91 Unspecified atrial fibrillation; E78.00 Pure hypercholesterolemia, unspecified; Z87.891 Personal history of nicotine dependence; Z79.01 Long term (current) use of anticoagulants
CPT/HCPCS: 99284; 96374; 96375; 96361; 74022; 80053; 83690; 85025; 93005

== ENCOUNTER 2024-07-03 17:42 | Emergency (ER) | payer OTHER, SELFPAY ==
[2024-07-03 17:44] VITALS: BP 104/66
[2024-07-03 19:28] VITALS: BP 137/50
--- NOTE | 2024-07-03 19:44 | ED.GENMED ---
History of Present Illness
General
Chief Complaint: Skin Surface Trauma
Source: patient and spouse
Exam Limitations: none
Time Seen by Provider: 07/03/24 19:31
History of Present Illness
History of Present Illness:
See MDM
Past History
Past History
ED Past Medical History: Arrthythmia, CHF, HTN and Hypercholesterolemia
ED Past Surgical History:
Patient has exhibited threatening behavior?: No
Social History
Tobacco: Former smoker
Alcohol: Occasional
Drug: None
Personal:
Living: with family
Employment: Retired
Family History
Family History: Hypertension and Other (stroke)
Phy Exam
Physical Exam
Physical Exam:
See MDM
Course
Vital Signs
Initial and Last Documented VS:
Initial Vital Signs
Temp Pulse Resp BP Pulse Ox
98 F 67 16 104/66 97
07/03/24 17:44 07/03/24 17:44 07/03/24 17:44 07/03/24 17:44 07/03/24 17:44
Last Documented Vital Signs
Temp Pulse Resp BP Pulse Ox
98 F 67 16 104/66 97
07/03/24 17:44 07/03/24 17:44 07/03/24 17:44 07/03/24 17:44 07/03/24 17:44
Procedures
Laceration Closure
Left Anterior Distal Leg:
Status of Wound: clean
Size of Wound in cm: 4
Description of Wound Edges: sharp
Preparation: cleaned with Betadine
Revision/Debridement: routine- no revision
Wound exploration: explored to base- no FB
Type of Closure: Dermabond-skin glue
MDM/Problems Addressed
Differential Diagnosis Includes:
HPI and MDM Narrative:
84-year-old female presenting for evaluation of left leg injury. Patient cut her leg getting out of the car. She thinks her tetanus is up-to-date. I offered tetanus shot. She states she will talk to her doctor about getting a tetanus shot.
at bedside was concerned because they were having trouble controlling the bleeding. She is on Eliquis
On exam, there is a superficial laceration to her left leg. There is oozing of blood which is well-controlled with pressure. After cleaning the wound with Betadine, I placed Dermabond over the exposed skin to stop the bleeding. She tolerated it
well. Dressing applied
Physical exam
General: Well appearing and non-toxic
HEENT: protecting airway
Neck: appears supple
CV: No evidence of cyanosis
Resp: No accessory muscle use
Abd: Non-distended
Extremities: 4 cm superficial laceration to anterior left leg
Neuro: alert
Psych: Normal affect
Skin: Left leg laceration
Problems Addressed including Acute and Chronic Conditions affecting care:
1. Left leg laceration
Acuity: acute
Prognosis: stable
Details: Given the persistent oozing, Dermabond placed over the exposed area
Differential Diagnosis (but not limited to): Laceration, abrasion
Testing considered: Hemoglobin testing
Drug therapy (if applicable): OTC meds, please see d/c instruction regarding Rx drugs
Amount and/or Complexity of Data Reviewed
Clinical info obtained from: Patient
External data reviewed: N/A
Labs I independently reviewed (but not limited to): N/A
Radiology: N/A
Pulse Ox: not hypoxic
EKG independently reviewed: N/A
Supervisor Rolling Room: N/A
Critical Care: N/A
Risk of Complication:
Social Determinants of health: Good social support
Discussed with other providers: N/A
Escalation of Care includes Admit/Obs: After being observed in the Emergency Department, pt stable for discharge.
Occasional wrong word or 'sound a like' substitutions may have occurred due to the inherent limitations of voice recognition software. Read the chart carefully and recognize, using context, where substitutions have occurred.
*Critical Care Note
Total Time (30-74mins, 75-104mins- exclusive of procedures): Not Applicable
ED Attending Note
-
Portions of this chart may have been created with voice recognition software.� Occasional wrong word or��sound alike� substitutions may have occurred due to the inherent limitations of voice recognition software.
Discharge Plan
Departure
Patient Disposition: Home (Routine Discharge)
Date of Disposition: 07/03/24
Time of Disposition: 19:48
Patient with high blood pressure during this ER visit?: No
Discharge Problem:
Laceration of left leg
Instructions: Laceration Repair With Glue (DC)
Prescriptions:
No Action
memantine 10 MG tablet
10 mg PO BID
donepezil 23 MG tablet
23 mg PO HS
riboflavin (vitamin B2) 100 mg Tablet
100 mg PO DAILY Qty: 0
sertraline 100 mg Tablet
100 mg PO DAILY
ferrous sulfate [iron] 325 mg (65 mg iron) Tablet
325 mg PO MOWEFR@0800
rosuvastatin 20 mg Tablet
20 mg PO HS
pantoprazole 40 MG tablet,delayed release (DR/EC)
40 mg PO DAILY
cyanocobalamin (vitamin B-12) 1,000 MCG tablet
1,000 mcg PO DAILY Qty: 30 0RF
acetaminophen [Tylenol Extra Strength] 500 mg Tablet
1,000 mg PO Q6HPRN PRN (Reason: MILD PAIN)
zolpidem [Ambien] 5 mg Tablet
10 mg PO HS
levalbuterol HCl 0.63 mg/3 mL Solution For Nebulization
0.63 mg inhalation R Q6HPRN PRN (Reason: SOB,COUGH,WHEEZE) Qty: 72 0RF
Eliquis 5 mg Tablet
5 mg PO BID Qty: 60 1RF
amiodarone 100 mg tablet
100 mg PO DAILY Qty: 30 0RF
furosemide [Lasix] 40 mg tablet
40 mg PO DAILY Qty: 30 0RF
spironolactone 25 mg tablet
12.5 mg PO DAILY Qty: 30 0RF
ondansetron 4 mg tablet,disintegrating
4 mg PO Q8H PRN (Reason: nausea and vomiting) Qty: 10 0RF
Referrals:
Penny Simmons MD [Family Provider] -
Activity Restrictions/Additional Instructions:
Your wound was fixed with derma-ravi. This is a special glue that holds a wound closed similar to stitches. This type of wound closure will eventually fall off by itself and does not need to be removed. You may wash the area very gently, but do not
scrub or pick at the glue. Watch for signs of infection: fever over 100.5', increasing pain, red streaks around wound, swelling, drainage of pus, or bad smell. If any of these happen, return to ED promptly. All wounds may scar, however you may
reduce the appearance of scarring by avoiding sun exposure to the scar and applying skin moisturizer with spf protection to the scar once the wound is healed.
Interventions
Interventions:
*Risk Screen - Suicide Last Done: 07/03/24 17:48
*Neglect/Abuse Screening Last Done: 07/03/24 17:48
Discharge Date and Time
Print Language: KINYARWANDA
[2024-07-03 19:54] VITALS: BP 148/51
== END 2024-07-03 20:37 | disposition home or self-care (01) ==
LOC: EMR 17:42
PROVIDERS: EMERGENCY PHYSICIAN Student in an Organized Health Care Education/Training Program; FAMILY PHYSICIAN Internal Medicine
DX: S81.812A Laceration without foreign body, left lower leg, initial encounter (principal); X58.XXXA Exposure to other specified factors, initial encounter; I11.0 Hypertensive heart disease with heart failure; I50.9 Heart failure, unspecified; E78.00 Pure hypercholesterolemia, unspecified
CPT/HCPCS: 99282; 12002

== ENCOUNTER 2024-07-04 16:07 | Emergency (ER) | payer OTHER, SELFPAY ==
[2024-07-04 16:11] VITALS: BP 151/58
--- NOTE | 2024-07-04 17:09 | ED.GENMED ---
History of Present Illness
General
Chief Complaint: Skin Surface Trauma
Source: patient
Exam Limitations: none
Time Seen by Provider: 07/04/24 16:44
History of Present Illness
History of Present Illness:
See MDM
Past History
Past History
ED Past Medical History: Arrthythmia, CHF, HTN and Hypercholesterolemia
ED Past Surgical History:
Patient has exhibited threatening behavior?: No
Social History
Tobacco: Former smoker
Alcohol: Occasional
Drug: None
Personal:
Living: with family
Employment: Retired
Family History
Family History: Hypertension and Other (stroke)
Phy Exam
Physical Exam
Physical Exam:
See MDM
Course
Orders/Labs/Results
Orders:
Orders
07/04/24 17:08
Amoxicillin 875 mg/Clav 125 mg [Augmentin 875 mg/125 mg] 1 tablet PO NOW STA
Vital Signs
Initial and Last Documented VS:
Initial Vital Signs
Temp Pulse Resp BP Pulse Ox
97.9 F 65 18 151/58 97
07/04/24 16:11 07/04/24 16:11 07/04/24 16:11 07/04/24 16:11 07/04/24 16:11
Last Documented Vital Signs
Temp Pulse Resp BP Pulse Ox
97.9 F 65 18 151/58 97
07/04/24 16:11 07/04/24 16:11 07/04/24 16:11 07/04/24 16:11 07/04/24 16:11
Procedures
Laceration Closure
Left Anterior Distal Leg:
Status of Wound: clean
Size of Wound in cm: 4
Description of Wound Edges: sharp
Preparation: cleaned with soap & water
Anesthesia: 1% Lidocaine with epi
Revision/Debridement: routine- no revision
Wound exploration: explored to base- no FB
Type of Closure: single layer closure
Skin Closure Material: 4-0 nylon
Number of sutures: 6
MDM/Problems Addressed
Differential Diagnosis Includes:
HPI and MDM Narrative:
84-year-old female presenting with persistent bleeding to her left leg laceration. She cut it last night. She was seen in the emergency department and was controlled with Dermabond. She is on Eliquis. However, the bleeding has persisted since
today. When I examined the leg, the gauze was soaked with blood. It is actively oozing. I immediately injected the wound with lidocaine and epi which controlled the bleeding. I extensively scrubbed the clot away and the inside of the cut. At
this point, the wound required closure with sutures. Given that the wound occurred yesterday, will start prophylactic Augmentin
Pressure dressing applied
Physical exam
General: Well appearing and non-toxic
HEENT: protecting airway
Neck: appears supple
CV: No evidence of cyanosis
Resp: No accessory muscle use
Abd: Non-distended
Extremities: 4 cm superficial flap-like laceration to left anterior holley with active oozing.
Neuro: alert
Psych: Normal affect
Skin: Intact
Problems Addressed including Acute and Chronic Conditions affecting care:
1. Left leg wound
Acuity: acute
Prognosis: stable
Details: Given that it is persistently bleeding, it was injected with lidocaine with epinephrine and sutured. Bleeding resolved. A piece of Gelfoam was placed on top and pressure dressing applied
Differential Diagnosis (but not limited to): Laceration, abrasion
Testing considered: Hemoglobin testing
Drug therapy (if applicable): OTC meds, please see d/c instruction regarding Rx drugs
Amount and/or Complexity of Data Reviewed
Clinical info obtained from: Patient and
External data reviewed: N/A
Labs I independently reviewed (but not limited to): N/A
Radiology: N/A
Pulse Ox: not hypoxic
EKG independently reviewed: N/A
Pipe Finishing Supervisor: N/A
Critical Care: N/A
Risk of Complication:
Social Determinants of health: Good social support
Discussed with other providers: N/A
Escalation of Care includes Admit/Obs: After being observed in the Emergency Department, pt stable for discharge.
Occasional wrong word or 'sound a like' substitutions may have occurred due to the inherent limitations of voice recognition software. Read the chart carefully and recognize, using context, where substitutions have occurred.
*Critical Care Note
Total Time (30-74mins, 75-104mins- exclusive of procedures): Not Applicable
ED Attending Note
-
Portions of this chart may have been created with voice recognition software.� Occasional wrong word or��sound alike� substitutions may have occurred due to the inherent limitations of voice recognition software.
Discharge Plan
Departure
Patient Disposition: Home (Routine Discharge)
Date of Disposition: 07/04/24
Time of Disposition: 17:14
Patient with high blood pressure during this ER visit?: Yes
Discharge Problem:
Laceration of leg, left
Instructions: Laceration Repair With Stitches (DC), BLOOD PRESSURE
Prescriptions:
New
amoxicillin-pot clavulanate 875-125 mg tablet
1 tab PO BID Qty: 14 0RF
No Action
memantine 10 MG tablet
10 mg PO BID
donepezil 23 MG tablet
23 mg PO HS
riboflavin (vitamin B2) 100 mg Tablet
100 mg PO DAILY Qty: 0
sertraline 100 mg Tablet
100 mg PO DAILY
ferrous sulfate [iron] 325 mg (65 mg iron) Tablet
325 mg PO MOWEFR@0800
rosuvastatin 20 mg Tablet
20 mg PO HS
pantoprazole 40 MG tablet,delayed release (DR/EC)
40 mg PO DAILY
cyanocobalamin (vitamin B-12) 1,000 MCG tablet
1,000 mcg PO DAILY Qty: 30 0RF
acetaminophen [Tylenol Extra Strength] 500 mg Tablet
1,000 mg PO Q6HPRN PRN (Reason: MILD PAIN)
zolpidem [Ambien] 5 mg Tablet
10 mg PO HS
levalbuterol HCl 0.63 mg/3 mL Solution For Nebulization
0.63 mg inhalation R Q6HPRN PRN (Reason: SOB,COUGH,WHEEZE) Qty: 72 0RF
Eliquis 5 mg Tablet
5 mg PO BID Qty: 60 1RF
amiodarone 100 mg tablet
100 mg PO DAILY Qty: 30 0RF
furosemide [Lasix] 40 mg tablet
40 mg PO DAILY Qty: 30 0RF
spironolactone 25 mg tablet
12.5 mg PO DAILY Qty: 30 0RF
ondansetron 4 mg tablet,disintegrating
4 mg PO Q8H PRN (Reason: nausea and vomiting) Qty: 10 0RF
Activity Restrictions/Additional Instructions:
Keep wound clean and dry, change dressing if it becomes soiled or wet. Watch for signs of infection: fever over 100.5', increasing pain, red streaks around wound, swelling, drainage of pus, or bad smell. If any of these happen, return to ED
promptly. Return to ED or make an appointment with your doctor to have the 6 sutures removed in 7-10 days. All wounds may scar, however you may reduce the appearance of scarring by avoiding sun exposure to the scar and applying skin moisturizer
with spf protection to the scar once the wound is healed.
Interventions
Interventions:
*Risk Screen - Suicide Last Done: 07/04/24 16:11
*General Assessment Last Done: 07/04/24 16:11
*ED COVID-19 Vaccine History Last Done: 07/04/24 16:11
ED-Skin Assessment Last Done: 07/04/24 17:08
Discharge Date and Time
Print Language: ROMANIAN
[2024-07-04] MEDS: AUGMENTIN 875 MG/125 MG 1 TABLET PO (17:19)
== END 2024-07-04 17:45 | disposition home or self-care (01) ==
LOC: EMR 16:07
PROVIDERS: EMERGENCY PHYSICIAN Student in an Organized Health Care Education/Training Program; FAMILY PHYSICIAN Internal Medicine
DX: S81.812A Laceration without foreign body, left lower leg, initial encounter (principal); X58.XXXA Exposure to other specified factors, initial encounter; I11.0 Hypertensive heart disease with heart failure; I50.9 Heart failure, unspecified; E78.00 Pure hypercholesterolemia, unspecified; Z87.891 Personal history of nicotine dependence; Z79.01 Long term (current) use of anticoagulants
CPT/HCPCS: 99283; 12002

== ENCOUNTER 2024-07-11 10:45 | Emergency (ER) | payer OTHER, SELFPAY ==
[2024-07-11 10:47] VITALS: BP 131/73
--- NOTE | 2024-07-11 11:38 | ED.GENMED ---
History of Present Illness
General
Chief Complaint: Head Injury
Source: patient, spouse and ambulance crew
Exam Limitations: none
Time Seen by Provider: 07/11/24 11:05
Nursing documentation reviewed up to this point in time: agreed with
History of Present Illness
History of Present Illness:
84-year-old female on Eliquis for A-fib no prior TIA or stroke who was at an event for family member tripped fell into her she fell hit the ground, no loss of consciousness no headache hematoma over her left eye, EMS was called she refused
transport brought here by POV, here she has some bruising above her left eye, no headache no nausea vomiting no neck pain, no preceding chest pain or shortness of breath
Past History
Past History
ED Past Medical History: Arrthythmia, CHF, HTN and Hypercholesterolemia
ED Past Surgical History:
Patient has exhibited threatening behavior?: No
Social History
Tobacco: Former smoker
Alcohol: Occasional
Drug: None
Personal:
Living: with family
Employment: Retired
Family History
Family History: Hypertension and Other (stroke)
Review of Systems
Review of Systems
All Other Systems: Not applicable
Constitutional: Denies fever or fatigue
EENT: Reports other (Swelling above the left eye)
Respiratory: Reports no symptoms
Neurological: Reports no symptoms
Endocrine: Reports no symptoms
Phy Exam
Physical Exam
Physical Exam:
Physical Exam
General: no apparent distress, not acutely ill
Neck: 3 to 4 cm hematoma above the left eye extraocular movements are intact without any entrapment pupils are round reactive
Heart: s1/s2 regular rate and rhythm, no murmur. equal radial pulses.
Lungs: no acute respiratory distress.
Abdomen: Not tender
Neuro: alert and oriented. no focal neurological deficits
Skin: no rash
Psychiatric: well kept. interactive and cooperative
Extremities: Swelling below the knee on the left
Course
Orders/Labs/Results
Orders:
Orders
07/11/24 10:48
CT Cervical Spine W/o Iv Contr Urgent
Comment:
Reason For Exam: trauma
CT Head W/o Iv Contrast Urgent
Comment:
Reason For Exam: trauma
07/11/24 11:41
Acetaminophen [Tylenol] 650 mg PO NOW STA
07/11/24 12:38
Tib/Fib, Left 2 View [CR Leg Tibia/fibula Left 2 Vw] Urgent
Comment:
Reason For Exam: fall
Vital Signs
Initial and Last Documented VS:
Initial Vital Signs
Temp Pulse Resp BP Pulse Ox
98.4 F 70 16 131/73 96
07/11/24 10:47 07/11/24 10:47 07/11/24 10:47 07/11/24 10:47 07/11/24 10:47
Last Documented Vital Signs
Temp Pulse Resp BP Pulse Ox
98.4 F 70 16 131/73 96
07/11/24 10:47 07/11/24 10:47 07/11/24 10:47 07/11/24 10:47 07/11/24 10:47
MDM/Problems Addressed
Differential Diagnosis Includes:
Soft tissue hematoma soft tissue injury skull fracture intracerebral hemorrhage subdural hematoma epidural hematoma
MDM/Problems Addressed:
Head trauma
Chronic conditions affecting care: Arrhythmia
Acute Exacerbation and/or Progression of Chronic Illness: Arrhythmia
*Radiology
Radiology exam reviewed: radiology read reviewed
*Pulse Oximetry
Patient hypoxic: no
*Critical Care Note
Total Time (30-74mins, 75-104mins- exclusive of procedures): Not Applicable
Update Note
Update Note:
Update, reports for the head C-spine noted tib-fib noted full report pending, no fracture to my eye, will discharge hold her Eliquis, ER follow-up if worsening symptoms reviewed possibility of delayed intracerebral hemorrhage days to weeks after
today's injury
ED Attending Note
-
Portions of this chart may have been created with voice recognition software.� Occasional wrong word or��sound alike� substitutions may have occurred due to the inherent limitations of voice recognition software.
Discharge Plan
Departure
Patient Disposition: Home (Routine Discharge)
Date of Disposition: 07/11/24
Time of Disposition: 13:10
Patient with high blood pressure during this ER visit?: No
Condition: Good
Discharge Problem:
Head injury, Contusion of left leg
Instructions: Contusion (DC), Concussion, Adult (DC), Head Injury in Adults (DC)
Prescriptions:
No Action
memantine 10 MG tablet
10 mg PO BID
donepezil 23 MG tablet
23 mg PO HS
riboflavin (vitamin B2) 100 mg Tablet
100 mg PO DAILY Qty: 0
sertraline 100 mg Tablet
100 mg PO DAILY
ferrous sulfate [iron] 325 mg (65 mg iron) Tablet
325 mg PO MOWEFR@0800
rosuvastatin 20 mg Tablet
20 mg PO HS
pantoprazole 40 MG tablet,delayed release (DR/EC)
40 mg PO DAILY
cyanocobalamin (vitamin B-12) 1,000 MCG tablet
1,000 mcg PO DAILY Qty: 30 0RF
acetaminophen [Tylenol Extra Strength] 500 mg Tablet
1,000 mg PO Q6HPRN PRN (Reason: MILD PAIN)
zolpidem [Ambien] 5 mg Tablet
10 mg PO HS
levalbuterol HCl 0.63 mg/3 mL Solution For Nebulization
0.63 mg inhalation R Q6HPRN PRN (Reason: SOB,COUGH,WHEEZE) Qty: 72 0RF
Eliquis 5 mg Tablet
5 mg PO BID Qty: 60 1RF
amiodarone 100 mg tablet
100 mg PO DAILY Qty: 30 0RF
furosemide [Lasix] 40 mg tablet
40 mg PO DAILY Qty: 30 0RF
spironolactone 25 mg tablet
12.5 mg PO DAILY Qty: 30 0RF
ondansetron 4 mg tablet,disintegrating
4 mg PO Q8H PRN (Reason: nausea and vomiting) Qty: 10 0RF
amoxicillin-pot clavulanate 875-125 mg tablet
1 tab PO BID Qty: 14 0RF
Referrals:
Penny Simmons MD [Family Provider] -
Activity Restrictions/Additional Instructions:
No Eliquis today restart tomorrow
Ice to areas that hurt Tylenol as needed for pain
Return to the ER if headaches, nausea vomiting, dizziness, weakness or any other concerns as this could be signs of delayed bleeding
Interventions
Interventions:
ED- Neurological Assessment Last Done: 07/11/24 11:50
ED-Skin Assessment Last Done: 07/11/24 11:50
Discharge Date and Time
Print Language: MOHAWK
[2024-07-11] MEDS: TYLENOL 650 MG PO (11:47)
[2024-07-11 11:50] VITALS: BMI 31.6
== END 2024-07-11 13:37 | disposition home or self-care (01) ==
LOC: EMR 10:45
PROVIDERS: EMERGENCY PHYSICIAN Emergency Medicine; FAMILY PHYSICIAN Internal Medicine
DX: S09.90XA Unspecified injury of head, initial encounter (principal); S00.12XA Contusion of left eyelid and periocular area, initial encounter; S80.12XA Contusion of left lower leg, initial encounter; W03.XXXA Other fall on same level due to collision with another person, initial encounter; I48.91 Unspecified atrial fibrillation; E78.00 Pure hypercholesterolemia, unspecified; I11.0 Hypertensive heart disease with heart failure; I50.9 Heart failure, unspecified; Z79.01 Long term (current) use of anticoagulants; Z87.891 Personal history of nicotine dependence
CPT/HCPCS: 99284; 70450; 72125; 73590

== ENCOUNTER 2024-07-17 13:44 | Inpatient (IN) | payer OTHER, SELFPAY ==
[2024-07-17] VITALS (10 sets, daily range): BP systolic 114–148; BP diastolic 50–83
--- NOTE | 2024-07-17 10:14 | ED.GENMED ---
History of Present Illness
<Jena Dewitt PA-C - Last Filed: 07/17/24 12:43>
General
Chief Complaint: Breathing Problem
Source: patient and ambulance crew
Exam Limitations: dementia
Time Seen by Provider: 07/17/24 10:12
Nursing documentation reviewed up to this point in time: agreed with
History of Present Illness
History of Present Illness:
pt is a 84 y/o F
h/o dementia, afib on eliquis, CHF on lasix
here via EMS after noted pt to be in resp distress
spouse checked pulse ox and told ems it was 70s
for them it was 83% on RA
she does not usually wear o2
pt pulaced on 3L o2 and now up to 90s
she denies recent illness, cough, cold symptoms, edema in her legs
but she has poor memory due to dementia
pt was here on 07/11 after a witnessed fall onto the ground with large hematoma to L face oribtal region; cts were neg
the note says that sh sheila told hold eliquis
unclear if she has been taking it otherwise
no vomiting, darrhea. no rib pain
Past History
<Jena Dewitt PA-C - Last Filed: 07/17/24 12:43>
Past History
ED Past Medical History: Arrthythmia, CHF, HTN and Hypercholesterolemia
ED Past Surgical History:
Patient has exhibited threatening behavior?: No
Social History
Tobacco: Former smoker
Alcohol: Occasional
Drug: None
Personal:
Living: with family
Employment: Retired
Family History
Family History: Hypertension and Other (stroke)
Review of Systems
<Jena Dewitt PA-C - Last Filed: 07/17/24 12:43>
Review of Systems
Allergies reviewed?: Yes
Unable to obtain full review of systems at this time due to: dementia
All Other Systems: Not applicable
Phy Exam
<Jena Dewitt PA-C - Last Filed: 07/17/24 12:43>
Physical Exam
Physical Exam:
GENERAL: Alert , in no apparent distress
head: moderate forehead hematoma/facial ecchymosis L side nontneder, purplish/yellow
EYE: pupils equal and reactive
NECK: Supple
ENT: o/p clr, mmm.
CARDIAC: Regular rate and rhythm . mild edema
LUNGS: crackles R base; no wheezing, no resp distress
ABDOMEN: Soft, without focal tenderness, no r/g, no cvat, normal bowel sounds
NEUROLOGICAL: Alert and oriented x 2, no focal neuro deficits
SKIN: Warm and dry, skin intact.
MUSCULOSKELETAL: No edema, well perfused.
PSYCH: Normal and appropriate interaction.
Scores
<Jena Dewitt PA-C - Last Filed: 07/17/24 12:43>
Heart Failure Risk
Heart Failure Risk Score: Yes
History of Stroke or TIA: No
History of intubation for respiratory distress: No
Heart rate on ED arrival >/= 110: No
SaO2 <90% on arrival on room air: Yes
HR >/=110 during 3min walk test (or too ill to perform test): Yes
ECG has acute ischemic changes: No
Urea >/=12mmol/L (BUN 33.6mg/dL): No
Serum CO2>/=35mmol/L: No
Troponin I or T elevated to WA Level (0.4mg/dL): No
NT-proBNP >/=5,000ng/L (5,000pg/ml): Yes
HF Risk Score: 4
Admission Status: HIGH RISK 26.1% Consider SNF treatment or admission to hospital
Course
<Jena Dewitt PA-C - Last Filed: 07/17/24 12:43>
Orders/Labs/Results
Orders:
Orders
07/17/24 10:12
Electrocardiogram (*1) Urgent
Reason for Study: Shortness of Breath
Cardiac Monitoring- Treatment ONCE
EKG- Treatment ONCE
Acetaminophen [Tylenol] 650 mg PO NOW STA
O2 Therapy [RESP] Urgent
Titrate/Wean O2 to maintain O2 sat greater than (%): 90
07/17/24 10:13
CR Chest - 2 Views Urgent
Comment:
Reason For Exam: fever, cough, sob
07/17/24 10:23
COVID-19 Antigen Urgent
Source: Nasal Swab
07/17/24 10:24
Complete Blood Count/With Diff Urgent
Comprehensive Metabolic Panel Urgent
Lactic Acid Urgent
NT-proBNP Urgent
Troponin I Urgent
Blood Culture Q30M
SOPHIE Source: Blood/Venous
Specimen Description:
07/17/24 10:30
INF RAPID [Influenza A+B Rapid Molecular] Urgent
SOPHIE Source: Nasal Swab
Specimen Description:
07/17/24 11:13
Blood Culture Q30M
SOPHIE Source: Blood/Venous
Specimen Description:
07/17/24 11:34
Azithromycin 500 mg/250 ml [Zithromax Infusion] 500 mg in 250 ml IV NOW
CefTRIAXone [Rocephin] 1,000 mg IV NOW STA
Furosemide [Lasix] 40 mg IV NOW STA
07/17/24 11:46
Type And Crossmatch [Type+Screen] Urgent
07/17/24 11:52
* Blood Bank Products Urgent
Blood Bank Products: *Packed RBC Leuko(PRBC's)
Quantity: 1
Transfuse Today: Yes
Reason: Anemia
07/17/24 12:37
Admit/Transfer Patient As Directed
Co-Sign Provider:
Level of Care: Inpatient admission
Assign to:: Telemetry
Physician / Group: Dr Westfall
Diagnosis: CHF/PNA/Anemia
Reason for Telemetry: Subacute Heart Failure
Date to Stop Telemetry: 07/19/24
Time to Stop Telemetry: 11:00
Reason for Hospitalization: CHF/PNA/Anemia
Expected length of stay greater than two midnights?: Yes
ELOS- Estimated Length of Stay in days: 2
I certify the patient meets the requirements for IP care: Yes
07/17/24 12:38
PRN Pain Medication Management As Directed
May give lesser potent ordered pain med per pt: Yes
preference::
Protocol:: Medication orders for pain may be administered in a
manner that supports deferring to patient preference
when the pt is:
- Requesting an ordered lesser potent pain medication.
Least to most potent pain medications are defined
as: acetaminophen < NSAID < tramadol < opioids
(morphine, oxycodone, hydromorphone).
- Requesting a lesser dose of the same medication IF
ORDERED.
- Requesting a less intrusive route of administration
if both routes are prescribed by the provider (PO <
IV).
07/17/24 12:39
Code Status As Directed
Resuscitation Status: Full Code
07/19/24 11:00
DC Protocol for Telemetry ONCE
Abnormal Lab Results
07/17/24
10:24
WBC 13.5 H 10^3/uL
(4.8-10.8)
RBC 2.42 L 10^6/uL
(4.20-5.40)
Hgb 7.7 L g/dL
(12.0-16.0)
Hct 23.6 L %
(37.0-47.0)
MCH 31.8 H pg
(27.0-31.0)
MCHC 32.6 L g/dL
(33.0-37.0)
RDW 18.0 H %
(11.5-14.5)
Abs Immat Gran (auto) 0.1 H 10^3/uL
(0-0.05)
Absolute Neuts (auto) 11.7 H 10^3/uL
(1.4-6.5)
Absolute Lymphs (auto) 0.6 L 10^3/uL
(1.2-3.4)
Absolute Monos (auto) 0.9 H 10^3/uL
(0.1-0.6)
Immature Gran % 0.6 H %
(0-0.5)
Neutrophils % 87.3 H %
(42.2-75.2)
Lymphocytes % 4.7 L %
(20.5-51.1)
BUN 29 H mg/dl
(7-17)
Glucose 161 H mg/dl
(70-99)
Troponin I 0.042 H* ng/ml
07/17/24 10:24
07/17/24 10:24
Vital Signs
Initial and Last Documented VS:
Initial Vital Signs
Temp Pulse Resp BP Pulse Ox
37.7 C 75 26 148/58 87
07/17/24 10:11 07/17/24 10:11 07/17/24 10:11 07/17/24 10:11 07/17/24 10:11
Last Documented Vital Signs
Temp Pulse Resp BP Pulse Ox
37.7 C 67 20 125/55 97
07/17/24 10:11 07/17/24 12:30 07/17/24 12:30 07/17/24 12:00 07/17/24 12:30
<Jeffrey Rea, DO - Last Filed: 07/17/24 11:34>
Orders/Labs/Results
Orders:
Orders
07/17/24 10:12
Electrocardiogram (*1) Urgent
Reason for Study: Shortness of Breath
Cardiac Monitoring- Treatment ONCE
EKG- Treatment ONCE
Acetaminophen [Tylenol] 650 mg PO NOW STA
O2 Therapy [RESP] Urgent
Titrate/Wean O2 to maintain O2 sat greater than (%): 90
07/17/24 10:13
CR Chest - 2 Views Urgent
Comment:
Reason For Exam: fever, cough, sob
07/17/24 10:23
COVID-19 Antigen Urgent
Source: Nasal Swab
07/17/24 10:24
Complete Blood Count/With Diff Urgent
Comprehensive Metabolic Panel Urgent
Lactic Acid Urgent
NT-proBNP Urgent
Troponin I Urgent
Blood Culture Q30M
SOPHIE Source: Blood/Venous
Specimen Description:
07/17/24 10:30
INF RAPID [Influenza A+B Rapid Molecular] Urgent
SOPHIE Source: Nasal Swab
Specimen Description:
07/17/24 11:13
Blood Culture Q30M
SOPHIE Source: Blood/Venous
Specimen Description:
07/17/24 11:34
Azithromycin 500 mg/250 ml [Zithromax Infusion] 500 mg in 250 ml IV NOW
CefTRIAXone [Rocephin] 1,000 mg IV NOW STA
Furosemide [Lasix] 40 mg IV NOW STA
07/17/24 11:46
Type And Crossmatch [Type+Screen] Urgent
07/17/24 11:52
* Blood Bank Products Urgent
Blood Bank Products: *Packed RBC Leuko(PRBC's)
Quantity: 1
Transfuse Today: Yes
Reason: Anemia
07/17/24 12:37
Admit/Transfer Patient As Directed
Co-Sign Provider:
Level of Care: Inpatient admission
Assign to:: Telemetry
Physician / Group: Dr Westfall
Diagnosis: CHF/PNA/Anemia
Reason for Telemetry: Subacute Heart Failure
Date to Stop Telemetry: 07/19/24
Time to Stop Telemetry: 11:00
Reason for Hospitalization: CHF/PNA/Anemia
Expected length of stay greater than two midnights?: Yes
ELOS- Estimated Length of Stay in days: 2
I certify the patient meets the requirements for IP care: Yes
07/17/24 12:38
PRN Pain Medication Management As Directed
May give lesser potent ordered pain med per pt: Yes
preference::
Protocol:: Medication orders for pain may be administered in a
manner that supports deferring to patient preference
when the pt is:
- Requesting an ordered lesser potent pain medication.
Least to most potent pain medications are defined
as: acetaminophen < NSAID < tramadol < opioids
(morphine, oxycodone, hydromorphone).
- Requesting a lesser dose of the same medication IF
ORDERED.
- Requesting a less intrusive route of administration
if both routes are prescribed by the provider (PO <
IV).
07/17/24 12:39
Code Status As Directed
Resuscitation Status: Full Code
07/19/24 11:00
DC Protocol for Telemetry ONCE
Abnormal Lab Results
07/17/24
10:24
WBC 13.5 H 10^3/uL
(4.8-10.8)
RBC 2.42 L 10^6/uL
(4.20-5.40)
Hgb 7.7 L g/dL
(12.0-16.0)
Hct 23.6 L %
(37.0-47.0)
MCH 31.8 H pg
(27.0-31.0)
MCHC 32.6 L g/dL
(33.0-37.0)
RDW 18.0 H %
(11.5-14.5)
Abs Immat Gran (auto) 0.1 H 10^3/uL
(0-0.05)
Absolute Neuts (auto) 11.7 H 10^3/uL
(1.4-6.5)
Absolute Lymphs (auto) 0.6 L 10^3/uL
(1.2-3.4)
Absolute Monos (auto) 0.9 H 10^3/uL
(0.1-0.6)
Immature Gran % 0.6 H %
(0-0.5)
Neutrophils % 87.3 H %
(42.2-75.2)
Lymphocytes % 4.7 L %
(20.5-51.1)
BUN 29 H mg/dl
(7-17)
Glucose 161 H mg/dl
(70-99)
Troponin I 0.042 H* ng/ml
07/17/24 10:24
07/17/24 10:24
Vital Signs
Initial and Last Documented VS:
Initial Vital Signs
Temp Pulse Resp BP Pulse Ox
37.7 C 75 26 148/58 87
07/17/24 10:11 07/17/24 10:11 07/17/24 10:11 07/17/24 10:11 07/17/24 10:11
Last Documented Vital Signs
Temp Pulse Resp BP Pulse Ox
37.7 C 67 20 125/55 97
07/17/24 10:11 07/17/24 12:30 07/17/24 12:30 07/17/24 12:00 07/17/24 12:30
<Jena Dewitt PA-C - Last Filed: 07/17/24 12:43>
MDM/Problems Addressed
Differential Diagnosis Includes:
pna, chf, flu, pleural effusion, less likely PE
MDM/Problems Addressed:
maria esther freedman 84 y/o F afib on eliquis, chf on lasix, gi bleed in past
here with hypoxia, GARCIA since yesterday, temp 100 today
bp stable, pulse ox 93% on 3L, (normally no o2)
crackles R base, PNA on cxr
flu/covid neg
also anemic hg 7.7 down from 11 from a few months ago
had mech fall 5 dyas ago and has large ecchymosis L face; had ct here which was neg
no other signs of trauma
rectal trace heme pos light stool
going to give IV abx, blood, lasix
<Jena Dewitt PA-C - Last Filed: 07/17/24 12:43>
*Critical Care Note
Total Time (30-74mins, 75-104mins- exclusive of procedures): Not Applicable
ED Attending Note
<Jena Dewitt PA-C - Last Filed: 07/17/24 12:43>
-
Portions of this chart may have been created with voice recognition software.� Occasional wrong word or��sound alike� substitutions may have occurred due to the inherent limitations of voice recognition software.
<Jeffrey Rea DO - Last Filed: 07/17/24 11:34>
ED Attending Note
Patient seen and examined by attending physician: Yes
I performed the substantive portion of visit, reviewed & personally made and approve the management plan that is documented in note by myself or PRASAD.: Yes
ED Attending Note:
I evaluated the patient at bedside. She has rales on examination and is hypoxic. White count is elevated. states she has had 'a little bit of a cough'. Hemoglobin has dropped now down to 7.7. Troponin slightly elevated 0.042 which is
new in comparison to prior, BNP again is elevated similar to what it was in March last year.
Discharge Plan
Departure
Patient Disposition: Admit
Date of Disposition: 07/17/24
Time of Disposition: 12:42
Admit to: Telemetry
Presentation/result/management discussed w/ accepting MD/DO: Hospitalist
Condition: Fair
Covid-19: Negative COVID-19
Discharge Problem:
Pneumonia, Hypoxia, CHF (congestive heart failure), Anemia
Prescriptions:
No Action
memantine 10 MG tablet
10 mg PO BID
donepezil 23 MG tablet
23 mg PO HS
riboflavin (vitamin B2) 100 mg Tablet
100 mg PO DAILY Qty: 0
sertraline 100 mg Tablet
100 mg PO DAILY
ferrous sulfate [iron] 325 mg (65 mg iron) Tablet
325 mg PO MOWEFR@0800
rosuvastatin 20 mg Tablet
20 mg PO HS
pantoprazole 40 MG tablet,delayed release (DR/EC)
40 mg PO DAILY
cyanocobalamin (vitamin B-12) 1,000 MCG tablet
1,000 mcg PO DAILY Qty: 30 0RF
acetaminophen [Tylenol Extra Strength] 500 mg Tablet
1,000 mg PO Q6HPRN PRN (Reason: MILD PAIN)
zolpidem [Ambien] 5 mg Tablet
10 mg PO HS
levalbuterol HCl 0.63 mg/3 mL Solution For Nebulization
0.63 mg inhalation R Q6HPRN PRN (Reason: SOB,COUGH,WHEEZE) Qty: 72 0RF
Eliquis 5 mg Tablet
5 mg PO BID Qty: 60 1RF
amiodarone 100 mg tablet
100 mg PO DAILY Qty: 30 0RF
furosemide [Lasix] 40 mg tablet
40 mg PO DAILY Qty: 30 0RF
spironolactone 25 mg tablet
12.5 mg PO DAILY Qty: 30 0RF
ondansetron 4 mg tablet,disintegrating
4 mg PO Q8H PRN (Reason: nausea and vomiting) Qty: 10 0RF
amoxicillin-pot clavulanate 875-125 mg tablet
1 tab PO BID Qty: 14 0RF
Referrals:
Penny Simmons MD [Family Provider] -
Interventions
Interventions:
*Risk Screen - Suicide Last Done: 07/17/24 10:15
*General Assessment Last Done: 07/17/24 10:15
*Neglect/Abuse Screening Last Done: 07/17/24 10:15
*ED- Fall Risk Assessment Last Done: 07/17/24 10:11
*ED COVID-19 Vaccine History Last Done: 07/17/24 10:36
*Nursing Disposition Last Done: 07/17/24 12:09
ED- Cardiac Assessment Last Done: 07/17/24 10:38
ED- Pulmonary Assessment Last Done: 07/17/24 10:38
Discharge Date and Time
Print Language: SPANISH
[2024-07-17 10:44] LABS: % Basophils 0.3 % (0-2); % Eosinophils 0.1 % (0-6); % Immature Granulocytes 0.6 % (0-0.5); % Lymphocytes 4.7 % (20.5-51.1); % Neutrophils 87.3 % (42.2-75.2); Absolute Immature Granulocytes 0.1 10^3/uL (0-0.05); Absolute Lymphocytes 0.6 10^3/uL (1.2-3.4); Absolute Monocytes 0.9 10^3/uL (0.1-0.6); Absolute Neutrophils 11.7 10^3/uL (1.4-6.5); Hematocrit 23.6 % (37.0-47.0); Hemoglobin 7.7 g/dL (12.0-16.0); Mean Corp Hgb Conc. 32.6 g/dL (33.0-37.0); Mean Corpuscular Hgb 31.8 pg (27.0-31.0); Mean Corpuscular Volume 97.5 fL (81.0-99.0); Mean Platelet Volume 10.3 fL (7.4-10.4); Nucleated Red Blood Cells % 0 %; Platelet Count 244 10^3/uL (130-400); Red Blood Cell Count 2.42 10^6/uL (4.20-5.40); White Blood Cell Count 13.5 10^3/uL (4.8-10.8)
[2024-07-17 10:56] LABS: Lactic Acid 1.3 mmol/L (0.7-2.0)
[2024-07-17 10:58] LABS: ALT (SGPT) 26 U/L (0-35); AST (SGOT) 32 U/L (14-36); Albumin 3.5 g/dl (3.5-5.0); Alkaline Phosphatase 78 U/L (38-126); Blood Urea Nitrogen 29 mg/dl (7-17); Calcium 9.1 mg/dl (8.4-10.2); Carbon Dioxide 28 mmol/L (22-30); Chloride 102 mmol/L (98-107); Glucose 161 mg/dl (70-99); Potassium 4.1 mmol/L (3.5-5.1); Sodium 138 mmol/L (135-145); Total Bilirubin 0.7 mg/dl (0.2-1.3); Total Protein 6.5 g/dl (6.3-8.2); eGFR > 60.00
[2024-07-17 11:13] LABS: COVID-19 Antigen Negative (Negative)
[2024-07-17] MEDS: TYLENOL 650 MG PO ×2 (11:13→20:25)
[2024-07-17 11:22] LABS: Troponin I 0.042 ng/ml
[2024-07-17 11:30] LABS: NT-proBNP 7830 pg/ml
[2024-07-17] MEDS: LASIX 40 MG IV ×2 (11:54→16:14)
[2024-07-17] MEDS: ROCEPHIN 1000 MG IV (11:57)
[2024-07-17] MEDS: ZITHROMAX INFUSION 250 IV (12:02)
--- NOTE | 2024-07-17 12:50 | HPS.HSE ---
Family Physician
-
Family Physician: Penny Simmons
Chief Complaint
-
sob
History of Present Illness
Patient 84-year-old female with history of hypertension, CHF, A-fib, obesity, dementia, came into the hospital shortness of breath and hypoxia. Patient had a recent fall last Friday for which she was evaluated in the ED and was instructed to hold
anticoagulant and over the last few days she has been weak and has been complaining of some shortness of breath. Her checked her pulse ox today and it was noted to be on the 70s. EMS was called and her pulse ox was in the 80s and she was
placed on supplemental oxygen. She does have some cough. She denies fevers or chills. She does have some lower extremity edema as well. She does have extensive ecchymosis from recent trauma. Denies abdominal pain nausea or vomiting. Denies
melena hematemesis hematochezia or bright blood per rectum. Does take Eliquis on a regular basis but her tells me that she has not been taking since last Friday and was instructed to restart today but has not. In the ED, white blood cell
count noted to be 13.5, hemoglobin 7.7 from a baseline of 11.5, troponin 0.042, elevated BNP, chest x-ray with interstitial changes and consistent with heart failure and possible pneumonia. She was given IV Lasix and IV antibiotics in the ED. She
was referred to hospitalist service for further evaluation.
Medical History
Past Medical History
Past Medical History: Reports Other
Additional Past Medical History:
htn
hld
HFpEF
iron def anemia
Dementia
A fib
Depression
Past Surgical History: Reports Other
Additional Past Surgical History:
c section
MOHS surgery
Social History
Tobacco: Former Smoker
Alcohol: Occasional
Drug: None
Personal:
Living: With Family
Family History
Family History: Not pertinent
Allergies / Home Medications
Allergies reflects when Allergies were last updated in [facility].
Home Medications with original date entered in [facility]
Allergy/Medication List:
Allergies
Allergy/AdvReac Type Severity Reaction Status Date / Time
No Known Allergies Allergy Verified 07/17/24 10:38
Home Medications
memantine 10 mg tablet 10 mg PO BID memory 07/07/21
donepezil 23 mg tablet 23 mg PO HS memory 07/09/21
ferrous sulfate 325 mg (65 mg iron) tablet (iron) 325 mg PO MOWEFR@0800 Supplement 09/02/23
pantoprazole 40 mg tablet,delayed release 40 mg PO DAILY Gastrointestinal Issue 09/02/23
riboflavin (vitamin B2) 100 mg tablet 100 mg PO DAILY Supplement ##0 09/02/23
rosuvastatin 20 mg tablet 20 mg PO HS High Cholesterol 09/02/23
sertraline 100 mg tablet 100 mg PO DAILY Depression 09/02/23
cyanocobalamin (vitamin B-12) 1,000 mcg tablet 1,000 mcg PO DAILY Supplement #30 tabs 09/11/23
acetaminophen 500 mg tablet (Tylenol Extra Strength) 1,000 mg PO Q6HPRN PRN MILD PAIN 02/09/24
zolpidem 5 mg tablet (Ambien) 10 mg PO HS Sleep 02/09/24
apixaban 5 mg tablet (Eliquis) 5 mg PO BID #60 tabs 02/12/24
levalbuterol HCl 0.63 mg/3 mL solution for nebulization 0.63 mg (3 mL) inhalation R Q6HPRN PRN SOB,COUGH,WHEEZE #72 mL 02/12/24
amiodarone 100 mg tablet 100 mg PO DAILY #30 tabs 04/01/24
furosemide 40 mg tablet (Lasix) 40 mg PO DAILY #30 tabs 04/01/24
spironolactone 25 mg tablet 12.5 mg (1/2 x 25 mg) PO DAILY #30 tabs 04/01/24
ondansetron 4 mg disintegrating tablet 4 mg PO Q8H PRN nausea and vomiting #10 tabs 05/03/24
amoxicillin 875 mg-potassium clavulanate 125 mg tablet 1 tab PO BID #14 tabs 07/04/24
Review of Systems
-
A 12 point ROS was completed and negative except as noted: Yes
Physical Exam
Vital Signs
Vital Signs
Temp Pulse Resp BP Pulse Ox
100 F 67 20 125/55 97
07/17/24 10:11 07/17/24 12:30 07/17/24 12:30 07/17/24 12:00 07/17/24 12:30
Physical exam:
General: Acutely ill
HEENT: Normocephalic, traumatic with ecchymosis left side of her face and forehead and Moist Mucous Membranes
Respiratory: Bilateral coarse crackles in the bases; Negative Wheezes or Rhonchi
Cardiac: Regular Rhythm and S1/S2
GI: Soft, Nontender and Nondistended
Musculoskeletal: No Clubbing, No Cyanosis. Bilateral lower extremity edema. Ecchymosis present as well
Neuro: Awake, Alert and Oriented, no gross neurological deficit
Psych: Calm
Physical Exam
General: Other
Laboratory Results
-
07/17/24 10:24
07/17/24 10:24
Laboratory Results
Lactic Acid 1.3 mmol/L (0.7-2.0) 07/17/24 10:24
Total Bilirubin 0.7 mg/dl (0.2-1.3) 07/17/24 10:24
AST 32 U/L (14-36) 07/17/24 10:24
ALT 26 U/L (0-35) 07/17/24 10:24
Alkaline Phosphatase 78 U/L (38-126) 07/17/24 10:24
Troponin I 0.042 ng/ml H* 07/17/24 10:24
Data Reviewed
-
Diagnostic Radiology: Image Personally Visualized and interpreted
Lab Data: Labs Reviewed by me
Impression/Plan
-
IMPRESSION:
Patient 84-year-old female with multiple comorbidities presented to the hospital for shortness of breath and found to have anemia and hypoxia. Due to acute presentation and multiple comorbidities patient will need to be monitored and treated
accordingly in the hospital otherwise at increased risk morbidity mortality.
PLAN:
Acute hypoxic respiratory failure:
Likely related to heart failure and pneumonia
Diuresis
Antibiotics
Oxygen supplementation
Acute on chronic diastolic congestive heart failure:
IV diuretics, Lasix 40 mg IV twice daily
BNP upon admission 7830
Monitor strict I/O
Monitor daily weight
Monitor renal function and electrolytes
Reviewed latest echocardiogram on our system and EF 55 to 60% and moderate to severe tricuspid regurgitation back in March 2024
Will readdress GDMT after echo
Fluid restriction
Salt restriction
Heart failure education
Follow up clinical response
Will obtain echocardiogram on Friday
Elevated troponin:
Likely nonischemic myocardial injury from heart failure
Chest pain-free
Continue to trend until it peaks
Seen and reviewed twelve-lead EKG sinus rhythm at 71 bpm, QTc 471, no ischemic changes.
Cardiac monitoring
Community-acquired pneumonia:
Continue IV Rocephin and given azithromycin but will switch to doxycycline given minor prolonged QTc and being on amiodarone as well.
Check sputum culture
Check strep and Legionella urine antigen
Trend WBC (currently 13.5 with left shift)
Follow-up blood cultures
Acute blood loss anemia:
Likely related to hematomas from recent fall
Current hemoglobin 7.7 (last hemoglobin on 2023 was 11.5)
Rule out GI bleed but less likely
Blood transfusion today-obtained consent in the ED
Check anemia workup including iron and ferritin B12 folate reticulocyte count and obtain CT of the abdomen and pelvis
Recent fall:
PT eval
Paroxysmal atrial fibrillation:
On antiarrhythmic but will obtain accurate medications before restarting
Not on rate control due to bradycardia in the past
front desk monitor
Hold anticoagulation due to anemia
Hypertension:
IV hydralazine as needed for now
Resume medications when we obtain list
Hyperlipidemia:
Resume medications when we obtain list
Dementia:
Monitor status and behavioral changes
Resume medications when we obtain list
DVT prophylaxis:
SCDs
No pharmacological prophylaxis due to anemia
CODE STATUS:
Full code
Time spent 75 minutes
[2024-07-17] MEDS: PROTONIX IV 40 MG IV ×2 (13:25→21:21)
[2024-07-17] MEDS: NSS (PRESERVATIVE FREE) 10 ML IV ×2 (13:25→21:21)
--- NOTE | 2024-07-17 14:25 | CM ---
Patient and seen at bedside in ED. Patient stated that they do live in [facility] apartments. Patient stated that his daughter in law Tiarra formerly worked her as a CM and she could have all information as needed.
Patient confirmed that patient had [facility] as supports previously and that they did like them and would appreciated if she could have them again at discharge. Patient had a VN, PT. SW and OT but the services ended in May. Patient PCP is
[place], and they use the [facility] in [place] for pharmacy needs. Patient in process of receiving blood. CM will continue to follow for discharge planning needs.
Plan; home with VN; [facility] if appropriate vs SNF.
[2024-07-17] MEDS: PACERONE 100 MG PO (16:14)
[2024-07-17 18:54] LABS: Troponin I 0.051 ng/ml
[2024-07-17 20:33] LABS: Hemoglobin 9.8 g/dL (12.0-16.0)
[2024-07-17] MEDS: AMBIEN PO (21:21)
[2024-07-17] MEDS: AMBIEN 5 MG PO ×2 (22:12→22:41)
[2024-07-18] VITALS (7 sets, daily range): BP systolic 134–152; BP diastolic 49–64; PULSE 71; O2SAT 96
[2024-07-18 03:12] LABS: Troponin I 0.037 ng/ml
[2024-07-18] MEDS: TYLENOL 650 MG PO (06:32)
[2024-07-18 07:06] LABS: % Basophils 0.2 % (0-2); % Eosinophils 1.1 % (0-6); % Immature Granulocytes 0.4 % (0-0.5); % Lymphocytes 7.4 % (20.5-51.1); % Monocytes 7.3 % (1.7-9.3); % Neutrophils 83.6 % (42.2-75.2); Absolute Eosinophils 0.1 10^3/uL (0-0.7); Absolute Immature Granulocytes 0.1 10^3/uL (0-0.05); Absolute Monocytes 0.9 10^3/uL (0.1-0.6); Absolute Neutrophils 10.8 10^3/uL (1.4-6.5); Hemoglobin 9.8 g/dL (12.0-16.0); Mean Corp Hgb Conc. 32.7 g/dL (33.0-37.0); Mean Corpuscular Hgb 30.6 pg (27.0-31.0); Mean Corpuscular Volume 93.8 fL (81.0-99.0); Mean Platelet Volume 10.9 fL (7.4-10.4); Nucleated Red Blood Cells % 0 %; Platelet Count 254 10^3/uL (130-400); Red Cell Dist. Width 17.9 % (11.5-14.5); Reticulocyte Count 2.9 % (0.4-2.8); White Blood Cell Count 12.9 10^3/uL (4.8-10.8)
[2024-07-18 07:29] LABS: Blood Urea Nitrogen 26 mg/dl (7-17); Carbon Dioxide 30 mmol/L (22-30); Chloride 100 mmol/L (98-107); Glucose 114 mg/dl (70-99); Iron 27 ug/dl (37-170); Potassium 3.9 mmol/L (3.5-5.1); Sodium 140 mmol/L (135-145); eGFR 54.87
[2024-07-18 07:38] LABS: Percent Saturation 10 % (20-50); Total Iron Binding Capacity 252 ug/dl (265-497)
[2024-07-18] MEDS: NSS (PRESERVATIVE FREE) 10 ML IV ×2 (08:17→22:08)
[2024-07-18] MEDS: LASIX 40 MG IV ×2 (08:17→15:38)
[2024-07-18] MEDS: PROTONIX IV 40 MG IV ×2 (08:17→22:08)
[2024-07-18] MEDS: STERILE WATER FOR INJECTION 10 ML IV (08:17)
[2024-07-18] MEDS: PACERONE 100 MG PO (08:17)
[2024-07-18] MEDS: VIBRAMYCIN 100 MG PO ×2 (08:17→22:08)
[2024-07-18] MEDS: ROCEPHIN 1000 MG IV (08:18)
[2024-07-18 08:32] LABS: Folate 10.2 ng/ml (2.76-20); Vitamin B12 > 1000 pg/ml (239-931)
--- NOTE | 2024-07-18 08:47 | W.PN.HOSP.TC ---
Today's Communication/Plan
-
IV Lasix. IV antibiotics. PT eval
Assessment / Plan
Assessment / Plan
Physical exam:
General: Acutely ill
HEENT: Normocephalic, traumatic with ecchymosis left side of her face and forehead and Moist Mucous Membranes
Respiratory: Bilateral coarse crackles in the bases; Negative Wheezes or Rhonchi
Cardiac: Regular Rhythm and S1/S2, systolic murmur
GI: Soft, Nontender and Nondistended
Musculoskeletal: No Clubbing, No Cyanosis. Bilateral lower extremity edema. Ecchymosis present as well
Neuro: Awake, Alert and Oriented, no gross neurological deficit
Psych: Calm
A/P:
Acute hypoxic respiratory failure:
Likely related to heart failure and pneumonia
Currently on 3 L of oxygen
Diuresis
Antibiotics
Oxygen supplementation
Incentive spirometry
Increase activity
Acute on chronic diastolic congestive heart failure:
Continue IV diuretics, Lasix 40 mg IV twice daily
BNP upon admission 7830
Monitor strict I/O
Monitor daily weight
Monitor renal function and electrolytes
Reviewed latest echocardiogram on our system and EF 55 to 60% and moderate to severe tricuspid regurgitation back in March 2024
Will readdress GDMT after echo
Fluid restriction
Salt restriction
Heart failure education
Follow up clinical response
Will obtain echocardiogram on Friday
Elevated troponin:
Likely nonischemic myocardial injury from heart failure
Chest pain-free
Troponin trended down so no need to check anymore unless clinical status changes.
Seen and reviewed twelve-lead EKG sinus rhythm at 71 bpm, QTc 471, no ischemic changes.
Cardiac monitoring
Community-acquired pneumonia:
Continue IV Rocephin and given azithromycin but switched to doxycycline given minor prolonged QTc and being on amiodarone as well.
Check sputum culture
Check strep and Legionella urine antigen
Trend WBC (currently 13.5 with left shift)--> 12.9 today
Follow-up blood cultures
Acute blood loss anemia:
Likely related to hematomas from recent fall
Current hemoglobin 7.7 (last hemoglobin on 2023 was 11.5)--> hemoglobin 9.8 today after transfusion
GI bleed less likely
Blood transfusion today-obtained consent in the ED
Anemia workup mixed pattern iron deficiency, acute blood loss, anemia of chronic disease. Normal B12 and folate
CT of the abdomen and pelvis no acute intra-abdominal pathology or hemorrhage
Okay to restart anticoagulation tomorrow if hemoglobin remains stable
Recent fall:
PT eval
Paroxysmal atrial fibrillation:
On antiarrhythmic, amiodarone 100 mg p.o. daily
Not on rate control due to bradycardia in the past
Cardiac monitoring
Hold anticoagulation due to anemia but planning to restart Eliquis tomorrow providing hemoglobin remained stable
Hypertension:
Restart amlodipine and will reevaluate if continue or adjust to a different antihypertensive.
On IV Lasix
IV hydralazine as needed
Hyperlipidemia:
Resume statins
Dementia:
Monitor status and behavioral changes
Resume Namenda and Aricept
DVT prophylaxis:
SCDs
No pharmacological prophylaxis due to anemia but if hemoglobin remains stable can start Eliquis over the next 24 hours
CODE STATUS:
Full code
Total time spent on today's encounter was 52 minutes which included time spent in counseling the patient/family regarding diagnosis and treatment plan as listed above, goals of care, and symptom management. Case was discussed with nursing staff,
specialists, and care coordinators/case management. All labs and imaging personally reviewed by me. Remainder the time spent in detailed review of previous records, lab data, imaging, and other medical provider documentation.
Anticipated Discharge: > 48 hours
Subjective/Interval History
-
Date of Service: July 18, 2024
Patient feels better today. Less shortness of breath and less cough. Alert. Afebrile
Objective Data
-
Labs:
Laboratory Results
07/18/24
06:15
WBC 12.9 H
Hgb 9.8 L
Hct 30.0 L
Plt Count 254
Sodium 140
Potassium 3.9
Chloride 100
Carbon Dioxide 30
BUN 26 H
Creatinine 1.0
Glucose 114 H
Calcium 9.0
Vital Signs:
Vital Signs
Temp Pulse Resp BP Pulse Ox
98.3 F 68 20 135/53 95
07/18/24 07:05 07/18/24 07:05 07/18/24 07:05 07/18/24 07:05 07/18/24 07:05
I&O
07/17/24 07/18/24 07/19/24
06:59 06:59 06:59
Intake Total 970 / 970
Output Total 750 / 750
Balance 220 / 220
[2024-07-18] MEDS: NAMENDA 10 MG PO ×2 (09:44→22:08)
[2024-07-18] MEDS: ZOLOFT 100 MG PO (09:44)
[2024-07-18] MEDS: NORVASC 5 MG PO ×2 (11:48→22:08)
[2024-07-18] MEDS: FERRLECIT 110 MG IV (14:45)
--- NOTE | 2024-07-18 16:12 | CM ---
Spoke with pt in room .She has on new oxygen .
Offered VN she is not sure.
PT OT evals
PLAN Home with possible VN if accepted
Watch for home oxygen needs
[2024-07-18] MEDS: CRESTOR 20 MG PO (22:08)
[2024-07-18] MEDS: ARICEPT 10 MG PO (22:08)
[2024-07-18] MEDS: AMBIEN 10 MG PO (22:08)
[2024-07-19 03:20] VITALS: BP 134/56
[2024-07-19 06:00] VITALS: BMI 28.4
[2024-07-19 07:05] VITALS: BP 139/58
[2024-07-19] MEDS: NORVASC 5 MG PO ×2 (08:09→21:26)
[2024-07-19] MEDS: VIBRAMYCIN 100 MG PO ×2 (08:09→21:26)
[2024-07-19] MEDS: PACERONE 100 MG PO (08:09)
[2024-07-19] MEDS: ELIQUIS 5 MG PO ×2 (08:09→21:26)
[2024-07-19] MEDS: ZOLOFT 100 MG PO (08:09)
[2024-07-19] MEDS: LASIX 40 MG IV ×2 (08:09→15:27)
[2024-07-19] MEDS: NSS (PRESERVATIVE FREE) 10 ML IV ×2 (08:10→21:26)
[2024-07-19] MEDS: PROTONIX IV 40 MG IV ×2 (08:10→21:25)
[2024-07-19] MEDS: STERILE WATER FOR INJECTION 10 ML IV (08:19)
[2024-07-19] MEDS: ROCEPHIN 1000 MG IV (08:19)
[2024-07-19] MEDS: NAMENDA 10 MG PO ×2 (08:24→21:26)
[2024-07-19 09:50] LABS: % Basophils 0.3 % (0-2); % Eosinophils 1.8 % (0-6); % Immature Granulocytes 0.4 % (0-0.5); % Lymphocytes 6.6 % (20.5-51.1); % Monocytes 8.5 % (1.7-9.3); % Neutrophils 82.4 % (42.2-75.2); Absolute Eosinophils 0.2 10^3/uL (0-0.7); Absolute Immature Granulocytes 0.1 10^3/uL (0-0.05); Absolute Lymphocytes 0.8 10^3/uL (1.2-3.4); Absolute Neutrophils 9.4 10^3/uL (1.4-6.5); Hematocrit 28.4 % (37.0-47.0); Mean Corp Hgb Conc. 31.7 g/dL (33.0-37.0); Mean Corpuscular Hgb 30.6 pg (27.0-31.0); Mean Corpuscular Volume 96.6 fL (81.0-99.0); Mean Platelet Volume 11.2 fL (7.4-10.4); Nucleated Red Blood Cells % 0 %; Platelet Count 262 10^3/uL (130-400); Red Blood Cell Count 2.94 10^6/uL (4.20-5.40); Red Cell Dist. Width 17.5 % (11.5-14.5); White Blood Cell Count 11.4 10^3/uL (4.8-10.8)
[2024-07-19 10:38] LABS: Blood Urea Nitrogen 29 mg/dl (7-17); Calcium 8.6 mg/dl (8.4-10.2); Carbon Dioxide 34 mmol/L (22-30); Chloride 97 mmol/L (98-107); Estimated Creatinine Clearance 31 ml/min; Glucose 106 mg/dl (70-99); Potassium 3.2 mmol/L (3.5-5.1); Sodium 138 mmol/L (135-145); eGFR 48.94
[2024-07-19 11:05] VITALS: BP 124/65
--- NOTE | 2024-07-19 13:24 | W.PN.HOSP.TC ---
Today's Communication/Plan
-
Resume Eliquis.
Continue with IV diuresis and antibiotics
Consult cardiology
Assessment / Plan
Assessment / Plan
A/P:
Acute hypoxic respiratory failure:
Likely related to heart failure ; rule out pneumonia
Chest x-ray shows CHF with asymmetric right hemithorax interstitial/pulm edema versus right lower lobe pneumonia.
On admission patient was febrile and also had a white count. Check a procalcitonin.
Diuresis
Antibiotics
Oxygen supplementation
Incentive spirometry
Increase activity
Acute on chronic diastolic congestive heart failure:
Continue IV diuretics, Lasix 40 mg IV twice daily
BNP upon admission 7830
Monitor strict I/O
Monitor daily weight
Monitor renal function and electrolytes
Reviewed latest echocardiogram on our system and EF 55 to 60% and moderate to severe tricuspid regurgitation back in March 2024
Echo pending
Fluid restriction
Salt restriction
Heart failure education
Follow up clinical response
Consult cardiology
Paroxysmal atrial fibrillation:
On antiarrhythmic, amiodarone 100 mg p.o. daily
Not on rate control due to bradycardia in the past
Cardiac monitoring-shows frequent spontaneous conversion to sinus rhythm with postconversion pause.
Would favor resuming Eliquis. CT of the abdomen pelvis shows no evidence of hematoma.
Elevated troponin:
Likely nonischemic myocardial injury from heart failure
Chest pain-free
Troponin trended down so no need to check anymore unless clinical status changes.
Seen and reviewed twelve-lead EKG sinus rhythm at 71 bpm, QTc 471, no ischemic changes.
Cardiac monitoring
Possible community-acquired pneumonia:
Continue IV Rocephin and given azithromycin but switched to doxycycline given minor prolonged QTc and being on amiodarone as well.
Check sputum culture
Check strep and Legionella urine antigen
Trend WBC (currently 13.5 with left shift)-improving
Follow-up blood cultures
Acute blood loss anemia:
Likely related to hematomas from recent fall
Current hemoglobin 7.7 (last hemoglobin on 2023 was 11.5)--> hemoglobin 9.8 today after transfusion
GI bleed less likely
Blood transfusion today-obtained consent in the ED
Anemia workup mixed pattern iron deficiency, acute blood loss, anemia of chronic disease. Normal B12 and folate
CT of the abdomen and pelvis no acute intra-abdominal pathology or hemorrhage
Okay to restart anticoagulation tomorrow if hemoglobin remains stable
Recent fall:
PT eval
Hypertension:
Restart amlodipine and will reevaluate if continue or adjust to a different antihypertensive.
On IV Lasix
IV hydralazine as needed
Hyperlipidemia:
Resume statins
Dementia:
Monitor status and behavioral changes
Resume Namenda and Aricept
DVT prophylaxis:
SCDs
No pharmacological prophylaxis due to anemia but if hemoglobin remains stable can start Eliquis over the next 24 hours
CODE STATUS:
Full code
Total time spent on today's encounter was 52 minutes which included time spent in counseling the patient/family regarding diagnosis and treatment plan as listed above, goals of care, and symptom management. Case was discussed with nursing staff,
specialists, and care coordinators/case management. All labs and imaging personally reviewed by me. Remainder the time spent in detailed review of previous records, lab data, imaging, and other medical provider documentation.
Anticipated Discharge: > 48 hours
Subjective/Interval History
-
Date of Service: July 19, 2024
Feels comfortable at rest. Denies shortness of breath at rest.
Denies chest pain. Denies cough. No palpitations.
Denies nausea vomiting. No abdominal pain.
Objective Data
-
Labs:
Laboratory Results
07/19/24
06:50
WBC 11.4 H
Hgb 9.0 L
Hct 28.4 L
Plt Count 262
Sodium 138
Potassium 3.2 L
Chloride 97 L
Carbon Dioxide 34 H
BUN 29 H
Creatinine 1.1 H
Glucose 106 H
Calcium 8.6
Vital Signs:
Vital Signs
Temp Pulse Resp BP Pulse Ox
97.7 F 98 19 124/65 99
07/19/24 11:05 07/19/24 11:05 07/19/24 11:05 07/19/24 11:05 07/19/24 11:05
I&O
07/18/24 07/19/24 07/20/24
06:59 06:59 06:59
Intake Total 970 / 970 960 / 960
Output Total 750 / 750
Balance 220 / 220 960 / 960
Physical Exam
-
General: Comfortable
Respiratory: Crackles (BL lower zone crackles ) and Non Labored Respirations; Negative Wheezes or Accessory Resp Muscle Use
Cardiac: Regular Rhythm and S1/S2; Negative Tachycardic
GI: Soft
Skin: Other (Left face bruising noted)
Neuro: Awake, Alert and Oriented
Psych: Calm
Data Reviewed
-
Labs: Labs Reviewed by me
[2024-07-19] MEDS: FERRLECIT 110 MG IV (14:03)
--- NOTE | 2024-07-19 14:37 | CON.CAR ---
Addendum entered and electronically signed by Carol Melchor DO 07/19/24 17:25:
I saw and examined the patient.
The Machine Stripper Cutter's note was reviewed and I agree with the note.
Comment: Patient was seen and examined following echocardiogram. She is known to me from the office and I had discussed her recent trip and fall with her including hematoma of the face with her outpatient primary care physician which is
unrelated to this hospitalization. Bindu came to ER Friday with a low pulse ox reading at home and was admitted with acute HFpEF. Patient was similarity admitted for acute HF from 02/16/2024 until 02/19/2024 and again 03/29/2024 until
04/01/2024. Patient was last seen in the office on 06/09/2024 and appeared to be doing well at that time. Patient was scheduled for a PET stress test to be performed on 07/13/2024, but days before that there was an unfortunate trip and fall from her
where he fell into her knocking her down resulting in ecchymosis on the left side of her body most notably on her face. Her PET stress test had to be rescheduled again. In the interim her has continued to take care of her at home
and felt as though her pulse ox was low on Friday and brought her into the ER. The proBNP was elevated at 7830 which is on the higher side for the patient. Patient denies any CP, SOB, orthopnea or edema. Patient does not follow any type of salt
or fluid restriction at home and reports that they frequently go out for meals. Patient has not noted any significant symptom improvement since admission reporting that she did not feel bad even at the time of admission. Patient's handles
her meds and the patient denies any noticeable increase in urination following her morning pills which includes a dose of Lasix 40 mg daily.
GEN: Hematoma above the left eyebrow with marked ecchymosis of the left face jawline and neck; mild cognitive impairment/forgetful
HEENT: MMM
LUNGS: Bronchovesicular breath sounds with clear lungs. No wheezes or crackles
CV: Regular, positive S1-S2 3/6 SM throughout precordium
ABD: Nontender nondistended. Positive bowel
EXT: No edema B/L, ecchymosis left holley with bandage on pretibial plateau. Chronic venous stasis changes
Plan:
Acute on chronic heart failure with preserved ejection fraction
-2D echocardiogram done today reviewed with normal left ventricular size and mild concentric left ventricular hypertrophy with a EF 66% by volumetric assessment. Moderate to severe mitral and tricuspid insufficiency. No observed mitral valve
prolapse. Aortic sclerosis without stenosis and no aortic regurgitation. Estimated pulmonary artery systolic pressure 45-50 mmHg. No pericardial effusion.
-proBNP is 7830 which is on the high side for patient and CXR showed evidence of interstitial pulmonary edema.
-Weight is down 3 lbs with Lasix 40 mg IV BID. Continue IV Lasix another 24-48-hour. Will likely need increase outpatient Lasix dose; patient was taking Lasix 40 mg PO daily prior to admission.
-Elevated cardiac troponin which is relatively flat, 0.042/0.0 51/0.037 and likely related to non-[place] elevation/heart failure. She has previously been scheduled for outpatient stress test which has been rescheduled several times. She denies chest
pain or pressure. She is currently scheduled for her stress test on 08/10/24
-Goal-directed medical therapy limited by renal insufficiency and bradycardia: Patient is not chronically on LENNIE/ARB/ARNI due to CKD.
-Norvasc 5mg BID with labile blood pressure trends. If continue to trend high we will add standing hydralazine 25 mg twice daily
-Patient is chronically on hydralazine 25 mg BID PRN SBP greater than 160
-Will ask CM to check on cost of Farxiga 10 mg daily
History of atrial fibrillation currently in sinus rhythm
-Patient is no longer taking BB due to recurrent bradycardia
-She was off Eliquis anticoagulation for 1 week following trip and fall with facial hematoma. She is now back on Eliquis 5 mg twice daily
-Patient with known paroxysmal Afib and is chronically on amiodarone. QTc 471 ms by ECG 07/17/2024. Repeat ECG in AM ordered by me
Dementia on Namenda and Aricept
She is currently full code however I will need to discuss with her and her goals of therapy
Original Note:
Consultation
Consultation Request
Date/Time Consultation Requested: 07/19/24 at 1349
Date/Time Consultation Performed: 07/19/24 at 1511
Requesting Provider: Dr. Wan
Performing Provider: Dr. Melchor
Reason for Consultation: Acute HFpEF
Medical History
-
History of Present Illness:
Patient came to ER Friday with a low pulse ox reading at home and was admitted with acute HF. Patient was similarily admitted for acute HF from 02/16/2024 until 02/19/2024 and again 03/29/2024 until 04/01/2024. Patient was last seen in the
office on 06/09/2024 and appeared to be doing well at that time. Patient was scheduled for a PET stress test to be performed on 07/13/2024, but days before that there was an unfortunate trip and fall from her where he fell into her knocking
her down resulting in ecchymosis on the left side of her body most notably on her face. Her PET stress test had to be rescheduled again. In the interim her has continued to take care of her at home and felt as though her pulse ox was low
on Friday and brought her into the ER. The proBNP was elevated at 7830 which is on the higher side for the patient. Patient denies any CP, SOB, orthopnea or edema. Patient does not follow any type of salt or fluid restriction at home and
reports that they frequently go out for meals. Patient has not noted any significant symptom improvement since admission reporting that she did not feel bad even at the time of admission. Patient's handles her meds and the patient denies
any noticeable increase in urination following her morning pills which includes a dose of Lasix 40 mg daily.
PMH:
Chronic HFpEF
h/o left-sided pleural effusion and thoracentesis for 350 ml 02/18/24 without recurrence on CXR 03/29/24
Paroxysmal Afib
diagnosed 02/09/24
Chronic Eliquis OAC
Recent admission for new Afib 02/09/24 until 02/12/24
Recent admission for acute HF 02/16/24 until 02/19/24
Recent admission for acute HF 03/29/2024 until 03/24/2024
HTN
Dementia
Moderate MR by echo 09/04/23
Moderate TR with PAP 55-60 mmHg
Past Medical History
Past Medical History: Other (in HPI)
Past Surgical History:
Social History
Tobacco: Former Smoker
Alcohol: Occasional
Drug: None
Personal:
Living: With Family
Family History
Family History: Cancer
Allergies / Home Medications
Allergy/AdvReac Type Severity Reaction Status Date / Time
No Known Allergies Allergy Verified 07/17/24 10:38
�Medication �Instructions �Recorded �Confirmed �Type
memantine 10 mg tablet 10 mg PO BID memory 07/07/21 07/17/24 History
donepezil 23 mg tablet 23 mg PO HS memory 07/09/21 07/17/24 History
ferrous sulfate 325 mg (65 mg 325 mg PO MOWEFR@0800 Supplement 09/02/23 07/17/24 History
iron) tablet (iron)
pantoprazole 40 mg tablet,delayed 40 mg PO DAILY Gastrointestinal 09/02/23 07/17/24 History
release Issue
riboflavin (vitamin B2) 100 mg 100 mg PO DAILY Supplement ##0 09/02/23 07/17/24 History
tablet
rosuvastatin 20 mg tablet 20 mg PO HS High Cholesterol 09/02/23 07/17/24 History
sertraline 100 mg tablet 100 mg PO DAILY Depression 09/02/23 07/17/24 History
cyanocobalamin (vitamin B-12) 1,000 mcg PO DAILY Supplement #30 09/11/23 07/17/24 Rx
1,000 mcg tablet tabs
acetaminophen 500 mg tablet 1,000 mg PO Q6HPRN PRN MILD PAIN 02/09/24 07/17/24 History
(Tylenol Extra Strength)
zolpidem 5 mg tablet (Ambien) 10 mg PO HS Sleep 02/09/24 07/17/24 History
apixaban 5 mg tablet (Eliquis) 5 mg PO BID #60 tabs 02/12/24 07/17/24 Rx
amiodarone 100 mg tablet 100 mg PO DAILY #30 tabs 04/01/24 07/17/24 Rx
furosemide 40 mg tablet (Lasix) 40 mg PO DAILY #30 tabs 04/01/24 07/17/24 Rx
[place] 1 tab PO DAILYPRN PRN bruise 07/17/24 07/17/24 History
amlodipine 5 mg tablet 5 mg PO BID 07/17/24 07/17/24 History
hydralazine 25 mg tablet 25 mg PO BIDPRN PRN SBP>160 07/17/24 07/17/24 History
ondansetron 4 mg disintegrating 4 mg PO Q8HPRN PRN nausea and 07/17/24 07/17/24 History
tablet vomiting
potassium chloride 20 mEq 20 meq PO DAILY 07/17/24 07/17/24 History
tablet,extended release(part/cryst)
Review of Systems
-
History Source: Patient
All other systems: Negative unless noted
Physical Exam
Vital Signs
Temp Pulse Resp BP Pulse Ox
97.7 F 98 19 124/65 99
07/19/24 11:05 07/19/24 11:05 07/19/24 11:05 07/19/24 11:05 07/19/24 11:05
GEN: NAD. AAO to person, place and situation
HEENT: MMM
LUNGS: RA. Clear anterolaterally without wheeze
CV: SR on tele
ABD: ND
EXT: No edema B/L
NEURO: Gross non-focal
SKIN: No rash
Lab Results
07/19/24 06:50
07/19/24 06:50
Troponin I 0.037 ng/ml H* 07/18/24 02:13
Ery-Z-[id number] Pept 7830 pg/ml 07/17/24 10:24
Impression / Plan
-
PCP: Dr. Simmons
Cardiology: Dr. Melchor
Impression:
Admitted with SOB and hypoxia 03/29/24
Acute on chronic HFpEF
h/o left-sided pleural effusion and thoracentesis for 350 ml 02/18/24 without recurrence on CXR 03/29/24
Paroxysmal Afib
diagnosed 02/09/24
Chronic Eliquis OAC
Recent admission for new Afib 02/09/24 until 02/12/24
Recent admission for acute HF 02/16/24 until 02/19/24
Recent admission for acute HF 03/29/2024 until 03/24/2024
HTN
Dementia
Moderate MR by echo 09/04/23
Moderate TR with PAP 55-60 mmHg
Echo 09/04/23: EF 60-65%, normal wall motion, mod MR, mod TR with PAP 55-60 mmHg
Echo 02/17/24: EF 55-60%, mod MR, no or AI, mod to sev TR with PAP 50 mmHg
Echo 07/19/2024: Report pending
Plan:
-Patient came to ER Friday with a low pulse ox reading at home and was admitted with acute HF. Patient was similarily admitted for acute HF from 02/16/2024 until 02/19/2024 and again 03/29/2024 until 04/01/2024. Patient was last seen in the
office on 06/09/2024 and appeared to be doing well at that time. Patient was scheduled for a PET stress test to be performed on 07/13/2024, but days before that there was an unfortunate trip and fall from her where he fell into her knocking
her down resulting in ecchymosis on the left side of her body most notably on her face. Her PET stress test had to be rescheduled again. In the interim her has continued to take care of her at home and felt as though her pulse ox was low
on Friday and brought her into the ER. The proBNP was elevated at 7830 which is on the higher side for the patient. Patient denies any CP, SOB, orthopnea or edema. Patient does not follow any type of salt or fluid restriction at home and
reports that they frequently go out for meals. Patient has not noted any significant symptom improvement since admission reporting that she did not feel bad even at the time of admission. Patient's handles her meds and the patient denies
any noticeable increase in urination following her morning pills which includes a dose of Lasix 40 mg daily.
-ECG reviewed by me shows SR without acute ST changes
-proBNP is 7830 which is on the high side for patient and CXR showed evidence of interstitial pulmonary edema.
-Weight is down 3 lbs with Lasix 40 mg IV BID. Patient was taking Lasix 40 mg PO daily prior to admission.
-EF was preserved at 60-65% by echo 02/17/24. Repeat echo performed on 07/19/2024 and report pending.
-Patient is no longer taking BB due to recurrent bradycardia
-Patient is not chronically on LENNIE/ARB/ARNI due to CKD.
-Patient is chronically on hydralazine 25 mg BID PRN SBP greater than 160
-Patient has not been tried on SGLT2 and review of historical case management notes does not show that we have ever estrella this out. Will ask CM to check on cost of Farxiga 10 mg daily
-Patient with known paroxysmal Afib and is chronically on amiodarone. QTc 471 ms by ECG 07/17/2024. Repeat ECG in AM ordered by me
-Outpatient dose of Eliquis 5 mg BID (age 84, Cre 1.1, wt 65.9 kg) has been resumed after being held for outpatient fall which was unfortunate because her tripped and fell into her causing her to fall.
--- NOTE | 2024-07-19 14:50 | PN.CDI ---
CDI
- -
CDI:
Physician Documentation Request
Admit Date: 07/17/24 13:44
Dear Doctor Savage,
Please review the following and provide your response in the progress notes.
Clinical Indicators:
PN, 07/19
#Acute blood loss anemia:
#...Likely related to hematomas from recent fall
#Current hemoglobin 7.7 (last hemoglobin on 2023 was 11.5)-->
#...hemoglobin 9.8 today after transfusion
#Blood transfusion today-obtained consent in the ED
#Anemia workup mixed pattern iron deficiency, acute blood loss, anemia of chronic disease.
#Okay to restart anticoagulation tomorrow if hemoglobin remains stable
Laboratory Tests
07/17/24 07/17/24 07/18/24
10:24 20:10 06:15
Hgb 7.7 L 9.8 L D 9.8 L
07/19/24
06:50
Hgb 9.0 L
Based on the above and your clinical assessment, please clarify the relationship, if any, between these conditions:
Yes, Acute Blood Loss and Hematomas are enhanced by/associated with/due to Eliquis.
No, Acute Blood Loss and Hematomas are not enhanced by/associated with/due to Eliquis but it is due to ___. (Please specify)
Other (please specify)
Use of terms such as suspected, likely, concern for, or probable (associated with a specific diagnosis that is being evaluated, monitored, or treated as if it exists) are acceptable and can be coded in the inpatient setting, when documented at the
time of discharge.
Thank you,
Kailee Curry RN BSN CCDS
CDI Specialist
please contact via tiger text
Please use your independent medical judgment in providing your response.
--- NOTE | 2024-07-19 14:57 | PN.CDI ---
CDI
- -
CDI:
Physician Documentation Request
Admit Date: 07/17/24 13:44
Dear Doctor Savage,
Please review the following and provide your response in the progress notes.
Clinical Indicators:
ED, 07/17
#here via EMS after noted pt to be in resp distress
#spouse checked pulse ox and told ems it was 70s
#for them it was 83% on RA
#she does not usually wear o2
#pt pulaced on 3L o2 and now up to 90s
H+P, 07/17
#...came into the hospital shortness of breath and hypoxia.
#...checked her pulse ox today and it was noted to be on the 70s.
#...EMS was called and her pulse ox was in the 80s and
#...she was placed on supplemental oxygen.
PN, 07/19
#Acute hypoxic respiratory failure:
#...Likely related to heart failure ; rule out pneumonia
#Respiratory: Crackles (BL lower zone crackles ) and Non Labored Respirations;
#...Negative Wheezes or Accessory Resp Muscle Use
#Transported on 3L O2 and remains on 3L O2
Recognized standard criteria for respiratory failure includes:
(Source: [employer] Hospitalist Mar 2013)
Symptoms:
�Tachypnea, SOB, dyspnea
�Pallor or cyanosis
�Anxiety or restlessness
�Use of accessory muscles
�Retractions (grunting in newborns)
�Unable to speak in complete sentences
Supplemental O2 requirement of 40% (5LPM) or more Intubation is not required
Based on the above information and the recognized standard for respiratory failure could you please verify this diagnoses is still accurate and reflective of the patient�s condition to ensure quality of the medical record.
Please clarify in the Progress Notes:
�Respiratory failure is/was present and is a clinical diagnosis based on (please include this additional support in the medical record)
�After study respiratory failure has been ruled out
�Other(please specify)
Use of terms such as suspected, likely, concern for, or probable (associated with a specific diagnosis that is being evaluated, monitored, or treated as if it exists) are acceptable and can be coded in the inpatient setting, when documented at the
time of discharge.
Thank you,
Kailee Curry RN BSN CCDS
CDI Specialist
please contact via tiger text
Please use your independent medical judgment in providing your response.
[2024-07-19 15:20] VITALS: BP 152/58
[2024-07-19 19:15] VITALS: BP 140/55
[2024-07-19] MEDS: AMBIEN 10 MG PO (21:25)
[2024-07-19] MEDS: CRESTOR 20 MG PO (21:25)
[2024-07-19] MEDS: ARICEPT 10 MG PO (21:25)
[2024-07-19 23:40] VITALS: BP 118/66
[2024-07-20] VITALS (7 sets, daily range): BP systolic 130–169; BP diastolic 45–69; PULSE 67; O2SAT 95; BMI 28.2
[2024-07-20 08:15] LABS: Hematocrit 28.4 % (37.0-47.0); Mean Corp Hgb Conc. 31.7 g/dL (33.0-37.0); Mean Corpuscular Hgb 30.4 pg (27.0-31.0); Mean Corpuscular Volume 95.9 fL (81.0-99.0); Mean Platelet Volume 10.9 fL (7.4-10.4); Platelet Count 264 10^3/uL (130-400); Red Blood Cell Count 2.96 10^6/uL (4.20-5.40); White Blood Cell Count 12.4 10^3/uL (4.8-10.8)
[2024-07-20 09:10] LABS: Blood Urea Nitrogen 34 mg/dl (7-17); Calcium 8.7 mg/dl (8.4-10.2); Carbon Dioxide 32 mmol/L (22-30); Chloride 95 mmol/L (98-107); Estimated Creatinine Clearance 34 ml/min; Glucose 124 mg/dl (70-99); Potassium 3.1 mmol/L (3.5-5.1); Sodium 138 mmol/L (135-145); eGFR 54.87
[2024-07-20] MEDS: ELIQUIS 5 MG PO ×2 (09:27→21:25)
[2024-07-20] MEDS: NORVASC 5 MG PO ×2 (09:27→21:25)
[2024-07-20] MEDS: PROTONIX IV 40 MG IV ×2 (09:27→21:26)
[2024-07-20] MEDS: VIBRAMYCIN 100 MG PO ×2 (09:27→21:25)
[2024-07-20] MEDS: ZOLOFT 100 MG PO (09:27)
[2024-07-20] MEDS: PACERONE 100 MG PO (09:27)
[2024-07-20] MEDS: NSS (PRESERVATIVE FREE) 10 ML IV ×2 (09:28→21:26)
[2024-07-20] MEDS: LASIX 40 MG IV ×2 (09:28→17:12)
[2024-07-20] MEDS: ROCEPHIN 1000 MG IV (09:28)
[2024-07-20] MEDS: STERILE WATER FOR INJECTION 10 ML IV (09:28)
[2024-07-20] MEDS: NAMENDA 10 MG PO ×2 (09:28→21:25)
--- NOTE | 2024-07-20 10:58 | CM ---
Spoke with RN who reinforced that patient is at her functional baseline. She has been transporting herself to the bathroom without assistance/minimal assistance. Watching o2 needs. RN stated that she is actively being weaned to determine if she will
need to return home with it.
Plan: Case management will continue to follow and assist with discharge planning. Home when stable. Will watch for o2 needs
--- NOTE | 2024-07-20 12:00 | CM ---
Met with patient who is agreeable to o2 if indicated upon discharge. She has been functionally at her baseline and feels that she can return right back to [facility]. Her spouse is supportive.
Plan: Case management will continue to follow and assist with discharge planning. Home. Will Watch for o2 needs.
--- NOTE | 2024-07-20 13:44 | W.PN.CARDCBS ---
Addendum entered and electronically signed by Ander Payne MD 07/20/24 17:14:
I saw and examined the patient.
The Heel Attacher's note was reviewed and I agree with the note.
Comment: Briefly, 84-year-old woman past medical history of heart failure with preserved ejection fraction who presents with hypoxia concerning for acute decompensated HF
Has received IV Lasix with some improvement in her volume status
However she is still requiring supplemental oxygen
Continue IV lasix today, hopefully can transition to oral in the next 24 to 48 hours
Wean supplemental oxygen as able - Currently being treated for pneumonia as well
Episode of AFib on tele yesterday, but been maintaining sinus rhythm today
Continue home amiodarone/Eliquis
Rest be Radha Guido
Original Note:
Today's Communication / Plan
-
continue IV lasix
wean supp O2
estrella cost of farxiga
will need OP follow up of worsening MR
Impression / Plan
-
PCP: Dr. Simmons
Cardiology: Dr. Melchor
Impression:
Admitted with SOB and hypoxia 03/29/24
Acute on chronic HFpEF
h/o left-sided pleural effusion and thoracentesis for 350 ml 02/18/24 without recurrence on CXR 03/29/24
Paroxysmal Afib
diagnosed 02/09/24
Chronic Eliquis OAC
Recent admission for new Afib 02/09/24 until 02/12/24
Recent admission for acute HF 02/16/24 until 02/19/24
Recent admission for acute HF 03/29/2024 until 03/24/2024
HTN
Dementia
Moderate MR by echo 09/04/23
Moderate TR with PAP 55-60 mmHg
Echo 09/04/23: EF 60-65%, normal wall motion, mod MR, mod TR with PAP 55-60 mmHg
Echo 02/17/24: EF 55-60%, mod MR, no or AI, mod to sev TR with PAP 50 mmHg
Echo 07/19/2024: EF 66%, mildly enlarged left atrium, moderate to severe MR, moderate to severe TR, moderate to severe pulmonary hypertension with PAP 45 to 50 mmHg
Plan:
-She reports improvement in breathing from admission.
-proBNP 7830. Remains with crackles on exam and is still on 2 L supplemental oxygen. Will continue IV Lasix and attempt to wean off oxygen today as able. Prior to admission was taking p.o. Lasix 40 mg daily, and may need higher dosing upon
discharge
-Echo with preserved EF, however noted to have slightly worsened mitral regurgitation compared to prior.
-She is not on beta-nathen due to bradycardia. She is not on LENNIE/ARB due to CKD. On Norvasc 5 mg twice daily as well as hydralazine 25 mg twice daily as needed for SBP greater than 160
-Will ask CM to check on cost of Farxiga 10 mg daily
-Patient with known paroxysmal Afib and is chronically on amiodarone. remains in SR upon review of tele overnight. QTc stable by my review of EKG 07/20.
-Outpatient dose of Eliquis 5 mg BID (age 84, Cre 1.1, wt 65.9 kg) has been resumed after being held for outpatient fall which was unfortunate because her tripped and fell into her causing her to fall.
-will arrange OP cardiac follow up. she is hopeful for DC in AM as she has her [facility] this weekend. may require OP JT to evaluate degree of MR further.
-d/w hospitalist via TT. d/w nursing. d/w patient and at bedside
PREADMIT DATA:
-Patient came to ER Friday with a low pulse ox reading at home and was admitted with acute HF. Patient was similarily admitted for acute HF from 02/16/2024 until 02/19/2024 and again 03/29/2024 until 04/01/2024. Patient was last seen in the
office on 06/09/2024 and appeared to be doing well at that time. Patient was scheduled for a PET stress test to be performed on 07/13/2024, but days before that there was an unfortunate trip and fall from her where he fell into her knocking
her down resulting in ecchymosis on the left side of her body most notably on her face. Her PET stress test had to be rescheduled again. In the interim her has continued to take care of her at home and felt as though her pulse ox was low
on Friday and brought her into the ER. The proBNP was elevated at 7830 which is on the higher side for the patient. Patient denies any CP, SOB, orthopnea or edema. Patient does not follow any type of salt or fluid restriction at home and
reports that they frequently go out for meals. Patient has not noted any significant symptom improvement since admission reporting that she did not feel bad even at the time of admission. Patient's handles her meds and the patient denies
any noticeable increase in urination following her morning pills which includes a dose of Lasix 40 mg daily.
Progress Note - Benefits Analyst
Subjective
Date of Service: July 20, 2024
reports breathing improving
Objective
Labs:
07/20/24 06:36
07/20/24 06:36
Labs
Hgb 9.0 g/dL (12.0-16.0) L 07/20/24 06:36
Hct 28.4 % (37.0-47.0) L 07/20/24 06:36
Plt Count 264 10^3/uL (130-400) 07/20/24 06:36
Sodium 138 mmol/L (135-145) 07/20/24 06:36
Potassium 3.1 mmol/L (3.5-5.1) L 07/20/24 06:36
BUN 34 mg/dl (7-17) H 07/20/24 06:36
Creatinine 1.0 mg/dL (0.6-1.0) 07/20/24 06:36
Glucose 124 mg/dl (70-99) H 07/20/24 06:36
Troponins
07/17/24 07/18/24
18:02 02:13
Troponin I 0.051 H* 0.037 H*
Vital Signs and I&O:
Vital Signs
Temp Pulse Resp BP Pulse Ox
98.1 F 64 16 130/61 95
07/20/24 11:49 07/20/24 11:49 07/20/24 11:52 07/20/24 11:49 07/20/24 11:49
Vital Signs
Temp Pulse Resp BP Pulse Ox
98.1 F 64 16 130/61 95
07/20/24 11:49 07/20/24 11:49 07/20/24 11:52 07/20/24 11:49 07/20/24 11:49
Intake & Output
07/18/24 07/19/24 07/20/24 07/21/24
07:59 07:59 07:59 07:59
Intake Total 970 / 970 960 / 960 720 / 720
Output Total 750 / 750
Balance 220 / 220 960 / 960 720 / 720
Physical Exam
Physical Exam
GEN: No distress, awake, alert, oriented x3. on supp O2. significant facial ecchymoses
HEENT: supple, anicteric, mmm, eomi
LUNGS: Crackles B/L bases, no wheezes
CV: Reg, S1/S2, 2/6 murmur
ABD: soft, BS+, NT/ND
EXT: No cyanosis, clubbing, edema
NEURO: Gross non-focal
SKIN: Warm, pink, dry. No rash
[2024-07-20] MEDS: FERRLECIT 110 MG IV (14:20)
--- NOTE | 2024-07-20 14:58 | W.PN.HOSP.TC ---
Today's Communication/Plan
-
CW IV diuresis
CW ABX
Assessment / Plan
Assessment / Plan
A/P:
Acute hypoxic respiratory failure:
Likely related to heart failure ; rule out pneumonia
Chest x-ray shows CHF with asymmetric right hemithorax interstitial/pulm edema versus right lower lobe pneumonia.
On admission patient was febrile and also had a white count. Check a procalcitonin. Looks like she has some chronicity to her leukocytosis
Diuresis
Antibiotics
Oxygen supplementation
Incentive spirometry
Increase activity
Acute on chronic diastolic congestive heart failure:
Continue IV diuretics, Lasix 40 mg IV twice daily
BNP upon admission 7830
Monitor strict I/O
Monitor daily weight
Monitor renal function and electrolytes
Reviewed latest echocardiogram on our system and EF 55 to 60% and moderate to severe tricuspid regurgitation back in March 2024
Echo noted
Fluid restriction
Salt restriction
Heart failure education
Follow up clinical response
appt cardiology input
Paroxysmal atrial fibrillation:
On antiarrhythmic, amiodarone 100 mg p.o. daily
Not on rate control due to bradycardia in the past
Cardiac monitoring-shows frequent spontaneous conversion to sinus rhythm with postconversion pause.
cw Eliquis. CT of the abdomen pelvis shows no evidence of hematoma.
Elevated troponin:
Likely nonischemic myocardial injury from heart failure
Chest pain-free
Troponin trended down so no need to check anymore unless clinical status changes.
Seen and reviewed twelve-lead EKG sinus rhythm at 71 bpm, QTc 471, no ischemic changes.
Cardiac monitoring
Possible community-acquired pneumonia:
Continue IV Rocephin and given azithromycin but switched to doxycycline given minor prolonged QTc and being on amiodarone as well.
Check sputum culture when available
Trend WBC (currently 13.5 with left shift)-improving;seems to have chronicity to it
Neg blood cultures
Acute blood loss anemia:
Likely related to hematomas from recent fall
Current hemoglobin 7.7 (last hemoglobin on 2023 was 11.5)--> hemoglobin 9.8 today after transfusion
GI bleed less likely
Blood transfusion today-obtained consent in the ED
Anemia workup mixed pattern iron deficiency, acute blood loss, anemia of chronic disease. Normal B12 and folate
CT of the abdomen and pelvis no acute intra-abdominal pathology or hemorrhage
Okay to restart anticoagulation tomorrow if hemoglobin remains stable
Recent fall:
PT eval
Hypertension:
Restart amlodipine and will reevaluate if continue or adjust to a different antihypertensive.
On IV Lasix
IV hydralazine as needed
Hyperlipidemia:
Resume statins
Dementia:
Monitor status and behavioral changes
Resume Namenda and Aricept
DVT prophylaxis:
SCDs
No pharmacological prophylaxis due to anemia but if hemoglobin remains stable can start Eliquis over the next 24 hours
CODE STATUS:
Full code
Anticipated Discharge: 24 - 48 hours
Subjective/Interval History
-
Date of Service: July 20, 2024
Denies shortness of breath at rest but still requiring oxygen. Oxygen levels are in high 80s without O2.
Denies any chest pain.
No nausea vomiting.
Objective Data
-
Labs:
Laboratory Results
07/20/24
06:36
WBC 12.4 H
Hgb 9.0 L
Hct 28.4 L
Plt Count 264
Sodium 138
Potassium 3.1 L
Chloride 95 L
Carbon Dioxide 32 H
BUN 34 H
Creatinine 1.0
Glucose 124 H
Calcium 8.7
Vital Signs:
Vital Signs
Temp Pulse Resp BP Pulse Ox
98.1 F 64 16 130/61 95
07/20/24 11:49 07/20/24 11:49 07/20/24 11:52 07/20/24 11:49 07/20/24 11:49
I&O
07/19/24 07/20/24 07/21/24
06:59 06:59 06:59
Intake Total 960 / 960 720 / 720
Balance 960 / 960 720 / 720
Physical Exam
-
General: No Apparent Distress
Respiratory: Crackles (bl basilar crackles) and Non Labored Respirations; Negative Wheezes or Accessory Resp Muscle Use
Cardiac: Regular Rhythm and S1/S2
GI: Soft
Neuro: AO x 3
Psych: Calm
Data Reviewed
-
Labs: Labs Reviewed by me
[2024-07-20 16:44] LABS: Procalcitonin 0.13 ng/ml (0.0-0.25)
[2024-07-20] MEDS: CRESTOR 20 MG PO (21:25)
[2024-07-20] MEDS: ARICEPT 10 MG PO (21:25)
[2024-07-20] MEDS: AMBIEN 10 MG PO (22:40)
[2024-07-21 03:10] VITALS: BP 118/47
--- NOTE | 2024-07-21 05:46 | DOWNTIME ---
There was a [employer] Downtime on 07/21/2024 from 0100 to 07/22/2023 at 0420 . Downtime documentation of patient's care, including medication administrations, has been reconciled in the electronic record per guidelines. Refer to the
patient's paper chart under the miscellaneous tab to see printed paper medication records and downtime forms.
[2024-07-21 06:00] VITALS: BMI 27.8
[2024-07-21 07:34] VITALS: BP 133/56
[2024-07-21] MEDS: NORVASC 5 MG PO ×2 (07:48→20:17)
[2024-07-21] MEDS: PROTONIX IV 40 MG IV ×2 (07:49→20:18)
[2024-07-21] MEDS: ELIQUIS 5 MG PO ×2 (07:49→20:18)
[2024-07-21] MEDS: VIBRAMYCIN 100 MG PO ×2 (07:49→20:18)
[2024-07-21] MEDS: ZOLOFT 100 MG PO (07:49)
[2024-07-21] MEDS: PACERONE 100 MG PO (07:49)
[2024-07-21] MEDS: NSS (PRESERVATIVE FREE) 10 ML IV ×2 (07:50→20:18)
[2024-07-21] MEDS: LASIX 40 MG IV (07:50)
[2024-07-21] MEDS: NAMENDA 10 MG PO ×2 (07:51→20:18)
[2024-07-21 08:21] LABS: Hematocrit 31.3 % (37.0-47.0); Hemoglobin 9.7 g/dL (12.0-16.0); Mean Corpuscular Hgb 30.4 pg (27.0-31.0); Mean Corpuscular Volume 98.1 fL (81.0-99.0); Mean Platelet Volume 10.9 fL (7.4-10.4); Platelet Count 286 10^3/uL (130-400); Red Blood Cell Count 3.19 10^6/uL (4.20-5.40); Red Cell Dist. Width 16.8 % (11.5-14.5); White Blood Cell Count 11.9 10^3/uL (4.8-10.8)
--- NOTE | 2024-07-21 08:26 | W.PN.CARDCBS ---
Addendum entered and electronically signed by Ander Payne MD 07/21/24 10:39:
I saw and examined the patient.
The Fishing Rod Mechanic's note was reviewed and I agree with the note.
Comment: Briefly, 84-year-old woman past medical history of heart failure with preserved ejection fraction who presents with hypoxia concerning for acute decompensated HF
Has received IV Lasix with improvement in her volume status
However she is still requiring supplemental oxygen
Currently being treated for pneumonia as well; difficult to assess what component of her hypoxia is related to CHF versus PNA
Based on physical exam as well as trend of her weights and creatinine would recommend transitioning to oral Lasix today
We will plan to discharge on Lasix 40 mg p.o. twice daily
Tentative plan for BMP as an outpatient
Stable cardiac status, we will sign off, please recall as needed
Outpatient follow-up has been arranged
Original Note:
Today's Communication / Plan
-
transition to po lasix 40mg BID
replete K
BMP in 1 week
PT eval
wean supp O2
for possible DC later today. OP cardiac follow up arranged
Impression / Plan
-
PCP: Dr. Simmons
Cardiology: Dr. Melchor
Impression:
Admitted with SOB and hypoxia 03/29/24
Acute on chronic HFpEF
h/o left-sided pleural effusion and thoracentesis for 350 ml 02/18/24 without recurrence on CXR 03/29/24
Paroxysmal Afib
diagnosed 02/09/24
Chronic Eliquis OAC
Recent admission for new Afib 02/09/24 until 02/12/24
Recent admission for acute HF 02/16/24 until 02/19/24
Recent admission for acute HF 03/29/2024 until 03/24/2024
HTN
Dementia
Moderate MR by echo 09/04/23
Moderate TR with PAP 55-60 mmHg
Echo 09/04/23: EF 60-65%, normal wall motion, mod MR, mod TR with PAP 55-60 mmHg
Echo 02/17/24: EF 55-60%, mod MR, no or AI, mod to sev TR with PAP 50 mmHg
Echo 07/19/2024: EF 66%, mildly enlarged left atrium, moderate to severe MR, moderate to severe TR, moderate to severe pulmonary hypertension with PAP 45 to 50 mmHg
Plan:
-breathing continues to improve, however reports some weakness this morning. PT eval
-weight down additional 2 pounds overnight if accurate. plan to transition to po lasix 40mg BID today, was on po lasix 40mg daily prior to admission. Cr stable at 1.1
-replete K
-d/w nursing, wean off supp O2 as able. assess for home O2 if needed.
-BMP in 1 week upon DC
-Echo with preserved EF, however noted to have slightly worsened mitral regurgitation compared to prior.
-She is not on beta-nathen due to bradycardia. She is not on LENNIE/ARB due to CKD. On Norvasc 5 mg twice daily as well as hydralazine 25 mg twice daily as needed for SBP greater than 160
-awaiting cost of Farxiga 10 mg daily from
-Patient with known paroxysmal Afib and is chronically on amiodarone 100mg daily. remains in SR upon review of tele overnight.
-Outpatient dose of Eliquis 5 mg BID (age 84, Cre 1.1, wt 65.9 kg) has been resumed after being held for outpatient fall which was unfortunate because her tripped and fell into her causing her to fall.
-OP cardiac follow up arranged.
-may require OP JT to evaluate degree of MR further.
-for possible DC later today
PREADMIT DATA:
-Patient came to ER Friday with a low pulse ox reading at home and was admitted with acute HF. Patient was similarily admitted for acute HF from 02/16/2024 until 02/19/2024 and again 03/29/2024 until 04/01/2024. Patient was last seen in the
office on 06/09/2024 and appeared to be doing well at that time. Patient was scheduled for a PET stress test to be performed on 07/13/2024, but days before that there was an unfortunate trip and fall from her where he fell into her knocking
her down resulting in ecchymosis on the left side of her body most notably on her face. Her PET stress test had to be rescheduled again. In the interim her has continued to take care of her at home and felt as though her pulse ox was low
on Friday and brought her into the ER. The proBNP was elevated at 7830 which is on the higher side for the patient. Patient denies any CP, SOB, orthopnea or edema. Patient does not follow any type of salt or fluid restriction at home and
reports that they frequently go out for meals. Patient has not noted any significant symptom improvement since admission reporting that she did not feel bad even at the time of admission. Patient's handles her meds and the patient denies
any noticeable increase in urination following her morning pills which includes a dose of Lasix 40 mg daily.
Progress Note - Manager Quality
Subjective
Date of Service: July 21, 2024
reports some weakness this AM. reports SOB improving
Objective
Labs:
07/21/24 07:20
Labs
Hgb 9.7 g/dL (12.0-16.0) L 07/21/24 07:20
Hct 31.3 % (37.0-47.0) L 07/21/24 07:20
Plt Count 286 10^3/uL (130-400) 07/21/24 07:20
Sodium 138 mmol/L (135-145) 07/20/24 06:36
Potassium 3.1 mmol/L (3.5-5.1) L 07/20/24 06:36
BUN 34 mg/dl (7-17) H 07/20/24 06:36
Creatinine 1.0 mg/dL (0.6-1.0) 07/20/24 06:36
Glucose 124 mg/dl (70-99) H 07/20/24 06:36
Vital Signs and I&O:
Vital Signs
Temp Pulse Resp BP Pulse Ox
98.7 F 60 18 133/56 96
07/21/24 07:34 07/21/24 07:48 07/21/24 07:34 07/21/24 07:48 07/21/24 07:34
Vital Signs
Temp Pulse Resp BP Pulse Ox
98.7 F 60 18 133/56 96
07/21/24 07:34 07/21/24 07:48 07/21/24 07:34 07/21/24 07:48 07/21/24 07:34
Intake & Output
07/19/24 07/20/24 07/21/24 07/22/24
07:59 07:59 07:59 07:59
Intake Total 960 / 960 720 / 720 240 / 240
Balance 960 / 960 720 / 720 240 / 240
Physical Exam
Physical Exam
GEN: No distress, awake, alert, oriented x3. on supp O2. significant facial ecchymoses
HEENT: supple, anicteric, mmm, eomi
LUNGS: Few crackles RLB, no wheezes
CV: Reg, S1/S2, 2/6 murmur
ABD: soft, BS+, NT/ND
EXT: No cyanosis, clubbing, edema
NEURO: Gross non-focal
SKIN: Warm, pink, dry. No rash
[2024-07-21 08:50] LABS: Blood Urea Nitrogen 35 mg/dl (7-17); Calcium 9.1 mg/dl (8.4-10.2); Carbon Dioxide 37 mmol/L (22-30); Chloride 95 mmol/L (98-107); Estimated Creatinine Clearance 31 ml/min; Glucose 119 mg/dl (70-99); Potassium 3.1 mmol/L (3.5-5.1); Sodium 140 mmol/L (135-145); eGFR 48.94
--- NOTE | 2024-07-21 09:20 | CM ---
Addendum entered by JERRICA Espitia 07/21/24 09:27:
Spoke with patient's RN who stated that patient's goal is to wean off of o2 prior to discharge.
Original Note:
Received consult for cost of Farxiga 10 mg daily. Spoke with a pharmacy intake coordinator named, Chepe who priced out the following
90 days: 408.86, 30 day cost 144.76
Will update MD and patient.
[2024-07-21] MEDS: ROCEPHIN 1000 MG IV (09:50)
[2024-07-21] MEDS: KCL 40 MEQ PO ×2 (09:50→14:54)
[2024-07-21] MEDS: STERILE WATER FOR INJECTION 10 ML IV (09:51)
[2024-07-21 11:17] VITALS: BP 124/50
[2024-07-21] MEDS: FERRLECIT 110 MG IV (14:23)
--- NOTE | 2024-07-21 14:36 | W.PN.HOSP.TC ---
Addendum entered and electronically signed by Kendell Wan MD 07/21/24 15:45:
After study acute respiratory failure has been ruled out
Yes, Acute Blood Loss and Hematomas are enhanced by/associated with/due to Eliquis
Original Note:
Today's Communication/Plan
-
Repeat CXR
Home o2 eval
DC planning
Assessment / Plan
Assessment / Plan
A/P:
Acute hypoxic respiratory failure:
Likely related to heart failure ; rule out pneumonia
Chest x-ray shows CHF with asymmetric right hemithorax interstitial/pulm edema versus right lower lobe pneumonia.
On admission patient was febrile and also had a white count. procalcitonin is normal. Looks like she has some chronicity to her leukocytosis.Will repeat CXR and if Rt lung opacity cleared i would dc abx
cw Diuresis
cw Antibiotics
cw Oxygen supplementation- Home O2 eval
Incentive spirometry
Increase activity
Acute on chronic diastolic congestive heart failure:
Continue IV diuretics, Lasix 40 mg IV twice daily
BNP upon admission 7830
Monitor strict I/O
Monitor daily weight
Monitor renal function and electrolytes
Reviewed latest echocardiogram on our system and EF 55 to 60% and moderate to severe tricuspid regurgitation back in March 2024
Echo noted
Fluid restriction
Salt restriction
Heart failure education
Follow up clinical response
appt cardiology input - rec to switch to oral lasix today
Hypokalemia - replete
Paroxysmal atrial fibrillation:
On antiarrhythmic, amiodarone 100 mg p.o. daily
Not on rate control due to bradycardia in the past
Cardiac monitoring-shows frequent spontaneous conversion to sinus rhythm with postconversion pause.
cw Eliquis. CT of the abdomen pelvis shows no evidence of hematoma.
Elevated troponin:
Likely nonischemic myocardial injury from heart failure
Chest pain-free
Troponin trended down so no need to check anymore unless clinical status changes.
Seen and reviewed twelve-lead EKG sinus rhythm at 71 bpm, QTc 471, no ischemic changes.
Cardiac monitoring
Possible community-acquired pneumonia:
Continue IV Rocephin and given azithromycin but switched to doxycycline given minor prolonged QTc and being on amiodarone as well.
Check sputum culture when available
Trend WBC (currently 13.5 with left shift)-improving;seems to have chronicity to it
Neg blood cultures
See above -repeat CXR
Acute blood loss anemia:
Likely related to hematomas from recent fall
Current hemoglobin 7.7 (last hemoglobin on 2023 was 11.5)--> hemoglobin 9.8 today after transfusion
GI bleed less likely
Blood transfusion today-obtained consent in the ED
Anemia workup mixed pattern iron deficiency, acute blood loss, anemia of chronic disease. Normal B12 and folate
CT of the abdomen and pelvis no acute intra-abdominal pathology or hemorrhage
Back on anticoagulation
Recent fall:
PT eval
Hypertension:
cw current tx
Under goal
Hyperlipidemia:
Resume statins
Dementia:
Monitor status and behavioral changes
Resume Namenda and Aricept
DVT prophylaxis:
SCDs
No pharmacological prophylaxis due to anemia but if hemoglobin remains stable can start Eliquis over the next 24 hours
CODE STATUS:
Full code
Anticipated Discharge: Within 24 hours
Subjective/Interval History
-
Date of Service: July 21, 2024
Feels improved
Denies SOB
Still on O2 . No home O2 at home per at bedside
Denies SOB
Objective Data
-
Labs:
Laboratory Results
07/21/24
07:20
WBC 11.9 H
Hgb 9.7 L
Hct 31.3 L
Plt Count 286
Sodium 140
Potassium 3.1 L
Chloride 95 L
Carbon Dioxide 37 H
BUN 35 H
Creatinine 1.1 H
Glucose 119 H
Calcium 9.1
Vital Signs:
Vital Signs
Temp Pulse Resp BP Pulse Ox
98.7 F 68 16 124/50 97
07/21/24 11:17 07/21/24 11:17 07/21/24 11:17 07/21/24 11:17 07/21/24 11:17
I&O
07/20/24 07/21/24 07/22/24
06:59 06:59 06:59
Intake Total 720 / 720 240 / 240
Balance 720 / 720 240 / 240
Review of Systems
-
Constitutional: Denies Fever
Abdomen/GI: Denies Abdominal Pain, Nausea or Vomiting
Neuro: Denies Dizzy
Physical Exam
-
General: Comfortable
Respiratory: Non Labored Respirations; Negative Crackles (today ) or Accessory Resp Muscle Use
Cardiac: Regular Rhythm and S1/S2; Negative Tachycardic
GI: Soft
Neuro: AO x 3
Psych: Calm
Data Reviewed
-
Labs: Labs Reviewed by me
[2024-07-21 15:14] VITALS: BP 134/53
[2024-07-21] MEDS: LASIX 40 MG PO (16:34)
--- NOTE | 2024-07-21 17:33 | PTCARENOTE ---
Patient attempted to wean off of O2 this shift. Patient 96% on 2L NS at rest. When trialed down to 1 L, after about 5 minutes she was at 89%-90%, slight SOB noted. Patient was then moved back up to 2 L, with 94% saturation and increased comfort.
[2024-07-21 19:23] VITALS: BP 145/51
[2024-07-21] MEDS: ZOFRAN 4 MG IV (21:13)
[2024-07-21] MEDS: ARICEPT 10 MG PO (21:54)
[2024-07-21] MEDS: CRESTOR 20 MG PO (21:54)
[2024-07-21] MEDS: AMBIEN 10 MG PO (21:54)
[2024-07-21 23:36] VITALS: BP 145/57
[2024-07-22 03:12] VITALS: BP 135/62
[2024-07-22 06:20] VITALS: BMI 27.4
[2024-07-22 07:05] VITALS: BP 146/61
[2024-07-22] MEDS: ELIQUIS 5 MG PO ×2 (08:00→20:09)
[2024-07-22] MEDS: VIBRAMYCIN 100 MG PO ×2 (08:23→20:09)
[2024-07-22] MEDS: LASIX 40 MG PO ×2 (08:23→15:23)
[2024-07-22] MEDS: PACERONE 100 MG PO (08:23)
[2024-07-22] MEDS: NORVASC 5 MG PO ×2 (08:24→20:09)
[2024-07-22] MEDS: NAMENDA 10 MG PO ×2 (08:24→20:09)
[2024-07-22] MEDS: ZOLOFT 100 MG PO (08:24)
[2024-07-22] MEDS: NSS (PRESERVATIVE FREE) 10 ML IV ×2 (08:26→20:09)
[2024-07-22] MEDS: PROTONIX IV 40 MG IV ×2 (08:28→20:10)
[2024-07-22] MEDS: ROCEPHIN 1000 MG IV (08:29)
[2024-07-22] MEDS: STERILE WATER FOR INJECTION 10 ML IV (08:29)
[2024-07-22 08:46] LABS: Hematocrit 28.8 % (37.0-47.0); Hemoglobin 9.3 g/dL (12.0-16.0); Mean Corp Hgb Conc. 32.3 g/dL (33.0-37.0); Mean Corpuscular Hgb 30.9 pg (27.0-31.0); Mean Corpuscular Volume 95.7 fL (81.0-99.0); Mean Platelet Volume 10.9 fL (7.4-10.4); Platelet Count 304 10^3/uL (130-400); Red Blood Cell Count 3.01 10^6/uL (4.20-5.40); Red Cell Dist. Width 16.7 % (11.5-14.5)
[2024-07-22 09:44] LABS: Blood Urea Nitrogen 42 mg/dl (7-17); Calcium 9.1 mg/dl (8.4-10.2); Carbon Dioxide 33 mmol/L (22-30); Chloride 96 mmol/L (98-107); Estimated Creatinine Clearance 26 ml/min; Glucose 101 mg/dl (70-99); Potassium 4.1 mmol/L (3.5-5.1); Sodium 139 mmol/L (135-145); eGFR 40.05
--- NOTE | 2024-07-22 10:35 | W.PN.HOSP.TC ---
Today's Communication/Plan
-
Continue diuresis. Follow creatinine
Continue with antibiotics
Consult pulmonary
Assessment / Plan
Assessment / Plan
A/P:
Acute hypoxic respiratory failure:
Likely related to heart failure ; Cant rule out pneumonia
Chest x-ray shows CHF with asymmetric right hemithorax interstitial/pulm edema versus right lower lobe pneumonia.
On admission patient was febrile and also had a white count. procalcitonin is normal. Looks like she has some chronicity to her leukocytosis.Repeat CXR shows still right lower zone opacity as well as left lower lobe. No comment about interstitial
edema.
cw Diuresis-switch to oral
cw Antibiotics
O2 eval indicates need of oxygen on discharge and antibiotics tx Consult pulmonary for further evaluation
Acute on chronic diastolic congestive heart failure:
Continue IV diuretics, Lasix 40 mg IV twice daily
BNP upon admission 7830
Monitor strict I/O
Monitor daily weight
Monitor renal function and electrolytes
Reviewed latest echocardiogram on our system and EF 55 to 60% and moderate to severe tricuspid regurgitation back in March 2024
Echo noted
Fluid restriction
Salt restriction
Heart failure education
Follow up clinical response
appt cardiology input - switched to oral lasix 07/21
Paroxysmal atrial fibrillation:
On antiarrhythmic, amiodarone 100 mg p.o. daily
Not on rate control due to bradycardia in the past
Cardiac monitoring-shows frequent spontaneous conversion to sinus rhythm with postconversion pause.
cw Eliquis. CT of the abdomen pelvis shows no evidence of hematoma.
Elevated troponin:
Likely nonischemic myocardial injury from heart failure
Chest pain-free
Troponin trended down so no need to check anymore unless clinical status changes.
Seen and reviewed twelve-lead EKG sinus rhythm at 71 bpm, QTc 471, no ischemic changes.
Cardiac monitoring
Possible community-acquired pneumonia:
Continue IV Rocephin and given azithromycin but switched to doxycycline given minor prolonged QTc and being on amiodarone as well.
Check sputum culture when available
Trend WBC (currently 13.5 with left shift)-improving;seems to have chronicity to it
Neg blood cultures
See above
Acute blood loss anemia:
Likely related to hematomas from recent fall
Current hemoglobin 7.7 (last hemoglobin on 2023 was 11.5)--> hemoglobin 9.8 today after transfusion
GI bleed less likely
Blood transfusion today-obtained consent in the ED
Anemia workup mixed pattern iron deficiency, acute blood loss, anemia of chronic disease. Normal B12 and folate
CT of the abdomen and pelvis no acute intra-abdominal pathology or hemorrhage
Back on anticoagulation
Recent fall:
PT eval
Hypertension:
cw current tx
Under goal
Hyperlipidemia:
Resume statins
Dementia:
Monitor status and behavioral changes
Resume Namenda and Aricept
DVT prophylaxis:
SCDs
No pharmacological prophylaxis due to anemia but if hemoglobin remains stable can start Eliquis over the next 24 hours
CODE STATUS:
Full code
Hold on DC
Pulm eval
Total time spent on today's encounter was 52 minutes which included time spent in counseling the patient/family regarding diagnosis and treatment plan as listed above, goals of care, and symptom management. Case was discussed with nursing staff,
specialists, and care coordinators/case management. All labs and imaging personally reviewed by me. Remainder the time spent in detailed review of previous records, lab data, imaging, and other medical provider documentation.
Anticipated Discharge: 24 - 48 hours
Subjective/Interval History
-
Date of Service: July 22, 2024
1 signal specific complaints. Denies shortness of breath or cough. No chest pain.
Her oxygen was off of her face and when pulse ox was checked it was in high 70s.
Denies dizziness. No nausea vomiting.
Objective Data
-
Labs:
Laboratory Results
07/22/24
07:14
WBC 12.0 H
Hgb 9.3 L
Hct 28.8 L
Plt Count 304
Sodium 139
Potassium 4.1 D
Chloride 96 L
Carbon Dioxide 33 H
BUN 42 H
Creatinine 1.3 H
Glucose 101 H
Calcium 9.1
Vital Signs:
Vital Signs
Temp Pulse Resp BP Pulse Ox
98.4 F 69 19 146/61 96
07/22/24 07:05 07/22/24 08:23 07/22/24 07:05 07/22/24 08:23 07/22/24 09:39
I&O
07/21/24 07/22/24 07/23/24
06:59 06:59 06:59
Intake Total 240 / 240 180 / 180
Balance 240 / 240 180 / 180
Physical Exam
-
General: No Apparent Distress
HEENT: Moist Mucous Membranes
Respiratory: Crackles (Coarse crackles right lower zone) and Non Labored Respirations; Negative Wheezes or Accessory Resp Muscle Use
Cardiac: Regular Rhythm and S1/S2
GI: Soft
Neuro: AO x 3
Psych: Calm
Data Reviewed
-
Diagnostic Radiology: Report Reviewed by me (Chest x-ray from yesterday)
[2024-07-22] MEDS: FERRLECIT 110 MG IV (13:33)
--- NOTE | 2024-07-22 14:40 | CON.PUL ---
Consultation
Consultation Request
Date/Time Consultation Requested: 07/22
Date/Time Consultation Performed: 07/22
Reason for Consultation: Abnormal imaging
Medical History
-
History of Present Illness:
History obtained from the patient and reviewing inpatient records. Patient is an 84-year-old female with history of atrial fibrillation, heart failure, dementia. Patient is not a very good historian. Per records, she apparently fell on Friday
prior to admission. She was noted to have saturation of 70s, EMS was called, brought to [facility]. She is on chronic anticoagulation. She was noted to have a hemoglobin of 7.7, baseline 11.5. Chest x-ray suggested heart failure versus
interstitial changes. She was admitted for IV antibiotics and IV Lasix. Hospital stay reviewed. We are asked to comment on persistent oxygen requirement. Presently she is denying any shortness of breath, chest pain, cough, hemoptysis, abdominal
pain, nausea. She is complaining of left leg pain and points to her knee and her left holley. She has a large bruise on her left side of her face with swelling but denies any headaches, neck pain.
History also obtained from the by phone. Patient apparently went to her granddaughter's basketball game. She was short of breath. She was noted to be 88% per pulse oximeter. That night she went to sleep, but the following morning it was
in the 70s and for that reason she was brought to [facility]. Of note patient also fallen at the prior basketball game. tripped on his drop foot and fell into his life and then his fell forward and landed on her left side.
At baseline, patient is ambulatory without difficulty,there is no history of aspiration, coughing up blood
.
PMH: Hypertension, hyperlipidemia, atrial fibrillation, history of heart failure, history of anemia, history of dementia. History of Mohs surgery
Past Medical History
Past Medical History: None (See above)
Past Surgical History: None (See above)
Social History
Tobacco: Former Smoker (Patient states she quit in , likely 20+ pack year history of smoking)
Alcohol: Occasional
Drug: None
Personal:
Living: With Family
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
Allergies / Home Medications
Allergies
Allergy/AdvReac Type Severity Reaction Status Date / Time
No Known Allergies Allergy Verified 07/17/24 10:38
Home Medications
�Medication �Instructions �Recorded �Confirmed �Last Taken �Type
memantine 10 mg tablet 10 mg PO BID memory 07/07/21 07/17/24 03/29/24 History
donepezil 23 mg tablet 23 mg PO HS memory 07/09/21 07/17/24 03/28/24 History
ferrous sulfate 325 mg (65 mg 325 mg PO MOWEFR@0800 Supplement 09/02/23 07/17/24 03/29/24 History
iron) tablet (iron)
pantoprazole 40 mg tablet,delayed 40 mg PO DAILY Gastrointestinal 09/02/23 07/17/24 03/29/24 History
release Issue
riboflavin (vitamin B2) 100 mg 100 mg PO DAILY Supplement ##0 09/02/23 07/17/24 03/29/24 History
tablet
rosuvastatin 20 mg tablet 20 mg PO HS High Cholesterol 09/02/23 07/17/24 03/28/24 History
sertraline 100 mg tablet 100 mg PO DAILY Depression 09/02/23 07/17/24 03/29/24 History
cyanocobalamin (vitamin B-12) 1,000 mcg PO DAILY Supplement #30 09/11/23 07/17/24 03/29/24 Rx
1,000 mcg tablet tabs
acetaminophen 500 mg tablet 1,000 mg PO Q6HPRN PRN MILD PAIN 02/09/24 07/17/24 Unknown History
(Tylenol Extra Strength)
zolpidem 5 mg tablet (Ambien) 10 mg PO HS Sleep 02/09/24 07/17/24 03/28/24 History
apixaban 5 mg tablet (Eliquis) 5 mg PO BID #60 tabs 02/12/24 07/17/24 07/11/24 Rx
amiodarone 100 mg tablet 100 mg PO DAILY #30 tabs 04/01/24 07/17/24 Unknown Rx
furosemide 40 mg tablet (Lasix) 40 mg PO DAILY #30 tabs 04/01/24 07/17/24 Unknown Rx
[place] 1 tab PO DAILYPRN PRN bruise 07/17/24 07/17/24 Unknown History
amlodipine 5 mg tablet 5 mg PO BID 07/17/24 07/17/24 Unknown History
hydralazine 25 mg tablet 25 mg PO BIDPRN PRN SBP>160 07/17/24 07/17/24 Unknown History
ondansetron 4 mg disintegrating 4 mg PO Q8HPRN PRN nausea and 07/17/24 07/17/24 Unknown History
tablet vomiting
potassium chloride 20 mEq 20 meq PO DAILY 07/17/24 07/17/24 Unknown History
tablet,extended release(part/cryst)
Review of Systems
-
All other systems: Negative unless noted
Vitals / Labs / Diagnostic Testing
Vital Signs
Temp Pulse Resp BP Pulse Ox
98.4 F 69 19 146/61 96
07/22/24 07:05 07/22/24 08:23 07/22/24 07:05 07/22/24 08:23 07/22/24 09:39
Lab Data
07/22/24 07:14
07/22/24 07:14
Microbiology
07/17/24 11:13 Blood/Venous Blood Culture - Final
No Growth - Final Report
07/17/24 10:24 Blood/Venous Blood Culture - Final
No Growth - Final Report
Diagnostic Testing:
Physical Exam
-
HEENT: Normocephalic and Anicteric
Cardiovascular: S1/S2, Irregular Rhythm, Murmur (n), Rub (n) and Peripheral Edema (tr)
Respiratory: Wheeze (n), Rales (Few at base), Rhonchi (n), Non-Labored Respirations and Other (Slight decreased right base, no dullness to percussion, no egophony)
GI: Soft, Non Distended and Non Tender
Neurology: Awake, Alert, Oriented and No Motor Deficits (Able to sit up without assistance)
Skin: Other (Bruising involving left side of her face, scalp lesion with swelling, mild bruise left lower extremity)
General: Comfortable
Assessment
-
84-year-old female admitted 07/17/24 for hypoxic respiratory insufficiency, noted to be saturating in the 70s at home. Initial workup revealed possible heart failure with normal EF. Patient was seen by cardiology, wilbert. However persistent
oxygen requirement noted. We are asked to comment on pulmonary process
Acute hypoxic respiratory sufficiency, 78% at home on room air
Admitted 07/17/24
Suspected bibasilar pneumonia, right greater than left
Per abdominal CT 07/17/24
Normal biventricular function
Severe MR, TR, PA pressure 50
Leukocytosis
Anemia
Admission hemoglobin 7.7, status post transfusion
Baseline 11.5
Acute renal insufficiency, currently 1.3
Baseline 1.0
Mildly elevated troponin
Status post fall with left facial trauma
Recent left lower extremity holley injury, ED visit 07/04/24
Conditions present prior to admission
Atrial fibrillation on amiodarone therapy
Hypertension/hyperlipidemia
History of dementia
Plan/recommendations
At this time, patient appears to be comfortable, nontoxic, without any ongoing complaints. However hypoxia is noted
Presently she is 96% on 2 L
however, she desaturates to 80% on room air requiring 3 L with ambulation as of 07/21
Chest x-ray suggests bilateral interstitial infiltrates
Abdominal CT chest confirmed bibasilar pneumonia, right greater than left. Differential also includes inflammatory process, aspiration event, less likely heart failure
Echocardiogram with valvular disease, pulmonary hypertension
It is also noted the patient was transfused 1 unit, 07/17/24
Amiodarone therapy as noted
There are no recent films for comparison
Moving forward, differential is broad for her parenchymal findings
According to , patient was without symptoms prior to basketball game on 07/16
Differential is broad (aspiration event, the acquired pneumonia, lung injury, or edema, drug injury, TRALI). Less likely transfusion related given that abdominal CT imaging showed interstitial process prior to transfusion
Repeat ambulatory saturation on room air 07/23
Chest x-ray 07/23
Although pro-calcitonin is normal, continue with treatment for empiric pneumonia, required. Continue with ceftriaxone/doxycycline
Recent left leg injury noted. Thromboembolic process less likely given chronic Eliquis therapy
Diagnosis of exclusion would be amiodarone related interstitial process
is adamant about patient being discharged Friday morning [facility] to [facility]
Discussed importance of continued treatment given age and risk for progressive lung injury process, respiratory failure
Will await repeat Ambulatory saturation, chest x-ray in a.m. and reassess
Legionella and streptococcal pneumonia antigen were not sent
We will order this
All questions answered
Will follow
[2024-07-22 15:05] VITALS: BP 131/48
--- NOTE | 2024-07-22 16:43 | CM ---
Spoke with RN who stated that patient has not yet been able to successfully wean off of the o2. She may need it at home. Patient's spouse stated that she was on it before, and is familiar with the process of getting it. Will review vitals and resp
test if available.
Plan: Case management will continue to follow and assist with discharge planning. Home, will need to watch for o2 needs.
[2024-07-22] MEDS: CRESTOR 20 MG PO (22:01)
[2024-07-22] MEDS: ARICEPT 10 MG PO (22:01)
[2024-07-22 23:00] VITALS: BP 137/53
[2024-07-22] MEDS: AMBIEN 10 MG PO (23:22)
[2024-07-23 06:00] VITALS: BMI 27.8
[2024-07-23 07:05] VITALS: BP 166/73
[2024-07-23 07:24] LABS: Hematocrit 31.5 % (37.0-47.0); Hemoglobin 10.3 g/dL (12.0-16.0); Mean Corp Hgb Conc. 32.7 g/dL (33.0-37.0); Mean Corpuscular Hgb 31.3 pg (27.0-31.0); Mean Corpuscular Volume 95.7 fL (81.0-99.0); Mean Platelet Volume 10.2 fL (7.4-10.4); Platelet Count 314 10^3/uL (130-400); Red Blood Cell Count 3.29 10^6/uL (4.20-5.40); Red Cell Dist. Width 16.2 % (11.5-14.5)
[2024-07-23 08:28] LABS: Blood Urea Nitrogen 43 mg/dl (7-17); Calcium 9.8 mg/dl (8.4-10.2); Carbon Dioxide 33 mmol/L (22-30); Chloride 95 mmol/L (98-107); Estimated Creatinine Clearance 28 ml/min; Glucose 125 mg/dl (70-99); Sodium 139 mmol/L (135-145); eGFR 44.08
[2024-07-23] MEDS: NORVASC 5 MG PO ×2 (08:42→21:56)
[2024-07-23] MEDS: LASIX 40 MG PO ×2 (08:42→15:33)
[2024-07-23] MEDS: ZOLOFT 100 MG PO (08:43)
[2024-07-23] MEDS: STERILE WATER FOR INJECTION 10 ML IV (08:43)
[2024-07-23] MEDS: PACERONE 100 MG PO (08:43)
[2024-07-23] MEDS: VIBRAMYCIN 100 MG PO ×2 (08:43→21:56)
[2024-07-23] MEDS: ELIQUIS 5 MG PO ×2 (08:43→21:56)
[2024-07-23] MEDS: NAMENDA 10 MG PO ×2 (08:44→21:56)
--- NOTE | 2024-07-23 08:44 | W.PN.PUL3 ---
Today's Communication / Plan
-
Obtain CT chest, high-resolution images, no contrast
Continue antibiotics
May need to consider holding amiodarone, although exertional hypoxia appears to be improved today
I also need to consider short course of steroids
Check Legionella and streptococcal antigen
Assessment
-
84-year-old female admitted 07/17/24 for hypoxic respiratory insufficiency, noted to be saturating in the 70s at home. Initial workup revealed possible heart failure with normal EF. Patient was seen by cardiology, wilbert. However persistent
oxygen requirement noted. We are asked to comment on pulmonary process
Acute hypoxic respiratory sufficiency, 78% at home on room air
Admitted 07/17/24
Suspected bibasilar pneumonia, right greater than left
Per abdominal CT 07/17/24
Normal biventricular function
Severe MR, TR, PA pressure 50
Leukocytosis
Anemia
Admission hemoglobin 7.7, status post transfusion
Baseline 11.5
Acute renal insufficiency, currently 1.3
Baseline 1.0
Mildly elevated troponin
Status post fall with left facial trauma
Recent left lower extremity holley injury, ED visit 07/04/24
Conditions present prior to admission
Atrial fibrillation on amiodarone therapy
Hypertension/hyperlipidemia
History of dementia
Plan/recommendations
At this time, patient appears to be comfortable, nontoxic, without any ongoing complaints. However hypoxia is noted
Presently she is 96% on 2 L
Ambulatory saturation appears to be improved, desaturated to 84%, required 2 L as of 07/23
She desaturated to 80% on room air requiring 3 L with ambulation on 07/21
Chest x-ray suggests bilateral interstitial infiltrates
Chest x-ray 07/23 with worsening right apical consolidation, appears to possibly be an expiratory film?
Abdominal CT chest confirmed bibasilar pneumonia, right greater than left. Differential also includes inflammatory process, aspiration event, less likely heart failure
Echocardiogram with valvular disease, pulmonary hypertension
It is also noted the patient was transfused 1 unit, 07/17/24
Amiodarone therapy as noted
There are no recent films for comparison
Moving forward, differential is broad for her parenchymal findings
According to , patient was without symptoms prior to basketball game on 07/16
Differential is broad (aspiration event, the acquired pneumonia, lung injury, or edema, drug injury, TRALI). Less likely transfusion related given that abdominal CT imaging showed interstitial process prior to transfusion
Repeat ambulatory saturation on room air 07/23 seems to be improved, requiring 2 L, desaturated to 84%
Although pro-calcitonin is normal, continue with treatment for empiric pneumonia, required. Continue with ceftriaxone/doxycycline
Recent left leg injury noted. Thromboembolic process less likely given chronic Eliquis therapy
Diagnosis of exclusion would be amiodarone related interstitial process
Order CT chest without contrast, high-resolution images
is adamant about patient being discharged Friday morning prior to [facility] Friday p.m.
Discussed importance of continued treatment given age and risk for progressive lung injury process, respiratory failure
Given profoundly abnormal imaging, she is at risk for respiratory deterioration, failure
I would strongly suggest that health is more important than attending family event at this time
Patient is agreeable
Send Legionella and streptococcal pneumonia antigen were not sent
Amiodarone interstitial related process is a possibility, although diagnosis of exclusion
Chest x-ray appears to be out of proportion to patient's symptoms
Will follow
Updated at length at bedside
Subjective Data
-
Date of Service:
Date of Service: July 23, 2024
Subjective:
Patient is without complaints. She has a mild dry cough but otherwise denies shortness of breath, nausea, abdominal pain. is at bedside. Ambulatory saturation noted 84%, required 2 L.
Objective Data
Data Reviewed
Vital Signs / I&O / Oxygen:
Vital Signs
Temp Pulse Resp BP Pulse Ox
98.4 F 73 17 166/73 96
07/23/24 07:05 07/23/24 07:05 07/23/24 07:05 07/23/24 07:05 07/23/24 07:05
Intake and Output
07/22/24 07/23/24 07/24/24
06:59 06:59 06:59
Intake Total 180 / 180 900 / 900
Balance 180 / 180 900 / 900
SaO2 96
Nasal Cannula flow liters per 2
minute
Physical Exam
General: Comfortable and Other (Left facial bruising, left temporal lesion)
HEENT: Normocephalic and Anicteric
Cardiovascular: S1-S2, Regular Rhythm, Murmur (2/6 systolic murmur), Peripheral Edema (tr left > rt ) and Calf Tenderness (n)
Respiratory: Wheeze (n), Crackles (few at base), Rhonchi (n) and Non-Labored Respirations
GI: Soft, Non Distended and Non Tender
Neurology: Awake, Alert and No Motor Deficits
Skin: Cyanosis (n), Jaundice (n) and Rash (n )
Labs/Micro/Reports
Lab Data
07/23/24 07:14
07/23/24 07:14
Microbiology
07/17/24 11:13 Blood/Venous Blood Culture - Final
No Growth - Final Report
07/17/24 10:24 Blood/Venous Blood Culture - Final
No Growth - Final Report
[2024-07-23] MEDS: PROTONIX IV 40 MG IV (08:45)
[2024-07-23] MEDS: ROCEPHIN 1000 MG IV (08:45)
[2024-07-23] MEDS: NSS (PRESERVATIVE FREE) 10 ML IV (08:45)
--- NOTE | 2024-07-23 11:44 | W.PN.HOSP.TC ---
Today's Communication/Plan
-
CT chest today
CW ABX
CW Lasix
CM to arrange home O2
Assessment / Plan
Assessment / Plan
A/P:
Acute hypoxic respiratory failure:
Likely related to heart failure ; Cant rule out sec to pneumonia
Ongoing eval
Would probably need home O2 on dc
Right lung Pneumonia
Chest x-ray shows CHF with asymmetric right hemithorax interstitial/pulm edema versus right lower lobe pneumonia.
On admission patient was febrile and also had a white count. procalcitonin is normal. Looks like she has some chronicity to her leukocytosis.Repeat CXR shows still right lower zone opacity as well as left lower lobe. No comment about interstitial
edema.
Treated as community-acquired pneumonia with ceftriaxone and doxycycline.
Continued hypoxia with a significant despite antibiotic treatments and diuresis.
Pulmonary consulted-repeat chest x-ray today shows worsening of right lung upper lobe opacity.
Unclear if this is infectious pneumonia versus noninfectious.
CT of the chest requested.
Acute on chronic diastolic congestive heart failure:
BNP upon admission 7830
Monitor strict I/O
Monitor daily weight
Monitor renal function and electrolytes
Reviewed latest echocardiogram on our system and EF 55 to 60% and moderate to severe tricuspid regurgitation back in March 2024
Echo noted
Fluid restriction
Salt restriction
Heart failure education
Follow up clinical response
appt cardiology input - switched to oral lasix 07/21
Paroxysmal atrial fibrillation:
On antiarrhythmic, amiodarone 100 mg p.o. daily
Not on rate control due to bradycardia in the past
Cardiac monitoring-shows frequent spontaneous conversion to sinus rhythm with postconversion pause.
cw Eliquis. CT of the abdomen pelvis shows no evidence of hematoma.
Elevated troponin:
Likely nonischemic myocardial injury from heart failure
Chest pain-free
Troponin trended down so no need to check anymore unless clinical status changes.
Seen and reviewed twelve-lead EKG sinus rhythm at 71 bpm, QTc 471, no ischemic changes.
Cardiac monitoring
Acute blood loss anemia:
Likely related to hematomas from recent fall
Current hemoglobin 7.7 (last hemoglobin on 2023 was 11.5)--> hemoglobin 9.8 today after transfusion
GI bleed less likely
Blood transfusion today-obtained consent in the ED
Anemia workup mixed pattern iron deficiency, acute blood loss, anemia of chronic disease. Normal B12 and folate
CT of the abdomen and pelvis no acute intra-abdominal pathology or hemorrhage
Back on anticoagulation
Recent fall:
PT eval
Hypertension:
cw current tx
Under goal
Hyperlipidemia:
Resume statins
Dementia:
Monitor status and behavioral changes
Resume Namenda and Aricept
DVT prophylaxis:
SCDs
No pharmacological prophylaxis due to anemia but if hemoglobin remains stable can start Eliquis over the next 24 hours
CODE STATUS:
Full code
DW at bedside
Anticipated Discharge: 24 - 48 hours
Subjective/Interval History
-
Date of Service: July 23, 2024
Remains asymptomatic without shortness of breath or cough. Still requiring oxygen.
No chest pain. No fever chills.
Objective Data
-
Labs:
Laboratory Results
07/23/24
07:14
WBC 13.0 H
Hgb 10.3 L
Hct 31.5 L
Plt Count 314
Sodium 139
Potassium 4.0
Chloride 95 L
Carbon Dioxide 33 H
BUN 43 H
Creatinine 1.2 H
Glucose 125 H
Calcium 9.8
Vital Signs:
Vital Signs
Temp Pulse Resp BP Pulse Ox
98.4 F 73 17 166/73 96
07/23/24 07:05 07/23/24 08:43 07/23/24 07:05 07/23/24 08:43 07/23/24 08:30
I&O
07/22/24 07/23/24 07/24/24
06:59 06:59 06:59
Intake Total 180 / 180 900 / 900
Balance 180 / 180 900 / 900
Review of Systems
-
Respiratory: Denies Cough or Trouble Breathing
Cardiac: Denies Chest Pain
Abdomen/GI: Denies Abdominal Pain, Nausea or Vomiting
Neuro: Denies Dizzy
Physical Exam
-
General: No Apparent Distress
Respiratory: Crackles (Rt lung all zones and left lower zone area) and Non Labored Respirations; Negative Wheezes or Accessory Resp Muscle Use
Cardiac: Regular Rhythm and S1/S2
GI: Soft
Neuro: AO x 3
Data Reviewed
-
Diagnostic Radiology: Report Reviewed by me (cxr)
Labs: Labs Reviewed by me
--- NOTE | 2024-07-23 13:18 | CM ---
Addendum entered by JERRICA Espitia 07/23/24 17:06:
All clinical information for o2 faxed to Cyrus. She already dropped of portable and will bring concentrator to patient's home.
Original Note:
Spoke with PT, Bruce, who confirmed that patient is at baseline level of functioning. Spoke with attending who stated that she will most likely be ready for discharge, today or tomorrow. Spoke with patient's spouse who stated that patient has had o2
before and he is familiar with the process. Spoke with Cyrus from [employer] who asked for benefit information. She confirmed that she can accommodate patient when stable for discharge. Will fax home o2 eval, script, chart notes, H&P and
Demographics. Will set everything up today so that it is ready by the time patient is discharged. Home o2 eval done.
Plan: Case management will continue to follow and assist with discharge planning. Home with home o2.
--- NOTE | 2024-07-23 14:31 | W.PN.UPDATE ---
Addendum entered and electronically signed by Barry Ramírez MD 07/23/24 16:32:
Updated plan with by phone at length
Follow-up appointment made in pulmonary office
All questions answered
Original Note:
Update Note
Progress Note Update
Reviewed CT images
There does not appear to be any worsening of these when comparing other images to abdominal films
Right-sided, predominant findings but also some left lower lobe interstitial process
Appearance appears to be more consistent with interstitial process versus heart failure
Although cannot rule out infectious pneumonitis, less likely Given clinical scenario
Reviewed with primary service, cardiology
We will hold amiodarone for now, Amiodarone will be held at time of discharge
IV Decadron now and into tomorrow
Plan for discharge on prednisone 40 mg with taper down to off, 10 mg every 3 days until off
Will require short-term probably follow-up within a week
Consider discontinuing antibiotics at time of discharge
Ambulate and assess for home oxygen 07/24
Possible discharge 07/24
Reviewed with cardiology, primary service
We will update later today
[2024-07-23 15:05] VITALS: BP 159/55
[2024-07-23] MEDS: DECADRON 8 MG IV (15:26)
[2024-07-23] MEDS: PROTONIX 40 MG PO (21:56)
[2024-07-23] MEDS: ARICEPT 10 MG PO (21:56)
[2024-07-23] MEDS: AMBIEN 10 MG PO (21:56)
[2024-07-23] MEDS: CRESTOR 20 MG PO (21:56)
[2024-07-23] MEDS: DECADRON 4 MG IV (21:57)
[2024-07-23 22:53] VITALS: BP 124/51
[2024-07-24 06:00] VITALS: BMI 27.2
[2024-07-24 07:09] VITALS: BP 145/61
[2024-07-24] MEDS: LASIX 40 MG PO (09:26)
[2024-07-24] MEDS: PROTONIX 40 MG PO (09:26)
[2024-07-24] MEDS: VIBRAMYCIN 100 MG PO (09:26)
[2024-07-24] MEDS: NORVASC 5 MG PO (09:27)
[2024-07-24] MEDS: ZOLOFT 100 MG PO (09:27)
[2024-07-24] MEDS: ELIQUIS 5 MG PO (09:27)
[2024-07-24] MEDS: ROCEPHIN 1000 MG IV (09:28)
[2024-07-24] MEDS: DECADRON 4 MG IV (09:28)
[2024-07-24] MEDS: NAMENDA 10 MG PO (09:28)
[2024-07-24] MEDS: STERILE WATER FOR INJECTION 10 ML IV (09:29)
--- NOTE | 2024-07-24 09:33 | W.PN.HOSP.TC ---
Today's Communication/Plan
-
DC
Assessment / Plan
Assessment / Plan
A/P:
Acute hypoxic respiratory failure:
Possibly more suspected for lung pathology than heart failure
Ongoing eval
need home O2 on dc
Bilateral airspace consolidation right more than left
CT chest shows extensive patchy airspace consolidation in the right upper lobe, right lower lobe, right middle lobe. There is also minimal airspace consolidation seen in the left lower lobe.
With no cough or infective symptoms and normal procalcitonin felt less likely infectious.
Pulmonary consultation was obtained who raises concern about noninfectious pneumonia. Recommends steroids. After discussion with the cardiology holding amiodarone. Will need follow-up to see the response.
Will hold further antibiotics.
Acute on chronic diastolic congestive heart failure:
BNP upon admission 7830
Reviewed latest echocardiogram on our system and EF 55 to 60% and moderate to severe tricuspid regurgitation back in March 2024
Continue with oral lasix
Paroxysmal atrial fibrillation:
On antiarrhythmic, amiodarone 100 mg p.o. daily-going to be on hold
Currently in sinus rhythm
cw Eliquis. CT of the abdomen pelvis shows no evidence of hematoma.
Elevated troponin:
Likely nonischemic myocardial injury from heart failure
Chest pain-free
Troponin trended down so no need to check anymore unless clinical status changes.
Seen and reviewed twelve-lead EKG sinus rhythm at 71 bpm, QTc 471, no ischemic changes.
Cardiac monitoring
Acute blood loss anemia:
Likely related to hematomas from recent fall
Current hemoglobin 7.7 (last hemoglobin on 2023 was 11.5)--> hemoglobin 9.8 today after transfusion
GI bleed less likely
Anemia workup mixed pattern iron deficiency, acute blood loss, anemia of chronic disease. Normal B12 and folate
CT of the abdomen and pelvis no acute intra-abdominal pathology or hemorrhage
Back on anticoagulation
Recent fall:
PT eval
Hypertension:
cw current tx
Under goal
Hyperlipidemia:
Resume statins
Dementia:
Monitor status and behavioral changes
Resume Namenda and Aricept
DVT prophylaxis:
SCDs
No pharmacological prophylaxis due to anemia but if hemoglobin remains stable can start Eliquis over the next 24 hours
CODE STATUS:
Full code
DW at bedside regarding CT findings, pulmonary recommendations. He also had a bout with pulmonary yesterday.
Medically stable for discharge on steroids taper and home O2.
Total time of discharge 32 minutes
Anticipated Discharge: Today
Subjective/Interval History
-
Date of Service: July 24, 2024
Feels better.
Not SOB at rest .
No cough.
No CP.
No fever or chills
Objective Data
-
Vital Signs:
Vital Signs
Temp Pulse Resp BP Pulse Ox
98.1 F 67 16 145/61 94
07/24/24 07:09 07/24/24 07:09 07/24/24 07:09 07/24/24 07:09 07/24/24 07:09
I&O
07/23/24 07/24/24 07/25/24
06:59 06:59 06:59
Intake Total 900 / 900 900 / 900
Balance 900 / 900 900 / 900
Review of Systems
-
EENT: Denies Sore Throat
Respiratory: Denies Cough
Abdomen/GI: Denies Abdominal Pain
Neuro: Denies Dizzy
Physical Exam
-
General: Comfortable
HEENT: Moist Mucous Membranes
Respiratory: Crackles (Coarse in rt lower zones and left basal area) and Non Labored Respirations; Negative Wheezes or Accessory Resp Muscle Use
Cardiac: Regular Rhythm and S1/S2; Negative Tachycardic
Neuro: AO x 3
--- NOTE | 2024-07-24 09:43 | W.DCSUMMARY ---
Discharge Summary
Discharge Data
Date of Admission: 07/17/24
Date of Discharge: 07/24/24
-
Pending Results: No
Hospital Course
Primary diagnosis:
Bilateral airspace consolidation right more than left concerning for noninfectious pneumonia
Acute on chronic heart failure with preserved EF
Acute hypoxic respiratory insufficiency needing new arrangements of home O2
Fall with hematoma
Anemia suspected secondary to blood loss
Secondary diagnosis:
Paroxysmal atrial fibrillation
Essential hypertension
history of dementia
Hospital course:
Patient presented with shortness of breath and hypoxia. She had a recent fall and was seen in the ED and was asked to hold her Anticoagulants . she became progressively weak and short of breath. When checked her pulse ox it was in 70s.
On further evaluation she initially at the chest x-ray finding concern for pulm edema and right lower lobe opacity possibly a central ventricle edema versus pneumonia. Infectious pneumonia was entertained at the beginning but subsequently without
any infectious symptoms, no fevers, normal calcitonin felt less likely. She seems to have chronic low-grade leukocytosis. Culture data was negative including COVID and influenza. Despite initial antibiotics and diuretics she remained hypoxic.
Based on the chest x-ray, clinical exam and also elevated BNP there was a concern about acute on chronic heart failure. She was initiated on diuresis. Her echo on this admission showed EF of 66% with moderate to severe MR and moderate to severe TR
with moderate to severe pulmonary hypertension with pulmonary pressures of 45-50 mmHg. She improved and her weight from 148 pounds to 139 pounds at discharge.
Despite diuresis she was still hypoxic and the chest x-ray was still showing persistent right lung opacity.
Pulmonary consulted and his CT chest shows extensive patchy airspace consolidation significant in the right leg and in the left lower lobe 2. Concern was if this is noninfectious pneumonia. With amiodarone on board which could give consolidative
pneumonia picture it was kept on hold on she was started on steroids. She would be followed in pulmonary office see how she responds to steroids.
Home O2 was arranged at the time of discharge.
On admission she was noted to have hemoglobin of 7.7 with some soft tissue hematomas from the fall. She had no evidence of visceral injury to the abdomen or pelvis. No hematomas noted. She was given 1 unit of blood for possible blood loss anemia
and her hemoglobin remained stable after.
Consultants on board:
Pulmonary-Barry Varela
Cardiology-Carol Bee
Discharge Plan
-
Patient Disposition: Home with Home Care
Discharge Diagnosis/Procedures: Bilateral airspace consolidation right more than left concern for noninfectious pneumonia; acute CHFpHF
Diet: 2 Gram Sodium and Restrict fluids to 48 oz
Activity: As tolerated
Driving Restrictions: No driving
Blood Work: BMP in 1 week
Other Services: VN
Specialty Instructions: Weigh Daily- Call MD for wt gain/loss 3 lbs overnight/5 lbs in 1 week
Instructions: *[facility] Heart Failure Instructions
Referrals:
Barry Ramírez MD [Active] -
(RN HEMODIALYSIS appt 07/28 at 1030am with Ivy Elvis
Will need walk test and darryn)
Cristal Callahan PA-C [Specified Professional Personl] - 07/27/24 10:20 am (You have a cardiology follow up appointment at the [place] office with Dr. Melchor's physician senior executive assistant, Cristal. Please call with questions. )
Penny Simmons MD [Family Provider] - in less than 1 week
Prescriptions:
New
prednisone 10 mg tablet
10 mg PO DIRECTED Qty: 30 0RF
Rx Instructions:
Start taking 40mg daily from tomorrow and taper by 10mg every 3 days
Continued
memantine 10 MG tablet
10 mg PO BID
donepezil 23 MG tablet
23 mg PO HS
riboflavin (vitamin B2) 100 mg Tablet
100 mg PO DAILY Qty: 0
sertraline 100 mg Tablet
100 mg PO DAILY
ferrous sulfate [iron] 325 mg (65 mg iron) Tablet
325 mg PO MOWEFR@0800
rosuvastatin 20 mg Tablet
20 mg PO HS
pantoprazole 40 MG tablet,delayed release (DR/EC)
40 mg PO DAILY
cyanocobalamin (vitamin B-12) 1,000 MCG tablet
1,000 mcg PO DAILY Qty: 30 0RF
acetaminophen [Tylenol Extra Strength] 500 mg Tablet
1,000 mg PO Q6HPRN PRN (Reason: MILD PAIN)
zolpidem [Ambien] 5 mg Tablet
10 mg PO HS
Eliquis 5 mg Tablet
5 mg PO BID Qty: 60 1RF
Patient Comments:
07/17/24: Has this medication temporarily on hold since Friday07/11/24
Arnica [place]
1 tab PO DAILYPRN PRN (Reason: bruise)
hydralazine 25 mg Tablet
25 mg PO BIDPRN PRN (Reason: SBP>160)
amlodipine 5 mg Tablet
5 mg PO BID
potassium chloride 20 mEq Tablet,Er Particles/Crystals
20 meq PO DAILY
Changed
furosemide [Lasix] 40 mg tablet
40 mg PO BID AT 0800,1600 Qty: 60 0RF
Rx Instructions:
dose increased on this admission
Discontinued
ondansetron 4 mg tablet,disintegrating
4 mg PO Q8HPRN PRN (Reason: nausea and vomiting)
amiodarone 100 mg tablet
100 mg PO DAILY
Discharge Orders:
Discharge Patient (As Directed); Ordered 07/24/24
Ordered By: Kendell Wan
Discharge Date and Time
Print Language: ITALIAN
[2024-07-24 11:16] VITALS: BP 155/64
--- NOTE | 2024-07-26 10:30 | W.HF.CON ---
Heart Failure
- LV Function
Left ventricular function study result: LV Ejection fraction >/= 50%
Ejection Fraction Percentage: 66
- ARNI
Patient already on ARNI: No
Heart Failure ARNI Not Indicated: LV Ejection Fraction >/= 40%
- ACEI/ARB
Patient already on ACEI/ARB: No
Heart Failure ACEI/ARB Not Indicated: LV Ejection Fraction > 40%
- Beta Nikos
Patient already on Evidence Based Beta Nikos: No
Heart Failure Evidence Based Beta Nikos Not Indicated: LV Ejection Fraction > 40%
- Mineralocorticord Receptor Antagonist
Patient already on MRA: No
Heart Failure MRA Not Indicated: LV Ejection Fraction > 40%
- SGLT-2 Inhibitor
Patient already on SGLT-2 Inhibitor: No
Heart Failure SGLT-2 Inhibitor Contraindication: Patient Refusal
- Afib Anticoagulation
Patient already on Anticoagulation for Afib: Yes
- NYHA CHF Classification
NYHA CHF Classification Level: Class III - Symptoms w/ min exertion, interferes w/ nml daily activity (mod/sev. MR, TR, pulmonary HTN)
- ACC/AHA Stage
ACC/AHA Stage: Stage C: Symptomatic Heart Failure
== END 2024-07-24 11:14 | disposition home or self-care (01) | DRG 291 ==
LOC: 3 WEST ACU 13:44
PROVIDERS: Physician Assistant; ADMITTING PHYSICIAN Hospitalist; ATTENDING PHYSICIAN Internal Medicine; CONSULT PHYSICIAN Internal Medicine Cardiovascular Disease; CONSULT PHYSICIAN Internal Medicine Critical Care Medicine; EMERGENCY PHYSICIAN Emergency Medicine; FAMILY PHYSICIAN Internal Medicine
PROC: 30233N1 Transfusion of Nonautologous Red Blood Cells into Peripheral Vein, Percutaneous Approach (ICD-10-PCS; 2024-07-17)
DX: I11.0 Hypertensive heart disease with heart failure (principal); I50.33 Acute on chronic diastolic (congestive) heart failure; J18.9 Pneumonia, unspecified organism; D62 Acute posthemorrhagic anemia; F03.93 Unspecified dementia, unspecified severity, with mood disturbance; D68.32 Hemorrhagic disorder due to extrinsic circulating anticoagulants; I48.0 Paroxysmal atrial fibrillation; I08.1 Rheumatic disorders of both mitral and tricuspid valves; R09.02 Hypoxemia; R06.89 Other abnormalities of breathing; E78.00 Pure hypercholesterolemia, unspecified; E66.9 Obesity, unspecified; I5A Non-ischemic myocardial injury (non-traumatic); I27.20 Pulmonary hypertension, unspecified; T45.515A Adverse effect of anticoagulants, initial encounter; S00.83XA Contusion of other part of head, initial encounter; W19.XXXA Unspecified fall, initial encounter; Z11.52 Encounter for screening for COVID-19; Z79.01 Long term (current) use of anticoagulants; Z79.899 Other long term (current) drug therapy; Z87.891 Personal history of nicotine dependence
CPT/HCPCS: 36430; 71046; 71250; 74177; 76604; 80048; 80053; 82607; 82728; 82746; 83540; 83550; 83605; 83880; 84145; 84484; 85014; 85018; 85025; 85027; 85045; 86850; 86900; 86901; 86920; 87040; 87449; 87502; 87811; 87899; 93005; 93306; 96365; 96375; 97163; 97530; 99285; J2916; P9016; Q9967

== ENCOUNTER → 2024-08-04 12:58 | Outpatient (REF) | payer OTHER, SELFPAY ==
[2024-08-04 16:19] LABS: Hematocrit 35.7 % (37.0-47.0); Hemoglobin 11.5 g/dL (12.0-16.0); Mean Corp Hgb Conc. 32.2 g/dL (33.0-37.0); Mean Corpuscular Hgb 30.9 pg (27.0-31.0); Platelet Count 238 10^3/uL (130-400); Red Blood Cell Count 3.72 10^6/uL (4.20-5.40); Red Cell Dist. Width 16.4 % (11.5-14.5); White Blood Cell Count 21.8 10^3/uL (4.8-10.8)
[2024-08-04 16:21] LABS: Blood Urea Nitrogen 54 mg/dl (7-17); Calcium 9.7 mg/dl (8.4-10.2); Carbon Dioxide 30 mmol/L (22-30); Chloride 99 mmol/L (98-107); Glucose 166 mg/dl (70-99); Potassium 4.4 mmol/L (3.5-5.1); Sodium 140 mmol/L (135-145); eGFR 44.08
== END ==
LOC: HWLAB 12:58
PROVIDERS: ATTENDING PHYSICIAN Physician Assistant Medical; FAMILY PHYSICIAN Internal Medicine
DX: I50.32 Chronic diastolic (congestive) heart failure (principal); D62 Acute posthemorrhagic anemia
CPT/HCPCS: 36415; 80048; 85027

== ENCOUNTER → 2024-08-10 10:42 | Outpatient (REF) | payer OTHER, SELFPAY | LOC: PET 10:42 | PROVIDERS: ATTENDING PHYSICIAN Internal Medicine Cardiovascular Disease | DX: I50.31 Acute diastolic (congestive) heart failure (principal) | CPT/HCPCS: 78431; A9555; J2785 ==

== ENCOUNTER → 2024-10-18 11:19 | Outpatient (REF) | payer OTHER, SELFPAY | LOC: HWRAD 11:19 | PROVIDERS: ATTENDING PHYSICIAN Internal Medicine Critical Care Medicine; FAMILY PHYSICIAN Internal Medicine | DX: J18.9 Pneumonia, unspecified organism (principal) | CPT/HCPCS: 71250 ==